=== PATIENT | male | born 1940 | race Caucasian/White ===

== ENCOUNTER → 2020-01-18 08:36 | Outpatient (BNVA) | payer MEDICARE, OTHER, SELFPAY | PROVIDERS: Family Provider Nurse Practitioner; PCP Nurse Practitioner; Visit Provider Internal Medicine Cardiovascular Disease | DX: E78.5 Hyperlipidemia, unspecified (principal) | CPT/HCPCS: 80061 ==

== ENCOUNTER → 2020-02-23 13:29 | Outpatient (BNVA) | payer MEDICARE, OTHER, SELFPAY | PROVIDERS: Family Provider Nurse Practitioner; PCP Nurse Practitioner; Visit Provider Nurse Practitioner | DX: M54.9 Dorsalgia, unspecified (principal) | CPT/HCPCS: 72100 ==

== ENCOUNTER → 2020-03-03 09:27 | Outpatient (BNVA) | payer MEDICARE, OTHER, SELFPAY | PROVIDERS: Family Provider Nurse Practitioner; PCP Nurse Practitioner; Referring Provider Nurse Practitioner; Visit Provider Anesthesiology Pain Medicine | DX: M47.816 Spondylosis without myelopathy or radiculopathy, lumbar region (principal); M48.061 Spinal stenosis, lumbar region without neurogenic claudication; M48.062 Spinal stenosis, lumbar region with neurogenic claudication; M54.16 Radiculopathy, lumbar region; M62.830 Muscle spasm of back | CPT/HCPCS: 99204 ==

== ENCOUNTER 2020-03-08 14:24 | Outpatient (CLI) | payer MEDICARE, OTHER, SELFPAY ==
--- NOTE | 2020-03-08 15:15 | CT_ITS ---
WS: [id number] CT LUMBAR SPINE, noncontrast. HISTORY: pain TECHNIQUE: Contiguous 2.5 mm axial imaging are performed. Sagittal and coronal reformats are submitte d and reviewed. All CT scans at [facility] use at least one of these dose optimization te chniques: automated exposure control; mA and/or kV adjustment per patient size (includes targeted exa ms where dose is matched to clinical indication); or iterative reconstruction. IV contrast: None DLP: 1785.56 mGycm COMPARISON: None available. Straightening of the normal lumbar lordosis. L4 retrolisthesis by 5.2 mm with severe disc space narro wing and desiccation at L4-5. No fractures. Large vertebral body osteophytes extend anterior. L1-2: Normal. L2-3: Mild annular disc bulging with slight effacement of the ventral thecal sac. No stenosis. L3-4: Mild annular disc bulging with a LEFT foraminal broad-based disc protrusion. There is an additi onal osteophyte in the LEFT foramen. There is very mild LEFT foraminal narrowing. L4-5: Diffuse osteophytic ridging and annular disc bulging. Central broad based disc protrusion conta cting the thecal sac and RIGHT L5 nerve root. Mild disc encroachment into the lateral recesses bilate rally. L5-S1: No stenosis or herniations. Moderate atherosclerosis aorta. Small amount of air in the LEFT SI joint. CT/CT lumbar spine wo con* [id number] IMPRESSION: 1. Advanced degenerative disc disease at L4-5 with 5.2 mm retrolisthesis of L4 . 2. Broad-based disc protrusion centrally at L4-5 with encroachment into the la teral recesses bilaterally and contact on the RIGHT L5 nerve root. 3. Mild LEFT foraminal narrowing at L3-4 with a broad-based LEFT foraminal dis c protrusion.
== END 2020-03-08 14:25 | disposition home or self-care (01) ==
LOC: RADWPI 14:28
PROVIDERS: Family Provider Nurse Practitioner; PCP Nurse Practitioner; Visit Provider Anesthesiology Pain Medicine
DX: M51.36 Other intervertebral disc degeneration, lumbar region (principal); M51.26 Other intervertebral disc displacement, lumbar region; M48.061 Spinal stenosis, lumbar region without neurogenic claudication
CPT/HCPCS: 72131

== ENCOUNTER → 2020-03-09 10:20 | Outpatient (BNVA) | payer MEDICARE, OTHER, SELFPAY | PROVIDERS: Family Provider Nurse Practitioner; PCP Nurse Practitioner; Visit Provider Anesthesiology Pain Medicine | DX: M48.062 Spinal stenosis, lumbar region with neurogenic claudication (principal); M47.816 Spondylosis without myelopathy or radiculopathy, lumbar region; M54.16 Radiculopathy, lumbar region; M48.061 Spinal stenosis, lumbar region without neurogenic claudication; M48.19 Ankylosing hyperostosis [Forestier], 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; M62.830 Muscle spasm of back | CPT/HCPCS: 99213; 99214; G0260; J1030; J2001; J3490 ==

== ENCOUNTER → 2020-03-30 12:41 | Outpatient (BNVA) | payer MEDICARE, OTHER, SELFPAY | PROVIDERS: Family Provider Nurse Practitioner; PCP Nurse Practitioner; Visit Provider Anesthesiology Pain Medicine | DX: M48.062 Spinal stenosis, lumbar region with neurogenic claudication (principal); M47.816 Spondylosis without myelopathy or radiculopathy, lumbar region; M54.16 Radiculopathy, lumbar region; M48.061 Spinal stenosis, lumbar region without neurogenic claudication; M48.19 Ankylosing hyperostosis [Forestier], 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; M53.3 Sacrococcygeal disorders, not elsewhere classified; M62.830 Muscle spasm of back | CPT/HCPCS: 99212; 99213 ==

== ENCOUNTER → 2020-05-05 11:44 | Outpatient (BNVA) | payer MEDICARE, OTHER, SELFPAY | PROVIDERS: Family Provider Nurse Practitioner; PCP Nurse Practitioner; Visit Provider Nurse Practitioner Family | DX: J02.9 Acute pharyngitis, unspecified (principal); B37.0 Candidal stomatitis | CPT/HCPCS: 87071; 87880 ==

== ENCOUNTER → 2020-06-08 08:26 | Outpatient (BNVA) | payer MEDICARE, OTHER, SELFPAY | PROVIDERS: Family Provider Nurse Practitioner; PCP Nurse Practitioner; Visit Provider Internal Medicine Cardiovascular Disease | DX: E78.2 Mixed hyperlipidemia (principal) | CPT/HCPCS: 80061; 80076 ==

== ENCOUNTER → 2020-07-20 09:18 | Outpatient (BNVA) | payer MEDICARE, OTHER, SELFPAY | PROVIDERS: Family Provider Nurse Practitioner; PCP Nurse Practitioner; Visit Provider Internal Medicine Cardiovascular Disease | DX: E78.2 Mixed hyperlipidemia (principal); I25.5 Ischemic cardiomyopathy; I34.0 Nonrheumatic mitral (valve) insufficiency; I50.22 Chronic systolic (congestive) heart failure; I25.10 Atherosclerotic heart disease of native coronary artery without angina pectoris; Z95.810 Presence of automatic (implantable) cardiac defibrillator; I11.0 Hypertensive heart disease with heart failure | CPT/HCPCS: 80061; 80076 ==

== ENCOUNTER → 2020-12-20 10:36 | Outpatient (BNVA) | payer MEDICARE, OTHER, SELFPAY | PROVIDERS: Family Provider Nurse Practitioner; PCP Nurse Practitioner; Visit Provider Nurse Practitioner | DX: M54.2 Cervicalgia (principal) | CPT/HCPCS: 72040 ==

== ENCOUNTER → 2021-01-03 09:38 | Outpatient (BNVA) | payer MEDICARE, OTHER, SELFPAY | PROVIDERS: Family Provider Nurse Practitioner; PCP Nurse Practitioner; Visit Provider Anesthesiology Pain Medicine | DX: M79.601 Pain in right arm (principal); M79.602 Pain in left arm; M54.12 Radiculopathy, cervical region; M50.90 Cervical disc disorder, unspecified, unspecified cervical region; M47.812 Spondylosis without myelopathy or radiculopathy, cervical region; M48.062 Spinal stenosis, lumbar region with neurogenic claudication; M47.816 Spondylosis without myelopathy or radiculopathy, lumbar region; M54.16 Radiculopathy, lumbar region; M48.061 Spinal stenosis, lumbar region without neurogenic claudication; M53.3 Sacrococcygeal disorders, not elsewhere classified; M48.19 Ankylosing hyperostosis [Forestier], 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; M62.830 Muscle spasm of back | CPT/HCPCS: 99214 ==

== ENCOUNTER → 2021-01-30 13:22 | Outpatient (BNVA) | payer MEDICARE, OTHER, SELFPAY | PROVIDERS: Family Provider Nurse Practitioner; PCP Nurse Practitioner; Visit Provider Anesthesiology Pain Medicine | DX: M54.16 Radiculopathy, lumbar region (principal); M48.062 Spinal stenosis, lumbar region with neurogenic claudication; M48.061 Spinal stenosis, lumbar region without neurogenic claudication; M47.816 Spondylosis without myelopathy or radiculopathy, lumbar region; M53.3 Sacrococcygeal disorders, not elsewhere classified; M62.830 Muscle spasm of back; M48.19 Ankylosing hyperostosis [Forestier], 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; M54.12 Radiculopathy, cervical region; M50.90 Cervical disc disorder, unspecified, unspecified cervical region; M47.812 Spondylosis without myelopathy or radiculopathy, cervical region | CPT/HCPCS: 99214 ==

== ENCOUNTER → 2021-02-02 12:27 | Outpatient (BNVA) | payer MEDICARE, OTHER, SELFPAY | PROVIDERS: Family Provider Nurse Practitioner; PCP Nurse Practitioner; Visit Provider Anesthesiology Pain Medicine | DX: M54.16 Radiculopathy, lumbar region (principal); M48.062 Spinal stenosis, lumbar region with neurogenic claudication | CPT/HCPCS: 64483; 64484; J1100; J3490 ==

== ENCOUNTER → 2021-02-16 08:37 | Outpatient (BNVA) | payer MEDICARE, OTHER, SELFPAY | PROVIDERS: Family Provider Nurse Practitioner; PCP Nurse Practitioner; Visit Provider Anesthesiology Pain Medicine | DX: G89.29 Other chronic pain (principal); M54.41 Lumbago with sciatica, right side; M48.062 Spinal stenosis, lumbar region with neurogenic claudication; M54.16 Radiculopathy, lumbar region; M47.816 Spondylosis without myelopathy or radiculopathy, lumbar region; M48.061 Spinal stenosis, lumbar region without neurogenic claudication; M54.12 Radiculopathy, cervical region; M47.812 Spondylosis without myelopathy or radiculopathy, cervical region; M50.90 Cervical disc disorder, unspecified, unspecified cervical region; M53.3 Sacrococcygeal disorders, not elsewhere classified; M62.830 Muscle spasm of back; M48.19 Ankylosing hyperostosis [Forestier], 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 | CPT/HCPCS: 99214 ==

== ENCOUNTER → 2021-02-19 13:23 | Outpatient (BNVA) | payer MEDICARE, OTHER, SELFPAY | PROVIDERS: Family Provider Nurse Practitioner; PCP Nurse Practitioner; Visit Provider Anesthesiology Pain Medicine | DX: M48.062 Spinal stenosis, lumbar region with neurogenic claudication (principal); M54.16 Radiculopathy, lumbar region | CPT/HCPCS: 62323; J1040; J3490 ==

== ENCOUNTER → 2021-03-05 08:56 | Outpatient (BNVA) | payer MEDICARE, OTHER, SELFPAY | PROVIDERS: Family Provider Nurse Practitioner; PCP Nurse Practitioner; Visit Provider Anesthesiology Pain Medicine | DX: M54.16 Radiculopathy, lumbar region (principal); M48.062 Spinal stenosis, lumbar region with neurogenic claudication; M47.816 Spondylosis without myelopathy or radiculopathy, lumbar region; M53.3 Sacrococcygeal disorders, not elsewhere classified; M48.061 Spinal stenosis, lumbar region without neurogenic claudication; M54.12 Radiculopathy, cervical region; M50.90 Cervical disc disorder, unspecified, unspecified cervical region; M47.812 Spondylosis without myelopathy or radiculopathy, cervical region; M48.19 Ankylosing hyperostosis [Forestier], 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; M62.830 Muscle spasm of back | CPT/HCPCS: 99213 ==

== ENCOUNTER → 2021-03-16 09:04 | Outpatient (BNVA) | payer MEDICARE, OTHER, SELFPAY | PROVIDERS: Family Provider Nurse Practitioner; PCP Nurse Practitioner; Visit Provider Nurse Practitioner | DX: Z12.5 Encounter for screening for malignant neoplasm of prostate (principal) | CPT/HCPCS: G0103 ==

== ENCOUNTER → 2021-05-04 10:18 | Outpatient (BNVA) | payer MEDICARE, OTHER, SELFPAY | PROVIDERS: Family Provider Nurse Practitioner; PCP Nurse Practitioner; Visit Provider Anesthesiology Pain Medicine | DX: M48.062 Spinal stenosis, lumbar region with neurogenic claudication (principal); M54.16 Radiculopathy, lumbar region; M47.816 Spondylosis without myelopathy or radiculopathy, lumbar region; M48.061 Spinal stenosis, lumbar region without neurogenic claudication; M48.19 Ankylosing hyperostosis [Forestier], 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; M54.12 Radiculopathy, cervical region; M50.90 Cervical disc disorder, unspecified, unspecified cervical region; M47.812 Spondylosis without myelopathy or radiculopathy, cervical region; M53.3 Sacrococcygeal disorders, not elsewhere classified; M62.830 Muscle spasm of back; M25.552 Pain in left hip | CPT/HCPCS: 99214 ==

== ENCOUNTER → 2021-05-10 12:57 | Outpatient (BNVA) | payer MEDICARE, OTHER, SELFPAY | PROVIDERS: Family Provider Nurse Practitioner; PCP Nurse Practitioner; Visit Provider Anesthesiology Pain Medicine | DX: M53.3 Sacrococcygeal disorders, not elsewhere classified (principal); M48.062 Spinal stenosis, lumbar region with neurogenic claudication | CPT/HCPCS: G0260; J1030; J3490 ==

== ENCOUNTER → 2021-06-04 09:40 | Outpatient (BNVA) | payer MEDICARE, OTHER, SELFPAY | PROVIDERS: Family Provider Nurse Practitioner; PCP Nurse Practitioner; Visit Provider Anesthesiology Pain Medicine | DX: M48.062 Spinal stenosis, lumbar region with neurogenic claudication (principal); M54.16 Radiculopathy, lumbar region; M47.816 Spondylosis without myelopathy or radiculopathy, lumbar region; M48.061 Spinal stenosis, lumbar region without neurogenic claudication; M54.12 Radiculopathy, cervical region; M50.90 Cervical disc disorder, unspecified, unspecified cervical region; M47.812 Spondylosis without myelopathy or radiculopathy, cervical region; M48.19 Ankylosing hyperostosis [Forestier], 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; M53.3 Sacrococcygeal disorders, not elsewhere classified; M62.830 Muscle spasm of back | CPT/HCPCS: 99213 ==

== ENCOUNTER → 2021-06-14 10:55 | Outpatient (BNVA) | payer MEDICARE, OTHER, SELFPAY | PROVIDERS: Family Provider Nurse Practitioner; PCP Nurse Practitioner; Visit Provider Anesthesiology Pain Medicine | DX: G89.29 Other chronic pain (principal); M53.3 Sacrococcygeal disorders, not elsewhere classified; M48.062 Spinal stenosis, lumbar region with neurogenic claudication; M54.16 Radiculopathy, lumbar region; M48.061 Spinal stenosis, lumbar region without neurogenic claudication; M47.816 Spondylosis without myelopathy or radiculopathy, lumbar region; M54.12 Radiculopathy, cervical region; M50.90 Cervical disc disorder, unspecified, unspecified cervical region; M47.812 Spondylosis without myelopathy or radiculopathy, cervical region; M48.19 Ankylosing hyperostosis [Forestier], 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; M62.830 Muscle spasm of back; I25.10 Atherosclerotic heart disease of native coronary artery without angina pectoris | CPT/HCPCS: 99214 ==

== ENCOUNTER → 2021-07-18 08:51 | Outpatient (BNVA) | payer MEDICARE, OTHER, SELFPAY | PROVIDERS: Family Provider Nurse Practitioner; PCP Nurse Practitioner; Visit Provider Internal Medicine Cardiovascular Disease | DX: I50.22 Chronic systolic (congestive) heart failure (principal); I50.33 Acute on chronic diastolic (congestive) heart failure; E78.5 Hyperlipidemia, unspecified; R06.02 Shortness of breath | CPT/HCPCS: 80048; 80061; 80162; 83880 ==

== ENCOUNTER → 2021-08-13 10:43 | Outpatient (BNVA) | payer MEDICARE, OTHER, SELFPAY | PROVIDERS: Family Provider Nurse Practitioner; PCP Nurse Practitioner; Visit Provider Nurse Practitioner Family | DX: I25.5 Ischemic cardiomyopathy (principal) | CPT/HCPCS: 80048 ==

== ENCOUNTER → 2021-09-14 10:25 | Outpatient (BNVA) | payer MEDICARE, OTHER, SELFPAY | PROVIDERS: Family Provider Nurse Practitioner; PCP Nurse Practitioner; Visit Provider Nurse Practitioner Family | DX: I25.5 Ischemic cardiomyopathy (principal); I50.22 Chronic systolic (congestive) heart failure | CPT/HCPCS: 80048 ==

== ENCOUNTER → 2021-10-03 10:08 | Outpatient (BNVA) | payer MEDICARE, OTHER, SELFPAY | PROVIDERS: Family Provider Nurse Practitioner; PCP Nurse Practitioner; Visit Provider Nurse Practitioner Family | DX: I50.22 Chronic systolic (congestive) heart failure (principal); I50.9 Heart failure, unspecified | CPT/HCPCS: 80048 ==

== ENCOUNTER → 2021-12-07 10:37 | Outpatient (BNVA) | payer MEDICARE, OTHER, SELFPAY | PROVIDERS: Family Provider Nurse Practitioner; PCP Nurse Practitioner; Visit Provider Internal Medicine Cardiovascular Disease | DX: I25.5 Ischemic cardiomyopathy (principal); Z95.810 Presence of automatic (implantable) cardiac defibrillator ==

== ENCOUNTER → 2021-12-11 09:39 | Outpatient (BNVA) | payer MEDICARE, OTHER, SELFPAY | PROVIDERS: Family Provider Nurse Practitioner; PCP Nurse Practitioner; Visit Provider Internal Medicine Cardiovascular Disease | DX: R06.02 Shortness of breath (principal); I25.119 Atherosclerotic heart disease of native coronary artery with unspecified angina pectoris; I50.33 Acute on chronic diastolic (congestive) heart failure | CPT/HCPCS: 80048; 84484; 85025; 85610; 86850; 86900; 99215 ==

== ENCOUNTER 2021-12-14 07:09 | Observation (INO) | payer MEDICARE, OTHER, SELFPAY ==
[2021-12-14] VITALS (18 sets, daily range): BP systolic 91–130; BP diastolic 50–87; PULSE 60–92; RESP 12–32; TEMP 36.2–36.7; O2SAT 94–99; BMI 25.8
--- NOTE | 2021-12-14 06:00 | XACV_ITS ---
Exam Room: [facility] Ht: 173 cm Wt: 77 kg BSA: 1.94 m2 Gender: Male : 1940 Any Known Allergies: No known allergies Exam Priority: Routine Procedure(s): Procedure Description: Diagnostic procedure Procedure Description: PCI procedure Procedure Description: Left Heart Catheterization Procedure Description: Drug Eluting Coronary Stent Procedure Description: PTCA Procedure Description: Coronary Angiography Jacky LIANG; Diagnostic Cath Status: Elective Diagnostic Findings * The left main is a medium caliber vessel with a minimal ostial narrowing. * The left anterior descending artery is a medium caliber vessel which appears to wrap around the LV apex. The mid to distal LAD was found to have a long stented segment. The first septal general counselor was found to have an ostial. * The circumflex artery is a medium caliber nondominant vessel with no significant stenotic lesions. * The right coronary artery is a medium to large caliber dominant vessel with around 30% tubular narrowing in the mid segment. No other significant obstructive lesions were noted. PCI Status: Elective PCI LVEF Assessed: No PCI Indication: NSTE - ACS Interventional Findings * The more distal LAD stent was 95% stenosed. A wire was placed and a 2.5 mm x 20 mm noncompliant balloon was used to dilate the lesion. Subsequently a 2.5 mm x 22 mm stent, drug-eluting, was placed. There was a good angiographic result. No complications. Decision for PCI with Surgical Consult: No PCI for Multi-vessel Disease: No Conclusions 1. This is a 81-year-old white male with history of coronary disease, status post PCI in 1998 with multiple stents, status post ICD in 2004, presented with complaints of chest pain and shortness of breath. The patient is known to have cardiomyopathy and had ICD implantation. In view of his high risk status, for further evaluation of his symptoms, a cardiac catheterization was recommended. Patient underwent left heart catheterization with left and right coronary angiogram today. The findings are as follows. 2. Minimal ostial narrowing in the left main. High-grade in-stent stenosis in the LAD. Mild disease in the other vessels. LVEDP of 22 mmHg. Based on the angiogram findings, it was thought to be appropriate to consider PCI of the LAD lesion. I reviewed and discussed the cardiac catheterization data with Dr. Flores. Dr. Flroes took over further management of this patient at this point. Further details of the intervention, please refer to the intervention report by Dr. Flores. Interventional RX Recommendation: PCI w/o planned CABG Diagnostic RX Recommendation: PCI w/o planned CABG LV EDP: 22 mmHg Left Ventriculography Findings: * The LV gram was not performed because of the concern about dye overload. The LVEDP was 22 mmHg. Pressures Phase:Rest AO : 93 / 19 ( 40 ) @ 8:42:00 AM LV : 91 / 13 / 22 @ 8:42:00 AM Clinical Evaluation EBL: 5mL-10mL Procedural Details Bev Escobar RN, UTILITIES MANAGER was relieved by Ama Taveras RN as monitoring person. Procedure Consent Obtained. Admit Source: Out Patient. Pre-Procedure Time Out. Identified patient by full name and date of as verbalized by the patient/guarantor. Does the consent match the physician's order: Yes. Accurate & Complete Informed Consent: Yes. Inpatient/Outpatient History & Physical on Chart: Yes. If H&P is completed, is and addenduem needed: No; If yes, is the addendum complete: No. Visualize and Verify Site with Patient/Guarantor: N/A. Relevant Radiology Images available: N/A. The risks, benefits, and alternatives of sedation and/or procedure were discussed by physician. The patient agrees to continue. Procedure started. Correct patient, site and procedure confirmed by cath team. PERRLA. Strong, equal hand certified orthoptist bilaterally. Lungs clear x 5 lobes. IV Site on Arrival: 20 gauge in the right anticubital. IV Fluids: 0.9% NaCl at KVO. 0 mL infused prior to chemical lab supervisor. Pre Procedural Pulses: bilateral dorsalis pedis was 3+. Pre Procedural Pulses: bilateral radial was 3+. Pre Procedural Pulses: bilateral posterior tibial was 3+. Oxygen started at 2liters/min via nasal canula. right radial was prepped with chloroprep then draped in the usual sterile fashion. right groin was prepped with chloroprep then draped in the usual sterile fashion. Physician notified. Baseline sample Acquired. HR: 60 BPM. [facility] Clinical Fraility Score: 3: Managing Well. Coal Chemist Indications: Worsening Angina. Chest Pain Symptom Assessment: Typical Angina Symptoms. Physician arrived. Physician scrubbed in. Immediate Pre-Procedure Time Out. Correct Patient: Yes; Correct Procedure: Yes; Correct Site: Yes; Correct Patient Position: Yes; Correct Supplies: Yes; Dried Flammable Prep: Yes; Blood Products Available: No;. Lidocaine 1% infiltrated to the right radial. Arterial access obtained. A 5 indonesian Otoniel catheter in over wire. Wire out. Multiple views taken of left coronary artery. Catheter redirected to the RCA. Catheter removed over the standard wire. A 5 indonesian JR4 catheter in over wire. Multiple views taken of right coronary artery. Catheter removed over the standard wire. A 5 indonesian Angled Pig catheter in over wire. EDP Sample taken: LV 91/13,22; HR: 59 BPM; SpO2: 97%. Dr. Flores called to chemical lab supervisor. Dr. Rico scrubbed out. Patient family updated. Dr. Flores scrubbed in to perform intervention. 6 indonesian XB 3 guide catheter was inserted over the wire. Standard wire removed. [place] guidewire was advanced through the guide catheter to lesion in the mid LAD. Guidewire advanced across lesion. Balloon inserted to lesion in the mid LAD. Inflation number: 1 The T RONNI EUPHORA RX [id number] BALLOON was reinflated across the Mid LAD, to 14 WARD for 0:45 seconds. Balloon out. Angiography performed. Inflation Number : 2 A JADE [place] LUDIVINA [id number] JEANNE -Lot Number# was prepped and advanced across the Mid LAD. The stent was deployed at 12 WARD for 0:21 seconds. Stent balloon out over wire. Results checked. Wire out. Guide catheter out. A TR Band was successful obtaining hemostatsis at the Right Radial artery insertion site. Post Procedure: Pulses reassessed and unchanged. PERRLA. Strong, equal hand certified orthoptist bilaterally. No VTE prophylaxis required. Complications: None. Post-op diagnosis: Obstructive CAD. PCI Indication:Worsening Angina. Estimated blood loss: 5mL-10mL. Responsiveness - Normal response to verbal stimuli; alert and oriented, PERRLA. Airway - Unaffected, no intervention required; spontaneous ventilation. Circulation: W/N/L, pulses unchanged. Nausea/Vomiting: No. Procedure completed. Total IV fluids: 430 mL. Medication's Wasted: Lidocaine 1% = 8 mL. Medication's Wasted: Nitro = 50 mg. Medication's Wasted: Heparin = 1000 units. Medication's Wasted: Other = fentanyl 100 mcg. Patient transferred by wheelchair to 1st floor. Access Site Site: Right Radial artery Sheath Size: 6 Fr Hemostasis Method: TR Band Hemostasis Success: Successful Procedure Medications Start: 7:06 AM Stop: 7:06 AM Medication: Fentanyl Amount: 50 mcg Route: I.V. Start: 7:09 AM Stop: 7:09 AM Medication: Versed Amount: 1 mg Route: I.V. Start: 7:18 AM Stop: 7:18 AM Medication: Fentanyl Amount: 50 mcg Route: I.V. Start: 7:19 AM Stop: 7:19 AM Medication: Versed Amount: 1 mg Route: I.V. Start: 7:22 AM Stop: 7:22 AM Medication: Verapamil Amount: 5 mg Route: I.A. Start: 7:22 AM Stop: 7:22 AM Medication: 0.9% Saline Amount: 250 ml Route: I.V. bolus Start: 7:24 AM Stop: 7:24 AM Medication: Heparin Amount: 5000 units Route: I.V. Start: 7:28 AM Stop: 7:28 AM Medication: Versed Amount: 1 mg Route: I.V. Start: 7:47 AM Stop: 7:47 AM Medication: Versed Amount: 1 mg Route: I.V. Start: 8:14 AM Stop: 8:14 AM Medication: Plavix Amount: 600 mg Route: P.O. I, the attending physician, have reviewed and verified all procedure medications. Yes, all medications given per verbal order History/Risk Factors Hypertension: Yes Dyslipidemia: Yes Peripheral Arterial Disease (PAD): No Myocardial Infarction (TN): Yes Obesity: No Renal Disease: No Prior Interventions PCI: Yes CABG: No Valve Surgery: No Date of PCI: 07/24/1999 Report Signatures Diagnostic Workflow Finalized by Dr Candie Rico MD [facility] on 12/14/2021 09:31 AM Interventional Workflow Finalized by Dr. Walt Flores MD on 12/14/2021 08:50 AM
[2021-12-14] MEDS: diphenhydrAMINE 50 mg Capsule PO (06:21)
--- NOTE | 2021-12-14 07:08 | W.PM.OPSUD ---
Surgery/Procedure H&P Update DATE OF PROCEDURE: December 14, 2021 DATE H&P PERFORMED: 12/11/21 H&P UPDATE INFORMATION: I have reviewed H&P completed within last 30 days, I have examined patient prior to procedure and No changes to prior documentation PREOP DIAGNOSIS: ASHD PRIMARY INDICATION FOR PROCEDURE: ashd/ cardiopmyopathy/SOB/Chest pain PLANNED PROCEDURE: Operation Date: 12/14/21 07:00 Proposed Procedures p Cardiac Catheterization(Left) - Candie Rico MD PATIENT REASSESSED PRIOR TO SEDATION, WITH NO CHANGE NOTED: Yes PHYSICAL EXAM: alert, oriented x 3, clear to auscultation bilaterally and regular rate & rhythm AIRWAY EVAL/ANESTHESIA PLAN: normal airway, see other exam findings, ASA II, Monitored Anesthesia, Local Anesthesia, Risks, benefits & alternatives of sedation and/or procedure discussed and Patient agrees to continue as planned
--- NOTE | 2021-12-14 10:39 | PC.CHAP ---
Pastoral Care Encounter/Spiritual Assessment Type of Contact [] Declined perianesthesia rn visit [] Patient/Family/Request visit [] Outpatient visit [] Follow-up visit [] Physician referral [] Code/Alert [x] Routine visit [] Staff referral [] Actively dying [] Patient sleeping [x] Family support [] [] Out of room [] Palliative care [] [] Receiving care in room [] Pre-surgical visit [] Trauma [] Long length of stay [] ICU visit [] Other: Relational/Emotional Strength [] Patient feels connected with others/family/visitors/staff [] Distress [] Loneliness/isolation [] Abandonment Spirituality of Patient [] Person of [place] [] Attends Episcopal of their [place] [] Believes in Prayer [] Reads Bible or Mandaeism materials [] There are Spiritual issues to be addressed Platform Attendant Interventions [x] Prayer [] Active listening [] Non-anxious presence [] Spiritual/emotional support [] Crisis/trauma care [] Spiritual counseling [] Bereavement support [] Provided bereavement packet [] Provided Bible/devotional materials [] Provided toy/stuffed animal, coloring book to patient or family member [] Provided Communion [] Anointing/[place] [] Salvation [x] Completed spiritual assessment [] Other: Impact on Illness or Injury [] Angry [] Fearful [] Anxious [] Often cries [] Exhaustion [] Unable to work [] Unable to attend mu-ism [] Unable to walk/stand [] Unable to read [] Unable to drive [] Unable to eat/drink [] Unable to sleep [] Unable to be with family [] Patient intubated [] Other: Summary prayed for healing and peace Time spent with patient
[2021-12-14] MEDS: digoxin 125 mcg Tablet PO (18:08)
--- NOTE | 2021-12-14 19:05 | PC.NURSE ---
Received report from SAHARA Gardner. Patient is s/p C with PCI via right wrist. Dressing in place to site remains c,d,i with no s/s of bleeding or hematoma formation observed. Patient up ambulating in the [place] frequently. Denies pain or needs. No distress observed. Instructed patient on site care and restrictions. Patient verbalized complete understanding. Will continue to monitor.
[2021-12-14] MEDS: carvedilol 3.125 mg Tablet PO (20:08)
[2021-12-15 00:33] VITALS: PULSE 73
[2021-12-15 03:40] VITALS: PULSE 66
[2021-12-15 04:02] VITALS: BP 99/48; PULSE 73; RESP 13; O2SAT 95
[2021-12-15 04:10] VITALS: PULSE 66
[2021-12-15 07:26] VITALS: BP 124/73; PULSE 73; RESP 18; TEMP 36.6; O2SAT 98
[2021-12-15] MEDS: aspirin 81 mg EC Tablet PO (08:42)
[2021-12-15] MEDS: magnesium oxide 400 mg tablet PO (08:42)
[2021-12-15] MEDS: clopidogrel 75 mg Tablet PO (08:42)
[2021-12-15] MEDS: loratadine 10 mg Tablet PO (08:42)
[2021-12-15] MEDS: carvedilol 3.125 mg Tablet PO (08:43)
--- NOTE | 2021-12-15 10:05 | P.PN_ITS ---
Subjective Subjective: This patient underwent cardiac catheterization yesterday, which revealed high-grade lesion in the left anterior descending artery. He underwent PCI of this lesion. Currently remaining stable with no new symptoms. Vital signs are stable. Medications: Medication Review Details: Current Medications Aspirin (Aspirin 81 Mg Ec Tablet) 81 mg PO DAILY [facility] Last Admin: 12/15/21 08:42 Dose: 81 mg Documented by: Carvedilol (Carvedilol 3.125 Mg Tablet) 3.125 mg PO BID@0900,2100 [facility] Last Admin: 12/15/21 08:43 Dose: 3.125 mg Documented by: Clopidogrel Bisulfate (Clopidogrel 75 Mg Tablet) 75 mg PO DAILY [facility] Last Admin: 12/15/21 08:42 Dose: 75 mg Documented by: Digoxin (Digoxin 125 Mcg Tablet) 125 mcg PO Q24H [facility] Last Admin: 12/14/21 18:08 Dose: 125 mcg Documented by: Fluticasone Propionate (Fluticasone Nasal [place] 16gm Btl) 2 spray INTRANASAL DAILY [facility] Last Admin: 12/15/21 08:43 Dose: Not Given Documented by: Loratadine (Loratadine 10 Mg Tablet) 10 mg PO DAILY [facility] Last Admin: 12/15/21 08:42 Dose: 10 mg Documented by: Magnesium Oxide (Magnesium Oxide 400 Mg Tablet) 400 mg PO DAILY [facility] Last Admin: 12/15/21 08:42 Dose: 400 mg Documented by: Nitroglycerin (Nitroglycerin 0.4 Mg Sublingual Tablet) 0.4 mg SUBLINGUAL Q5M PRN PRN Reason: chest pain Non-Formulary Medication (Ezetimibe-Simvastatin) 0 tab PO .COMPLEX [facility] Non-Formulary Medication (Sacubitril-Valsartan) 1 tab PO BID [facility] Last Admin: 12/15/21 08:43 Dose: Not Given Documented by: Triamcinolone Acetonide (Triamcinolone 0.1% Cream 15 Gm) 1 applic TOPICAL BID PRN PRN Reason: eczema Vitals/I&O/Wt Last Vital Signs Temp 97.8 F 12/15/21 07:26 Pulse 73 12/15/21 07:26 Resp 18 12/15/21 07:26 BP 124/73 12/15/21 07:26 Pulse Ox 98 12/15/21 07:26 12/14/21 12/15/21 12/15/21 22:59 06:59 14:59 Intake Total 360 / 600 Balance 360 / 600 Weight last 48 hrs Weight 170 lb Physical Exam Narrative: GENERAL: The patient is alert and oriented times three. Not in any acute distress. HEENT: No significant pallor, icterus or lymphadenopathy.Oral cavity: There are no mucous membrane lesions. NECK: Trachea appears to be central. No masses noted. No JVD or thyromegaly appreciated. RESPIRATORY: Chest is symmetrical. No intercostals muscle retraction or any accessory muscle activation. There is no chest wall tenderness. Breath sounds are heard bilaterally. No rales or rhonchi heard. No evidence of any consolidation. BREASTS: Deferred. HEART: The heart sounds are normal. No S3 or S4. No significant murmurs. No pericardial rub ABDOMEN: No vessel pulsations or distention. No tenderness. No organomegaly appreciated. Bowel sounds are normally heard. : Deferred. RECTAL: Deferred. LYMPHATIC: No lymphadenopathy noted in the neck. EXTREMITIES: No hematoma or bleeding of the right wrist. Good radial pulse. MUSCULOSKELETAL: No acute joint deformities or swelling SKIN: There are no significant rashes or ecchymosis NEUROPSYCHIATRIC: The patient is alert and oriented x3. Appears to be in a good mood. No tremors or rigidity noted. Data : 12/15/21 10:05 A&P Assessment and plan (1) Atherosclerotic heart disease [place] coronary artery w/angina pectoris: Status post cardiac catheterization, status post PCI of the LAD in-stent stenosis. Currently seems to be stable. We will continue on the current medication. Status: Acute (2) Implantable cardioverter-defibrillator (ICD) at end of battery life: Patient requires ICD revision. This will be scheduled for a later date. Status: Acute (3) Cardiomyopathy: Clinically seems to be compensated. We will continue on the current medications. Status: Acute Qualifiers: Cardiomyopathy type: ischemic Qualified Code(s): I25.5 - Ischemic cardiomyopathy (4) Mitral regurgitation: Continue on the current management. Status: Acute Qualifiers: Cardiac valve disease etiology: nonrheumatic Qualified Code(s): I34.0 - Nonrheumatic mitral (valve) insufficiency (5) CHF (congestive heart failure): As mentioned above. Status: Acute Qualifiers: Heart failure type: systolic Heart failure chronicity: chronic Qualified Code(s): I50.22 - Chronic systolic (congestive) heart failure (6) Hyperlipidemia: We will continue on the current statin/Zetia combination. Status: Acute Qualifiers: Hyperlipidemia type: mixed hyperlipidemia Qualified Code(s): E78.2 - Mixed hyperlipidemia Plan Since the patient remained stable, and will be discharged home today. [facility] 1 week . Patient will be seen by me as scheduled Will schedule for the ICD revision 2 weeks from now Patient is advised to continue the medications as mentioned above. The importance of compliance to diet, medications and exercise were discussed. In the event of the patient developing chest pain ,unusual palpitations or any new symptoms, is advised to contact me or come to the hospital. Attestations Medical Necessity Statement*: Discharge home today Coding Level of Care Code Acute Petrophysicist for Jersong Fwd History Detailed Exam Detailed Medical Decision Making Moderate Complexity Diagnoses Atherosclerotic heart disease [place] coronary artery w/angina pectoris I25.119 Implantable cardioverter-defibrillator (ICD) at end of battery life Z45.02 Cardiomyopathy I25.5 Cardiomyopathy type: ischemic Mitral regurgitation I34.0 Cardiac valve disease etiology: nonrheumatic CHF (congestive heart failure) I50.22 Heart failure type: systolic Heart failure chronicity: chronic Hyperlipidemia E78.2 Hyperlipidemia type: mixed hyperlipidemia
[2021-12-15 10:29] LABS: Blood Urea Nitrogen 17 mg/dL (8-23); Calcium 8.9 mg/dL (8.5-10.5); Carbon Dioxide 20 mmol/L (22-29); Chloride 105 mmol/L (98-107); Glucose 98 mg/dL (65-115); Osmolality Calculated 282 mOsm/kg (285-295); Sodium 135 mmol/L (136-145)
[2021-12-15 10:34] LABS: Anion Gap 14.4 (5-19); Potassium 4.4 mmol/L (3.5-5.1)
[2021-12-15 11:16] VITALS: BP 124/73; PULSE 73; RESP 18; TEMP 36.6; O2SAT 98
--- NOTE | 2021-12-15 11:16 | PC.NURSE ---
Discharge Note Patient discharged to home via ambulatory accompanied by spouse. Discharge instructions reviewed with patient and/or representative personal service. Mobile pharmacy medications and/or prescriptions provided. Belongings/home medications returned.
== END 2021-12-15 11:17 | disposition home or self-care (01) ==
LOC: CSU 07:12
PROVIDERS: Internal Medicine Cardiovascular Disease; Admitting Provider Internal Medicine Cardiovascular Disease; Family Provider Nurse Practitioner; PCP Nurse Practitioner; Visit Provider Internal Medicine Cardiovascular Disease
DX: I25.119 Atherosclerotic heart disease of native coronary artery with unspecified angina pectoris (principal); Z45.02 Encounter for adjustment and management of automatic implantable cardiac defibrillator; I34.0 Nonrheumatic mitral (valve) insufficiency; I50.22 Chronic systolic (congestive) heart failure; E78.2 Mixed hyperlipidemia; Z95.5 Presence of coronary angioplasty implant and graft; I11.0 Hypertensive heart disease with heart failure; I25.2 Old myocardial infarction
CPT/HCPCS: 36415; 80048; 93458; 96360; C1725; C1769; C1874; C1887; C1894; C9600; G0378; J1644; J2250; J3010; J3490; J7030; Q0163; Q9967

== ENCOUNTER → 2021-12-21 09:07 | Outpatient (BNVA) | payer MEDICARE, OTHER, SELFPAY | PROVIDERS: Family Provider Nurse Practitioner; PCP Nurse Practitioner; Visit Provider Nurse Practitioner Family | DX: Z09 Encounter for follow-up examination after completed treatment for conditions other than malignant neoplasm (principal); I25.119 Atherosclerotic heart disease of native coronary artery with unspecified angina pectoris; I50.33 Acute on chronic diastolic (congestive) heart failure; R07.9 Chest pain, unspecified; Z79.82 Long term (current) use of aspirin | CPT/HCPCS: 36415; 80048; 83880; 99213; 99214 ==

== ENCOUNTER 2021-12-28 07:22 | Outpatient (CLI) | payer MEDICARE, OTHER, SELFPAY ==
[2021-12-28] VITALS (18 sets, daily range): BP systolic 94–120; BP diastolic 61–86; PULSE 60–95; RESP 15–24; TEMP 36.3–36.5; O2SAT 93–98; BMI 25.0
--- NOTE | 2021-12-28 09:40 | W.PM.OPSUD ---
Surgery/Procedure H&P Update DATE OF PROCEDURE: December 28, 2021 DATE H&P PERFORMED: 12/11/21 H&P UPDATE INFORMATION: I have reviewed H&P completed within last 30 days, I have examined patient prior to procedure and No changes to prior documentation PREOP DIAGNOSIS: CRTD-ARIE PLANNED PROCEDURE: Operation Date: 12/28/21 08:30 Proposed Procedures p Pacemaker Generator Change(Left) - Candie Rico MD Revision of the SHIPPING AND RECEIVING SUPERVISOR-D PATIENT REASSESSED PRIOR TO SEDATION, WITH NO CHANGE NOTED: Yes PHYSICAL EXAM: alert, oriented x 3, clear to auscultation bilaterally and regular rate & rhythm AIRWAY EVAL/ANESTHESIA PLAN: normal airway, see other exam findings, ASA III, Monitored Anesthesia, Local Anesthesia, Risks, benefits & alternatives of sedation and/or procedure discussed and Patient agrees to continue as planned
--- NOTE | 2021-12-28 12:18 | PM.OP ---
Operative Report Date of procedure: December 28, 2021 Pre-op diagnosis: Preop Diagnosis CRTD-ARIE Brief History: This is a 81-year-old white male who is known to have coronary artery disease, ischemic cardiomyopathy and REMELT FURNACE EXPEDITER-D placement was found to have ARIE for the device. For further management of his condition, he required REMELT FURNACE EXPEDITER-D revision. Procedure: PROCEDURE: ICD REVISION PREOPERATIVE DIAGNOSIS: REMELT FURNACE EXPEDITER-D elective replacement indication. POSTOPERATIVE DIAGNOSIS: REMELT FURNACE EXPEDITER-D elective replacement indication. ESTIMATED BLOOD LOSS: Around 5 milliliters. COMPLICATIONS: None. BRIEF HISTORY: The patient is 81-year-old white male who had a REMELT FURNACE EXPEDITER-D implantation for bradycardia and ischemic cardiomyopathy. The patient was found to have elective replacement indication, during routine office followup evaluation. For further management of patient's condition and for the symptomatic bradycardia, the patient required an REMELT FURNACE EXPEDITER-D revision. Patient has a history of atherosclerotic heart disease, recent PCI, essential benign hypertension, dyslipidemia The procedure was explained to the patient and his in detail with the risks and benefits. The risks of bleeding, hematoma, vascular injury, infection and other concomitant complications were explained in detail, which the patient understood well and consented to proceed. PROCEDURES PERFORMED: 1. Explantation of the old REMELT FURNACE EXPEDITER-D device . 2. Implantation of the new REMELT FURNACE EXPEDITER-D device The patient brought to the Cardiac President And Chief Executive Officer. The left side of the neck and the subclavian area were cleaned and draped in a sterile fashion. 1% Xylocaine was used for local anesthetic agent. A 2 inch long incision was made just below the previous pacemaker scar. By sharp and blunt dissection, the ICD pocket was accessed. The old generator was delivered from the pocket. The generator was detached from the lead s. The new generator was attached to the lead. The REMELT FURNACE EXPEDITER-D pocket was copiously irrigated with vancomycin solution. Because of the continuous capillary oozing surgicel absorbable hemostat was used in the pocket( Lot# [id number], expiry date 04/07/2026) . Complete hemostasis was achieved. The lead was positioned behind the generator.. Sponge counts were confirmed. The REMELT FURNACE EXPEDITER-D pocket was closed in layers. Skin was approximated using 4-0 Vicryl. EXPLANTED DEVICE: REMELT FURNACE EXPEDITER-D device: Date of implant Brand:Viva. Model number:. Serial number: [id number]. IMPLANTED DEVICES: Ventricular Lead: Date of implantation: Model number: [id number] Serial number: [id number] Make: Medtronic. Atrial Lead Date of implantation Model number 5076 Serial number [id number] LV Lead Model number- [id number] Make-Medtronic Implanted Generator: Date of implantation 12/28/2021 Brand: [employer] Construction REMELT FURNACE EXPEDITER-D SureScan. Model number: [id number] Serial number: [id number] Stimulation Threshold: Through the Device--the ventricular sensing was not obtained because of the pacer dependency. Lead impedance was 699 and the pacing threshold was 0.75 volts at 0.4 milliseconds. The atrial sensing was 1.8 millivolts. The lead impedance was 437 ohms and the pacing threshold was 0.75 volts at 0.4 ms. The left ventricular lead sensing was not obtained. Impedance was 389 ohms. The pacing threshold was 1.0 V at 0.4 ms The pacemaker was set for DDDR mode with an upper rate of 130 and a lower rate of 60. The DFT testing was not done Ventricular tachycardia detection rate was set at 176 bpm The ventricular fibrillation detection rate was set at 207 bpm A pressure dressing was applied over the ICD site. The patient was transferred back to medical floor in stable condition.
[2021-12-28] MEDS: carvedilol 3.125 mg Tablet PO (17:41)
[2021-12-28] MEDS: sacubitril/valsartan 24-26 mg Tablet 4 EACH PO (17:45)
[2021-12-28] MEDS: digoxin 125 mcg Tablet PO (18:37)
[2021-12-28] MEDS: sodium chloride 0.9% 1,000 ML 75 ML IV (19:33)
[2021-12-29] MEDS: sodium chloride 0.9% 1,000 ML 75 ML IV (02:00)
[2021-12-29] MEDS: HYDROcodone-acetaminophen 5-325 mg Tablet 1 TAB PO (02:04)
[2021-12-29 02:05] VITALS: BP 110/73; PULSE 88; RESP 18; O2SAT 97
[2021-12-29 03:48] VITALS: PULSE 67
--- NOTE | 2021-12-29 06:00 | ECG_ITS ---
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 Measurements Intervals [place] Rate: 67 P: 48 NH: 148 QRS: 258 QRSD: 205 T: 92 QT: 480 QTc: 510 Interpretive Statements ELECTRONIC ATRIAL PACEMAKER ELECTRONIC VENTRICULAR PACEMAKER No previous ECG available for comparison Electronically Signed On 12-30-2021 19:35:54 CDT by Luke Garcias M.D. [id number]
[2021-12-29 08:00] VITALS: BP 106/57; PULSE 63; RESP 20
[2021-12-29] MEDS: magnesium oxide 400 mg tablet PO (09:30)
[2021-12-29] MEDS: sacubitril/valsartan 24-26 mg Tablet 4 EACH PO (09:30)
[2021-12-29] MEDS: carvedilol 3.125 mg Tablet PO (09:32)
[2021-12-29] MEDS: FUROsemide 20 mg Tablet PO (09:32)
[2021-12-29] MEDS: aspirin 81 mg EC Tablet PO (09:32)
[2021-12-29] MEDS: clopidogrel 75 mg Tablet PO (09:33)
--- NOTE | 2021-12-29 10:11 | PM.SDS ---
Short Stay Summary Providers Date of Admit/Discharge: 12/28/21 Attending Provider: Luke Garcias MD Primary Care Provider: DORIAN KateC Chief Complaint: [id number] HPI History of Present Illness Ruslan King is a 81 year old male with past medical history of coronary artery disease, ischemic cardiomyopathy who had PASTEURIZING SUPERVISOR-D in the past and device has ARIE now. Patient was brought to the hospital for generator change out Review of Systems General: Reports: 10 or more systems reviewed and unremarkable except in HPI and below Const: Denies: fever(s), chills, body aches or fatigue Eyes: Denies: change in vision, blurry vision, blind spots, floaters or seeing flashes ENMT: Denies: throat pain or odynophagia Card: Denies: chest pain, palpitations, irregular heart rhythm, edema, swelling of feet/ankles, lightheadedness, syncope, pre-syncope or dyspnea on exertion Resp: Denies: dyspnea, productive cough, non-productive cough or wheezing GI: Denies: abdominal pain, nausea, vomiting, heartburn, change in bowel habits, hematochezia or melena : Denies: difficulty urinating, dysuria or hematuria Musc: Denies: neck pain, back pain or joint pain Skin/Breast: Denies: rash or pruritus Neuro: Denies: headache(s), numbness in extremities, weakness in extremities or dizziness Psych: Denies: anxiety or depression Endo: Denies: polyuria, polydipsia or excessive sweating Kendell/Lymph: Reports: easy bruising and easy bleeding All/Imm: Denies: urticaria, throat swelling, tongue swelling, facial swelling, acute wheezing, itchy eyes, seasonal rhinorrhea or food intolerance Home Meds/Allergies Home Medications and Allergies Home Medications Medication Instructions Recorded Confirmed Type aspirin 81 mg tablet,delayed 81 mg PO DAILY 01/03/20 01/04/22 History release magnesium oxide 400 mg PO DAILY tab 08/15/20 01/04/22 History Allergies Allergy/AdvReac Type Severity Reaction Status Date / Time No Known Allergies Allergy Verified 01/04/22 07:45 Malignant hyperthermia Allergy Severe Malignant Uncoded 01/04/22 07:45 hyperthermia PFSH Acute PFSH: Medical History 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], 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 CAD (coronary artery disease) Cardiac resynchronization therapy defibrillator (PASTEURIZING SUPERVISOR-D) in place Cardiomyopathy CHF (congestive heart failure) History of [place] (myocardial infarction) 07/24/1999 in [place], [place] History of nonmelanoma skin cancer Hyperlipidemia Malignant hyperthermia susceptibility Mitral regurgitation Neuropathy Surgical History History of ankle surgery Left ankle ORIF 1994 Hx of bilateral cataract extraction ICD (implantable cardioverter-defibrillator) in place I had 3 different surgeries Family History Father , Stroke Stroke CAD (coronary artery disease) later in life Mother Stroke Son Anesthesia complication Family/Other Anesthesia complication Lung disease Suicide Sister Cancer Grandmother Lung disease Denies family history of Diabetes Clotting disorder Dementia Chronic kidney disease (CKD) Bleeding disorder Hypertension Social History Smoking and tobacco status: never smoked Second hand smoke exposure: No Smoking risk assessment/counseling performed?: No Alcohol intake: never Desire information about alcohol rehabilitation?: No Counseling given: No Desire information about substance/drug rehabilitation?: No Counseling given: No Adopted: No Caregiver/support person: No Lives independently: Yes Household members: spouse Housing: House Marital status: Number of children: 5 service: No Current occupational status: retired History of recent travel: No Current gender identity: Male Vitals/I&O/Wt Last Vital Signs Temp 97.7 F 12/28/21 19:30 Pulse 67 12/29/21 03:48 Resp 18 12/29/21 02:05 BP 110/73 12/29/21 02:05 Pulse Ox 97 12/29/21 02:05 12/28/21 12/29/21 12/29/21 22:59 06:59 14:59 Intake Total 540 / 540 543.75 / 1083.75 Balance 540 / 540 543.75 / 1083.75 Weight last 48 hrs Weight 165 lb Weight 165 lb Physical Exam Narrative: GENERAL: Patient is alert, awake and oriented x3. [] NECK: No jugular vein distension. [] HEENT: No cyanosis. No icterus. No pallor. [] HEART: Regular S1 and S2. No murmur, rub or gallop. [] LUNGS: Clear to auscultate bilaterally. [] ABDOMEN: Soft, nontender and nondistended. Positive bowel sounds. No guarding, rebound or tenderness. [] CENTRAL NERVOUS SYSTEM: Grossly nonfocal. [] EXTREMITIES: Lower extremities with 1+ edema bilaterally. Pulses palpable in the lower extremities, both dorsalis pedis and posterior tibial. [] Hospital Course Hospital Course Ruslan King is a 81 year old male with past medical history of coronary artery disease, ischemic cardiomyopathy who had PASTEURIZING SUPERVISOR-D in the past and device has ARIE now. Patient was brought to the hospital for generator change out. He underwent successful replacement of generator yesterday. PASTEURIZING SUPERVISOR-D site looks normal without any hematoma. Patient denies any complaints today. He was discharged home in a stable condition. SSS Data Data Completed and Pending: Completed Studies During Hospitalization Category Date Time Status RN IMMUNOLOGY request for service Routin e Exams 12/28/21 07:30 Completed Discharge Plan Discharge Patient Disposition: Home Prescriptions: New multivitamin Tablet 1 tab PO DAILY Qty: 7 0RF Continued aspirin 81 mg tablet,delayed release (DR/EC) 81 mg PO DAILY 0RF magnesium oxide 400 mg magnesium tablet 400 mg PO DAILY 0RF fluticasone propionate [Flonase Allergy Relief] 50 mcg/actuation spray,suspension 2 spray intranasal DAILY Qty: 16 0RF Rx Instructions: administer into each nostril loratadine [Claritin] 10 mg tablet 10 mg PO DAILY Qty: 30 2RF ezetimibe-simvastatin 10-20 mg tablet See Rx Instructions .ROUTE .COMPLEX Qty: 90 3RF Dose Instruction: TAKE 1 TABLET BY MOUTH DAILY Rx Instructions: TAKE 1 TABLET BY MOUTH DAILY digoxin 125 mcg (0.125 mg) tablet See Rx Instructions .ROUTE .COMPLEX Qty: 90 3RF Dose Instruction: TAKE 1 TABLET BY MOUTH DAILY Rx Instructions: TAKE 1 TABLET BY MOUTH DAILY triamcinolone acetonide 0.1 % cream 1 applic topical BID PRN (Reason: eczema) Qty: 80 1RF Rx Instructions: Apply BID to areas on arms/legs no more than 2 wks/mo nitroglycerin [Nitrostat] 0.4 mg tablet, sublingual 0.4 mg sublingual Q5M PRN (Reason: chest pain) Qty: 50 3RF clopidogrel 75 mg tablet 75 mg PO DAILY Qty: 100 5RF furosemide 20 mg tablet 20 mg PO DAILY Qty: 90 1RF No Action sacubitril-valsartan 97-103 mg tablet 1 tab PO BID Qty: 90 3RF carvedilol 3.125 mg tablet 3.125 mg PO BID Qty: 90 3RF Discharge Orders: Discharge Order (Routine); Ordered 12/29/21 Ordered By: Luke Garcias Referrals: Candie Rico MD [Physician] - 6 Weeks ([facility] will be calling to schedule a cardiology followup with Dr. Rioc to be seen in 6 weeks. If you don't hear from them by Friday, please give them a call. Thank you) Opal Messina FNP [Nurse Practitioner] - 1 week ([facility] will be calling to schedule a post procedure followup with DONNA Leigh to be seen in 1 week. If you don't hear from them by Friday, please give them a call. Thank you) Diet: Cardiac Activity: Increase activity as tolerated Patient Instructions: Cephalexin (By mouth) (Bio-Cef, Keflex), Multivitamins, Adult Formula (By mouth) (Daily Multiple Vitamins,..., Post Pacemaker - Jcaky Discharge Date/Time: 12/29/21 11:15 Attestations Medical Necessity Statement*: Care not expected to cross 2 midnights. Time Spent in Patient Care*: less than 30 min Quality Metrics Clinical Quality Measures: [ No reported AMI, CVA or VTE this stay] Coding Level of Care Code Acute Set Up Worker for Milvia Angela
[2021-12-29 10:40] VITALS: PULSE 67
--- NOTE | 2021-12-29 11:05 | PC.OT ---
Orders received to provide ROM teaching: arm dangle, wall walk & rotator cuff. Pt. readying for discharge (dressing self) when therapist entered. Handouts provided and ROM exercises demonstrated. Evaluation not completed secondary to pt. being discharged.
--- NOTE | 2021-12-29 11:46 | PC.NURSE ---
discharge instructions given and explained.pt verb understanding of instructions
== END 2021-12-29 11:15 | disposition home or self-care (01) ==
LOC: CCL 07:22 → CSU 12:27
PROVIDERS: Family Provider Nurse Practitioner; PCP Nurse Practitioner; Visit Provider Internal Medicine Cardiovascular Disease
DX: Z45.02 Encounter for adjustment and management of automatic implantable cardiac defibrillator (principal); Z79.82 Long term (current) use of aspirin; I25.10 Atherosclerotic heart disease of native coronary artery without angina pectoris; I50.9 Heart failure, unspecified; I25.2 Old myocardial infarction; E78.5 Hyperlipidemia, unspecified
CPT/HCPCS: 33233; 33241; 36415; 93005; 96360; 99152; 99153; C1769; C1882; J0690; J2250; J3010; J7030; J7050

== ENCOUNTER → 2022-01-04 08:52 | Outpatient (BNVA) | payer MEDICARE, OTHER, SELFPAY | PROVIDERS: Family Provider Nurse Practitioner; PCP Nurse Practitioner; Visit Provider Nurse Practitioner Family | DX: Z09 Encounter for follow-up examination after completed treatment for conditions other than malignant neoplasm (principal); Z95.810 Presence of automatic (implantable) cardiac defibrillator | CPT/HCPCS: 99213; 99214 ==

== ENCOUNTER → 2022-01-11 10:14 | Outpatient (BNVA) | payer MEDICARE, OTHER, SELFPAY | PROVIDERS: Family Provider Nurse Practitioner; PCP Nurse Practitioner; Visit Provider Internal Medicine Cardiovascular Disease | DX: Z95.810 Presence of automatic (implantable) cardiac defibrillator (principal) | CPT/HCPCS: 93284 ==

== ENCOUNTER → 2022-02-26 13:46 | Outpatient (BNVA) | payer MEDICARE, OTHER, SELFPAY | PROVIDERS: Family Provider Nurse Practitioner; PCP Nurse Practitioner; Visit Provider Nurse Practitioner Family | DX: Z12.5 Encounter for screening for malignant neoplasm of prostate (principal); I50.22 Chronic systolic (congestive) heart failure; I50.9 Heart failure, unspecified | CPT/HCPCS: 80053; G0103 ==

== ENCOUNTER → 2022-03-12 10:17 | Outpatient (BNVA) | payer MEDICARE, OTHER, SELFPAY | PROVIDERS: Family Provider Nurse Practitioner; PCP Nurse Practitioner; Visit Provider Internal Medicine Cardiovascular Disease | DX: Z95.810 Presence of automatic (implantable) cardiac defibrillator (principal); I25.119 Atherosclerotic heart disease of native coronary artery with unspecified angina pectoris; I34.0 Nonrheumatic mitral (valve) insufficiency; E78.2 Mixed hyperlipidemia | CPT/HCPCS: 36415; 80061; 99214 ==

== ENCOUNTER 2022-05-21 09:53 | Outpatient (CLI) | payer MEDICARE, OTHER, SELFPAY ==
--- NOTE | 2022-05-21 10:15 | USCV_ITS ---
Ruslan King Age: 81 Gender: M : 1940 Exam Date: 05/21/2022 10:21 Ordering Phys: Candie Rico MD ([email or web address]) Technologist: Anita Sosa Exam Location: [facility] [place] Indication: EVALUATE LV FUNCTION BP: 98 / 56 HR: 65 Rhythm: Sinus Technical Quality: Suboptimal MEASUREMENTS (Male / Female) Normal Values 2D ECHO LVOT Diameter 2.0 cm LV Ejection Fraction MOD 2C 23.4 % LV Ejection Fraction 2C AL 27.0 % LA Diameter 4.6 cm LA Width 4.3 cm LA Height 6.9 cm RA Width 4.2 cm RA Height 3.9 cm Aorta at Sinotubular Diameter 2.8 cm IVC Diameter 1.0 cm M-MODE MV E Point Septal Separation 2.8 cm DOPPLER AV Peak Velocity 110.0 cm/s LVOT Peak Velocity 78.0 cm/s AV Area Cont Eq vti 2.3 cm squared AV Area Cont Eq pk 2.3 cm squared MV Peak Velocity 115.0 cm/s MV Area PHT 4.4 cm squared Mitral E to A Ratio 1.6 MV E' Velocity 50.5 cm/s Mitral E to MV E' Ratio 18.7 Mitral E to LV E' Lateral Ratio 17.0 Mitral E to LV E' Septal Ratio 20.7 TR Peak Velocity 224.6 cm/s TR Peak Gradient 20.2 mmHg TR Mean Velocity 145.8 cm/s TR Mean Gradient 9.4 mmHg TR Velocity Time Integral 51.0 cm TV Peak E Velocity 65.0 cm/s Right Atrial Pressure 3.0 mmHg Pulmonary Artery Systolic Pressu 23.2 mmHg PV Peak Velocity 83.0 cm/s RV Acceleration Time 0.1 s RV Ejection Time 0.3 s RV AcT/ET 0.3 FINDINGS Left Ventricle Dilated left ventricle. Severely decreased left ventricular systolic function. Left ventricular ejection fraction is estimated at 25 %. Severe global left ventricular hypokinesis. Grade II diastolic dysfunction, moderately elevated filling pressures. Abnormal septal motion consistent with conduction abnormality. Right Ventricle Normal right ventricular size and systolic function. Right ventricular systolic pressure 30 mmHg. ICD wire visualized in the right ventricle. Right Atrium Normal right atrial size. Left Atrium Moderately increased left atrial size. Mitral Valve Structurally normal mitral valve. No mitral valve stenosis. Mild to moderate mitral valve regurgitation. Aortic Valve Aortic valve not well visualized. No aortic valve stenosis. No aortic valve regurgitation. Tricuspid Valve Structurally normal tricuspid valve. Mild tricuspid valve regurgitation. Pulmonic Valve Pulmonic valve not well visualized. No pulmonary valve stenosis. Trace pulmonary valve regurgitation. Pericardium No pericardial effusion. Aorta Normal size aortic root and proximal ascending aorta. IVC Normal IVC dimension with >50% respiratory change of the inferior vena cava. CONCLUSIONS 1. Dilated left ventricle. Severely decreased left ventricular systolic function. Left ventricular ejection fraction is estimated at 25%. Severe global left ventricular hypokinesis. Grade II diastolic dysfunction, moderately elevated filling pressures. Abnormal septal motion consistent with conduction abnormality. 2. Normal right ventricular size and systolic function. 3. Mild to moderate mitral valve regurgitation. 4. When compared to previous echocardiogram dated 02/07/2017, there may not have been any significant change. Angelina Pena MD (Electronically Signed) Final Date: 22 May 2022 13:11 S
== END 2022-05-21 09:54 | disposition home or self-care (01) ==
LOC: RAD 09:54
PROVIDERS: PCP Nurse Practitioner; Visit Provider Internal Medicine Cardiovascular Disease
DX: I25.5 Ischemic cardiomyopathy (principal); I50.22 Chronic systolic (congestive) heart failure; I34.0 Nonrheumatic mitral (valve) insufficiency
CPT/HCPCS: 93306

== ENCOUNTER → 2022-06-11 10:40 | Outpatient (BNVA) | payer MEDICARE, OTHER, SELFPAY | PROVIDERS: PCP Nurse Practitioner; Visit Provider Nurse Practitioner Family | DX: R53.83 Other fatigue (principal); R63.0 Anorexia; E78.2 Mixed hyperlipidemia; Z13.6 Encounter for screening for cardiovascular disorders; K59.00 Constipation, unspecified; M25.471 Effusion, right ankle | CPT/HCPCS: 73610; 80053; 80061; 84443; 85025 ==

== ENCOUNTER 2022-07-01 12:08 | Emergency (ER) | payer MEDICARE, OTHER, SELFPAY ==
[2022-07-01 12:23] VITALS: BMI 25.0
--- NOTE | 2022-07-01 12:42 | USCV_ITS ---
Ruslan King Age: 82 Gender: M : 1940 Exam Date: 07/01/2022 12:58 Ordering Phys: Aldo Hernandez DO Technologist: Exam Location: [facility] [place] Indication: Rt leg pain HISTORY: Lower extremity pain. PROCEDURES: Venous duplex imaging was performed in only the right lower extremity. The following venous structures were evaluated: common femoral vein, profunda vein, proximal portion of the greater saphenous vein, superficial femoral vein, and the popliteal vein. In addition, the posterior tibial and peroneal trunk were evaluated. FINDINGS: Normal 2-D Doppler and augmentation and compressibility throughout the lower extremity venous structures. Additional imaging through the proximal calf veins also reveals no thrombus. Limited evaluation of the greater saphenous vein is patent with no thrombus. CONCLUSIONS No DVT right lower extremity. Dr. Brooke Grant DO (Electronically Signed) Final Date: 01 July 2022 14:36 S
--- NOTE | 2022-07-01 12:44 | ED_ITS ---
HPI - Extremity Problem General: Chief complaint: Extremity Problem,Nontraumatic Stated complaint: [place] [facility] sent for possible blood clot Time Seen by Provider: 07/01/22 12:33 History of Present Illness: 82-year-old male sent in by his primary care office. Patient reports that 6 days ago he developed some anterior foot pain that moved up his anterior marquez. Couple days ago with the pain then moved to the medial ankle. Today the pain is up in the posterior calf. Patient went to his primary care office who sent him out to the ER because they were concerned about a blood clot. Patient has no swelling of the lower leg, no warmth, erythema or skin changes. Patient has no shortness of breath or other systemic complaints. 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 CAD (coronary artery disease) Cardiac resynchronization therapy defibrillator (TRANSITION PROGRAM MANAGER-D) in place Cardiomyopathy CHF (congestive heart failure) History of [place] (myocardial infarction) 07/24/1999 in [place], [place] History of nonmelanoma skin cancer Hyperlipidemia Malignant hyperthermia susceptibility Mitral regurgitation Neuropathy Surgical History History of ankle surgery Left ankle ORIF 1994 Hx of bilateral cataract extraction ICD (implantable cardioverter-defibrillator) in place I had 3 different surgeries Family History Father , Stroke Stroke CAD (coronary artery disease) later in life Mother Stroke Son Anesthesia complication Family/Other Anesthesia complication Lung disease Suicide Sister Cancer Grandmother Lung disease Denies family history of Diabetes Clotting disorder Dementia Chronic kidney disease (CKD) Bleeding disorder Hypertension Social History Smoking and tobacco status: never smoked Second hand smoke exposure: No Smoking risk assessment/counseling performed?: No Alcohol intake: never Desire information about alcohol rehabilitation?: No Counseling given: No Desire information about substance/drug rehabilitation?: No Counseling given: No Adopted: No Caregiver/support person: No Lives independently: Yes Household members: spouse Housing: House Marital status: Number of children: 5 service: No Current occupational status: retired History of recent travel: No Current gender identity: Male Physical Exam Const: COMMON NORMALS: no acute distress, average body habitus, patient oriented x3, no limitations and healthy appearing HENMT: COMMON NORMALS: normocephalic HEAD & SCALP: normal to inspection and normocephalic Eye: COMMON NORMALS: Equal, round and reactive pupils present and EOMs intact bilaterally PUPIL: Yes Equal, round and reactive pupils present Resp: COMMON NORMALS: normal respiratory effort, No retractions and No use of accessory muscles Cardio: COMMON NORMALS: regular rate, regular rhythm and Peripheral pulses 2+ throughout RATE: regular rate RHYTHM: regular rhythm PERIPHERAL PULSES: Peripheral pulses 2+ throughout Extremity: COMMON NORMALS: normal to inspection, full ROM, capillary refill normal, no clubbing, cyanosis or edema and no pedal edema Neuro: COMMON NORMALS: patient oriented x3, CN's II-XII intact bilaterally and moves all extremities Psych: COMMON NORMALS: mental status grossly normal, cooperative and normal affect Skin: COMMON NORMALS: no rashes or lesions noted, no wounds and turgor normal GENERAL SKIN EXAM: no rashes or lesions noted and turgor normal Course Vital Signs: Vital signs: Vital Signs Respiratory Rate 18 07/01/22 14:52 Blood Pressure 140/83 07/01/22 14:52 Pulse Oximetry 95 07/01/22 14:52 Oxygen Delivery Me thod 07/01/22 14:33 MDM - Extremity (Nontraumatic) Medical Decision Making Patient ultrasound shows no blood clots. Patient with nonspecific right lower leg pain. Recommended topical lidocaine and Voltaren cream and follow-up with his primary care provider. Patient stable and discharged home Imaging Data US: Radiologist's impression: No DVT Discharge Plan Discharge Patient Disposition: Home Clinical Impression: Pain in right lower leg Condition: Stable Prescriptions: No Action aspirin 81 mg tablet,delayed release (DR/EC) 81 mg PO DAILY magnesium oxide 400 mg magnesium tablet 400 mg PO DAILY clotrimazole-betamethasone 1-0.05 % cream 1 applic topical BID 14 Days Qty: 15 0RF triamcinolone acetonide 0.1 % cream 1 applic topical BID PRN (Reason: eczema) Qty: 80 1RF Rx Instructions: Apply BID to areas on arms/legs no more than 2 wks/mo nitroglycerin [Nitrostat] 0.4 mg tablet, sublingual 0.4 mg sublingual Q5M PRN (Reason: chest pain) Qty: 50 3RF clopidogrel 75 mg tablet 75 mg PO DAILY Qty: 100 5RF ezetimibe-simvastatin 10-20 mg tablet See Rx Instructions .ROUTE .COMPLEX Qty: 100 3RF Dose Instruction: TAKE 1 TABLET BY MOUTH DAILY Rx Instructions: TAKE 1 TABLET BY MOUTH DAILY carvedilol 3.125 mg tablet 3.125 mg PO BID digoxin 125 mcg (0.125 mg) tablet 125 mcg PO DAILY furosemide 20 mg tablet 20 mg PO DAILY PRN (Reason: Edema) Remeron 15 mg tablet 15 mg PO BEDTIME Entresto 97-103 mg tablet 1 tab PO BID multivitamin Tablet 1 tab PO DAILY Qty: 7 0RF Discharge Orders: Discharge ED (Routine); Ordered 07/01/22 Ordered By: Aldo Hernandez Referrals: Herrera Coronado, PARRISH [Primary Care Provider] - Discharge Diet: Advance as tolerated Discharge Activity: Increase activity as tolerated Patient Instructions: Opioid Safety, Pain Management Activity Restrictions/Additional Instructions: Follow-up with your primary care provider if pain is not improved over the next 3 to 4 days. Warm moist heat to the right lower leg for 20 minutes at a time 3-4 times daily for the next 2 to 3 days Voltaren/diclofenac cream use as directed on package as needed for pain 4% topical lidocaine with menthol use as directed on package as needed for pain Coding Level of Care Code ED Quill Picking Machine Operator for Milvia Fwd Exam Comprehensive
[2022-07-01 14:33] VITALS: RESP 18; O2SAT 95
[2022-07-01 14:52] VITALS: BP 140/83; RESP 18; O2SAT 95
== END 2022-07-01 14:53 | disposition home or self-care (01) ==
PROVIDERS: Emergency Provider Student in an Organized Health Care Education/Training Program; PCP Nurse Practitioner
DX: M79.604 Pain in right leg (principal); Z79.82 Long term (current) use of aspirin; Z79.02 Long term (current) use of antithrombotics/antiplatelets; I25.10 Atherosclerotic heart disease of native coronary artery without angina pectoris; I50.9 Heart failure, unspecified; I25.2 Old myocardial infarction; E78.5 Hyperlipidemia, unspecified
CPT/HCPCS: 93971; 99285

== ENCOUNTER → 2022-07-31 13:40 | Outpatient (BNVA) | payer MEDICARE, OTHER, SELFPAY | PROVIDERS: PCP Nurse Practitioner; Visit Provider Nurse Practitioner Family | DX: I25.5 Ischemic cardiomyopathy (principal); Z95.810 Presence of automatic (implantable) cardiac defibrillator; E78.5 Hyperlipidemia, unspecified | CPT/HCPCS: 36415; 80048; 83880; 99214 ==

== ENCOUNTER 2022-08-03 08:36 | Emergency (ER) | payer MEDICARE, OTHER, SELFPAY ==
[2022-08-03 08:44] VITALS: BP 124/83; PULSE 93; RESP 18; TEMP 36.5; O2SAT 95; BMI 24.3
--- NOTE | 2022-08-03 09:17 | W.ED.NAVMDI ---
HPI - Nausea/Vomiting/Diarrhea General: Chief complaint: Nausea/Vomiting/Diarrhea Stated complaint: diarrhea; weakness; no intake/rest Time Seen by Provider: 08/03/22 08:57 History of Present Illness: Patient is a 82-year-old male comes to the ED with diarrhea. He has been having episodes of diarrhea for the over a month and he has seen his PCP for this within the last month as well. He reports having approximately 5-6 episodes of diarrhea per day. Diarrhea usually occurs right after he has something to eat. Denies any blood in stool. Describes stool as watery, brown and sometimes a little yellow. Endorses having a decreased appetite for the past month as well. Denies any fever, chills, chest pain, abdominal pain, cramping pain, nausea or vomiting. He is able to keep p.o. food and fluids down. Endorses some fatigue. Associated nausea: No Associated symtoms: Reports fatigue; Denies change in vision, chest pain, dysuria, headache(s), nausea or palpitations Review of Systems Const: Reports: change in appetite (Decreased appetite) and fatigue; Denies: fever(s) or chills Eyes: Denies: change in vision or eye discomfort ENMT: Denies: throat pain, odynophagia, nasal discharge or nasal congestion Card: Denies: chest pain, palpitations, edema, swelling of feet/ankles, dyspnea on exertion or orthopnea Resp: Denies: dyspnea, productive cough or non-productive cough GI: Reports: diarrhea; Denies: abdominal pain, nausea, vomiting, constipation or hematochezia : Denies: flank pain, difficulty urinating, dysuria or hematuria Musc: Denies: neck pain, back pain or extremity swelling Skin/Breast: Denies: rash or new lesions Neuro: Denies: headache(s), numbness in extremities or weakness in extremities PFS ED PFSH: Medical History 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], 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 CAD (coronary artery disease) Cardiac resynchronization therapy defibrillator (TIMING MACHINE OPERATOR-D) in place Cardiomyopathy CHF (congestive heart failure) History of [place] (myocardial infarction) 07/24/1999 in [place], [place] History of nonmelanoma skin cancer Hyperlipidemia Malignant hyperthermia susceptibility Mitral regurgitation Neuropathy Surgical History (Reviewed 08/03/22 @ 09: by KELLY Rodgers) History of ankle surgery Left ankle ORIF 1994 Hx of bilateral cataract extraction ICD (implantable cardioverter-defibrillator) in place I had 3 different surgeries Family History (Reviewed 08/03/22 @ 09: by KELLY Rodgers) Father , Stroke Stroke CAD (coronary artery disease) later in life Mother Stroke Son Anesthesia complication Family/Other Anesthesia complication Lung disease Suicide Sister Cancer Grandmother Lung disease Denies family history of Diabetes Clotting disorder Dementia Chronic kidney disease (CKD) Bleeding disorder Hypertension Social History (Reviewed 08/03/22 @ 09: by KELLY Rodgers) Smoking and tobacco status: never smoked Second hand smoke exposure: No Smoking risk assessment/counseling performed?: No Alcohol intake: never Desire information about alcohol rehabilitation?: No Counseling given: No Desire information about substance/drug rehabilitation?: No Counseling given: No Adopted: No Caregiver/support person: No Lives independently: Yes Household members: spouse Housing: House Marital status: Number of children: 5 service: No Current occupational status: retired History of recent travel: No Current gender identity: Male Physical Exam Const: COMMON NORMALS: no acute distress, patient oriented x3 and alert GENERAL APPEARANCE: cooperative and comfortable HENMT: COMMON NORMALS: normocephalic HEAD & SCALP: normocephalic MOUTH: Normal oral and palatal mucosa present THROAT: posterior oropharynx normal and uvula midline Neck/C-Spine: COMMON NORMALS: supple GENERAL: Yes normal visual inspection Resp: COMMON NORMALS: normal respiratory effort, No retractions, No use of accessory muscles and clear to auscultation bilaterally AUSCULTATION: clear to auscultation bilaterally Cardio: COMMON NORMALS: regular rate, regular rhythm, S1 normal heart sound present, S2 normal heart sound present, No gallops present (Cardio), No clicks present (Cardio), No murmurs present (Cardio) and Peripheral pulses 2+ throughout RATE: regular rate RHYTHM: regular rhythm HEART SOUNDS: S1 normal heart sound present and S2 normal heart sound present PERIPHERAL PULSES: Peripheral pulses 2+ throughout GI: COMMON NORMALS: Normal to inspection, nondistended, normoactive bowel sounds present, Soft to palpation, non-tender and no masses PALPATION: Yes Soft to palpation : COMMON NORMALS: Yes no CVA tenderness BLADDER/KIDNEY EXAM: Yes no CVA tenderness Back/Pelvis: COMMON NORMALS: no CVA tenderness Extremity: COMMON NORMALS: normal to inspection Neuro: COMMON NORMALS: patient oriented x3 SENSORIUM/ORIENTATION: Yes alert GAIT: Yes Normal gait present Skin: GENERAL SKIN EXAM: dry skin Course Vital Signs: Vital signs: Vital Signs Temperature 97.7 F 08/03/22 08:44 Pulse Rate 68 08/03/22 11:55 Respiratory Rate 16 08/03/22 10:30 Blood Pressure 125/84 08/03/22 11:55 Pulse Oximetry 99 08/03/22 11:55 Oxygen Delivery Me thod 08/03/22 08:44 MDM - Nausea/Vomiting/Diarrhea Medical Decision Making Patient is a 82-year-old male comes to the ED with diarrhea. He has been having episodes of diarrhea for the over a month and he has seen his PCP for this within the last month as well. He reports having approximately 5-6 episodes of diarrhea per day. Diarrhea usually occurs right after he has something to eat. Denies any blood in stool. Denies fevers, nausea/vomiting or any abdominal pain or abdominal cramping. All patient's labs are unremarkable. Stools labs performed and it showed positive for lactoferrin but stool was negative for any enteric, parasite or any blood. Patient was stable for discharge home and diagnosed with diarrhea. He was told to follow-up with his PCP within the next week for reevaluation. Return to ED precautions given. Patient understood and agreed with plan. Lab Data I reviewed the patient's lab results. 08/03/22 09:19 08/03/22 09:19 Laboratory Results WBC 7.0 10^3/uL (4.0-10.0) 08/03/22 09:19 RBC 4.41 10^6/uL (4.1-5.3) 08/03/22 09:19 Hgb 14.2 g/dL (11.7-16.6) 08/03/22 09:19 Hct 42.7 % (42.0-52.0) 08/03/22 09:19 MCV 96.8 fl (80-94) H 08/03/22 09:19 MCH 32.2 pg (28.0-34.0) 08/03/22 09:19 MCHC 33.3 g/dL (30.0-36.0) 08/03/22 09:19 RDW 13.7 % (12.1-15.1) 08/03/22 09:19 Plt Count 133 10^3/cmm (130-400) 08/03/22 09:19 MPV 12.3 fL (7.4-10.4) H 08/03/22 09:19 Neut % (Auto) 82.9 % 08/03/22 09:19 Lymph % (Auto) 9.7 % 08/03/22 09:19 [place] % (Auto) 6.3 % 08/03/22 09:19 Eos % (Auto) 0.4 % 08/03/22 09:19 Baso % (Auto) 0.4 % 08/03/22 09:19 Neut # (Auto) 5.78 10^3/uL (1.8-7.7) 08/03/22 09:19 Lymph # (Auto) 0.7 10^3/uL (0.8-4.8) L 08/03/22 09:19 [place] # (Auto) 0.4 10^3/uL (0.2-0.9) 08/03/22 09:19 Eos # (Auto) 0.0 10^3/uL (0.0-0.8) 08/03/22 09:19 Baso # (Auto) 0.0 10^3/uL (0.0-0.1) 08/03/22 09:19 Nucleated RBC % (auto) 0 % 08/03/22 09:19 Nucleated RBCs # 0.0 /100WBC 08/03/22 09:19 Sodium 139 mmol/L (136-145) 08/03/22 09:19 Potassium 3.9 mmol/L (3.5-5.1) 08/03/22 09:19 Chloride 105 mmol/L (98-107) 08/03/22 09:19 Carbon Dioxide 23 mmol/L (22-29) 08/03/22 09:19 Anion Gap 14.9 (5-19) 08/03/22 09:19 BUN 12 mg/dL (8-23) 08/03/22 09:19 Creatinine 0.9 mg/dL (0.7-1.2) 08/03/22 09:19 GFR Calculation Not Reportable 08/03/22 09:19 Glucose 112 mg/dL (65-115) 08/03/22 09:19 Calculated Osmolality 289 mOsm/kg (285-295) 08/03/22 09:19 Calcium 8.8 mg/dL (8.5-10.5) 08/03/22 09:19 Total Bilirubin 1.3 mg/dL (0.15-1.2) H 08/03/22 09:19 AST 24 U/L (0-40) 08/03/22 09:19 ALT 23 U/L (0-41) 08/03/22 09:19 Alkaline Phosphatase 64 U/L (40-130) 08/03/22 09:19 Total Protein 6.0 g/dL (6.6-8.7) L 08/03/22 09:19 Albumin 4.0 g/dL (3.5-5.2) 08/03/22 09:19 Globulin 2.0 g/dL (1.3-4.6) 08/03/22 09:19 Digoxin 0.7 ng/mL (0.6-1.2) 08/03/22 09:19 Discharge Plan Discharge Patient Disposition: Home Clinical Impression: Diarrhea Condition: Stable Prescriptions: No Action aspirin 81 mg tablet,delayed release (DR/EC) 81 mg PO DAILY magnesium oxide 400 mg magnesium tablet 400 mg PO DAILY carvedilol 12.5 mg tablet 12.5 mg PO BID Qty: 180 3RF ramipril 5 mg capsule 5 mg PO DAILY Qty: 90 3RF ketoconazole 2 % cream 1 applic topical BID Qty: 60 2RF Rx Instructions: Apply twice daily to entire foot and between toes for 4 weeks then as needed for flares triamcinolone acetonide 0.1 % cream 1 applic topical BID PRN (Reason: eczema) Qty: 80 1RF Rx Instructions: Apply BID to areas on arms/legs no more than 2 wks/mo nitroglycerin [Nitrostat] 0.4 mg tablet, sublingual 0.4 mg sublingual Q5M PRN (Reason: chest pain) Qty: 50 3RF clopidogrel 75 mg tablet 75 mg PO DAILY Qty: 100 5RF ezetimibe-simvastatin 10-20 mg tablet See Rx Instructions .ROUTE .COMPLEX Qty: 100 3RF Dose Instruction: TAKE 1 TABLET BY MOUTH DAILY Rx Instructions: TAKE 1 TABLET BY MOUTH DAILY clotrimazole-betamethasone 1-0.05 % cream 1 applic topical BID 14 Days Qty: 15 2RF mirtazapine 15 mg tablet 15 mg PO DAILY Qty: 30 1RF digoxin 125 mcg (0.125 mg) tablet 125 mcg PO DAILY furosemide 20 mg tablet 20 mg PO DAILY PRN (Reason: Edema) multivitamin Tablet 1 tab PO DAILY Qty: 7 0RF Discharge Orders: Discharge ED (Routine); Ordered 08/03/22 Ordered By: Samuel Arthur Referrals: Herrera Coronado, PROMOTIONAL DEMONSTRATOR-C [Primary Care Provider] - Discharge Diet: Regular Discharge Activity: Increase activity as tolerated Patient Instructions: Diarrhea - Adult Activity Restrictions/Additional Instructions: Follow-up with medical provider as directed in the next 3 to 5 days for reevaluation. Stool sample labs are pending. Call [facility] later today or on Friday morning to find out lab results. You can also set up an appointment with your PCP in the next couple days and go over stool lab results at that time. Continue taking all home medications as prescribed. Return to the ER or your medical provider if condition worsens. Please read and understand discharge instructions. Thank you for choosing [facility] for your healthcare needs today. Please realize this is an emergency room and that we are providing you with a medical screening exam and this may not be complete and all inclusive of all the testing and or work up that you may need to determine your ailment or severity of your illness. It is very important that you follow up as instructed or that you return to the Emergency Department should you have concerns or if your condition changes or worsens in any way. Coding Level of Care Code ED Home Health Care Social Worker for Milvia Angela Exam Comprehensive
[2022-08-03 09:25] VITALS: BP 110/68; PULSE 61; RESP 16; O2SAT 98
[2022-08-03 09:30] VITALS: BP 121/66; PULSE 60; RESP 16; O2SAT 97
[2022-08-03 10:16] LABS: Basophils % 0.4 %; Eosinophils % 0.4 %; Hematocrit 42.7 % (42.0-52.0); Hemoglobin 14.2 g/dL (11.7-16.6); Lymphocytes # 0.7 10^3/uL (0.8-4.8); Lymphocytes % 9.7 %; Mean Corpuscular HGB Conc 33.3 g/dL (30.0-36.0); Mean Corpuscular Hemoglobin 32.2 pg (28.0-34.0); Mean Corpuscular Volume 96.8 fl (80-94); Mean Platelet Volume 12.3 fL (7.4-10.4); Monocytes # 0.4 10^3/uL (0.2-0.9); Monocytes % 6.3 %; Neutrophils # 5.78 10^3/uL (1.8-7.7); Neutrophils % 82.9 %; Nucleated Red Blood Cells % 0 %; Platelet Count 133 10^3/cmm (130-400); Red Blood Count 4.41 10^6/uL (4.1-5.3); Red Cell Distribution Width 13.7 % (12.1-15.1)
[2022-08-03 10:30] VITALS: BP 111/75; PULSE 62; RESP 16; O2SAT 99
[2022-08-03 10:40] LABS: Alanine Aminotransferase 23 U/L (0-41); Alkaline Phosphatase 64 U/L (40-130); Anion Gap 14.9 (5-19); Aspartate Amino Transferase 24 U/L (0-40); Blood Urea Nitrogen 12 mg/dL (8-23); Calcium 8.8 mg/dL (8.5-10.5); Carbon Dioxide 23 mmol/L (22-29); Chloride 105 mmol/L (98-107); Glucose 112 mg/dL (65-115); Osmolality Calculated 289 mOsm/kg (285-295); Potassium 3.9 mmol/L (3.5-5.1); Sodium 139 mmol/L (136-145); Total Bilirubin 1.3 mg/dL (0.15-1.2)
[2022-08-03 10:41] LABS: Digoxin 0.7 ng/mL (0.6-1.2)
[2022-08-03 11:55] VITALS: BP 125/84; PULSE 68; O2SAT 99
== END 2022-08-03 11:55 | disposition home or self-care (01) ==
PROVIDERS: Emergency Provider Physician Assistant; PCP Nurse Practitioner
DX: R19.7 Diarrhea, unspecified (principal)
CPT/HCPCS: 80053; 80162; 82274; 83630; 85025; 87506; 99283

== ENCOUNTER 2022-08-09 08:19 | Outpatient (CLI) | payer MEDICARE, OTHER, SELFPAY ==
--- NOTE | 2022-08-09 08:30 | US_ITS ---
WS: [id number] Complete ABDOMINAL ULTRASOUND HISTORY: R63.0 - Anorexia COMPARISON: None available. Liver: 13.6 cm in length. Liver is normal size and echogenicity with no mass or intrahepatic dilatati on. Portal Vein: Normal hepatopetal flow with monophasic waveform. Gallbladder: Moderately distended gallbladder. There is a small amount of sludge present. No stones o r shadowing. No pericholecystic fluid or gallbladder wall thickening. Gallbladder wall thickness: 0.3 cm. Pancreas: Poorly visualized pancreas. The head appears normal. The remaining pancreas is not visualiz ed. CBD: 0.6 cm. Right kidney: 9.2 cm x 4.5 cm x 4.4 cm. No mass, cortical thickening or hydronephrosis. Left kidney: 9.2 cm x 4.8 cm x 5.2 cm. No mass, cortical thickening or hydronephrosis. Spleen: Normal size and echogenicity. 9.2 cm in length. Abdominal aorta and IVC are within normal limits. No ascites. US/US abdomen complete* [id number] IMPRESSION: 1. Technically limited evaluation of the abdominal structures due to body habi tus. 2. Mildly hydropic gallbladder with sludge. No evidence for acute cholecystiti s. 3. No renal obstruction. 4. No ascites. 5. Poorly visualized pancreas.
== END 2022-08-09 08:20 | disposition home or self-care (01) ==
LOC: RAD 08:20
PROVIDERS: PCP Nurse Practitioner; Visit Provider Nurse Practitioner
DX: R63.0 Anorexia (principal)
CPT/HCPCS: 76700

== ENCOUNTER 2022-08-23 15:42 | Outpatient (CLI) | payer MEDICARE, OTHER, SELFPAY ==
[2022-08-23] MEDS: iohexol 350 mg/mL 500 mL Btl (per mL) IV (16:06)
[2022-08-23] MEDS: iohexol 350 mg/mL 500 mL Btl (per mL) PO (16:06)
--- NOTE | 2022-08-23 17:00 | CT_ITS ---
WS: [id number] CT ABDOMEN AND PELVIS WITH CONTRAST HISTORY: Loss of appetite, weight loss. TECHNIQUE: Imaging performed of the abdomen and pelvis with IV contrast. Single phase imaging of the abdomen. Coronal and sagittal reformats are submitted. All CT scans at [facility] use at [address] st one of these dose optimization techniques: automated exposure control; mA and/or kV adjustment per patient size (includes targeted exams where dose is matched to clinical indication); or iterative re construction. IV CONTRAST: Omnipaque 350; 95 mL IV. Oral contrast: Yes. DLP: 913.62 mGy.cm COMPARISON: No similar studies. Lower thorax: Lung bases are clear. Moderate cardiac enlargement. Pacer wire noted in the RIGHT heart . No hiatal hernia. Liver/biliary system: Normal size with no intrahepatic dilatation. Gallbladder: Imaging is limited by motion artifact. Gallbladder is normal size. No obvious pericholec ystic inflammation. Pancreas: Normal size pancreas and pancreatic duct. No adjacent inflammation. Spleen: Normal size spleen. No mass or infarct. Adrenal glands: Normal. Right kidney: Mild atrophy and motion artifact. No obstruction. Left kidney: Mild atrophy and motion artifact. No obstruction. Aorta: Moderate atherosclerotic plaque. Calcification at the origin of the SMA but no obstruction. Lymphadenopathy: None. Free fluid: None. GI tract: Nondistended stomach with oral contrast. No small bowel obstruction. The appendix is normal . Mild constipation. No obstructing process. No significant diverticular disease. Abdominal wall: Unremarkable abdominal wall. No hernia. Pelvis: Urinary bladder is moderately well distended. Marked enlargement and heterogeneity of the pro state gland. Prostate measures 5.2 x 4.8 x 5.5 cm. Probably causing a partial outlet obstruction. Uri nary bladder is overly distended. Inguinal canals are patent containing fat only. Bones: Moderate degenerative changes in the lumbar spine. CT/CT abdomen pelvis w con* [id number] IMPRESSION: 1. Quality is limited by breathing motion artifact. 2. Normal size gallbladder. No adjacent inflammatory changes. Otherwise limite d secondary to motion artifact. No bile duct dilatation. 3. Cardiomegaly. 4. No GI tract obstruction. 5. Marked prostate enlargement with heterogeneity. Urinary bladder is overly d istended. Suspect component of partial outlet obstruction secondary to prostate hypertrophy.
== END 2022-08-23 15:43 | disposition home or self-care (01) ==
PROVIDERS: PCP Nurse Practitioner; Visit Provider Nurse Practitioner Family
DX: K82.8 Other specified diseases of gallbladder (principal); R19.7 Diarrhea, unspecified
CPT/HCPCS: 74177; Q9967

== ENCOUNTER → 2022-09-04 13:11 | Outpatient (BNVA) | payer MEDICARE, OTHER, SELFPAY | PROVIDERS: PCP Nurse Practitioner; Visit Provider Surgery | DX: Z12.11 Encounter for screening for malignant neoplasm of colon (principal) | CPT/HCPCS: 99024; 99203 ==

== ENCOUNTER → 2022-09-16 13:29 | Outpatient (BNVA) | payer MEDICARE, OTHER, SELFPAY | PROVIDERS: PCP Nurse Practitioner; Visit Provider Internal Medicine Cardiovascular Disease | DX: I25.10 Atherosclerotic heart disease of native coronary artery without angina pectoris (principal); Z95.810 Presence of automatic (implantable) cardiac defibrillator; I50.22 Chronic systolic (congestive) heart failure; I25.5 Ischemic cardiomyopathy; I34.0 Nonrheumatic mitral (valve) insufficiency; E78.2 Mixed hyperlipidemia; I25.2 Old myocardial infarction | CPT/HCPCS: 99214 ==

== ENCOUNTER 2022-10-07 09:17 | Outpatient (CLI) | payer MEDICARE, OTHER, SELFPAY ==
--- NOTE | 2022-10-07 10:00 | NM_ITS ---
WS: [id number] NUCLEAR MEDICINE HIDA SCAN CLINICAL INFORMATION: K82.8 - Other specified diseases of gallbladder TECHNIQUE: Following intravenous administration of 8.4 mCi of technetium 99m mebrofenin, images of th e abdomen were obtained over the course of 60 minutes. Next, gallbladder ejection fraction was determ ined by obtaining preprandial and one-hour postprandial images of the gallbladder following oral silverio stion of Ensure. COMPARISON: Ultrasound 08/09/22 FINDINGS: Hepatomegaly. Normal hepatic uptake at 5 minutes. Normal hepatic excretion. Normal common bile duct a nd small bowel activity. Gallbladder is visualized by 15 minutes. No evidence of acute cholecystitis. Decreased Gallbladder ejection fraction 26% NM/NM hepatobiliary w phar* 10003 IMPRESSION: 1. Decreased gallbladder ejection fraction 26% compatible with gallbladder dys function. Findings suspicious for chronic cholecystitis.
== END 2022-10-07 09:18 | disposition home or self-care (01) ==
LOC: RAD 09:18
PROVIDERS: PCP Nurse Practitioner; Visit Provider Nurse Practitioner Family
DX: K82.8 Other specified diseases of gallbladder (principal); R19.7 Diarrhea, unspecified
CPT/HCPCS: 78227; A9537

== ENCOUNTER → 2022-10-22 10:50 | Outpatient (BNVA) | payer MEDICARE, OTHER, SELFPAY | PROVIDERS: PCP Nurse Practitioner; Visit Provider Surgery | DX: K82.8 Other specified diseases of gallbladder (principal) | CPT/HCPCS: 99213 ==

== ENCOUNTER → 2022-10-25 09:46 | Outpatient (BNVA) | payer MEDICARE, OTHER, SELFPAY | PROVIDERS: PCP Nurse Practitioner; Visit Provider Urology | DX: N40.1 Benign prostatic hyperplasia with lower urinary tract symptoms (principal); N13.8 Other obstructive and reflux uropathy | CPT/HCPCS: 51741; 51798; 81003; 99203 ==

== ENCOUNTER → 2022-11-05 08:46 | Outpatient (BNVA) | payer MEDICARE, OTHER, SELFPAY | PROVIDERS: PCP Nurse Practitioner Family; Visit Provider Internal Medicine Cardiovascular Disease | DX: Z45.02 Encounter for adjustment and management of automatic implantable cardiac defibrillator (principal) | CPT/HCPCS: 93296 ==

== ENCOUNTER → 2022-11-14 14:39 | Outpatient (BNVA) | payer MEDICARE, OTHER, SELFPAY | PROVIDERS: PCP Nurse Practitioner Family; Visit Provider Family Medicine | DX: J02.9 Acute pharyngitis, unspecified (principal) | CPT/HCPCS: 87071; 87880 ==

== ENCOUNTER 2022-11-18 05:41 | Day surgery (SDC) | payer MEDICARE, OTHER, SELFPAY ==
[2022-11-14 10:48] VITALS: BMI 23.6
--- NOTE | 2022-11-14 11:13 | ECG_ITS ---
[facility] Test Date: 2022-11-14 Pat Name: Ruslan King Department: Room: Gender: Male Handle Attacher: : 1940 Requested By: Melissa Spann Order Number: [id number] Rivera MD: Candie Rico M.D. Measurements Intervals [place] Rate: 66 P: 59 TX: 165 QRS: 263 QRSD: 209 T: 95 QT: 465 QTc: 487 Interpretive Statements 100% AV paced with rhythm ELECTRONIC ATRIAL PACEMAKER ELECTRONIC VENTRICULAR PACEMAKER ABNORMAL RHYTHM ECG Compared to ECG 12/29/2021 06:39:58 No significant changes Electronically Signed On 11-14-2022 23:52:42 [employer]ER[employer] by Candie Rico M.D. [id number]
[2022-11-14 11:21] LABS: Basophils % 0.2 %; Eosinophils # 0.1 10^3/uL (0.0-0.8); Eosinophils % 1.6 %; Hematocrit 40.4 % (42.0-52.0); Hemoglobin 13.1 g/dL (11.7-16.6); Lymphocytes # 0.7 10^3/uL (0.8-4.8); Lymphocytes % 15.7 %; Mean Corpuscular HGB Conc 32.4 g/dL (30.0-36.0); Mean Corpuscular Hemoglobin 32.9 pg (28.0-34.0); Mean Corpuscular Volume 101.5 fl (80-94); Mean Platelet Volume 11.7 fL (7.4-10.4); Monocytes # 0.4 10^3/uL (0.2-0.9); Monocytes % 9.2 %; Neutrophils # 3.16 10^3/uL (1.8-7.7); Neutrophils % 73.1 %; Nucleated Red Blood Cells % 0 %; Platelet Count 140 10^3/cmm (130-400); Red Blood Count 3.98 10^6/uL (4.1-5.3); White Blood Count 4.3 10^3/uL (4.0-10.0)
--- NOTE | 2022-11-14 11:34 | P.ANESASSM_ITS ---
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 1. This is a 81-year-old white male with history of coronary disease, status post PCI in 1998 with multiple stents, status post ICD in 2004, presented with complaints of chest pain and shortness of breath.? The patient is known to have cardiomyopathy and had ICD implantation.? In view of his high risk status, for further evaluation of his symptoms, a cardiac catheterization was recommended.? Patient underwent left heart catheterization with left and right coronary angiogram today.? The findings are as follows. ? 2. Minimal ostial narrowing in the left main.? High-grade in-stent stenosis in the LAD.? Mild disease in the other vessels.? LVEDP of 22 mmHg.? Based on the angiogram findings, it was thought to be appropriate to consider PCI of the LAD lesion.? I reviewed and discussed the cardiac catheterization data with Dr. Flores.? Dr. Flores took over further management of this patient at this point.? Further details of the intervention, please refer to the intervention report by Dr. Flores. Echo 2021 CONCLUSIONS ?1. Dilated left ventricle.? Severely decreased left ventricular ?systolic function. Left ventricular ejection fraction is ?estimated at 25%. Severe global left ventricular hypokinesis. ?Grade II diastolic dysfunction, moderately elevated filling ?pressures. Abnormal septal motion consistent with conduction ?abnormality. ?2. Normal right ventricular size and systolic function. ?3. Mild to moderate mitral valve regurgitation. ?4. When compared to previous echocardiogram dated 02/07/2017, ?there may not have been any significant change. GI gallbladder problems Anesthetic Plan ASA status: 4 Anesthesia: General Risk of > 500 ml blood loss (7ml/kg in children): No Medications/Allergies Home Medications Medication Instructions Recorded Confirmed Last Taken Type aspirin 81 mg tablet,delayed 81 mg PO DAILY 01/03/20 11/14/22 11/14/22 History release magnesium oxide 400 mg PO DAILY 08/15/20 11/14/22 11/14/22 History nitroglycerin 0.4 mg sublingual 0.4 mg sublingual Q5M PRN chest 12/11/21 11/14/22 12/28/21 05:30 Rx tablet (Nitrostat) pain #50 tabs clopidogrel 75 mg tablet 75 mg PO DAILY #100 tabs 12/17/21 11/14/22 11/14/22 Rx multivitamin 1 tab PO DAILY #7 tabs 12/29/21 11/14/22 11/14/22 Rx ezetimibe 10 mg-simvastatin 20 mg See Rx Instructions .Route 05/06/22 11/14/22 11/13/22 Rx tablet .COMPLEX #100 tabs digoxin 125 mcg (0.125 mg) tablet 125 mcg PO DAILY 07/01/22 11/14/22 11/13/22 History furosemide 20 mg tablet 20 mg PO DAILY PRN Edema 07/01/22 11/14/22 11/14/22 History clotrimazole-betamethasone 1 1 applic topical BID 2 weeks #15 07/08/22 11/14/22 11/12/22 Rx %-0.05 % topical cream grams ketoconazole 2 % topical cream 1 applic topical BID #60 grams 07/31/22 11/14/22 Unknown Rx carvedilol 3.125 mg tablet 3.125 mg PO BID #180 tabs 08/07/22 11/14/22 11/14/22 Rx sacubitril 97 mg-valsartan 103 mg 1 tab PO BID #180 tabs 08/07/22 11/14/22 11/14/22 Rx tablet (Entresto) triamcinolone acetonide 0.1 % 1 applic topical BID PRN eczema 08/07/22 11/14/22 11/13/22 Rx topical cream #80 grams tamsulosin 0.4 mg capsule 0.4 mg PO DAILY #90 caps 10/25/22 11/14/22 11/13/22 Rx mirtazapine 15 mg tablet 15 mg PO DAILY #30 tabs 10/29/22 11/14/22 11/13/22 Rx Allergies Allergy/AdvReac Type Severity Reaction Status Date / Time malignant hyperthermia Allergy Severe Unknown Uncoded 11/14/22 10:41 [facility] Anesthesia Medical History 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], 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 CAD (coronary artery disease) Cardiac resynchronization therapy defibrillator (AUGER OPERATOR-D) in place Cardiomyopathy CHF (congestive heart failure) History of [place] (myocardial infarction) 07/24/1999 in [place], [place] History of nonmelanoma skin cancer Hyperlipidemia Malignant hyperthermia susceptibility Mitral regurgitation Neuropathy Surgical History History of ankle surgery Left ankle ORIF 1994 Hx of bilateral cataract extraction ICD (implantable cardioverter-defibrillator) in place I had 3 different surgeries Family History Father , AT AGE 86 Stroke CAD (coronary artery disease) later in life Mother , AT AGE 90 Stroke Son Anesthesia complication Family/Other Anesthesia complication Lung disease Suicide Sister Cancer Grandmother Lung disease Denies family history of Diabetes Clotting disorder Dementia Chronic kidney disease (CKD) Bleeding disorder Hypertension Social History Smoking and tobacco status: former smoker Second hand smoke exposure: No Smoking risk assessment/counseling performed?: No Alcohol intake: current Alcohol intake frequency: 0-2 Drinks per Day Desire information about alcohol rehabilitation?: No Counseling given: No Desire information about substance/drug rehabilitation?: No Counseling given: No Adopted: No Caregiver/support person: No Lives independently: Yes Household members: spouse Housing: House Marital status: Number of children: 5 service: No Current occupational status: retired Current gender identity: Male Data Anesthesia 11/14/22 10:57 11/14/22 10:57 Short CBC 11/14/22 Range/Units 10:57 WBC 4.3 (4.0-10.0) 10^3/uL Hgb 13.1 (11.7-16.6) g/dL Hct 40.4 L (42.0-52.0) % MCV 101.5 H (80-94) fl Plt Count 140 (130-400) 10^3/cmm Neut % (Auto) 73.1 % Neut # (Auto) 3.16 (1.8-7.7) 10^3/uL Cardiac Studies: Echocardiogram 05/21/22
[2022-11-14 11:37] LABS: Alanine Aminotransferase 21 U/L (0-41); Albumin Level 4.1 g/dL (3.5-5.2); Alkaline Phosphatase 65 U/L (40-130); Anion Gap 12.2 (5-19); Aspartate Amino Transferase 26 U/L (0-40); Blood Urea Nitrogen 20 mg/dL (8-23); Calcium 8.9 mg/dL (8.5-10.5); Carbon Dioxide 29 mmol/L (22-29); Chloride 104 mmol/L (98-107); Creatinine Clr Calc Pharmacy 57.6357; Globulin 1.7 g/dL (1.3-4.6); Glucose 124 mg/dL (65-115); Osmolality Calculated 296 mOsm/kg (285-295); Potassium 4.2 mmol/L (3.5-5.1); Sodium 141 mmol/L (136-145); Total Bilirubin 0.7 mg/dL (0.15-1.2); Total Protein 5.8 g/dL (6.6-8.7)
[2022-11-18] VITALS (8 sets, daily range): BP systolic 89–119; BP diastolic 55–77; PULSE 65–91; RESP 16–22; TEMP 36.1–36.5; O2SAT 94–100
--- NOTE | 2022-11-18 06:50 | W.PM.OPSUD ---
Surgery/Procedure H&P Update DATE OF PROCEDURE: November 18, 2022 DATE H&P PERFORMED: 10/22/22 H&P UPDATE INFORMATION: I have reviewed H&P completed within last 30 days, I have examined patient prior to procedure and No changes to prior documentation PREOP DIAGNOSIS: Biliary dyskinesia PLANNED PROCEDURE: Operation Date: 11/18/22 07:00 Proposed Procedures p lap francis 09989,K82.9hx of T(Not Applicable) - Cash Curry DO
[2022-11-18] MEDS: sodium chloride 0.9% 1,000 ML 30 ML IV (07:08)
[2022-11-18] MEDS: ceFAZolin 2,000 MG in sodium chloride 0.9% (plus) 50 ML 100 MG IV (07:12)
[2022-11-18] MEDS: lidocaine-epi 2% 20 mL INJ INJECTION (07:33)
--- NOTE | 2022-11-18 07:39 | P.ANESUD_ITS ---
Pre-Anesthetic Update Pre-Anesthetic Assessment: Date of Surgery/Procedure: 11/18/22 Preop Rosie gnosis: Biliary dyskinesia Proposed Procedure: Operation Date: 11/18/22 07:00 Proposed Procedures p lap francis 53899,K82.9hx of MHT(Not Applicable) - Cash Curry, DO Any changes to Pre-Anesthetic Assessment?: No Last Intake: Intake Last Liquid Date 11/17/22 Last Liquid Time 21:00 Last Solid Date 11/17/22 Last Solid Time 20:00 Vitals: Temperature 97.7 F 11/18/22 06:05 Temperature Source Temporal Artery S can 11/18/22 06:05 Pulse Rate 91 11/18/22 06:05 Respiratory Rate 18 11/18/22 06:05 Blood Pressure 119/77 11/18/22 06:05 Blood Pressure Snow n 91 11/18/22 06:05 Pulse Oximetry 99 11/18/22 06:05 Oxygen Delivery Me thod 11/18/22 06:18 Exam: Pre-Anes Outpt Exam: alert, oriented x 3, clear to auscultation bilaterally and regular rate & rhythm Other Pertinent Information: Other Pertinent Information: precautions taken. Cardiac Studies: Echocardiogram 05/21/22
--- NOTE | 2022-11-18 07:54 | P.OP_ITS ---
Operative Report Date of procedure: November 18, 2022 Pre-op diagnosis: Preop Diagnosis Biliary dyskinesia Post-op diagnosis: same Procedure done: Laparoscopic cholecystectomy Implants: None Specimens removed/disposition: Gallbladder Surgeon: Dr. Cash Curry DO Anesthesia: General Estimated blood loss (mL): 5 Complications: None apparent Findings: Appeared to be early scarring of the liver. Brief History: This is a very pleasant 82-year-old gentleman who was diagnosed with biliary dyskinesia. Laparoscopic cholecystectomy is indicated. The risk and benefits were explained and documented. Procedure: Patient was wheeled into the operative room and placed on the OR table in a supine position. Abdomen was inspected prepped and draped in usual sterile fashion. Time-out was performed and all present were in agreement. A 15 blade scalp was used to make a stab incision in the left upper quadrant and intra- abdominal insufflation was achieved using a Veress needle. After localizing the tissue incisions were made and a 5 millimeter trocar was placed into the umbilicus as well as 2 in the right upper quadrant. A 12 millimeter trocar was placed in the epigastrium. There appeared to be some early scarring of the liver. Liver biopsy was not performed as the patient did not stop his Plavix. Gallbladder was grasped and elevated. The triangle of Calot was carefully dissected using blunt dissection and electrocautery until the triangle of Calot clearly identified. The cystic duct was clipped proximally and double clipped distally. The duct was then ligated proximally. The cystic artery was doubly clipped and ligated. The gallbladder was then removed from the liver bed using electrocautery. The gallbladder was removed from the abdomen using an Endo- Catch bag through the epigastric incision. The liver bed was inspected and no bleeding was seen. The abdomen was irrigated and suctioned. All ports removed. Skin was washed and dried. Incisions were closed with 3-0 and 4-O Vicryl in a subcuticular interrupted fashion. Skin glue was applied. Patient tolerated the procedure well.
--- NOTE | 2022-11-18 16:58 | ANE.PACU2 ---
Inpatient post-anesthesia follow up: Airway intact: Yes Vital signs: Temperature 97.1 F Pulse Rate 70 Respiratory Rate 17 Blood Pressure 107/62 Pulse Oximetry 96 Oxygen Delivery Me thod Room Air Oxygen Flow Rate 6 Fraction of Inspir ed Oxygen Hydration adequate: Yes Nausea and vomiting: No Pain level: 2 Mental status: Baseline
== END 2022-11-18 09:25 | disposition home or self-care (01) ==
PROVIDERS: Anesthesiology; PCP Nurse Practitioner Family; Visit Provider Surgery
PROC: 0FT44ZZ Resection of Gallbladder, Percutaneous Endoscopic Approach (ICD-10-PCS; CPT 47562; principal; 2022-11-18 07:00)
DX: K81.1 Chronic cholecystitis (principal); I11.0 Hypertensive heart disease with heart failure; E78.5 Hyperlipidemia, unspecified; I25.10 Atherosclerotic heart disease of native coronary artery without angina pectoris; I25.2 Old myocardial infarction; Z79.82 Long term (current) use of aspirin; Z87.891 Personal history of nicotine dependence; Z95.0 Presence of cardiac pacemaker
CPT/HCPCS: 47562; 80053; 85025; 88304; 93005; J0131; J0690; J1100; J2370; J2405; J2704; J3010; J3490; J7030

== ENCOUNTER → 2022-12-03 11:18 | Outpatient (BNVA) | payer MEDICARE, OTHER, SELFPAY | PROVIDERS: PCP Nurse Practitioner Family; Visit Provider Surgery | DX: Z48.89 Encounter for other specified surgical aftercare (principal); Z90.49 Acquired absence of other specified parts of digestive tract | CPT/HCPCS: 99024 ==

== ENCOUNTER → 2022-12-10 09:22 | Outpatient (BNVA) | payer MEDICARE, OTHER, SELFPAY | PROVIDERS: PCP Nurse Practitioner Family; Visit Provider Nurse Practitioner Family | DX: M67.432 Ganglion, left wrist (principal); M19.032 Primary osteoarthritis, left wrist | CPT/HCPCS: 73110; 99214 ==

== ENCOUNTER → 2022-12-11 15:19 | Outpatient (BNVA) | payer MEDICARE, OTHER, SELFPAY | PROVIDERS: PCP Nurse Practitioner Family; Visit Provider Nurse Practitioner Family | DX: E83.119 Hemochromatosis, unspecified (principal); I50.22 Chronic systolic (congestive) heart failure | CPT/HCPCS: 82728; 83550 ==

== ENCOUNTER 2022-12-20 05:43 | Day surgery (SDC) | payer MEDICARE, OTHER, SELFPAY ==
[2022-12-19 09:33] VITALS: BMI 24.0
--- NOTE | 2022-12-19 14:27 | ANES.PREANE2 ---
Pre-Anesthetic Assessment Height/Weight: Height 1.73 m Weight 71.668 kg Preop Diagnosis: Biliary dyskinesia Operation Date: 12/20/22 07:00 Proposed Procedures p LEFT WRIST GANGLION CYST REMOVAL 80172,M67.432(Left) - Marie Monk MD Familial anesthetic complications: MH (tested with Bx) Was Beta Kari taken within 24 hours: Yes Was Clonidine taken within 24 hours: N/A Social Alcohol and Tobacco Exam alert, oriented x 3, clear to auscultation bilaterally and regular rate & rhythm Airway Submandibular: within normal limits Cervical ROM: within normal limits Mallampati: Class I Dentition: full CV/HEM Coronary Artery Disease, Congestive Heart Failure (EF 25%), Hypertension and Myocardial Infarction AICD [facility] [place] Lower Back Pain and Osteoarthritis/DJD Anesthetic Plan ASA status: 3 Anesthesia: MAC Medications/Allergies Home Medications Medication Instructions Recorded Confirmed Last Taken Type aspirin 81 mg tablet,delayed 81 mg PO DAILY 01/03/20 12/19/22 12/15/22 History release magnesium oxide 400 mg PO DAILY 08/15/20 12/19/22 12/19/22 History nitroglycerin 0.4 mg sublingual 0.4 mg sublingual Q5M PRN chest 12/11/21 12/19/22 12/28/21 05:30 Rx tablet (Nitrostat) pain #50 tabs clopidogrel 75 mg tablet 75 mg PO DAILY #100 tabs 12/17/21 12/19/22 12/15/22 Rx multivitamin 1 tab PO DAILY #7 tabs 12/29/21 12/19/22 12/19/22 Rx digoxin 125 mcg (0.125 mg) tablet 125 mcg PO BEDTIME 07/01/22 12/19/22 12/19/22 History furosemide 20 mg tablet 20 mg PO DAILY PRN Edema 07/01/22 12/19/22 12/19/22 History carvedilol 3.125 mg tablet 3.125 mg PO BID #180 tabs 08/07/22 12/19/22 12/19/22 Rx sacubitril 97 mg-valsartan 103 mg 1 tab PO BID #180 tabs 08/07/22 12/19/22 12/19/22 Rx tablet (Entresto) triamcinolone acetonide 0.1 % 1 applic topical BID PRN eczema 08/07/22 12/19/22 11/13/22 Rx topical cream #80 grams tamsulosin 0.4 mg capsule 0.4 mg PO DAILY #90 caps 10/25/22 12/19/22 12/19/22 Rx mirtazapine 15 mg tablet 15 mg PO DAILY #30 tabs 10/29/22 12/19/22 12/19/22 Rx clotrimazole-betamethasone 1 1 applic topical BID PRN Outbreak 12/19/22 12/19/22 Unknown History %-0.05 % topical cream ezetimibe 10 mg-simvastatin 20 mg 1 tab PO DAILY 12/19/22 12/19/22 12/19/22 History tablet ketoconazole 2 % topical cream 1 applic topical BID PRN Outbreak 12/19/22 12/19/22 Unknown History Allergies Allergy/AdvReac Type Severity Reaction Status Date / Time malignant hyperthermia Allergy Severe Unknown Uncoded 12/11/22 15:00 [facility] Anesthesia Medical History 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], 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 CAD (coronary artery disease) Cardiac resynchronization therapy 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 Cardiomyopathy CHF (congestive heart failure) History of [place] (myocardial infarction) 07/24/1999 in [place], [place] History of nonmelanoma skin cancer Hyperlipidemia Malignant hyperthermia susceptibility Mitral regurgitation Neuropathy Surgical History History of ankle surgery Left ankle ORIF 1994 History of laparoscopic cholecystectomy Hx of bilateral cataract extraction ICD (implantable cardioverter-defibrillator) in place I had 3 different surgeries Family History Father , AT AGE 86 Stroke CAD (coronary artery disease) later in life Mother , AT AGE 90 Stroke Son Anesthesia complication Family/Other Anesthesia complication Lung disease Suicide Sister Cancer Grandmother Lung disease Denies family history of Diabetes Clotting disorder Dementia Chronic kidney disease (CKD) Bleeding disorder Hypertension Social History Smoking and tobacco status: former smoker Second hand smoke exposure: No Smoking risk assessment/counseling performed?: No Alcohol intake: current Alcohol intake frequency: 0-2 Drinks per Day Desire information about alcohol rehabilitation?: No Counseling given: No Desire information about substance/drug rehabilitation?: No Counseling given: No Adopted: No Caregiver/support person: No Lives independently: Yes Household members: spouse Housing: House Marital status: Number of children: 5 service: No Current occupational status: retired Current gender identity: Male Data Anesthesia Cardiac Studies: Echocardiogram 05/21/22
[2022-12-20 05:56] VITALS: BP 98/66; PULSE 72; RESP 18; TEMP 36.8; O2SAT 96
[2022-12-20] MEDS: CELEcoxib 200 mg Capsule 400 MG PO (06:14)
[2022-12-20] MEDS: acetaminophen 1,000 MG/100 ML PIGGYBACK 400 MG IV (06:14)
[2022-12-20] MEDS: sodium chloride 0.9% 1,000 ML 30 ML IV (06:15)
--- NOTE | 2022-12-20 07:11 | PM.ACPR ---
Procedure/Consent Time out: Time Out Performed: Yes Consent: Consent for Procedure: Consent obtained from patient and Agrees to proceed with procedure Procedure Narrative: In the preoperative holding area, the patient's surgical removal of left dorsal wrist ganglion was canceled. The patient stated he preferred to have an aspiration. Therefore aspiration was performed under sterile conditions after Betadine prep. A 5 cc syringe with 18-gauge needle was inserted into the dorsum of the wrist in the area of the ganglion cyst. A small amount of bloody aspirate was obtained. This was followed by a Band-Aid and the patient will be discharged to home. Acute Procedures Epistaxis Control: Time out performed: Yes Joint Aspiration/Injection: Joint Asp./Inject. 1: Time out performed: Yes Side of body: left Joint aspirated: wrist/hand (Dorsum) Ultrasound guidance: No Skin prep: Povidone-Iodine1% Needle size used: 20G Fluid obtained: bloody Patient tolerated procedure: well and no complications Complications: none
--- NOTE | 2022-12-20 07:16 | P.MISC_ITS ---
Miscellaneous Note Purpose of Documentation: Cancellation of surgery Note: Patient was seen in the preoperative holding area, and further discussion was undertaken regarding the surgical risks and benefits. The patient's ganglion has decreased in size since he was seen by the nurse practitioner in the office. The patient also notes that he has had minimal to no pain from the ganglion since it was squeezed hard by Dr. Curry at the time of his gallbladder s urgery. After discussion, I offered the patient aspiration rather than surgical excision. The ganglion is quite small today and only minimally palpable. He and his agreed to the aspiration in the preoperative holding area. Further discussion of the patient's risks and complications with family history of malignant hyperthermia and the patient's cardiac issues was undertaken as well. Therefore, in the preoperative holding area, outpatient procedure of ganglion cyst aspiration was accomplished without entry into the operating room.
--- NOTE | 2022-12-20 07:32 | PC.NURSE ---
DR Monk came to bedside and determined that it was more appropriate to do a bedside aspiration of the cyst and postpone surgery at this time. Time out performed, cyst aspirated, bandaid placed. PT left ambulatory to his private vehicle.
== END 2022-12-20 07:20 | disposition home or self-care (01) ==
PROVIDERS: PCP Nurse Practitioner Family; Visit Provider Specialist
DX: M67.432 Ganglion, left wrist (principal); I25.10 Atherosclerotic heart disease of native coronary artery without angina pectoris; I11.0 Hypertensive heart disease with heart failure; I50.9 Heart failure, unspecified; Z95.810 Presence of automatic (implantable) cardiac defibrillator; M19.90 Unspecified osteoarthritis, unspecified site; Z79.82 Long term (current) use of aspirin; Z79.02 Long term (current) use of antithrombotics/antiplatelets; E78.5 Hyperlipidemia, unspecified; I34.0 Nonrheumatic mitral (valve) insufficiency; G62.9 Polyneuropathy, unspecified; Z87.891 Personal history of nicotine dependence
CPT/HCPCS: 20612; J0131; J7030

== ENCOUNTER 2022-12-27 08:47 | Oncology outpatient (recurring) (ONCR) | payer MEDICARE, OTHER, SELFPAY ==
[2022-12-27 10:15] VITALS: BP 86/50; BP 91/53; PULSE 62; PULSE 64; O2SAT 97
[2022-12-27 10:26] VITALS: BP 68/41
[2022-12-27 10:31] VITALS: BP 83/47; PULSE 66; O2SAT 99
[2022-12-27 10:32] LABS: Basophils % 0.8 %; Eosinophils # 0.1 10^3/uL (0.0-0.8); Eosinophils % 1.7 %; Hematocrit 41.4 % (42.0-52.0); Hemoglobin 13.6 g/dL (11.7-16.6); Lymphocytes # 0.8 10^3/uL (0.8-4.8); Lymphocytes % 16.9 %; Mean Corpuscular HGB Conc 32.9 g/dL (30.0-36.0); Mean Corpuscular Hemoglobin 33.2 pg (28.0-34.0); Mean Platelet Volume 11.8 fL (7.4-10.4); Monocytes # 0.3 10^3/uL (0.2-0.9); Monocytes % 6.9 %; Neutrophils # 3.52 10^3/uL (1.8-7.7); Neutrophils % 73.5 %; Nucleated Red Blood Cells % 0 %; Platelet Count 145 10^3/cmm (130-400); White Blood Count 4.8 10^3/uL (4.0-10.0)
[2022-12-27] MEDS: sodium chloride 0.9% 250 ML IV (10:32)
[2022-12-27 10:36] VITALS: BP 91/52
[2022-12-27 10:37] VITALS: BP 93/57
[2022-12-27 10:50] LABS: Alanine Aminotransferase 22 U/L (0-41); Albumin Level 4.1 g/dL (3.5-5.2); Alkaline Phosphatase 60 U/L (40-130); Anion Gap 13.5 (5-19); Aspartate Amino Transferase 25 U/L (0-40); Blood Urea Nitrogen 20 mg/dL (8-23); Calcium 8.5 mg/dL (8.5-10.5); Carbon Dioxide 28 mmol/L (22-29); Chloride 105 mmol/L (98-107); Ferritin 484 ng/mL (30-400); Globulin 1.8 g/dL (1.3-4.6); Glucose 109 mg/dL (65-115); Iron 121 ug/dL (59-158); Osmolality Calculated 297 mOsm/kg (285-295); Percent Saturation 49.1 % (20-50); Potassium 4.5 mmol/L (3.5-5.1); Sodium 142 mmol/L (136-145); Total Bilirubin 0.8 mg/dL (0.15-1.2); Total Iron Binding Capacity 246 mcg/dl; Total Protein 5.9 g/dL (6.6-8.7); Unsaturated Iron Binding 125 ug/dL (112-347)
[2022-12-27 11:38] LABS: Hepatitis A Antibody IgM Non-Reactive (Nonreactive); Hepatitis B Core AB, Total Non-Reactive (Nonreactive); Hepatitis B Surface AB 23.1 (11.5-1000); Hepatitis B Surface Antigen Non-Reactive (Nonreactive); Hepatitis C Virus Antibody Non-Reactive (Nonreactive)
== END 2023-01-05 23:59 | disposition home or self-care (01) ==
PROVIDERS: PCP Nurse Practitioner Family; Visit Provider Internal Medicine Medical Oncology
DX: E83.110 Hereditary hemochromatosis (principal); Z79.899 Other long term (current) drug therapy
CPT/HCPCS: 36415; 80053; 81256; 82728; 83540; 83550; 85025; 86705; 86706; 86709; 86803; 87340; 99195; 99205; J7050

== ENCOUNTER → 2023-01-22 13:34 | Outpatient (BNVA) | payer MEDICARE, OTHER, SELFPAY | PROVIDERS: PCP Nurse Practitioner Family; Visit Provider Urology | DX: N40.1 Benign prostatic hyperplasia with lower urinary tract symptoms (principal); R33.9 Retention of urine, unspecified | CPT/HCPCS: 51741; 51798; 81003; 99213 ==

== ENCOUNTER 2023-01-23 09:11 | Oncology outpatient (recurring) (ONCR) | payer MEDICARE, OTHER, SELFPAY ==
[2023-01-23 09:32] VITALS: BP 106/67; PULSE 82; RESP 18; TEMP 36.6; O2SAT 99
[2023-01-23 09:54] LABS: Basophils % 0.3 %; Eosinophils # 0.1 10^3/uL (0.0-0.8); Hematocrit 40.8 % (42.0-52.0); Hemoglobin 13.3 g/dL (11.7-16.6); Lymphocytes # 0.5 10^3/uL (0.8-4.8); Lymphocytes % 8.9 %; Mean Corpuscular HGB Conc 32.6 g/dL (30.0-36.0); Mean Corpuscular Hemoglobin 32.8 pg (28.0-34.0); Mean Corpuscular Volume 100.7 fl (80-94); Mean Platelet Volume 11.3 fL (7.4-10.4); Monocytes # 0.4 10^3/uL (0.2-0.9); Monocytes % 7.2 %; Neutrophils # 4.95 10^3/uL (1.8-7.7); Neutrophils % 81.4 %; Nucleated Red Blood Cells % 0 %; Platelet Count 146 10^3/cmm (130-400); Red Blood Count 4.05 10^6/uL (4.1-5.3); Red Cell Distribution Width 13.5 % (12.1-15.1); White Blood Count 6.1 10^3/uL (4.0-10.0)
[2023-01-23 10:24] LABS: Alanine Aminotransferase 18 U/L (0-41); Albumin Level 4.2 g/dL (3.5-5.2); Alkaline Phosphatase 61 U/L (40-130); Anion Gap 13.5 (5-19); Aspartate Amino Transferase 24 U/L (0-40); Blood Urea Nitrogen 17 mg/dL (8-23); Calcium 8.8 mg/dL (8.5-10.5); Carbon Dioxide 28 mmol/L (22-29); Chloride 103 mmol/L (98-107); Ferritin 416 ng/mL (30-400); Globulin 1.9 g/dL (1.3-4.6); Glucose 122 mg/dL (65-115); Iron 61 ug/dL (59-158); Osmolality Calculated 293 mOsm/kg (285-295); Percent Saturation 24.6 % (20-50); Potassium 4.5 mmol/L (3.5-5.1); Sodium 140 mmol/L (136-145); Total Bilirubin 1.1 mg/dL (0.15-1.2); Total Iron Binding Capacity 247 mcg/dl; Total Protein 6.1 g/dL (6.6-8.7); Unsaturated Iron Binding 186 ug/dL (112-347)
[2023-01-23 11:30] VITALS: BP 93/48; PULSE 64; RESP 18; TEMP 36.6; O2SAT 98
--- NOTE | 2023-01-23 16:21 | PC.NURSE ---
Patient did have phlebotomy with 325 ml removed of blood from the right ac space but was clotting off and no flow but patient refused to have any other IV started and was okay to return in one month.tony
== END 2023-02-05 23:59 | disposition home or self-care (01) ==
PROVIDERS: PCP Nurse Practitioner Family; Visit Provider Internal Medicine Medical Oncology
DX: E83.110 Hereditary hemochromatosis (principal)
CPT/HCPCS: 80053; 82728; 83540; 83550; 85025

== ENCOUNTER 2023-02-20 11:51 | Oncology outpatient (recurring) (ONCR) | payer MEDICARE, OTHER, SELFPAY ==
[2023-02-20 12:47] VITALS: BP 105/66; PULSE 77; RESP 18; TEMP 36.9; O2SAT 96
[2023-02-20 13:04] LABS: Basophils % 0.3 %; Eosinophils # 0.1 10^3/uL (0.0-0.8); Eosinophils % 0.6 %; Hematocrit 37.1 % (42.0-52.0); Hemoglobin 11.9 g/dL (11.7-16.6); Lymphocytes % 9.7 %; Mean Corpuscular HGB Conc 32.1 g/dL (30.0-36.0); Mean Corpuscular Hemoglobin 31.2 pg (28.0-34.0); Mean Corpuscular Volume 97.1 fl (80-94); Mean Platelet Volume 10.6 fL (7.4-10.4); Monocytes # 1.1 10^3/uL (0.2-0.9); Neutrophils # 8.39 10^3/uL (1.8-7.7); Neutrophils % 78.7 %; Nucleated Red Blood Cells % 0 %; Platelet Count 282 10^3/cmm (130-400); Red Blood Count 3.82 10^6/uL (4.1-5.3); Red Cell Distribution Width 13.2 % (12.1-15.1); White Blood Count 10.7 10^3/uL (4.0-10.0)
[2023-02-20 14:55] VITALS: BP 89/52; PULSE 63; RESP 18; TEMP 36.3; O2SAT 99
== END 2023-03-07 23:59 | disposition home or self-care (01) ==
LOC: ONCMED 11:52
PROVIDERS: PCP Nurse Practitioner Family; Visit Provider Internal Medicine Medical Oncology
DX: E83.110 Hereditary hemochromatosis (principal)
CPT/HCPCS: 36415; 85025; 99195

== ENCOUNTER 2023-03-20 11:48 | Oncology outpatient (recurring) (ONCR) | payer MEDICARE, OTHER, SELFPAY ==
[2023-03-20 12:16] VITALS: BP 84/54; PULSE 71; RESP 18; TEMP 36.4; O2SAT 98
[2023-03-20 12:31] LABS: Basophils % 0.8 %; Eosinophils # 0.2 10^3/uL (0.0-0.8); Eosinophils % 3.4 %; Hemoglobin 13.6 g/dL (11.7-16.6); Lymphocytes # 0.8 10^3/uL (0.8-4.8); Lymphocytes % 15.9 %; Mean Corpuscular HGB Conc 32.4 g/dL (30.0-36.0); Mean Corpuscular Hemoglobin 32.4 pg (28.0-34.0); Mean Platelet Volume 11.1 fL (7.4-10.4); Monocytes # 0.3 10^3/uL (0.2-0.9); Monocytes % 5.8 %; Neutrophils # 3.66 10^3/uL (1.8-7.7); Neutrophils % 73.9 %; Nucleated Red Blood Cells % 0 %; Platelet Count 178 10^3/cmm (130-400)
[2023-03-20 13:33] LABS: Alanine Aminotransferase 18 U/L (0-41); Albumin Level 3.6 g/dL (3.5-5.2); Alkaline Phosphatase 62 U/L (40-130); Blood Urea Nitrogen 17 mg/dL (8-23); Calcium 8.2 mg/dL (8.5-10.5); Carbon Dioxide 25 mmol/L (22-29); Chloride 105 mmol/L (98-107); Creatinine Clr Calc Pharmacy 64.3756; Glucose 133 mg/dL (65-115); Iron 69 ug/dL (59-158); Osmolality Calculated 293 mOsm/kg (285-295); Sodium 140 mmol/L (136-145); Total Bilirubin 0.5 mg/dL (0.15-1.2); Total Protein 5.6 g/dL (6.6-8.7)
[2023-03-20 13:39] LABS: Anion Gap 14.3 (5-19); Aspartate Amino Transferase 27 U/L (0-40); Potassium 4.3 mmol/L (3.5-5.1)
[2023-03-20 13:40] LABS: Percent Saturation 27.3 % (20-50); Total Iron Binding Capacity 252 mcg/dl; Unsaturated Iron Binding 183 ug/dL (112-347)
[2023-03-20 15:06] LABS: Ferritin 298 ng/mL (30-400)
== END 2023-04-07 23:59 | disposition home or self-care (01) ==
PROVIDERS: PCP Nurse Practitioner Family; Visit Provider Internal Medicine Medical Oncology
DX: E83.110 Hereditary hemochromatosis (principal); Z79.899 Other long term (current) drug therapy; Z87.891 Personal history of nicotine dependence
CPT/HCPCS: 36415; 80053; 82728; 83540; 83550; 85025; 99214

== ENCOUNTER → 2023-03-25 13:46 | Outpatient (BNVA) | payer MEDICARE, OTHER, SELFPAY | PROVIDERS: PCP Nurse Practitioner Family; Visit Provider Internal Medicine Cardiovascular Disease | DX: I25.10 Atherosclerotic heart disease of native coronary artery without angina pectoris (principal); Z95.810 Presence of automatic (implantable) cardiac defibrillator; E78.2 Mixed hyperlipidemia; I50.22 Chronic systolic (congestive) heart failure; I34.0 Nonrheumatic mitral (valve) insufficiency; I25.5 Ischemic cardiomyopathy; I95.2 Hypotension due to drugs | CPT/HCPCS: 99214 ==

== ENCOUNTER → 2023-04-22 09:22 | Outpatient (BNVA) | payer MEDICARE, OTHER, SELFPAY | PROVIDERS: PCP Nurse Practitioner Family; Visit Provider Internal Medicine Medical Oncology | DX: E83.110 Hereditary hemochromatosis (principal) | CPT/HCPCS: 80053; 82728; 85025 ==

== ENCOUNTER 2023-04-23 12:32 | Oncology outpatient (recurring) (ONCR) | payer MEDICARE, OTHER, SELFPAY ==
[2023-04-23 12:30] VITALS: BP 107/56; PULSE 91; RESP 18; TEMP 36.6; O2SAT 98
[2023-04-23 12:45] VITALS: BP 108/66; PULSE 91; RESP 18; TEMP 36.7; O2SAT 100
== END 2023-05-08 23:59 | disposition home or self-care (01) ==
PROVIDERS: PCP Nurse Practitioner Family; Visit Provider Internal Medicine Medical Oncology
DX: E83.110 Hereditary hemochromatosis (principal); Z79.899 Other long term (current) drug therapy
CPT/HCPCS: 99195; 99214

== ENCOUNTER → 2023-04-30 09:51 | Outpatient (BNVA) | payer MEDICARE, OTHER, SELFPAY | PROVIDERS: PCP Nurse Practitioner Family; Visit Provider Anesthesiology Pain Medicine | DX: M48.061 Spinal stenosis, lumbar region without neurogenic claudication (principal); M54.16 Radiculopathy, lumbar region; M48.062 Spinal stenosis, lumbar region with neurogenic claudication; M53.3 Sacrococcygeal disorders, not elsewhere classified; M54.12 Radiculopathy, cervical region; M47.816 Spondylosis without myelopathy or radiculopathy, lumbar region; M62.830 Muscle spasm of back; M48.19 Ankylosing hyperostosis [Forestier], 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; M50.90 Cervical disc disorder, unspecified, unspecified cervical region; M47.812 Spondylosis without myelopathy or radiculopathy, cervical region | CPT/HCPCS: 99214 ==

== ENCOUNTER → 2023-05-07 13:45 | Outpatient (BNVA) | payer MEDICARE, OTHER, SELFPAY | PROVIDERS: PCP Nurse Practitioner Family; Visit Provider Nurse Practitioner Family | DX: D22.5 Melanocytic nevi of trunk (principal); L81.4 Other melanin hyperpigmentation; L57.8 Other skin changes due to chronic exposure to nonionizing radiation; L57.0 Actinic keratosis; D48.5 Neoplasm of uncertain behavior of skin; Z85.828 Personal history of other malignant neoplasm of skin | CPT/HCPCS: 17004; 69100; 99213 ==

== ENCOUNTER 2023-05-19 12:13 | Outpatient (CLI) | payer MEDICARE, OTHER, SELFPAY ==
--- NOTE | 2023-05-19 12:30 | CT_ITS ---
WS: [id number] CT LUMBAR SPINE, noncontrast. HISTORY: M48.061 - Spinal stenosis, lumbar region without neurogenic radiculopathy. TECHNIQUE: Contiguous 2.0 mm axial imaging are performed. Sagittal and coronal reformats are submitte d and reviewed. All CT scans at [facility] use at least one of these dose optimization techni ques: automated exposure control; mA and/or kV adjustment per patient size (includes targeted exams w here dose is matched to clinical indication); or iterative reconstruction. IV contrast: None DLP: 317.47 mGy.cm COMPARISON: 03/08/2020 Mild straightening of the normal lumbar lordosis. L4 retrolisthesis by 4 mm is stable. Disc spaces ar e mildly narrowed and desiccated. The most significant narrowing is moderate at L4-5. Partially calci fied disc at L4-5. Bones are osteopenic. No fracture. Large clot-like bridging osteophytes along the LEFT lateral lumbar spine at L3-4 and L4-5. L1-2: Normal. L2-3: Very mild annular disc bulging encroaching upon the ventral thecal sac. Very slight contact and encroachment upon the subarticular recesses. No high-grade stenosis. L3-4: Mild annular disc bulging with a shallow LEFT foraminal disc protrusion. LEFT vertebral body os teophytes also contacting the exiting LEFT L3 nerve root. There is mild encroachment centrally upon t he subarticular recesses. Slightly greater contact on the traversing LEFT L4 nerve root. L4-5: Mild annular disc bulging with osteophytic ridging. Encroachment upon the subarticular recesses , LEFT greater than RIGHT. Mild LEFT foraminal and subarticular recess encroachment. L5-S1: Normal. No disc protrusions or stenosis. Mild degenerative air in the SI joints. Moderate atherosclerosis aorta with no aneurysm. IMPRESSION: 1. No high-grade central or foraminal stenosis. 2. Large bridging osteophytes on the LEFT at L3-4 and L4-5. 3. Shallow LEFT foraminal disc protrusion at L3-4 and the bridging osteophyte causing mild contact on the exiting LEFT L3 nerve root. Mild LEFT foraminal stenosis. There is additional mild disc contact on the traversing LEFT L4 nerve root. No high-grade stenosis. 4. Mild annular disc bulging and osteophytosis at L4-5. Mild encroachment upon the LEFT subarticular recess and LEFT foraminal encroachment. 5. L4 retrolisthesis by 4 mm.
== END 2023-05-19 12:14 | disposition home or self-care (01) ==
PROVIDERS: PCP Nurse Practitioner Family; Visit Provider Anesthesiology Pain Medicine
DX: M48.061 Spinal stenosis, lumbar region without neurogenic claudication (principal); M54.16 Radiculopathy, lumbar region; M25.78 Osteophyte, vertebrae; M51.26 Other intervertebral disc displacement, lumbar region
CPT/HCPCS: 72131

== ENCOUNTER → 2023-05-20 10:16 | Outpatient (BNVA) | payer MEDICARE, OTHER, SELFPAY | PROVIDERS: PCP Nurse Practitioner Family; Visit Provider Internal Medicine Medical Oncology | DX: E83.110 Hereditary hemochromatosis (principal); Z95.810 Presence of automatic (implantable) cardiac defibrillator | CPT/HCPCS: 82728; 83550; 85025; 93296 ==

== ENCOUNTER 2023-05-21 09:40 | Oncology outpatient (recurring) (ONCR) | payer MEDICARE, OTHER, SELFPAY ==
[2023-05-21 10:07] VITALS: BP 93/66; PULSE 59; RESP 16; TEMP 36.6; O2SAT 99
[2023-05-21] MEDS: sodium chloride 0.9% 250 ML IV (10:56)
[2023-05-21 11:45] VITALS: BP 90/58
== END 2023-06-07 23:59 | disposition home or self-care (01) ==
LOC: ONCMED 09:41
PROVIDERS: PCP Nurse Practitioner Family; Visit Provider Internal Medicine Medical Oncology
DX: E83.110 Hereditary hemochromatosis (principal)
CPT/HCPCS: 99195; J7050

== ENCOUNTER → 2023-06-02 09:06 | Outpatient (BNVA) | payer MEDICARE, OTHER, SELFPAY | PROVIDERS: PCP Nurse Practitioner Family; Visit Provider Anesthesiology Pain Medicine | DX: M48.062 Spinal stenosis, lumbar region with neurogenic claudication (principal); M43.16 Spondylolisthesis, lumbar region | CPT/HCPCS: 99214 ==

== ENCOUNTER → 2023-06-17 08:58 | Outpatient (BNVA) | payer MEDICARE, OTHER, SELFPAY | PROVIDERS: PCP Nurse Practitioner Family; Visit Provider Internal Medicine Medical Oncology | DX: E83.110 Hereditary hemochromatosis (principal) | CPT/HCPCS: 82728; 83550; 85025 ==

== ENCOUNTER → 2023-06-19 11:06 | Outpatient (BNVA) | payer MEDICARE, OTHER, SELFPAY | PROVIDERS: PCP Nurse Practitioner Family; Visit Provider Anesthesiology Pain Medicine | DX: M48.062 Spinal stenosis, lumbar region with neurogenic claudication (principal) | CPT/HCPCS: 99214 ==

== ENCOUNTER 2023-06-25 10:04 | Outpatient (CLI) | payer MEDICARE, OTHER, SELFPAY ==
--- NOTE | 2023-06-25 10:00 | USCV_ITS ---
Ruslan King Age: 83 Gender: M : 1940 Exam Date: 06/25/2023 10:15 Ordering Phys: Candie Rico MD ([email or web address]) Technologist: JADON [place]am [place] [facility] [place] Indication: CARDIOMYOPATHY, MR BP: 92 / 50 HR: 75 Rhythm: Sinus Technical Quality: Adequate MEASUREMENTS (Male / Female) Normal Values 2D ECHO LVOT Diameter 2.0 cm LV Ejection Fraction MOD 2C 31.3 % LV Ejection Fraction 2C AL 31.3 % LA Diameter 3.1 cm LA Width 3.0 cm LA Height 4.5 cm RA Width 3.9 cm RA Height 2.9 cm Aorta at Sinotubular Diameter 2.9 cm IVC Diameter 1.1 cm M-MODE Aortic Annulus Diameter 3.3 cm LA Ao Ratio MM 1.0 MV E Point Septal Separation 2.1 cm DOPPLER AV Peak Velocity 99.0 cm/s LVOT Peak Velocity 88.0 cm/s AV Area Cont Eq vti 2.7 cm squared AV Area Cont Eq pk 2.8 cm squared MV Peak Velocity 78.0 cm/s MV Area PHT 5.0 cm squared Mitral E to A Ratio 0.3 MV E' Velocity 17.5 cm/s Mitral E to MV E' Ratio 3.6 Mitral E to LV E' Lateral Ratio 2.8 Mitral E to LV E' Septal Ratio 5.1 TR Peak Velocity 207.2 cm/s TR Peak Gradient 17.2 mmHg TR Mean Velocity 162.6 cm/s TR Mean Gradient 11.4 mmHg TR Velocity Time Integral 68.4 cm TV Peak E Velocity 50.0 cm/s Right Atrial Pressure 3.0 mmHg Pulmonary Artery Systolic Pressu 20.2 mmHg PV Peak Velocity 94.0 cm/s RV Acceleration Time 0.1 s RV Ejection Time 0.3 s RV AcT/ET 0.4 FINDINGS Left Ventricle Moderately dilated left ventricle with thinned out myocardium. Severe diffuse hypokinesia. LV ejection fraction 25% Right Ventricle The right ventricle is normal in size and function. Right Atrium The right atrium is normal in size. Catheter/pacemaker wire in the right atrial cavity. Left Atrium Mildly increased left atrial size. Mitral Valve Mild mitral valve regurgitation. Aortic Valve No gross abnormalities noted Tricuspid Valve No gross abnormalities noted.trace tricuspid valve regurgitation. Pulmonic Valve No gross abnormalities noted.trace pulmonary valve regurgitation. Pericardium Normal pericardium without effusion. Aorta Normal aortic annulus size. IVC Normal inferior vena cava. CONCLUSIONS Moderately dilated left ventricle with thinned out myocardium. Severe diffuse hypokinesia. LV ejection fraction 25%. Mildly increased left atrial size. Mild mitral valve regurgitation. Trace tricuspid valve regurgitation. There is no pericardial effusion. There are no intracardiac masses. Catheter/pacemaker wire in the right atrial cavity. Compared to the previous study from 06/07/2022, there may not be a significant change Dr Candie Rico MD [facility] (Electronically Signed) Final Date: 27 June 2023 11:37 S
== END 2023-06-25 10:05 | disposition home or self-care (01) ==
LOC: RAD 10:05
PROVIDERS: PCP Nurse Practitioner Family; Visit Provider Internal Medicine Cardiovascular Disease
DX: I42.9 Cardiomyopathy, unspecified (principal); R06.09 Other forms of dyspnea; I34.0 Nonrheumatic mitral (valve) insufficiency; I51.7 Cardiomegaly
CPT/HCPCS: 93306; 99214

== ENCOUNTER → 2023-07-01 09:05 | Outpatient (BNVA) | payer MEDICARE, OTHER, SELFPAY | PROVIDERS: PCP Nurse Practitioner Family; Visit Provider Internal Medicine Medical Oncology | DX: E83.110 Hereditary hemochromatosis (principal) | CPT/HCPCS: 85025 ==

== ENCOUNTER 2023-07-02 14:30 | Oncology outpatient (recurring) (ONCR) | payer MEDICARE, OTHER, SELFPAY ==
[2023-06-18 09:49] VITALS: BP 92/58; PULSE 65; TEMP 36.6; O2SAT 98
[2023-06-18 10:00] VITALS: BP 115/69; PULSE 70; RESP 16; TEMP 36.6
[2023-06-18 10:24] VITALS: BP 90/55; PULSE 65; RESP 16; TEMP 36.1; O2SAT 98
[2023-07-02 14:30] VITALS: BP 90/51; PULSE 77; RESP 16; TEMP 36.1; O2SAT 98
[2023-07-02 14:31] VITALS: BP 88/49; PULSE 76; RESP 16; TEMP 36.3
[2023-07-02 15:41] VITALS: BP 90/51; PULSE 77; RESP 18; TEMP 36.1; O2SAT 99
--- NOTE | 2023-07-02 15:48 | PC.NURSE ---
Patient arrived with low BP and stated he has had low BP and has cut his BID BP med in half. Instructed to call primary MD to review blood pressure meds for the future. No adverse effects of phlebotomy. Patient states understanding.
== END 2023-07-08 23:59 | disposition home or self-care (01) ==
PROVIDERS: PCP Nurse Practitioner Family; Visit Provider Internal Medicine Medical Oncology
DX: E83.110 Hereditary hemochromatosis (principal)
CPT/HCPCS: 99195

== ENCOUNTER → 2023-07-07 14:02 | Outpatient (BNVA) | payer MEDICARE, OTHER, SELFPAY | PROVIDERS: PCP Nurse Practitioner Family; Visit Provider Nurse Practitioner Family | DX: I50.22 Chronic systolic (congestive) heart failure (principal); Z87.891 Personal history of nicotine dependence; Z95.810 Presence of automatic (implantable) cardiac defibrillator | CPT/HCPCS: 99213 ==

== ENCOUNTER → 2023-07-08 13:50 | Outpatient (BNVA) | payer MEDICARE, OTHER, SELFPAY | PROVIDERS: PCP Nurse Practitioner Family; Visit Provider Anesthesiology Pain Medicine | DX: M47.816 Spondylosis without myelopathy or radiculopathy, lumbar region (principal); M48.062 Spinal stenosis, lumbar region with neurogenic claudication | CPT/HCPCS: 64493; 64494; 64495; J3490 ==

== ENCOUNTER → 2023-07-15 09:00 | Outpatient (BNVA) | payer MEDICARE, OTHER, SELFPAY | PROVIDERS: PCP Nurse Practitioner Family; Visit Provider Internal Medicine Medical Oncology | DX: E83.110 Hereditary hemochromatosis (principal) | CPT/HCPCS: 85025 ==

== ENCOUNTER → 2023-07-17 12:39 | Outpatient (BNVA) | payer MEDICARE, OTHER, SELFPAY | PROVIDERS: PCP Nurse Practitioner Family; Visit Provider Nurse Practitioner Family | DX: I95.2 Hypotension due to drugs (principal) | CPT/HCPCS: 99213 ==

== ENCOUNTER → 2023-07-22 09:15 | Outpatient (BNVA) | payer MEDICARE, OTHER, SELFPAY | PROVIDERS: PCP Nurse Practitioner Family; Visit Provider Anesthesiology Pain Medicine | DX: M47.816 Spondylosis without myelopathy or radiculopathy, lumbar region (principal); M48.061 Spinal stenosis, lumbar region without neurogenic claudication; M43.16 Spondylolisthesis, lumbar region | CPT/HCPCS: 99214 ==

== ENCOUNTER → 2023-07-28 09:02 | Outpatient (BNVA) | payer MEDICARE, OTHER, SELFPAY | PROVIDERS: PCP Nurse Practitioner Family; Visit Provider Nurse Practitioner Family | DX: E83.110 Hereditary hemochromatosis (principal) | CPT/HCPCS: 80053; 82728; 83550; 85025 ==

== ENCOUNTER 2023-07-29 13:00 | Oncology outpatient (recurring) (ONCR) | payer MEDICARE, OTHER, SELFPAY ==
[2023-07-16 14:20] VITALS: BP 104/60; PULSE 75; RESP 16; TEMP 36.8; O2SAT 97
[2023-07-16 15:06] LABS: Ferritin 168 ng/mL (30-400)
[2023-07-16 15:25] VITALS: BP 84/44
[2023-07-16 15:31] VITALS: BP 88/50
[2023-07-16 15:34] VITALS: BP 90/49
[2023-07-16 15:39] VITALS: BP 86/53
[2023-07-16 15:42] VITALS: BP 98/58; PULSE 60; TEMP 36.1; O2SAT 97
[2023-07-29 13:04] VITALS: BP 89/57; PULSE 87; RESP 17; TEMP 36.8; O2SAT 97
== END 2023-08-07 23:59 | disposition home or self-care (01) ==
PROVIDERS: Nurse Practitioner Family; PCP Nurse Practitioner Family; Visit Provider Internal Medicine Medical Oncology
DX: E83.110 Hereditary hemochromatosis (principal); Z79.899 Other long term (current) drug therapy; I50.22 Chronic systolic (congestive) heart failure
CPT/HCPCS: 36415; 82728; 99195; 99214

== ENCOUNTER → 2023-08-25 10:26 | Outpatient (BNVA) | payer MEDICARE, OTHER, SELFPAY | PROVIDERS: PCP Nurse Practitioner Family; Visit Provider Internal Medicine Cardiovascular Disease | DX: Z45.02 Encounter for adjustment and management of automatic implantable cardiac defibrillator (principal) | CPT/HCPCS: 93296 ==

== ENCOUNTER 2023-09-03 12:53 | Oncology outpatient (recurring) (ONCR) | payer MEDICARE, OTHER, SELFPAY ==
[2023-09-03 13:28] LABS: Basophils % 0.3 %; Eosinophils % 0.4 %; Hematocrit 39.7 % (37-53); Lymphocytes # 0.7 10^3/uL (0.8-4.8); Lymphocytes % 9.7 %; Mean Corpuscular HGB Conc 32.7 g/dL (30-55); Mean Corpuscular Hemoglobin 32.2 pg (27-33); Mean Corpuscular Volume 98.3 fl (82-101); Mean Platelet Volume 12.1 fL (7.4-10.4); Monocytes # 0.3 10^3/uL (0.2-0.9); Monocytes % 4.6 %; Neutrophils # 5.67 10^3/uL (1.8-7.7); Neutrophils % 84.7 %; Nucleated Red Blood Cells % 0 %; Platelet Count 144 10^3/cmm (157-399); Red Blood Count 4.04 10^6/uL (3.85-5.65); Red Cell Distribution Width 13.2 % (12.1-15.1)
[2023-09-03 13:30] VITALS: BP 99/50; PULSE 64; RESP 16; TEMP 36.8; O2SAT 98
[2023-09-03 14:20] VITALS: BP 96/53; PULSE 62; RESP 16; TEMP 36.7; O2SAT 97
== END 2023-09-07 23:59 | disposition home or self-care (01) ==
LOC: ONCMED 12:54
PROVIDERS: PCP Nurse Practitioner Family; Visit Provider Internal Medicine Medical Oncology
DX: E83.110 Hereditary hemochromatosis (principal)
CPT/HCPCS: 36415; 85025; 99195

== ENCOUNTER → 2023-09-24 12:57 | Outpatient (BNVA) | payer MEDICARE, OTHER, SELFPAY | PROVIDERS: PCP Nurse Practitioner Family; Visit Provider Nurse Practitioner Family | DX: H61.031 Chondritis of right external ear (principal); L57.0 Actinic keratosis; L57.8 Other skin changes due to chronic exposure to nonionizing radiation; D22.62 Melanocytic nevi of left upper limb, including shoulder; L81.4 Other melanin hyperpigmentation | CPT/HCPCS: 17000; 99213 ==

== ENCOUNTER → 2023-10-01 08:55 | Outpatient (BNVA) | payer MEDICARE, OTHER, SELFPAY | PROVIDERS: PCP Nurse Practitioner Family; Visit Provider Internal Medicine Medical Oncology | DX: E83.110 Hereditary hemochromatosis (principal) | CPT/HCPCS: 85025 ==

== ENCOUNTER 2023-10-02 13:01 | Oncology outpatient (recurring) (ONCR) | payer MEDICARE, OTHER, SELFPAY ==
[2023-10-02 14:02] VITALS: BP 87/54; PULSE 63; RESP 16; TEMP 36.6; O2SAT 99
[2023-10-02 14:14] VITALS: BP 86/49; PULSE 59; RESP 18; O2SAT 100
[2023-10-02 14:22] VITALS: BP 93/52; PULSE 57; RESP 16; O2SAT 98
[2023-10-02 14:30] VITALS: BP 83/50; PULSE 61; RESP 16; O2SAT 99
[2023-10-02 14:50] VITALS: BP 96/52
== END 2023-10-08 23:59 | disposition home or self-care (01) ==
LOC: ONCMED 13:02
PROVIDERS: PCP Nurse Practitioner Family; Visit Provider Internal Medicine Medical Oncology
DX: E83.110 Hereditary hemochromatosis (principal)
CPT/HCPCS: 99195

== ENCOUNTER → 2023-10-08 10:00 | Outpatient (BNVA) | payer MEDICARE, OTHER, SELFPAY | PROVIDERS: PCP Nurse Practitioner Family; Visit Provider Nurse Practitioner Family | DX: Z95.810 Presence of automatic (implantable) cardiac defibrillator (principal); I25.10 Atherosclerotic heart disease of native coronary artery without angina pectoris; I50.22 Chronic systolic (congestive) heart failure; Z87.891 Personal history of nicotine dependence | CPT/HCPCS: 99214 ==

== ENCOUNTER → 2023-11-03 09:05 | Outpatient (BNVA) | payer MEDICARE, OTHER, SELFPAY | PROVIDERS: PCP Nurse Practitioner Family; Visit Provider Internal Medicine Medical Oncology | DX: I50.22 Chronic systolic (congestive) heart failure (principal); E83.110 Hereditary hemochromatosis | CPT/HCPCS: 80053; 82728; 83550; 85025 ==

== ENCOUNTER 2023-11-04 14:48 | Oncology outpatient (recurring) (ONCR) | payer MEDICARE, OTHER, SELFPAY | END 2023-11-06 23:59 | disposition home or self-care (01) | PROVIDERS: PCP Nurse Practitioner Family; Visit Provider Internal Medicine Medical Oncology | DX: E83.110 Hereditary hemochromatosis (principal); Z79.899 Other long term (current) drug therapy; Z87.891 Personal history of nicotine dependence; Z53.9 Procedure and treatment not carried out, unspecified reason | CPT/HCPCS: 99214 ==

== ENCOUNTER → 2023-11-12 10:42 | Outpatient (BNVA) | payer MEDICARE, OTHER, SELFPAY | PROVIDERS: PCP Nurse Practitioner Family; Visit Provider Internal Medicine Cardiovascular Disease | DX: Z45.02 Encounter for adjustment and management of automatic implantable cardiac defibrillator (principal) | CPT/HCPCS: 93296 ==

== ENCOUNTER → 2024-02-03 09:39 | Outpatient (BNVA) | payer MEDICARE, OTHER, SELFPAY | PROVIDERS: PCP Nurse Practitioner Family; Visit Provider Internal Medicine Medical Oncology | DX: E83.110 Hereditary hemochromatosis (principal) | CPT/HCPCS: 80053; 82728; 83550; 85025 ==

== ENCOUNTER 2024-02-04 14:44 | Oncology outpatient (recurring) (ONCR) | payer MEDICARE, OTHER, SELFPAY ==
[2024-02-04 15:33] VITALS: BP 93/55; PULSE 58; RESP 16; TEMP 36.4; O2SAT 99
== END 2024-02-06 23:59 | disposition home or self-care (01) ==
PROVIDERS: PCP Nurse Practitioner Family; Visit Provider Internal Medicine Medical Oncology
DX: E83.110 Hereditary hemochromatosis (principal)
CPT/HCPCS: 99195

== ENCOUNTER → 2024-03-02 10:52 | Outpatient (BNVA) | payer MEDICARE, OTHER, SELFPAY | PROVIDERS: PCP Nurse Practitioner Family; Visit Provider Internal Medicine Cardiovascular Disease | DX: Z51.81 Encounter for therapeutic drug level monitoring (principal); R06.02 Shortness of breath; Z79.899 Other long term (current) drug therapy; I50.9 Heart failure, unspecified | CPT/HCPCS: 36415; 80048; 80162; 83880; 99214 ==

== ENCOUNTER → 2024-03-16 09:30 | Outpatient (BNVA) | payer MEDICARE, OTHER, SELFPAY | PROVIDERS: PCP Nurse Practitioner Family; Visit Provider Internal Medicine Medical Oncology | DX: E83.110 Hereditary hemochromatosis (principal) | CPT/HCPCS: 80053; 82728; 83550; 85025 ==

== ENCOUNTER 2024-03-17 14:42 | Oncology outpatient (recurring) (ONCR) | payer MEDICARE, OTHER, SELFPAY ==
[2024-03-17 15:07] VITALS: BP 90/53; PULSE 63; RESP 16; O2SAT 98
[2024-03-17 15:38] VITALS: BP 93/55; PULSE 61; RESP 16; TEMP 16.1; O2SAT 98
== END 2024-04-07 23:59 | disposition home or self-care (01) ==
LOC: ONCMED 14:42
PROVIDERS: PCP Nurse Practitioner Family; Visit Provider Internal Medicine Medical Oncology
DX: E83.110 Hereditary hemochromatosis (principal)
CPT/HCPCS: 99195

== ENCOUNTER → 2024-05-04 08:47 | Outpatient (BNVA) | payer MEDICARE, OTHER, SELFPAY | PROVIDERS: PCP Nurse Practitioner Family; Visit Provider Nurse Practitioner Family | DX: E83.110 Hereditary hemochromatosis (principal) | CPT/HCPCS: 80053; 85025 ==

== ENCOUNTER 2024-05-05 12:21 | Oncology outpatient (recurring) (ONCR) | payer MEDICARE, OTHER, SELFPAY ==
[2024-05-05 13:16] LABS: Ferritin 47 ng/mL (30-400); Iron 112 ug/dL (59-158); Percent Saturation 38.8 % (20-50); Total Iron Binding Capacity 288 mcg/dl; Unsaturated Iron Binding 176 ug/dL (112-347)
== END 2024-05-08 23:59 | disposition home or self-care (01) ==
PROVIDERS: Nurse Practitioner Family; PCP Nurse Practitioner Family; Visit Provider Internal Medicine Medical Oncology
DX: E83.110 Hereditary hemochromatosis (principal)
CPT/HCPCS: 82728; 83540; 83550; 99214

== ENCOUNTER → 2024-05-07 09:49 | Outpatient (BNVA) | payer MEDICARE, OTHER, SELFPAY | PROVIDERS: PCP Nurse Practitioner Family; Visit Provider Nurse Practitioner Family | DX: L57.0 Actinic keratosis (principal); L81.4 Other melanin hyperpigmentation; L57.8 Other skin changes due to chronic exposure to nonionizing radiation; Z85.828 Personal history of other malignant neoplasm of skin | CPT/HCPCS: 17000; 99213 ==

== ENCOUNTER → 2024-06-22 09:04 | Outpatient (BNVA) | payer MEDICARE, OTHER, SELFPAY | PROVIDERS: PCP Nurse Practitioner Family; Visit Provider Internal Medicine Medical Oncology | DX: E83.110 Hereditary hemochromatosis (principal) | CPT/HCPCS: 80053; 82728; 83550; 85025 ==

== ENCOUNTER 2024-06-24 10:18 | Oncology outpatient (recurring) (ONCR) | payer MEDICARE, OTHER, SELFPAY ==
[2024-06-24 10:51] VITALS: BP 101/65; PULSE 75; RESP 16; TEMP 36.3; O2SAT 99
[2024-06-24 11:09] VITALS: BP 92/54; PULSE 61; RESP 16; O2SAT 97
== END 2024-07-08 23:59 | disposition home or self-care (01) ==
LOC: ONCMED 10:19
PROVIDERS: PCP Nurse Practitioner Family; Visit Provider Internal Medicine Medical Oncology
DX: E83.110 Hereditary hemochromatosis (principal)
CPT/HCPCS: 99195

== ENCOUNTER → 2024-07-22 11:08 | Outpatient (BNVA) | payer MEDICARE, OTHER, SELFPAY | PROVIDERS: PCP Nurse Practitioner Family; Visit Provider Internal Medicine Cardiovascular Disease | DX: Z45.02 Encounter for adjustment and management of automatic implantable cardiac defibrillator (principal) | CPT/HCPCS: 93296 ==

== ENCOUNTER → 2024-08-03 08:58 | Outpatient (BNVA) | payer MEDICARE, OTHER, SELFPAY | PROVIDERS: PCP Nurse Practitioner Family; Visit Provider Internal Medicine Medical Oncology | DX: E83.110 Hereditary hemochromatosis (principal) | CPT/HCPCS: 80053; 82728; 83550; 85025 ==

== ENCOUNTER → 2024-09-20 09:45 | Outpatient (BNVA) | payer MEDICARE, OTHER, SELFPAY | PROVIDERS: PCP Nurse Practitioner Family; Visit Provider Nurse Practitioner Family | DX: E83.110 Hereditary hemochromatosis (principal) | CPT/HCPCS: 80053; 82728; 83550; 85025 ==

== ENCOUNTER → 2024-10-07 10:13 | Outpatient (BNVA) | payer MEDICARE, OTHER, SELFPAY | PROVIDERS: PCP Nurse Practitioner Family; Visit Provider Nurse Practitioner Family | DX: I25.10 Atherosclerotic heart disease of native coronary artery without angina pectoris (principal); I50.22 Chronic systolic (congestive) heart failure; I34.0 Nonrheumatic mitral (valve) insufficiency; Z95.810 Presence of automatic (implantable) cardiac defibrillator | CPT/HCPCS: 36415; 80048; 99214 ==

== ENCOUNTER → 2024-10-29 09:11 | Outpatient (BNVA) | payer MEDICARE, OTHER, SELFPAY | PROVIDERS: PCP Nurse Practitioner Family; Visit Provider Clinical Nurse Specialist Adult Health | DX: E83.110 Hereditary hemochromatosis (principal) | CPT/HCPCS: 80053; 82728; 83550; 85025 ==

== ENCOUNTER 2024-11-03 09:44 | Oncology outpatient (recurring) (ONCR) | payer MEDICARE, OTHER, SELFPAY ==
--- NOTE | 2024-11-03 10:00 | USCV_ITS ---
Ruslan King Age: 84 Gender: M : 1940 Exam Date: 11/03/2024 10:29 Ordering Phys: Hannah Ponce NP Technologist: FLORIAN Exam Location: [facility] [place] Indication: chf mr BP: 103 / 65 HR: 60 Rhythm: Sinus Technical Quality: Adequate MEASUREMENTS (Male / Female) Normal Values 2D ECHO LV Diastolic Diameter PLAX 5.9 cm 4.2 - 5.9 / 3.9 - 5.3 cm IVS Diastolic Thickness 0.8 cm 0.6 - 1.0 / 0.6 - 0.9 cm IVS Systolic Thickness 1.3 cm LVPW Diastolic Thickness 1.4 cm 0.6 - 1.0 / 0.6 - 0.9 cm LVPW Systolic Thickness 2.4 cm LVOT Diameter 2.0 cm LV Ejection Fraction 2D Teich 32.6 % LV Ejection Fraction MOD 4C 36.5 % LV Ejection Fraction MOD 2C 44.9 % LV Ejection Fraction 2C AL 42.7 % LA Diameter 4.9 cm RA Systolic Volume 4C AL 45.7 ml RA Systolic Volume 4C MOD 41.9 ml LA Sys Volume AL 97.6 cm cubed LA Sys Volume Index AL 53.0 cm cubed/m squared Aorta at Sinotubular Diameter 3.1 cm IVC Diameter 3.1 cm M-MODE LA Ao Ratio MM 1.5 AV Cusp Separation MM 1.8 cm DOPPLER AV Peak Velocity 142.0 cm/s LVOT Peak Velocity 81.0 cm/s AV Area Cont Eq vti 1.4 cm squared AV Area Cont Eq pk 1.8 cm squared MV Peak Velocity 110.0 cm/s MV Area PHT 5.0 cm squared Mitral E to A Ratio 2.9 TV Peak Velocity 281.5 cm/s TR Peak Velocity 295.0 cm/s TR Peak Gradient 34.8 mmHg TV Peak E Velocity 74.0 cm/s PV Peak Velocity 95.0 cm/s FINDINGS Left Ventricle Severely increased left ventricular cavity size. Severely decreased left ventricular systolic function. Left ventricular ejection fraction is estimated at 25 %. There appeared to be mid to distal anterior, septal and apical akinesis suggestive of ischemic heart disease. There is grade 3 diastolic dysfunction Right Ventricle The right ventricle is normal in size and function. Right Atrium There is moderate right atrial enlargement Left Atrium There is moderate left atrial enlargement Mitral Valve There appeared to be thickened mitral valve with moderate to severe regurgitation Aortic Valve Aortic valve is moderately thickened, there is no stenosis and trivial regurgitation Tricuspid Valve There is moderate tricuspid valve regurgitation Pulmonic Valve Mild to moderate pulmonary regurgitation Pericardium Normal pericardium without effusion. Aorta Normal ascending aorta dimension. IVC There is IVC dilatation, right atrial pressure at least 20 mmHg CONCLUSIONS Severely increased left ventricular cavity size. Severely decreased left ventricular systolic function. Left ventricular ejection fraction is estimated at 25 %. There appeared to be mid to distal anterior, septal and apical akinesis suggestive of ischemic heart disease. There is grade 3 diastolic dysfunction. There is moderate left atrial enlargement There appeared to be thickened mitral valve with moderate to severe regurgitation There is moderate tricuspid valve regurgitation Mild to moderate pulmonary regurgitation There is no pericardial effusion There is IVC dilatation, right atrial pressure at least 20 mmHg Michel Wong MD (Electronically Signed) Final Date: 23 November 2024 09:27 S
== END 2024-11-05 23:59 | disposition home or self-care (01) ==
LOC: RAD 09:45 → ONCMED 13:42
PROVIDERS: PCP Nurse Practitioner Family; Visit Provider Internal Medicine
DX: E83.110 Hereditary hemochromatosis (principal); I50.22 Chronic systolic (congestive) heart failure; I25.9 Chronic ischemic heart disease, unspecified; I34.0 Nonrheumatic mitral (valve) insufficiency; I07.1 Rheumatic tricuspid insufficiency
CPT/HCPCS: 93306; 99214

== ENCOUNTER → 2024-11-22 11:18 | Outpatient (BNVA) | payer MEDICARE, OTHER, SELFPAY | PROVIDERS: PCP Clinical Nurse Specialist Adult Health; Visit Provider Clinical Nurse Specialist Adult Health | DX: N40.1 Benign prostatic hyperplasia with lower urinary tract symptoms (principal); I25.5 Ischemic cardiomyopathy; I25.10 Atherosclerotic heart disease of native coronary artery without angina pectoris; I50.22 Chronic systolic (congestive) heart failure | CPT/HCPCS: 83880; 84153; 84550 ==

== ENCOUNTER → 2024-11-24 12:05 | Outpatient (BNVA) | payer MEDICARE, OTHER, SELFPAY | PROVIDERS: PCP Clinical Nurse Specialist Adult Health; Visit Provider Internal Medicine Cardiovascular Disease | DX: R06.02 Shortness of breath (principal); T46.0X5A Adverse effect of cardiac-stimulant glycosides and drugs of similar action, initial encounter; I50.9 Heart failure, unspecified | CPT/HCPCS: 36415; 80048; 80162; 83880; 99214 ==

== ENCOUNTER → 2024-12-06 10:02 | Outpatient (BNVA) | payer MEDICARE, OTHER, SELFPAY | PROVIDERS: PCP Clinical Nurse Specialist Adult Health; Visit Provider Nurse Practitioner Family | DX: I50.22 Chronic systolic (congestive) heart failure (principal); R79.89 Other specified abnormal findings of blood chemistry; I25.119 Atherosclerotic heart disease of native coronary artery with unspecified angina pectoris; I25.10 Atherosclerotic heart disease of native coronary artery without angina pectoris; Z95.810 Presence of automatic (implantable) cardiac defibrillator | CPT/HCPCS: 36415; 80048; 80162; 83880; 99214 ==

== ENCOUNTER → 2024-12-13 14:51 | Outpatient (BNVA) | payer MEDICARE, OTHER, SELFPAY | PROVIDERS: PCP Clinical Nurse Specialist Adult Health; Visit Provider Anesthesiology Pain Medicine | DX: R10.2 Pelvic and perineal pain (principal); M79.18 Myalgia, other site; M54.50 Low back pain, unspecified; M54.9 Dorsalgia, unspecified; M47.816 Spondylosis without myelopathy or radiculopathy, lumbar region | CPT/HCPCS: 20553; 72110; 72190; 99214; J1010; J3490 ==

== ENCOUNTER → 2024-12-15 10:13 | Outpatient (BNVA) | payer MEDICARE, OTHER, SELFPAY | PROVIDERS: PCP Clinical Nurse Specialist Adult Health; Visit Provider Internal Medicine Cardiovascular Disease | DX: Z45.02 Encounter for adjustment and management of automatic implantable cardiac defibrillator (principal) | CPT/HCPCS: 93296 ==

== ENCOUNTER 2024-12-22 10:06 | Oncology outpatient (recurring) (ONCR) | payer MEDICARE, OTHER, SELFPAY ==
--- NOTE | 2024-12-22 10:30 | CTR_ITS ---
PROCEDURE INFORMATION: Exam: CT Lumbar Spine Without Contrast Exam date and time: 12/22/2024 11:07 AM Age: 84 years old Clinical indication: Prior surgery; Surgery date: 6+ months; Surgery type: Gb; Low back pain, tailbone pain x several weeks; Additional info: M79.18 - myalgia, other site TECHNIQUE: Imaging protocol: Computed tomography of the lumbar spine without contrast. Radiation optimization: All CT scans at this facility use at least one of these dose optimization techniques: automated exposure control; mA and/or kV adjustment per patient size (includes targeted exams where dose is matched to clinical indication); or iterative reconstruction. COMPARISON: CT lumbar spine wo con* [id number] 05/19/2023 12:28 PM RADIATION DOSE METRICS: Total DLP (mGy-cm): 366.72 FINDINGS: Bones/joints: The bony structures demonstrate diffuse osteopenia. Vertebral body spurring can be seen at multiple levels. No fracture noted. Soft tissues: Unremarkable. CT/CT lumbar spine wo con* [id number] IMPRESSION: 1. No acute findings 2. Multilevel arthritic changes are noted with osteoporosis.
== END 2025-01-05 23:59 | disposition home or self-care (01) ==
LOC: ONCMED 10:07 → RAD 10:07 → ONCMED 10:09
PROVIDERS: PCP Clinical Nurse Specialist Adult Health; Visit Provider Anesthesiology Pain Medicine
DX: E83.110 Hereditary hemochromatosis (principal); I50.22 Chronic systolic (congestive) heart failure; M79.18 Myalgia, other site
CPT/HCPCS: 72131

== ENCOUNTER → 2024-12-23 10:20 | Outpatient (BNVA) | payer MEDICARE, OTHER, SELFPAY | PROVIDERS: PCP Nurse Practitioner Family; Visit Provider Nurse Practitioner Family | DX: N40.1 Benign prostatic hyperplasia with lower urinary tract symptoms (principal) | CPT/HCPCS: 80053; 84153 ==

== ENCOUNTER → 2024-12-27 09:15 | Outpatient (BNVA) | payer MEDICARE, OTHER, SELFPAY | PROVIDERS: PCP Nurse Practitioner Family; Visit Provider Internal Medicine Medical Oncology | DX: E83.110 Hereditary hemochromatosis (principal); I50.22 Chronic systolic (congestive) heart failure | CPT/HCPCS: 80053; 82728; 83550; 85025 ==

== ENCOUNTER → 2024-12-28 09:38 | Outpatient (BNVA) | payer MEDICARE, OTHER, SELFPAY | PROVIDERS: PCP Nurse Practitioner Family; Visit Provider Anesthesiology Pain Medicine | DX: M54.9 Dorsalgia, unspecified (principal); M47.816 Spondylosis without myelopathy or radiculopathy, lumbar region | CPT/HCPCS: 99214 ==

== ENCOUNTER → 2025-01-24 13:22 | Outpatient (BNVA) | payer MEDICARE, OTHER, SELFPAY | PROVIDERS: PCP Nurse Practitioner Family; Visit Provider Anesthesiology Pain Medicine | DX: M54.9 Dorsalgia, unspecified (principal); M47.816 Spondylosis without myelopathy or radiculopathy, lumbar region | CPT/HCPCS: 99214 ==

== ENCOUNTER → 2025-01-26 11:19 | Outpatient (BNVA) | payer MEDICARE, OTHER, SELFPAY | PROVIDERS: PCP Nurse Practitioner Family; Visit Provider Nurse Practitioner Family | DX: I50.22 Chronic systolic (congestive) heart failure (principal); I25.10 Atherosclerotic heart disease of native coronary artery without angina pectoris; Z79.01 Long term (current) use of anticoagulants; Z95.810 Presence of automatic (implantable) cardiac defibrillator; Z87.891 Personal history of nicotine dependence; I25.2 Old myocardial infarction; E78.2 Mixed hyperlipidemia; M79.89 Other specified soft tissue disorders | CPT/HCPCS: 36415; 71046; 80048; 83880; 85025; 99214 ==

== ENCOUNTER 2025-02-07 11:02 | Day surgery (SDC) | payer MEDICARE, OTHER, SELFPAY ==
--- NOTE | 2025-02-07 11:58 | US_ITS ---
WS: [id number] ULTRASOUND-GUIDED THORACENTESIS HISTORY: pleural fluid Procedure, risks, and complications were explained to the patient. With the patient in an upright position, the skin over the RIGHT posterior thorax was cleansed with ChloraPrep and anesthetized with 1% buffered lidocaine. A 5 Welsh Yueh needle is inserted into the pleural fluid without complication. Approximately 1000 cc of clear pleural fluid is removed without difficulty. / thoracentesis [id number] IMPRESSION: 1. RIGHT thoracentesis yielding 1000 cc of fluid. 2. Chest radiograph to follow to evaluate for pneumothorax.
[2025-02-07 12:00] VITALS: BP 86/58; PULSE 64; RESP 18; TEMP 36.6; O2SAT 95; BMI 23.6
--- NOTE | 2025-02-07 13:00 | XR_ITS ---
WS: [id number] PORTABLE CHEST HISTORY: POST THORACENTESIS, RIGHT COMPARISON: 02/01/2025 Small residual RIGHT pleural effusion and RIGHT basilar atelectasis. No pneumothorax. Otherwise lungs are clear. Cardiac size: Mildly enlarged cardiac silhouette. Mediastinum/Aorta: No mediastinal widening. LEFT subclavian pacer/defibrillator. AC joint arthritis. XR/XR chest 1V portable [id number] IMPRESSION: 1. No pneumothorax status post RIGHT thoracentesis. 2. Small residual RIGHT pleural effusion.
[2025-02-07 13:04] VITALS: BP 88/59; PULSE 66; RESP 18; O2SAT 99
== END 2025-02-07 13:17 | disposition home or self-care (01) ==
LOC: GILAB 11:04
PROVIDERS: Radiology Diagnostic Radiology; PCP Clinical Nurse Specialist Adult Health; Visit Provider Nurse Practitioner Family
PROC: (CPT 32554; principal; 2025-02-07 12:30)
DX: J90 Pleural effusion, not elsewhere classified (principal)
CPT/HCPCS: 32555; 71045

== ENCOUNTER 2025-02-10 09:08 | Outpatient (CLI) | payer MEDICARE, OTHER, SELFPAY ==
--- NOTE | 2025-02-10 10:07 | NMCV_ITS ---
NM odalis perf SPECT r/s* [id number] Ruslan King Age: 84 Gender: M : 1940 Exam Date: 02/10/2025 10:34 Ordering Phys: Hannah Ponce NP Technologist: GEORGETTE Delvalle Exam Location: [facility] Indications: cp STRESS TEST Please [facility] IMAGE PROTOCOL Rest/Stress 1 Lexiscan Day Radiopharmaceutical Dose (mCi) Administration Site Administered by Rest: Tc-99m 10.6 IV Marti Patel, LEGAL WRITING PROFESSOR Sestamibi Stress:Tc-99m 32.8 IV Marti Sparksgle, LEGAL WRITING PROFESSOR Sestamibi Rest: 10-Feb-2025 60 Discovery 630 Stress: 10-Feb-2025 30 Discovery 630 0.4mg Lexiscan. Images obtained in supine and prone position. SPECT RESULTS Technical Quality: Good Raw Data Analysis: Normal Image Corrections: No attenuation or motion correction applied Summed Stress Score: 26 Summed Rest Score: 38 Summed Difference Score: 0 PERFUSION FINDINGS Large area of mostly fixed perfusion defect seen in apical, inferior, anterior and inferolateral holly. This is consistent with large areas of prior infarct with minimal mary-infarct ischemia in distribution of all 3 coronary arteries. FUNCTIONAL RESULTS (calculated via Gated SPECT) Stress Image LV EF (%): 16 Stress EDV (mL):460 TID: 1.86 Stress ESV (mL):385 FUNCTIONAL FINDINGS: LV systolic function is severely reduced with EF of 16%. Severe global hypokinesis. IMPRESSIONS 1. Abnormal myocardial perfusion imaging with large areas of prior infarct with minimal mary-infarct ischemia in the distribution of all 3 coronary arteries. 2. LV systolic function is severely reduced. 3. TID ratio is elevated. 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
--- NOTE | 2025-02-10 10:07 | ECG_ITS ---
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 Interpretive Statements LEXISCAN SESTAMIBI STRESS TEST Procedure: At the baseline, the blood pressure was 125/75 mmHg with a heart rate of 68 bpm. The electrocardiogram showed normal paced rhythm. The Lexiscan was infused over a period of 20 seconds. A total of 0.4 mg of Lexiscan was infused. The stress phase was continued for a total of 5 minutes. Heart rate was at the end of stress phase was 66 bpm and a blood pressure of 102/69 mmHg. The EKG at the peak infusion revealed no significant ST-T wave changes. Sestamibi was injected 20 seconds after the Lexiscan infusion. Blood pressure at the end of recovery phase was 95/54 mmHg with a heart rate of 65 bpm. Conclusion: 1. Normal EKG response to Lexiscan infusion 2. No Lexiscan induced chest pain or cardiac arrhythmia. 3. Normal blood pressure and heart rate response. 4. Sestamibi/sestamibi perfusion scan pending; see separate report. Electronically Signed On 02-18-2025 15:43:05 CDT by Luke Garcias M.D. [email or web address]
[2025-02-10 10:08] VITALS: BMI 21.5
[2025-02-10] MEDS: regadenoson 0.4 Mg/5 ml Syringe IVP (11:11)
[2025-02-10 11:21] VITALS: BP 95/54; PULSE 65
== END 2025-02-10 09:09 | disposition home or self-care (01) ==
LOC: CDL 09:14
PROVIDERS: PCP Clinical Nurse Specialist Adult Health; Visit Provider Nurse Practitioner Family
DX: I50.22 Chronic systolic (congestive) heart failure (principal); R93.1 Abnormal findings on diagnostic imaging of heart and coronary circulation
CPT/HCPCS: 36415; 78452; 93017; 96374; A9500; J2785

== ENCOUNTER → 2025-02-14 16:34 | Outpatient (BNVA) | payer MEDICARE, OTHER, SELFPAY | PROVIDERS: PCP Clinical Nurse Specialist Adult Health; Visit Provider Nurse Practitioner Family | DX: I51.7 Cardiomegaly (principal); J98.11 Atelectasis; J90 Pleural effusion, not elsewhere classified; I50.22 Chronic systolic (congestive) heart failure | CPT/HCPCS: 36415; 71046; 80048; 83880; 85025; 99214 ==

== ENCOUNTER 2025-02-15 13:49 | Inpatient (IN) | payer MEDICARE, OTHER, SELFPAY ==
[2025-02-15 14:00] VITALS: BP 99/63; PULSE 92; RESP 19; TEMP 36.3; O2SAT 95; BMI 22.8
--- NOTE | 2025-02-15 14:39 | XRR_ITS ---
PROCEDURE INFORMATION: Exam: XR Chest Exam date and time: 02/15/2025 2:45 PM Age: 84 years old Clinical indication: Shortness of breath; Prior surgery; Surgery date: 6+ months; Surgery type: Pacer TECHNIQUE: Imaging protocol: Radiologic exam of the chest. Views: 1 view. COMPARISON: CR XR chest 2V* [id number] 02/14/2025 4:38 PM FINDINGS: Tubes, catheters and devices: Multilead pacemaker/defibrillator. Lungs: Consolidation or infiltrate in the right lower lobe with a small associated effusion. Pleural spaces: Unremarkable. No pleural effusion. No pneumothorax. Heart/Mediastinum: See Vasculature finding. Vasculature: Cardiomegaly and uncoiling of the thoracic aorta. Bones/joints: Unremarkable. Other findings: Small left effusion possible. XR/XR chest 1V portable [id number] IMPRESSION: Slightly increasing opacity in the right lower lobe. A combination of infiltrate plus effusion.
[2025-02-15 14:55] LABS: Basophils % 0.6 %; Eosinophils # 0.1 10^3/uL (0.0-0.8); Eosinophils % 0.7 %; Hematocrit 40.1 % (37-53); Lymphocytes # 0.9 10^3/uL (0.8-4.8); Lymphocytes % 12.6 %; Mean Corpuscular HGB Conc 32.9 g/dL (30-55); Mean Corpuscular Hemoglobin 31.2 pg (27-33); Mean Corpuscular Volume 94.8 fl (82-101); Mean Platelet Volume 11.5 fL (7.4-10.4); Monocytes # 0.4 10^3/uL (0.2-0.9); Neutrophils # 5.42 10^3/uL (1.8-7.7); Neutrophils % 79.8 %; Nucleated Red Blood Cells % 0 %; Platelet Count 162 10^3/cmm (157-399); Red Blood Count 4.23 10^6/uL (3.85-5.65); Red Cell Distribution Width 15.7 % (12.1-15.1)
[2025-02-15 14:59] LABS: INR 1.03 (0.8-1.2)
[2025-02-15 15:00] LABS: Partial Thromboplastin Time 38.2 SECONDS (23.9-36.7)
--- NOTE | 2025-02-15 15:02 | ECG_ITS ---
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 Measurements Intervals [place] Rate: 64 P: 20 GA: 162 QRS: 262 QRSD: 210 T: 126 QT: 461 QTc: 477 Interpretive Statements ELECTRONIC ATRIAL PACEMAKER ELECTRONIC VENTRICULAR PACEMAKER ABNORMAL RHYTHM ECG Compared to ECG 02/01/2025 13:15:42 No significant changes Electronically Signed On 02-16-2025 21:51:03 CDT by Candie Rico M.D. [id number]
[2025-02-15 15:08] LABS: Troponin(5th) Baseline 64 ng/L (0-15)
[2025-02-15 15:14] LABS: Alanine Aminotransferase 18 U/L (0-41); Albumin Level 4.1 g/dL (3.5-5.2); Alkaline Phosphatase 82 U/L (40-130); Anion Gap 18.3 (5-19); Aspartate Amino Transferase 30 U/L (0-40); Blood Urea Nitrogen 25 mg/dL (8-23); Calcium 8.7 mg/dL (8.5-10.5); Carbon Dioxide 21 mmol/L (22-29); Chloride 103 mmol/L (98-107); Creatinine Clr Calc Pharmacy 36.6558; Globulin 1.7 g/dL (1.3-4.6); Glucose 130 mg/dL (65-115); NT Pro B Type Natriuretic Pept 5988 pg/mL (0-450); Osmolality Calculated 292 mOsm/kg (285-295); Potassium 4.3 mmol/L (3.5-5.1); Sodium 138 mmol/L (136-145); Total Protein 5.8 g/dL (6.6-8.7)
--- NOTE | 2025-02-15 15:28 | W.ED.SOB ---
HPI - SOB/Dyspnea General: Chief Complaint: Shortness of Breath/Dyspnea Stated Complaint: SOB (sent by Jacky) Time Seen by Provider: 02/15/25 14:08 History of Present Illness: HPI Narrative: Chief complaint is shortness of breath with exertion. Patient states that for about 2 months he has had dyspnea with exertion. At rest he is asymptomatic. No chest pain or chest discomfort. 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 Related Data Home Medications ?Medication ?Instructions ?Recorded ?Confirmed magnesium oxide 400 mg PO DAILY 08/15/20 02/14/25 ketoconazole 2 % topical cream 1 applic topical BID PRN Outbreak 12/19/22 02/14/25 clopidogrel 75 mg tablet 75 mg PO DAILY 12/06/24 02/14/25 digoxin 125 mcg (0.125 mg) tablet 0.125 mg PO DAILY 12/06/24 02/14/25 ezetimibe 10 mg-simvastatin 20 mg 1 tab PO DAILY 12/06/24 02/14/25 tablet (Vytorin) sacubitril 24 mg-valsartan 26 mg 1 tab PO BID 02/04/25 02/14/25 tablet (Entresto) Previous Rx's ?Medication ?Instructions ?Recorded nitroglycerin 0.4 mg sublingual 0.4 mg sublingual Q5M PRN chest 12/11/21 tablet (Nitrostat) pain #50 tabs multivitamin 1 tab PO DAILY #7 tabs 12/29/21 triamcinolone acetonide 0.1 % 1 applic topical BID PRN eczema 08/07/22 topical cream #80 grams metoprolol succinate 25 mg 25 mg PO DAILY #90 tabs 05/21/24 tablet,extended release 24 hr mirtazapine 15 mg tablet 15 mg PO DAILY #90 tabs 09/20/24 Nebulizer machine and supplies #1 ea 10/29/24 tamsulosin 0.4 mg capsule 0.4 mg PO BID #180 caps 12/23/24 furosemide 40 mg tablet 40 mg PO BID #60 tabs 02/15/25 potassium chloride 10 mEq 10 meq PO BID #60 caps 02/15/25 capsule,extended release Allergies Allergy/AdvReac Type Severity Reaction Status Date / Time malignant hyperthermia Allergy Severe Unknown Uncoded 02/04/25 10:26 PFSH ED PFS: Medical History Biliary dyskinesia Degenerative arthritis of wrist Liver cirrhosis Facet arthritis of cervical region Cervical radiculopathy Cervical disc disease Sacroiliac dysfunction Lumbar stenosis with neurogenic claudication Facet arthropathy, lumbar Lumbar radiculopathy Lumbar stenosis Spondylosis of lumbar spine Degenerative disc disease, lumbar Benign prostatic hyperplasia 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 follows with hematology. Cardiac resynchronization therapy defibrillator ([employer]-D) in place History of nonmelanoma skin cancer Malignant hyperthermia susceptibility 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], 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 History of SD (myocardial infarction) 07/24/1999 in [place], [place] CAD (coronary artery disease) Cardiomyopathy Mitral regurgitation CHF (congestive heart failure) Hyperlipidemia Neuropathy Surgical History H/O radiofrequency ablation (RFA) of nerve of lumbar spine History of laparoscopic cholecystectomy Hx of bilateral cataract extraction History of ankle surgery Left ankle ORIF 1994 ICD (implantable cardioverter-defibrillator) in place I had 3 different surgeries Family History Father , AT AGE 86 Stroke CAD (coronary artery disease) later in life Mother , AT AGE 90 Stroke Son Anesthesia complication Family/Other Anesthesia complication Lung disease Suicide Sister Cancer Grandmother Lung disease Denies family history of Diabetes Clotting disorder Dementia Chronic kidney disease (CKD) Bleeding disorder Hypertension Social History Smoking and tobacco/nicotine status: never used tobacco/nicotine Quit status (tobacco/nicotine): has quit using Former quit date comment: Smoked a pipe for 6 months 1960 Second hand smoke exposure: No Alcohol intake: former Former alcohol use details: scant history of use Substance/Drug Use: never Adopted: No Caregiver/support person: No Lives independently: Yes Household members: spouse Housing: House Marital status: Number of children: 5 service: No Current occupational status: retired Do you think of yourself as: Straight/Heterosexual Current gender identity: Male Physical Exam Narrative: EXAM NARRATIVE: Patient is alert oriented no acute distress. Breathing comfortably. He has diminished breath sounds on the right base. No expiratory wheezing. Neck is supple. Heart regular rhythm with systolic murmur. Abdomen soft nontender. No guarding or rebound. He has edema in his legs worse on the right which patient states is baseline for him over the last 2 months. Intact speech and grossly intact cerebellar function. No rash in exposed areas. His skin is warm and dry. Course Vital Signs: Vital signs: Vital Signs Temperature 97.2 F L 02/15/25 17:02 Pulse Rate 100 02/15/25 20:14 Respiratory Rate 22 H 02/15/25 20:14 Blood Pressure 100/67 02/15/25 20:14 Pulse Oximetry 96 02/15/25 20:14 Oxygen Delivery Me thod Room Air 02/15/25 20:14 MDM - SOB/Dyspnea Medical Decision Making Patient with a history of a cardiomyopathy and cardiac stents who presents the emergency department because he has had dyspnea on exertion for the last 2 months. He has had recent thoracentesis by his description and the fluid is building back up again. He does not breathe well laying down. He states the swelling in his legs is stable over the last month or 2 and he states he is already had a scan of his right leg to make sure there is no blood clot. He denies hemoptysis. No cough or fever. No chest pain or chest discomfort. His dyspnea on exertion may be anginal equivalent or related to his cardiomyopathy. I spoke to Dr. Rico and he states the patient's ejection fraction is in the 20s. He would like the patient admitted for further IV diuresis and plan on heart cath. Patient chest x-ray here showed right lower lobe infiltrate and effusion. Patient denies fever or cough and has no elevated white count to suggest pneumonia. His BNP is increased and to the 5000's. His troponin is 64. Patient EKG to my interpretation shows a paced rhythm. Patient creatinine is at his recent baseline. I have paged hospitalist to request consideration for admission. I ordered 40 mg of Lasix IV and plan to admit. Lab Data 02/15/25 14:24 02/15/25 14:24 Labs/Radiology: Radiology Impressions Chest X-Ray 02/15/25 14:39 IMPRESSION: Slightly increasing opacity in the right lower lobe. A combination of infiltrate plus effusion. Chest CT 02/15/25 15:48 IMPRESSION: Moderate right lower lobe pleural effusion with right lower lobe ground-glass/consolidative opacity which may represent associated compressive atelectasis versus pneumonia. Renal Ultrasound 02/15/25 15:48 IMPRESSION: 1. No acute findings. No hydronephrosis bilaterally. 2. Prostatomegaly. 3. Postvoid volume not obtained. Urinary bladder within normal limits. Laboratory Results WBC 6.80 10^3/uL (3.29-11.43) 02/15/25 14:24 RBC 4.23 10^6/uL (3.85-5.65) 02/15/25 14:24 Hgb 13.20 g/dL (11.27-16.99) 02/15/25 14:24 Hct 40.1 % (37-53) 02/15/25 14:24 MCV 94.8 fl (82-101) 02/15/25 14:24 MCH 31.2 pg (27-33) 02/15/25 14:24 MCHC 32.9 g/dL (30-55) 02/15/25 14:24 RDW 15.7 % (12.1-15.1) H 02/15/25 14:24 Plt Count 162 10^3/cmm (157-399) 02/15/25 14:24 MPV 11.5 fL (7.4-10.4) H 02/15/25 14:24 Neut % (Auto) 79.8 % 02/15/25 14:24 Lymph % (Auto) 12.6 % 02/15/25 14:24 [place] % (Auto) 6.0 % 02/15/25 14:24 Eos % (Auto) 0.7 % 02/15/25 14:24 Baso % (Auto) 0.6 % 02/15/25 14:24 Neut # (Auto) 5.42 10^3/uL (1.8-7.7) 02/15/25 14:24 Lymph # (Auto) 0.9 10^3/uL (0.8-4.8) 02/15/25 14:24 [place] # (Auto) 0.4 10^3/uL (0.2-0.9) 02/15/25 14:24 Eos # (Auto) 0.1 10^3/uL (0.0-0.8) 02/15/25 14:24 Baso # (Auto) 0.0 10^3/uL (0.0-0.1) 02/15/25 14:24 Nucleated RBC % (auto) 0 % 02/15/25 14:24 Nucleated RBCs # 0.0 /100WBC 02/15/25 14:24 PT 14.20 SECONDS (12.1-14.9) 02/15/25 14:24 INR 1.03 (0.8-1.2) 02/15/25 14:24 APTT 38.2 SECONDS (23.9-36.7) H 02/15/25 14:24 Sodium 138 mmol/L (136-145) 02/15/25 14:24 Potassium 4.3 mmol/L (3.5-5.1) 02/15/25 14:24 Chloride 103 mmol/L (98-107) 02/15/25 14:24 Carbon Dioxide 21 mmol/L (22-29) L 02/15/25 14:24 Anion Gap 18.3 (5-19) 02/15/25 14:24 BUN 25 mg/dL (8-23) H 02/15/25 14:24 Creatinine 1.5 mg/dL (0.7-1.2) H 02/15/25 14:24 GFR Calculation Not Reportable 02/15/25 14:24 Glucose 130 mg/dL (65-115) H 02/15/25 14:24 Estimat Average Glucose 123 02/15/25 14:24 Hemoglobin A1c 5.9 % (4.0-6.0) 02/15/25 14:24 Calculated Osmolality 292 mOsm/kg (285-295) 02/15/25 14:24 Lactic Acid 1.9 mmol/L (0.5-2.2) 02/15/25 14:24 Calcium 8.7 mg/dL (8.5-10.5) 02/15/25 14:24 Total Bilirubin 1.0 mg/dL (0.15-1.2) 02/15/25 14:24 AST 30 U/L (0-40) 02/15/25 14:24 ALT 18 U/L (0-41) 02/15/25 14:24 Alkaline Phosphatase 82 U/L (40-130) 02/15/25 14:24 Troponin T Baseline 64 ng/L (0-15) H 02/15/25 14:24 Troponin T 120 Minute 58.30 ng/L (0-15) H 02/15/25 16:18 Delta Troponin T -5.70 ABS# (0-10) L 02/15/25 16:18 NT-Pro-B Natriuret Pep 5988 pg/mL (0-450) H 02/15/25 14:24 Total Protein 5.8 g/dL (6.6-8.7) L 02/15/25 14:24 Albumin 4.1 g/dL (3.5-5.2) 02/15/25 14:24 Globulin 1.7 g/dL (1.3-4.6) 02/15/25 14:24 Vitamin B12 1180 pg/mL (232-1245) 02/15/25 14:24 Procalcitonin 0.05 ng/mL (0-0.5) 02/15/25 14:24 TSH 2.49 uIU/mL (0.27-4.20) 02/15/25 16:18 Digoxin 0.9 ng/mL (0.6-1.2) 02/15/25 14:24 All radiology interpretation(s) finalized by discharge Discharge Plan Discharge Patient Disposition: Placed in Observation Admit Provider: Terrence Vega Clinical Impression: Acute exacerbation of CHF (congestive heart failure) Coding Level of Care Code ED Tactical Deception Plans Officer for Milvia Angela
--- NOTE | 2025-02-15 15:48 | CTR_ITS ---
PROCEDURE INFORMATION: Exam: CT Chest Without Contrast; Diagnostic Exam date and time: 02/15/2025 3:59 PM Age: 84 years old Clinical indication: Shortness of breath; Prior surgery; Surgery date: 6+ months; Surgery type: Pacemaker; Additional info: Copd/pna TECHNIQUE: Imaging protocol: Diagnostic computed tomography of the chest without contrast. Radiation optimization: All CT scans at this facility use at least one of these dose optimization techniques: automated exposure control; mA and/or kV adjustment per patient size (includes targeted exams where dose is matched to clinical indication); or iterative reconstruction. COMPARISON: CR (CHEST, ) 02/15/2025 2:45 PM RADIATION DOSE METRICS: Total DLP (mGy-cm): 365.36 FINDINGS: Tubes, catheters and devices: Multi lead pacemaker/defibrillator is present. Lungs: Ground-glass opacity within right lower lobe. Pleural spaces: Moderate right lower lobe pleural effusion. No pleural effusion on the left. Heart: Cardiomegaly. Lymph nodes: Unremarkable. No enlarged lymph nodes. Vasculature: Unremarkable. No aortic aneurysm. Bones/joints: Multilevel degenerative changes within visualized spine. Soft tissues: Unremarkable. Other findings: No acute abnormality within partially included abdomen. CT/CT chest con [id number] IMPRESSION: Moderate right lower lobe pleural effusion with right lower lobe ground-glass/consolidative opacity which may represent associated compressive atelectasis versus pneumonia.
--- NOTE | 2025-02-15 15:48 | USR_ITS ---
PROCEDURE INFORMATION: Exam: US Retroperitoneal, Complete, Kidneys and Bladder Exam date and time: 02/15/2025 5:29 PM Age: 84 years old Clinical indication: Condition or disease; Kidney or ureter condition; Acute renal insufficiency; Additional info: Matthew TECHNIQUE: Imaging protocol: Real-time ultrasound of the retroperitoneum with image documentation. Complete exam focused on the bilateral kidneys and urinary bladder. COMPARISON: US abdomen complete* [id number] 08/09/2022 8:32 AM FINDINGS: Right kidney: Normal. No stones. No hydronephrosis. Left kidney: Normal. No stones. No hydronephrosis. Urinary bladder: Bladder volume measures 255.7 mL. Per technologist patient unable to void for postvoid measurements. Prostate: Prominent prostate measures approximately 3.5 x 3.7 x 4.5 cm with possible calcifications. US/US renal BI with PV bladder IMPRESSION: 1. No acute findings. No hydronephrosis bilaterally. 2. Prostatomegaly. 3. Postvoid volume not obtained. Urinary bladder within normal limits.
--- NOTE | 2025-02-15 15:48 | USCV_ITS ---
Ruslan King Age: 84 Gender: M : 1940 Exam Date: 02/15/2025 19:26 Ordering Phys: Terrence Vega MD Technologist: NGUYỄN [place] [facility] [place]ication: chf, CAD, hx ischemic CM, III diast dysfx, pacer / defibrillator since 1999 BP: 99 / 69 HR: 61 Rhythm: Paced rhythm with Atrial fibrillation Technical Quality: Adequate MEASUREMENTS (Male / Female) Normal Values 2D ECHO LV Diastolic Diameter PLAX 6.3 cm 4.2 - 5.9 / 3.9 - 5.3 cm IVS Diastolic Thickness 1.0 cm 0.6 - 1.0 / 0.6 - 0.9 cm IVS Systolic Thickness 1.4 cm LVPW Diastolic Thickness 1.5 cm 0.6 - 1.0 / 0.6 - 0.9 cm LVPW Systolic Thickness 1.6 cm LVOT Diameter 2.1 cm LV Ejection Fraction 2D Teich 15.3 % LV Ejection Fraction MOD 4C 17.3 % LV Ejection Fraction MOD 2C 11.9 % LV Ejection Fraction 2C AL 12.2 % LA Diameter 5.4 cm Aorta at Sinotubular Diameter 3.2 cm IVC Diameter 2.7 cm M-MODE LA Ao Ratio MM 1.3 AV Cusp Separation MM 1.8 cm DOPPLER AV Peak Velocity 82.0 cm/s LVOT Peak Velocity 62.0 cm/s AV Area Cont Eq vti 2.3 cm squared AV Area Cont Eq pk 2.7 cm squared MV Peak Velocity 105.0 cm/s MV Area PHT 4.0 cm squared Mitral E to A Ratio 0.0 TV Peak Velocity 270.7 cm/s TR Peak Velocity 277.0 cm/s TR Peak Gradient 30.7 mmHg TV Peak E Velocity 84.0 cm/s PV Peak Velocity 68.0 cm/s FINDINGS Left Ventricle Severe diffuse hypokinesis of the left ventricle with an ejection fraction of 16%. Thinned out LV wall. Right Ventricle Possibly of normal size and ejection fraction Right Atrium Normal chamber size.catheter/pacemaker wire in the right atrial appendage. Left Atrium Moderately increased left atrial size. Mitral Valve Moderately severe mitral regurgitation Aortic Valve Thickened aortic valve. Trace to mild aortic valve regurgitation. Tricuspid Valve Mild tricuspid valve regurgitation. Estimated pulmonary artery peak systolic pressure 41 mmHg Pulmonic Valve Mild pulmonary valve regurgitation. Pericardium Normal pericardium without effusion. Aorta Normal ascending aorta dimension. IVC . Dilated IVC with decreased respiratory variation. CONCLUSIONS Severe diffuse hypokinesis of the left ventricle with an ejection fraction of 16%. Moderately severe mitral regurgitation Thickened aortic valve. Trace to mild aortic valve regurgitation. Thinned out LV wall. Mild tricuspid valve regurgitation. Estimated pulmonary artery peak systolic pressure 41 mmHg Mild pulmonary valve regurgitation. There is no pericardial effusion. There are no intracardiac masses. Compared to the study from 11/03/2024, there is slight worsening of the LV systolic function. Dr Candie Rico MD FACC (Electronically Signed) Final Date: 16 February 2025 16:39 S
[2025-02-15] MEDS: pantoprazole 40 mg SDV IVP (16:14)
[2025-02-15] MEDS: FUROsemide 10 mg/mL SDV 4mL 40 MG IVP (16:19)
[2025-02-15] MEDS: heparin 5,000 unit/mL INJ 1 mL 5000 UNIT SUBCUT (16:19)
[2025-02-15 16:22] LABS: Lactic Sepsis W/Reflex 1.9 mmol/L (0.5-2.2)
[2025-02-15 16:30] VITALS: BP 90/58; PULSE 63; O2SAT 98
[2025-02-15 16:37] LABS: Procalcitonin 0.05 ng/mL (0-0.5); Vitamin B12 1180 pg/mL (232-1245)
[2025-02-15 16:58] LABS: Digoxin 0.9 ng/mL (0.6-1.2)
[2025-02-15 17:02] VITALS: BP 99/69; PULSE 77; RESP 24; TEMP 36.2; O2SAT 98; BMI 22.6
--- NOTE | 2025-02-15 17:11 | PM.HP ---
Providers/Chief Complaint Admitting Physician: Terrence Vega MD Primary Care Provider: Chip Jaquez Chief Complaint: SOB (sent by Jacky) History of Present Illness Ruslan King is a 84 year old male with past medical history of CAD, ischemic cardiomyopathy with known EF of 25% with grade 3 diastolic dysfunction, last Lexiscan in 02/10/2025 which was positive, recent thoracentesis within last 1 week for difficulty in breathing. Patient states he has been having exertional shortness of breath which has been getting worse for last 3 to 4 months currently he is not able to walk more than 30 feet without having difficulty in breathing because of which he needs to rest. He denies any chest pain, nausea, vomiting with the symptoms. His Lasix has been increased gradually by outpatient cardiology team and currently he is taking 40 mg twice daily for last 1 week. Patient states even after thoracentesis his symptoms did not alleviate so he was requested to come to the ER for further evaluation and management. In the ER he was found to systolic blood pressure of 99, heart of 77 saturating 96% on room air Review of Systems General: Reports: 10 or more systems reviewed and unremarkable except in HPI and below Const: Denies: fever(s), chills, body aches, change in appetite, change in weight, malaise, night sweats, diaphoresis, change in sleep pattern, daytime sleepiness or snoring Eyes: Denies: change in vision, blurry vision, photophobia, eye discomfort or eye discharge ENMT: Denies: throat pain, enlarged tonsils, hoarseness, mouth pain, oral sores, dry mouth, tinnitus, nasal congestion or post nasal drip Card: Denies: chest pain, palpitations, irregular heart rhythm, edema, swelling of feet/ankles, lightheadedness, syncope, pre-syncope, dyspnea on exertion, orthopnea, leg pain with exertion or acrocyanosis Resp: Denies: dyspnea, productive cough, non-productive cough, wheezing, stridor, pain on inspiration, change in phlegm color, hemoptysis or chest congestion GI: Denies: abdominal pain, nausea, vomiting, hematemesis, coffee ground emesis, dysphagia, heartburn, diarrhea, constipation, bloating, GI cramping, change in bowel habits, pain on defecation, hematochezia or melena : Denies: flank pain, difficulty urinating, dysuria, urinary frequency, urinary urgency, urinary hesitancy, urinary dribbling, difficulty starting urination, change in urine stream, nocturia or hematuria Musc: Denies: neck pain, back pain, extremity pain, joint pain, joint swelling, joint redness, joint stiffness or limited range of motion Neuro: Denies: headache(s), numbness in extremities, weakness in extremities, sensory changes, lack of coordination, difficulty walking, frequent falls, dizziness, vertigo, confusion, Slurred speech present, difficulty communicating thoughts or seizure-like activity Psych: Denies: anxiety, depression, mood swings, panic attacks, hopelessness or irritability Endo: Denies: polyuria, polydipsia, tired all the time, cold intolerance, excessive sweating, flushing or heat intolerance [place]/Lymph: Denies: easy bruising or easy bleeding All/Imm: Denies: tongue swelling, facial swelling or acute wheezing Medications/Allergies Home Medications ?Medication ?Instructions ?Recorded ?Confirmed ?Last Taken ?Type magnesium oxide 400 mg PO DAILY 08/15/20 02/14/25 02/07/25 History nitroglycerin 0.4 mg sublingual 0.4 mg sublingual Q5M PRN chest 12/11/21 02/14/25 12/28/21 05:30 Rx tablet (Nitrostat) pain #50 tabs multivitamin 1 tab PO DAILY #7 tabs 12/29/21 02/14/25 02/07/25 Rx triamcinolone acetonide 0.1 % 1 applic topical BID PRN eczema 08/07/22 02/14/25 11/13/22 Rx topical cream #80 grams ketoconazole 2 % topical cream 1 applic topical BID PRN Outbreak 12/19/22 02/14/25 Unknown History metoprolol succinate 25 mg 25 mg PO DAILY #90 tabs 05/21/24 02/14/25 02/07/25 Rx tablet,extended release 24 hr mirtazapine 15 mg tablet 15 mg PO DAILY #90 tabs 09/20/24 02/14/25 02/04/25 Rx Nebulizer machine and supplies #1 ea 10/29/24 02/14/25 Unknown Rx clopidogrel 75 mg tablet 75 mg PO DAILY 12/06/24 02/14/25 02/02/25 History digoxin 125 mcg (0.125 mg) tablet 0.125 mg PO DAILY 12/06/24 02/14/25 02/07/25 History ezetimibe 10 mg-simvastatin 20 mg 1 tab PO DAILY 12/06/24 02/14/25 02/04/25 History tablet (Vytorin) tamsulosin 0.4 mg capsule 0.4 mg PO BID #180 caps 12/23/24 02/14/25 02/07/25 Rx sacubitril 24 mg-valsartan 26 mg 1 tab PO BID 02/04/25 02/14/25 02/07/25 History tablet (Entresto) furosemide 40 mg tablet 40 mg PO BID #60 tabs 02/15/25 Unknown Rx potassium chloride 10 mEq 10 meq PO BID #60 caps 02/15/25 Unknown Rx capsule,extended release Allergies Allergy/AdvReac Type Severity Reaction Status Date / Time malignant hyperthermia Allergy Severe Unknown Uncoded 02/04/25 10:26 PFSH Acute PFSH: Medical History Biliary dyskinesia Degenerative arthritis of wrist Liver cirrhosis Facet arthritis of cervical region Cervical radiculopathy Cervical disc disease Sacroiliac dysfunction Lumbar stenosis with neurogenic claudication Facet arthropathy, lumbar Lumbar radiculopathy Lumbar stenosis Spondylosis of lumbar spine Degenerative disc disease, lumbar Benign prostatic hyperplasia 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 follows with hematology. Cardiac resynchronization therapy defibrillator ([employer]-D) in place History of nonmelanoma skin cancer Malignant hyperthermia susceptibility 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], 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 History of SC (myocardial infarction) 07/24/1999 in [place], [place] CAD (coronary artery disease) Cardiomyopathy Mitral regurgitation CHF (congestive heart failure) Hyperlipidemia Neuropathy Surgical History H/O radiofrequency ablation (RFA) of nerve of lumbar spine History of laparoscopic cholecystectomy Hx of bilateral cataract extraction History of ankle surgery Left ankle ORIF 1994 ICD (implantable cardioverter-defibrillator) in place I had 3 different surgeries Family History Father , AT AGE 86 Stroke CAD (coronary artery disease) later in life Mother , AT AGE 90 Stroke Son Anesthesia complication Family/Other Anesthesia complication Lung disease Suicide Sister Cancer Grandmother Lung disease Denies family history of Diabetes Clotting disorder Dementia Chronic kidney disease (CKD) Bleeding disorder Hypertension Social History Smoking and tobacco/nicotine status: never used tobacco/nicotine Quit status (tobacco/nicotine): has quit using Former quit date comment: Smoked a pipe for 6 months 1960 Second hand smoke exposure: No Alcohol intake: former Former alcohol use details: scant history of use Substance/Drug Use: never Adopted: No Caregiver/support person: No Lives independently: Yes Household members: spouse Housing: House Marital status: Number of children: 5 service: No Current occupational status: retired Do you think of yourself as: Straight/Heterosexual Current gender identity: Male Vitals/I&O/Wt Last Vital Signs Temp 97.2 F L 02/15/25 17:02 Pulse 77 02/15/25 17:02 Resp 24 H 02/15/25 17:02 BP 99/69 02/15/25 17:02 Pulse Ox 98 02/15/25 17:02 O2 Del Method Room Air 02/15/25 17:02 Weight last 48 hrs Weight 68.039 kg Physical Exam Narrative: General: No acute distress, AO x3 HEENT: PERRLA, pupils bilaterally equal and reactive Chest: Normal vesicular breath sounds, no added sounds, equal good air entry bilaterally CVS: S1-S2 regular, no murmurs, no tachycardia, no gallops, no rubs Abdomen: Soft, nontender, no organomegaly, bowel sounds present Neuro: No focal deficits, no facial deformity, AO x3, power 5/5 in all limbs Data 02/15/25 14:24 02/15/25 14:24 A&P Assessment and plan (1) Acute combined systolic and diastolic congestive heart failure, NYHA class 3: Last known EF of 25% grade 3 diastolic dysfunction with regional wall motion abnormality back in October 2024 with moderate to severe MR. Currently acute decompensated combined heart failure. Diuresis complicated with soft blood pressures. Hold off on antihypertensive. IV Lasix 40 mg one-time given in the ER. Strict input output charting, daily weights. Hughes catheterization. Fluid restriction less than 1500 cc. Monitor renal functions. Repeat echocardiogram (2) Positive cardiac stress test: History of CAD. Last cardiac angiogram back in 2021 in which patient was found to have minimal ostial narrowing of left main, high-grade in-stent stenosis of LAD, mild disease in other vessels with LVEDP of 22. Currently positive stress test on 02/10. Will consult cardiology for possible cardiac angiogram as cannot rule out symptoms secondary to angina. Continue with Plavix, statin, metoprolol 25 mg twice daily. Check A1c, lipid panel. Cycle troponin Repeat echocardiogram as above. (3) CAD (coronary artery disease): (4) Acute exacerbation of CHF (congestive heart failure): Holding off on home guideline directed medical therapy of heart failure including Entresto for now. Continue with beta-mary ellen. (5) Cardiomyopathy: (6) Cardiac resynchronization therapy defibrillator ([employer]-D) in place: Will request [employer]D check to rule out arrhythmias. Plan Shortness of breath: Most likely in setting of heart failure. Will check CT chest for further evaluation. Patient did have thoracentesis done on 02/10. No fluid studies sent at that time. No concern for infection for now. Hold off on IV antibiotics. Check digoxin level. Continue home dose of digoxin, mirtazapine, Flomax for now. Full code Cardiac diet. Fluid restriction to 1500 cc. Heparin 5000 every 12 hourly for DVT prophylaxis Protonix for PUD prophylaxis PDMP PDMP Reviewed: Not Reviewed Attestations Medical Necessity Statement*: Admission for more than 2 midnights for management of acute decompensated systolic and diastolic congestive heart failure, positive stress test in a patient with history of CAD and ischemic cardiomyopathy Coding Level of Care Code Acute Code for [facility] Fwd Diagnoses Acute combined systolic and diastolic congestive heart failure, NYHA class 3 I50.41 Positive cardiac stress test R94.39 Coronary artery disease involving [place] coronary artery of [place] heart without angina pectoris I25.10 Associated angina: without angina Coronary Disease-Associated Artery/Lesion type: [place] artery [place] vs. transplanted heart: [place] heart Acute exacerbation of CHF (congestive heart failure) I50.9 Ischemic cardiomyopathy I25.5 Cardiomyopathy type: ischemic Cardiac resynchronization therapy defibrillator ([employer]-D) in place Z95.810
[2025-02-15 17:55] LABS: Bilirubin Urine Negative (Negative); Blood Urine Negative (Negative); Glucose Urine UA Negative (Normal); Ketones Urine Negative (Negative); Leukocyte Esterase Urine Negative (Negative); Nitrate Urine Negative (Negative); Protein Urine Negative (Negative); Urine Appearance Clear (CLEAR); Urine Color Yellow (Yellow); Urobilinogen Urine 0.2 mg/dL (Negative); pH Urine 6.5 (5-7)
[2025-02-15 17:55] LABS: Estmated Average Glucose 123; Hemoglobin A1C 5.9 % (4.0-6.0)
[2025-02-15 18:00] LABS: Bacteria Urine None Seen /hpf; Hyaline Casts Urine 1.21 /lpf; RBC Urine 0-2 /hpf (0-2); Squamous Epithelial Cell Urine 0-5 /hpf (0-5); WBC Urine 0-5 /hpf (0-5)
[2025-02-15 18:00] LABS: Thyroid Stimulating Hormone 2.49 uIU/mL (0.27-4.20)
[2025-02-15 18:26] LABS: MRSA PCR OZH (swab) NOT DETECTED (Negative)
[2025-02-15 18:26] LABS: Add Urine Culture? No
[2025-02-15] MEDS: docusate sodium 100 mg Capsule PO (18:33)
[2025-02-15] MEDS: tamsulosin 0.4 mg Capsule PO (18:33)
--- NOTE | 2025-02-15 18:36 | PM.CONSULT ---
Providers/Reason For Consult Consulting Physician/Specialty*: MAYLIN Rico MD/cardiology Reason for Consult*: Patient with progressive shortness of breath, cardiomyopathy, mitral regurgitation Requesting Physician: Dr. Ortiz Attending Physician: Terrence Vega MD Primary Care Provider: Chip Jaquez History of Present Illness History of Present Illness Ruslan King is a 84 year old male with a history of ischemic cardiomyopathy, congestive heart failure, severe LV systolic dysfunction, moderately severe mitral regurgitation and chronic renal insufficiency, is admitted to hospital with progressive shortness of breath. Cardiology consult is requested for further cardiac evaluation recommendations. This patient is known to have severe LV systolic dysfunction with ejection fraction around 25% by recent echocardiogram. He also was found to have moderately severe mitral regurgitation. He was recently seen in the emergency room for progressive shortness of breath. He was found to have a large right-sided pleural effusion. He underwent thoracentesis. 1000 cc of clear fluid was drained at that time. A repeat chest x-ray today revealed moderate pleural effusion on the right side. The CT of the chest revealed moderate effusion with features of possible collapse consolidation/pneumonia in the right lower lobe. According the patient and his family, he gets extremely short of breath with minimal activities. The shortness of breath at rest got somewhat improved with the thoracentesis. He continues to have bilateral lower extremity edema. In view of the ongoing class III-IV heart failure symptoms, he got admitted to the hospital for further evaluation management. This patient denies any chest pain. No fever or chills. He may have a dry cough. No palpitations, dizziness or syncopal episodes. He has been compliant with medications. No abdominal pain or dysuria. He has been noticing significant fluctuations in his urine output. Some days he may make a lot of urine after taking the diuretics. Some other days, his urine output is very low. He was told to have BPH. He has an appointment to see the urologist in [place]. Denies any other specific complaints at this point. He had a recent Myocardial perfusion imaging which revealed a large areas fixed defects with a small areas of reversible defects. He is scheduled for an outpatient cardiac catheterization on Friday Review of Systems Narrative: CONSTITUTIONAL: No fever or chills. EYES: No blurring of vision or other visual disturbances lately. ENT: No hoarseness of voice, auditory disturbances or sore throat. CARDIOVASCULAR: As mentioned above. RESPIRATORY: Shortness of breath as mentioned above GASTROINTESTINAL: No hematemesis or melena. GENITOURINARY: Urinary complaints as mentioned above INTEGUMENTARY: No skin rashes or history of skin cancer. NEURO: No transient ischemic attacks or amaurosis. PSYCHIATRIC: No history of psychosis or major depression. HEMATOLOGIC: No bleeding disorders or significant anemia. ENDOCRINE: No history of polyuria or polydipsia. MUSCULOSKELETAL: Bilateral lower extremity edema as mentioned above ALLERGY/IMMUNOLOGY: As mentioned above. Medications/Allergies Home Medications ?Medication ?Instructions ?Recorded ?Confirmed ?Last Taken ?Type magnesium oxide 400 mg PO DAILY 08/15/20 02/14/25 02/07/25 History nitroglycerin 0.4 mg sublingual 0.4 mg sublingual Q5M PRN chest 12/11/21 02/14/25 12/28/21 05:30 Rx tablet (Nitrostat) pain #50 tabs multivitamin 1 tab PO DAILY #7 tabs 12/29/21 02/14/25 02/07/25 Rx triamcinolone acetonide 0.1 % 1 applic topical BID PRN eczema 08/07/22 02/14/25 11/13/22 Rx topical cream #80 grams ketoconazole 2 % topical cream 1 applic topical BID PRN Outbreak 12/19/22 02/14/25 Unknown History metoprolol succinate 25 mg 25 mg PO DAILY #90 tabs 05/21/24 02/14/25 02/07/25 Rx tablet,extended release 24 hr mirtazapine 15 mg tablet 15 mg PO DAILY #90 tabs 09/20/24 02/14/25 02/04/25 Rx Nebulizer machine and supplies #1 ea 10/29/24 02/14/25 Unknown Rx clopidogrel 75 mg tablet 75 mg PO DAILY 12/06/24 02/14/25 02/02/25 History digoxin 125 mcg (0.125 mg) tablet 0.125 mg PO DAILY 12/06/24 02/14/25 02/07/25 History ezetimibe 10 mg-simvastatin 20 mg 1 tab PO DAILY 12/06/24 02/14/25 02/04/25 History tablet (Vytorin) tamsulosin 0.4 mg capsule 0.4 mg PO BID #180 caps 12/23/24 02/14/25 02/07/25 Rx sacubitril 24 mg-valsartan 26 mg 1 tab PO BID 02/04/25 02/14/25 02/07/25 History tablet (Entresto) furosemide 40 mg tablet 40 mg PO BID #60 tabs 02/15/25 Unknown Rx potassium chloride 10 mEq 10 meq PO BID #60 caps 02/15/25 Unknown Rx capsule,extended release Allergies Allergy/AdvReac Type Severity Reaction Status Date / Time malignant hyperthermia Allergy Severe Unknown Uncoded 02/04/25 10:26 Current Medications Generic Name Dose Route Start Last Admin Trade Name Shimonq PRN Reason Stop Dose Admin Docusate Sodium 100 mg 02/15/25 18:00 02/15/25 18:33 Docusate Sodium 100 Mg Capsule PO 100 mg BID KALIN Administration Heparin Sodium (Porcine) 5,000 unit 02/15/25 15:48 02/15/25 16:19 Heparin 5,000 Unit/Ml Inj 1 Ml SUBCUT 5,000 unit Q12H KALIN Administration Pantoprazole Sodium 40 mg 02/15/25 15:48 02/15/25 16:14 Pantoprazole 40 Mg Sdv IVP 40 mg Q24H KALIN Administration Tamsulosin HCl 0.4 mg 02/15/25 18:00 02/15/25 18:33 Tamsulosin 0.4 Mg Capsule PO 0.4 mg BID KALIN Administration PFSH Acute PFSH: Medical History Biliary dyskinesia Degenerative arthritis of wrist Liver cirrhosis Facet arthritis of cervical region Cervical radiculopathy Cervical disc disease Sacroiliac dysfunction Lumbar stenosis with neurogenic claudication Facet arthropathy, lumbar Lumbar radiculopathy Lumbar stenosis Spondylosis of lumbar spine Degenerative disc disease, lumbar Benign prostatic hyperplasia 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 follows with hematology. 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 History of ID (myocardial infarction) 07/24/1999 in [place], [place] CAD (coronary artery disease) Cardiomyopathy Mitral regurgitation CHF (congestive heart failure) Hyperlipidemia Neuropathy Surgical History H/O radiofrequency ablation (RFA) of nerve of lumbar spine History of laparoscopic cholecystectomy Hx of bilateral cataract extraction History of ankle surgery Left ankle ORIF 1994 ICD (implantable cardioverter-defibrillator) in place I had 3 different surgeries Family History Father , AT AGE 86 Stroke CAD (coronary artery disease) later in life Mother , AT AGE 90 Stroke Son Anesthesia complication Family/Other Anesthesia complication Lung disease Suicide Sister Cancer Grandmother Lung disease Denies family history of Diabetes Clotting disorder Dementia Chronic kidney disease (CKD) Bleeding disorder Hypertension Social History Smoking and tobacco/nicotine status: never used tobacco/nicotine Quit status (tobacco/nicotine): has quit using Former quit date comment: Smoked a pipe for 6 months 1960 Second hand smoke exposure: No Alcohol intake: former Former alcohol use details: scant history of use Substance/Drug Use: never Adopted: No Caregiver/support person: No Lives independently: Yes Household members: spouse Housing: House Marital status: Number of children: 5 service: No Current occupational status: retired Do you think of yourself as: Straight/Heterosexual Current gender identity: Male Vitals/I&O/Wt Last Vital Signs Temp 97.2 F L 02/15/25 17:02 Pulse 77 02/15/25 17:02 Resp 24 H 02/15/25 17:02 BP 99/69 02/15/25 17:02 Pulse Ox 98 02/15/25 17:02 O2 Del Method Room Air 02/15/25 17:02 02/15/25 02/15/25 02/15/25 06:59 14:59 22:59 Output Total 300 / 300 Balance -300 / -300 Weight last 48 hrs Weight 150 lb Physical Exam Narrative: GENERAL: The patient is alert and oriented times three. Not in any acute distress. HEENT: No significant pallor, icterus or lymphadenopathy.Oral cavity: There are no mucous membrane lesions. NECK: Trachea appears to be central. No masses noted. No JVD or thyromegaly appreciated. RESPIRATORY: Chest is symmetrical. No intercostals muscle retraction or any accessory muscle activation. There is no chest wall tenderness. Breath sounds are heard bilaterally. No rales or rhonchi heard. No evidence of any consolidation. BREASTS: Deferred. HEART: The heart sounds are normal. No S3 or S4. Systolic murmur of grade 4/6 in the left sternal border. No diastolic murmurs. No pericardial rub ABDOMEN: No vessel pulsations or distention. No tenderness. No organomegaly appreciated. Bowel sounds are normally heard. : Deferred. RECTAL: Deferred. LYMPHATIC: No lymphadenopathy noted in the neck. EXTREMITIES: 2-3+ edema bilaterally MUSCULOSKELETAL: No acute joint deformities or swelling SKIN: There are no significant rashes or ecchymosis NEUROPSYCHIATRIC: The patient is alert and oriented x3. Appears to be in a good mood. No tremors or rigidity noted. Urinary Catheter Management: Hughes: Cath Placed During This Visit: yes Urinary Catheter Date of Insertion: 02/15/25 Urinary Catheter Time of Insertion: 18:36 Data 02/15/25 14:24 02/15/25 14:24 Other Labs: Laboratory Last Values WBC 6.80 10^3/uL (3.29-11.43) 02/15/25 14:24 RBC 4.23 10^6/uL (3.85-5.65) 02/15/25 14:24 Hgb 13.20 g/dL (11.27-16.99) 02/15/25 14:24 Hct 40.1 % (37-53) 02/15/25 14:24 MCV 94.8 fl (82-101) 02/15/25 14:24 MCH 31.2 pg (27-33) 02/15/25 14:24 MCHC 32.9 g/dL (30-55) 02/15/25 14:24 RDW 15.7 % (12.1-15.1) H 02/15/25 14:24 Plt Count 162 10^3/cmm (157-399) 02/15/25 14:24 MPV 11.5 fL (7.4-10.4) H 02/15/25 14:24 Neut % (Auto) 79.8 % 02/15/25 14:24 Lymph % (Auto) 12.6 % 02/15/25 14:24 Morgan % (Auto) 6.0 % 02/15/25 14:24 Eos % (Auto) 0.7 % 02/15/25 14:24 Baso % (Auto) 0.6 % 02/15/25 14:24 Neut # (Auto) 5.42 10^3/uL (1.8-7.7) 02/15/25 14:24 Lymph # (Auto) 0.9 10^3/uL (0.8-4.8) 02/15/25 14:24 Morgan # (Auto) 0.4 10^3/uL (0.2-0.9) 02/15/25 14:24 Eos # (Auto) 0.1 10^3/uL (0.0-0.8) 02/15/25 14:24 Baso # (Auto) 0.0 10^3/uL (0.0-0.1) 02/15/25 14:24 Nucleated RBC % (auto) 0 % 02/15/25 14:24 Nucleated RBCs # 0.0 /100WBC 02/15/25 14:24 PT 14.20 SECONDS (12.1-14.9) 02/15/25 14:24 INR 1.03 (0.8-1.2) 02/15/25 14:24 APTT 38.2 SECONDS (23.9-36.7) H 02/15/25 14:24 Sodium 138 mmol/L (136-145) 02/15/25 14:24 Potassium 4.3 mmol/L (3.5-5.1) 02/15/25 14:24 Chloride 103 mmol/L (98-107) 02/15/25 14:24 Carbon Dioxide 21 mmol/L (22-29) L 02/15/25 14:24 Anion Gap 18.3 (5-19) 02/15/25 14:24 BUN 25 mg/dL (8-23) H 02/15/25 14:24 Creatinine 1.5 mg/dL (0.7-1.2) H 02/15/25 14:24 GFR Calculation Not Reportable 02/15/25 14:24 Glucose 130 mg/dL (65-115) H 02/15/25 14:24 Estimat Average Glucose 123 02/15/25 14:24 Hemoglobin A1c 5.9 % (4.0-6.0) 02/15/25 14:24 Calculated Osmolality 292 mOsm/kg (285-295) 02/15/25 14:24 Lactic Acid 1.9 mmol/L (0.5-2.2) 02/15/25 14:24 Calcium 8.7 mg/dL (8.5-10.5) 02/15/25 14:24 Total Bilirubin 1.0 mg/dL (0.15-1.2) 02/15/25 14:24 AST 30 U/L (0-40) 02/15/25 14:24 ALT 18 U/L (0-41) 02/15/25 14:24 Alkaline Phosphatase 82 U/L (40-130) 02/15/25 14:24 Troponin T Baseline 64 ng/L (0-15) H 02/15/25 14:24 Troponin T 120 Minute 58.30 ng/L (0-15) H 02/15/25 16:18 Delta Troponin T -5.70 ABS# (0-10) L 02/15/25 16:18 NT-Pro-B Natriuret Pep 5988 pg/mL (0-450) H 02/15/25 14:24 Total Protein 5.8 g/dL (6.6-8.7) L 02/15/25 14:24 Albumin 4.1 g/dL (3.5-5.2) 02/15/25 14:24 Globulin 1.7 g/dL (1.3-4.6) 02/15/25 14:24 Vitamin B12 1180 pg/mL (232-1245) 02/15/25 14:24 Procalcitonin 0.05 ng/mL (0-0.5) 02/15/25 14:24 TSH 2.49 uIU/mL (0.27-4.20) 02/15/25 16:18 Urine Color Yellow (Yellow) 02/15/25 17:23 Urine Appearance Clear (CLEAR) 02/15/25 17:23 Urine pH 6.5 (5-7) 02/15/25 17:23 Ur Specific [place] 1.010 (1.005-1.030) 02/15/25 17:23 Urine Protein Negative (Negative) 02/15/25 17:23 Urine Glucose (UA) Negative (Normal) 02/15/25 17: Urine Ketones Negative (Negative) 02/15/25 17:23 Urine Blood Negative (Negative) 02/15/25 17:23 Urine Nitrate Negative (Negative) 02/15/25 17:23 Urine Bilirubin Negative (Negative) 02/15/25 17:23 Urine Urobilinogen 0.2 mg/dL (Negative) 02/15/25 17:23 Ur Leukocyte Esterase Negative (Negative) 02/15/25 17:23 Urine RBC 0-2 /hpf (0-2) 02/15/25 17:23 Urine WBC 0-5 /hpf (0-5) 02/15/25 17:23 Ur Squamous Epith Cells 0-5 /hpf (0-5) 02/15/25 17:23 Amorphous Sediment Not Reportable 02/15/25 17:23 Urine Bacteria None seen /hpf (NONE) 02/15/25 17:23 Hyaline Casts 1.21 /lpf 02/15/25 17:23 Nasal MRSA (PCR) Not detected (Negative) 02/15/25 16:35 Digoxin 0.9 ng/mL (0.6-1.2) 02/15/25 14:24 Other data: The EKG from today revealed 100% AV paced rhythm. CT of the chest today Moderate right lower lobe pleural effusion with right lower lobe ground-glass/consolidative opacity which may represent associated compressive atelectasis versus pneumonia. MPI on 02/10/2025 1. Abnormal myocardial perfusion imaging with large areas of prior infarct with minimal mary-infarct ischemia in the distribution of all 3 coronary arteries. 2. LV systolic function is severely reduced. 3. TID ratio is elevated. Likely represents multivessel disease Echocardiogram on 11/03/2024 Severely increased left ventricular cavity size. Severely decreased left ventricular systolic function. Left ventricular ejection fraction is estimated at 25 %. There appeared to be mid to distal anterior, septal and apical akinesis suggestive of ischemic heart disease. There is grade 3 diastolic dysfunction. There is moderate left atrial enlargement There appeared to be thickened mitral valve with moderate to severe regurgitation There is moderate tricuspid valve regurgitation Mild to moderate pulmonary regurgitation There is no pericardial effusion There is IVC dilatation, right atrial pressure at least 20 mmHg Cardiac catheterization on 12/14/2021 * The left main is a medium caliber vessel with a minimal ostial narrowing. * The left anterior descending artery is a medium caliber vessel which appears to wrap around the LV apex. The mid to distal LAD was found to have a long stented segment. The first septal medical interpreter was found to have an ostial. * The circumflex artery is a medium caliber nondominant vessel with no significant stenotic lesions. * The right coronary artery is a medium to large caliber dominant vessel with around 30% tubular narrowing in the mid segment. No other significant obstructive lesions were noted. A&P Assessment and plan (1) Acute on chronic systolic heart failure: Patient will be treated with IV Lasix. The Entresto may be continued at this time. The kidney function need to be closely monitored. (2) Atherosclerosis of coronary artery of [place] heart without angina pectoris: In view of the recent drop in the LV systolic function and the recurrent CHF, for further evaluation of the coronary status, patient may benefit from a cardiac catheterization. However we may wait till the heart failure is appropriately treated. (3) Moderate to severe mitral regurgitation: This need to be further evaluated. After the coronary angiogram, if there is no significant obstructive coronary lesions, we may consider a transesophageal echocardiogram to further evaluate the mitral valve and the mitral regurgitation. (4) Ischemic cardiomyopathy with implantable cardioverter-defibrillator (ICD): May continue on the Entresto at this point. Patient apparently had some intolerance to spironolactone. We also may add Farxiga to the current regimen (5) Positive cardiac stress test: Cardiac catheterization as mentioned above. (6) Hyperlipidemia: Continue on the current medications. (7) Abnormal CT of the chest: It is not clear at this point whether this patient has underlying pneumonia or not. Management as per the primary (8) Pleural effusion: This could be related to the heart failure. If there is no significant improvement after treating the heart failure, may require further workup. Plan Chronic kidney disease Possible BPH Will be monitoring the intake output closely. Based on the patient's clinical progress, further recommendations will be made. Will consider the cardiac catheterization, once the heart failure is appropriately treated. Continue on the other current measures Thank you for the opportunity to evaluate this patient and make these recommendations PDMP PDMP Reviewed: Not Reviewed Consult Attestations Medical Necessity Statement: Patient requires continued hospital stay for close monitoring and further management Coding Level of Care Code 45591 Diagnoses Acute on chronic systolic heart failure I50.23 Atherosclerosis of [place] coronary artery of [place] heart without angina pectoris I25.10 Coronary Disease-Associated Artery/Lesion type: [place] artery Moderate to severe mitral regurgitation I34.0 Ischemic cardiomyopathy with implantable cardioverter-defibrillator (ICD) I25.5; Z95.810 Positive cardiac stress test R94.39 Mixed hyperlipidemia E78.2 Hyperlipidemia type: mixed hyperlipidemia Abnormal CT of the chest R93.89 Pleural effusion J90
[2025-02-15 20:14] VITALS: BP 100/67; PULSE 100; RESP 22; O2SAT 96
[2025-02-15 22:00] VITALS: PULSE 76
[2025-02-16] VITALS (9 sets, daily range): BP systolic 85–105; BP diastolic 49–68; PULSE 68–80; RESP 16–25; TEMP 36.2–36.8; O2SAT 93–98
[2025-02-16 03:38] LABS: Basophils % 0.2 %; Eosinophils # 0.1 10^3/uL (0.0-0.8); Eosinophils % 0.9 %; Hematocrit 37.6 % (37-53); Lymphocytes # 0.9 10^3/uL (0.8-4.8); Lymphocytes % 11.1 %; Mean Corpuscular Hemoglobin 31.1 pg (27-33); Mean Corpuscular Volume 94.2 fl (82-101); Mean Platelet Volume 11.8 fL (7.4-10.4); Monocytes # 0.5 10^3/uL (0.2-0.9); Monocytes % 6.2 %; Neutrophils # 6.59 10^3/uL (1.8-7.7); Neutrophils % 81.4 %; Nucleated Red Blood Cells % 0 %; Platelet Count 147 10^3/cmm (157-399); Red Blood Count 3.99 10^6/uL (3.85-5.65); Red Cell Distribution Width 15.5 % (12.1-15.1)
[2025-02-16] MEDS: heparin 5,000 unit/mL INJ 1 mL 5000 UNIT SUBCUT ×2 (03:48→15:11)
[2025-02-16 04:04] LABS: Alanine Aminotransferase 15 U/L (0-41); Albumin Level 3.7 g/dL (3.5-5.2); Alkaline Phosphatase 70 U/L (40-130); Anion Gap 15.7 (5-19); Aspartate Amino Transferase 24 U/L (0-40); Blood Urea Nitrogen 27 mg/dL (8-23); Calcium 8.7 mg/dL (8.5-10.5); Carbon Dioxide 24 mmol/L (22-29); Chloride 103 mmol/L (98-107); Creatinine Clr Calc Pharmacy 36.5095; Glucose 99 mg/dL (65-115); Magnesium 2.3 mg/dL (1.7-2.3); Osmolality Calculated 293 mOsm/kg (285-295); Phosphorus 3.2 mg/dL (2.5-4.5); Potassium 3.7 mmol/L (3.5-5.1); Sodium 139 mmol/L (136-145); Total Bilirubin 1.2 mg/dL (0.15-1.2); Total Protein 5.7 g/dL (6.6-8.7)
[2025-02-16 04:06] LABS: Chol HDL Ratio 1.98 mg/dL (1.0-5.00); Cholesterol 85 mg/dL (0-200); HDL Cholesterol 43 mg/dL (60-100); LDL Cholesterol Calculated 31 mg/dL (50-129); LDL HDL Ratio 0.72 RATIO (0.00-3.22); Procalcitonin 0.05 ng/mL (0-0.5); Triglycerides 53 mg/dL (0-150)
[2025-02-16 04:15] LABS: Folate Level 17.3 ng/mL (4.5-32.2)
--- NOTE | 2025-02-16 08:04 | P.PN_ITS ---
Subjective 2 Subjective: The patient is feeling better. Blood pressure has been soft. Entresto is on hold. Denies any chest pain or palpitations. Still has significant shortness of breath with activities. The LV ejection fraction is around 16%. Medications: Medication Review Details: Current Medications Acetaminophen (Acetaminophen 325 Mg Tablet) 650 mg PO Q6H PRN PRN Reason: Mild/Mod Pain Or Temp >/= 101 Clopidogrel Bisulfate (Clopidogrel 75 Mg Tablet) 75 mg PO DAILY COUNTS INCLUDE 234 BEDS AT THE [facility] Digoxin (Digoxin 125 Mcg Tablet) 125 mcg PO DAILY COUNTS INCLUDE 234 BEDS AT THE [facility] Docusate Sodium (Docusate Sodium 100 Mg Capsule) 100 mg PO BID COUNTS INCLUDE 234 BEDS AT THE [facility] Last Admin: 02/15/25 18:33 Dose: 100 mg Furosemide (Furosemide 10 Mg/Ml Sdv 4ml) 40 mg IVP Q8H COUNTS INCLUDE 234 BEDS AT THE [facility] Heparin Sodium (Porcine) (Heparin 5,000 Unit/Ml Inj 1 Ml) 5,000 unit SUBCUT Q12H COUNTS INCLUDE 234 BEDS AT THE [facility] Last Admin: 02/16/25 03:48 Dose: 5,000 unit Lactulose (Lactulose Oral Liq 20 Gm/30 Ml Udc) 10 gm PO DAILY PRN; Protocol PRN Reason: Constipation (see protocol) Magnesium Hydroxide (Magnesium Hydroxide 30 Ml Udc) 30 ml PO DAILY PRN; Protocol PRN Reason: Constipation (see protocol) Metoprolol Tartrate (Metoprolol Tartrate 25 Mg Tablet) 25 mg PO BID@0900,2100 COUNTS INCLUDE 234 BEDS AT THE [facility] Mirtazapine (Mirtazapine 15 Mg Tablet) 15 mg PO DAILY COUNTS INCLUDE 234 BEDS AT THE [facility] Morphine Sulfate (Morphine 4 Mg/Ml Sdv 1 Ml) 2 mg IVP Q4H PRN PRN Reason: SEVERE PAIN Non-Formulary Medication (Ezetimibe-Simvastatin [Vytorin 10-20]) 1 tab PO DAILY COUNTS INCLUDE 234 BEDS AT THE [facility] Ondansetron HCl (Ondansetron 2 Mg/Ml Sdv 2 Ml) 4 mg IVP Q6H PRN PRN Reason: vomiting, or N/V if npo Pantoprazole Sodium (Pantoprazole 40 Mg Sdv) 40 mg IVP Q24H COUNTS INCLUDE 234 BEDS AT THE [facility] Last Admin: 02/15/25 16:14 Dose: 40 mg Potassium Chloride (Potassium Chloride Er 20 Meq Tablet) 20 meq PO Q8H COUNTS INCLUDE 234 BEDS AT THE [facility] Sacubitril/Valsartan (Sacubitril/Valsartan 24-26 Mg Tablet) 1 each PO BID COUNTS INCLUDE 234 BEDS AT THE [facility] Tamsulosin HCl (Tamsulosin 0.4 Mg Capsule) 0.4 mg PO BID COUNTS INCLUDE 234 BEDS AT THE [facility] Last Admin: 02/15/25 18:33 Dose: 0.4 mg Vitals/I&O/Wt Last Vital Signs Temp 98.1 F 02/16/25 04:00 Pulse 79 02/16/25 05:47 Resp 16 02/16/25 04:00 BP 99/66 02/16/25 04:00 Pulse Ox 93 02/16/25 04:00 O2 Del Method Room Air 02/16/25 04:00 02/15/25 02/16/25 02/16/25 22:59 06:59 14:59 Intake Total 120 / 120 Output Total 1200 / 1200 250 / 1450 Balance -1080 / -1080 -250 / -1330 Weight last 48 hrs Weight 148 lb 6 oz Weight 148 lb 8 oz Weight 150 lb Physical Exam 2 Narrative: GENERAL: The patient is alert and oriented times three. Not in any acute distress. HEENT: No significant pallor, icterus or lymphadenopathy.Oral cavity: There are no mucous membrane lesions. NECK: Trachea appears to be central. No masses noted. No JVD or thyromegaly appreciated. RESPIRATORY: Chest is symmetrical. No intercostals muscle retraction or any accessory muscle activation. There is no chest wall tenderness. Breath sounds are heard bilaterally. No rales or rhonchi heard. No evidence of any consolidation. BREASTS: Deferred. HEART: The heart sounds are normal. No S3 or S4. Systolic murmur of grade 4/6 in the left sternal border. No diastolic murmurs. No pericardial rub ABDOMEN: No vessel pulsations or distention. No tenderness. No organomegaly appreciated. Bowel sounds are normally heard. : Deferred. RECTAL: Deferred. LYMPHATIC: No lymphadenopathy noted in the neck. EXTREMITIES: 2-3+ edema bilaterally MUSCULOSKELETAL: No acute joint deformities or swelling SKIN: There are no significant rashes or ecchymosis NEUROPSYCHIATRIC: The patient is alert and oriented x3. Appears to be in a good mood. No tremors or rigidity noted. Urinary Catheter Management: Hughes: Cath Placed During This Visit: yes Reason for Continuing Indwelling Catheter: Accurate Measurement of Urinary Output in Critically Ill Patients Urinary Catheter Date of Insertion: 02/15/25 Urinary Catheter Time of Insertion: 18:36 Data 02/16/25 03:02 02/16/25 14:52 Other Labs: Laboratory Last Values WBC 8.10 10^3/uL (3.29-11.43) 02/16/25 03:02 RBC 3.99 10^6/uL (3.85-5.65) 02/16/25 03:02 Hgb 12.40 g/dL (11.27-16.99) 02/16/25 03:02 Hct 37.6 % (37-53) 02/16/25 03:02 MCV 94.2 fl (82-101) 02/16/25 03:02 MCH 31.1 pg (27-33) 02/16/25 03:02 MCHC 33.0 g/dL (30-55) 02/16/25 03:02 RDW 15.5 % (12.1-15.1) H 02/16/25 03:02 Plt Count 147 10^3/cmm (157-399) L 02/16/25 03:02 MPV 11.8 fL (7.4-10.4) H 02/16/25 03:02 Neut % (Auto) 81.4 % 02/16/25 03:02 Lymph % (Auto) 11.1 % 02/16/25 03:02 [place] % (Auto) 6.2 % 02/16/25 03:02 Eos % (Auto) 0.9 % 02/16/25 03:02 Baso % (Auto) 0.2 % 02/16/25 03:02 Neut # (Auto) 6.59 10^3/uL (1.8-7.7) 02/16/25 03:02 Lymph # (Auto) 0.9 10^3/uL (0.8-4.8) 02/16/25 03:02 [place] # (Auto) 0.5 10^3/uL (0.2-0.9) 02/16/25 03:02 Eos # (Auto) 0.1 10^3/uL (0.0-0.8) 02/16/25 03:02 Baso # (Auto) 0.0 10^3/uL (0.0-0.1) 02/16/25 03:02 Nucleated RBC % (auto) 0 % 02/16/25 03:02 Nucleated RBCs # 0.0 /100WBC 02/16/25 03:02 PT 14.20 SECONDS (12.1-14.9) 02/15/25 14:24 INR 1.03 (0.8-1.2) 02/15/25 14:24 APTT 38.2 SECONDS (23.9-36.7) H 02/15/25 14:24 Sodium 139 mmol/L (136-145) 02/16/25 03:02 Potassium 3.7 mmol/L (3.5-5.1) 02/16/25 03:02 Chloride 103 mmol/L (98-107) 02/16/25 03:02 Carbon Dioxide 24 mmol/L (22-29) 02/16/25 03:02 Anion Gap 15.7 (5-19) 02/16/25 03:02 BUN 27 mg/dL (8-23) H 02/16/25 03:02 Creatinine 1.5 mg/dL (0.7-1.2) H 02/16/25 03:02 GFR Calculation Not Reportable 02/16/25 03:02 Glucose 99 mg/dL (65-115) 02/16/25 03:02 Estimat Average Glucose 123 02/15/25 14:24 Hemoglobin A1c 5.9 % (4.0-6.0) 02/15/25 14:24 Calculated Osmolality 293 mOsm/kg (285-295) 02/16/25 03:02 Lactic Acid 1.9 mmol/L (0.5-2.2) 02/15/25 14:24 Calcium 8.7 mg/dL (8.5-10.5) 02/16/25 03:02 Phosphorus 3.2 mg/dL (2.5-4.5) 02/16/25 03:02 Magnesium 2.3 mg/dL (1.7-2.3) 02/16/25 03:02 Total Bilirubin 1.2 mg/dL (0.15-1.2) 02/16/25 03:02 AST 24 U/L (0-40) 02/16/25 03:02 ALT 15 U/L (0-41) 02/16/25 03:02 Alkaline Phosphatase 70 U/L (40-130) 02/16/25 03:02 Troponin T Baseline 64 ng/L (0-15) H 02/15/25 14:24 Troponin T 120 Minute 58.30 ng/L (0-15) H 02/15/25 16:18 Delta Troponin T -5.70 ABS# (0-10) L 02/15/25 16:18 Troponin T Hi Sens 6Hr 62.10 ng/L (0-15) H 02/15/25 20:22 Troponin T Hi Sens 6Hr Delta -1.90 ng/L (0-12) L 02/15/25 20:22 NT-Pro-B Natriuret Pep 5988 pg/mL (0-450) H 02/15/25 14:24 Total Protein 5.7 g/dL (6.6-8.7) L 02/16/25 03:02 Albumin 3.7 g/dL (3.5-5.2) 02/16/25 03:02 Globulin 2.0 g/dL (1.3-4.6) 02/16/25 03:02 Triglycerides 53 mg/dL (0-150) 02/16/25 03:02 Cholesterol 85 mg/dL (0-200) 02/16/25 03:02 LDL Cholesterol, Calc 31 mg/dL (50-129) L 02/16/25 03:02 HDL Cholesterol 43 mg/dL (60-100) L 02/16/25 03:02 LDL/HDL Ratio 0.72 RATIO (0.00-3.22) 02/16/25 03:02 Cholesterol/HDL Ratio 1.98 mg/dL (1.0-5.00) 02/16/25 03:02 Vitamin B12 1180 pg/mL (232-1245) 02/15/25 14:24 Folate 17.3 ng/mL (4.5-32.2) 02/16/25 03:02 Procalcitonin 0.05 ng/mL (0-0.5) 02/16/25 03:02 TSH 2.49 uIU/mL (0.27-4.20) 02/15/25 16:18 Urine Color Yellow (Yellow) 02/15/25 17:23 Urine Appearance Clear (CLEAR) 02/15/25 17:23 Urine pH 6.5 (5-7) 02/15/25 17:23 Ur Specific [place] 1.010 (1.005-1.030) 02/15/25 17:23 Urine Protein Negative (Negative) 02/15/25 17:23 Urine Glucose (UA) Negative (Normal) 02/15/25 17:23 Urine Ketones Negative (Negative) 02/15/25 17:23 Urine Blood Negative (Negative) 02/15/25 17: Urine Nitrate Negative (Negative) 02/15/25 17:23 Urine Bilirubin Negative (Negative) 02/15/25 17:23 Urine Urobilinogen 0.2 mg/dL (Negative) 02/15/25 17:23 Ur Leukocyte Esterase Negative (Negative) 02/15/25 17:23 Urine RBC 0-2 /hpf (0-2) 02/15/25 17:23 Urine WBC 0-5 /hpf (0-5) 02/15/25 17:23 Ur Squamous Epith Cells 0-5 /hpf (0-5) 02/15/25 17: Amorphous Sediment Not Reportable 02/15/25 17:23 Urine Bacteria None seen /hpf (NONE) 02/15/25 17: Hyaline Casts 1.21 /lpf 02/15/25 17:23 Nasal MRSA (PCR) Not detected (Negative) 02/15/25 16:35 Digoxin 0.9 ng/mL (0.6-1.2) 02/15/25 14:24 A&P Assessment and plan (1) Acute on chronic systolic heart failure: Myocardial with IV Lasix today. Repeat BMP in the morning. (2) Atherosclerosis of coronary artery of [place] heart without angina pectoris: If the patient continues to do okay, we may consider doing the cardiac catheterization tomorrow. (3) Moderate to severe mitral regurgitation: This need to be further evaluated. After the coronary angiogram, if there is no significant obstructive coronary lesions, we may consider a transesophageal echocardiogram to further evaluate the mitral valve and the mitral regurgitation. (4) Ischemic cardiomyopathy with implantable cardioverter-defibrillator (ICD): The patient seems to have worsening of the LV systolic function. Continue on the current medication for the time being. (5) Positive cardiac stress test: Possible cardiac catheterization in the morning, if the BMP is acceptable. (6) Hyperlipidemia: Continue on the current medications. (7) Abnormal CT of the chest: Patient has no clinical evidence of any infection. Management as per the primary (8) Pleural effusion: This could be related to the heart failure. Chest x-ray tonight to evaluate the pleural effusion and the right lower lobe Plan Chronic kidney disease Possible BPH Based on the clinical progress, further recommendations will be made. There was a chest x-ray tonight. BMP in the morning Possible cardiac cath in the morning PDMP PDMP Reviewed: Not Reviewed Attestations 2 Medical Necessity Statement*: Patient requires continued hospital stay for close monitoring and further management Coding Level of Care Code Acute Code for Chg Fwd Diagnoses Acute on chronic systolic heart failure I50.23 Atherosclerosis of [place] coronary artery of [place] heart without angina pectoris I25.10 Coronary Disease-Associated Artery/Lesion type: [place] artery Moderate to severe mitral regurgitation I34.0 Ischemic cardiomyopathy with implantable cardioverter-defibrillator (ICD) I25.5; Z95.810 Positive cardiac stress test R94.39 Mixed hyperlipidemia E78.2 Hyperlipidemia type: mixed hyperlipidemia Abnormal CT of the chest R93.89 Pleural effusion J90
[2025-02-16] MEDS: FUROsemide 10 mg/mL SDV 4mL 40 MG IVP ×2 (09:08→15:12)
[2025-02-16] MEDS: clopidogrel 75 mg Tablet PO (09:08)
[2025-02-16] MEDS: tamsulosin 0.4 mg Capsule PO ×2 (09:08→17:33)
[2025-02-16] MEDS: mirtazapine 15 mg Tablet PO (09:09)
[2025-02-16] MEDS: metoprolol tartrate 25 mg Tablet PO (09:09)
[2025-02-16] MEDS: docusate sodium 100 mg Capsule PO (09:09)
[2025-02-16] MEDS: digoxin 125 mcg Tablet PO (09:09)
[2025-02-16] MEDS: potassium chloride ER 20 mEq Tablet PO ×2 (09:09→17:33)
--- NOTE | 2025-02-16 09:19 | PC.CHAP ---
Pastoral Care Encounter/Spiritual Assessment Type of Contact [] Declined r d intern visit [] Patient/Family/Request visit [] Outpatient visit [] Follow-up visit [] Physician referral [] Code/Alert [x] Routine visit [] Staff referral [] Actively dying [] Patient sleeping [] Family support [] [] Out of room [] Palliative care [] [] Receiving care in room [] Pre-surgical visit [] Trauma [] Long length of stay [] ICU visit [] Other: Relational/Emotional Strength [x] Patient feels connected with others/family/visitors/staff [] Distress [] Loneliness/isolation [] Abandonment Spirituality of Patient [x] Person of [place] [] Attends Adventism of their [place] [x] Believes in Prayer [] Reads Bible or Anglican materials [] There are Spiritual issues to be addressed Smoke Jumper Supervisor Interventions [x] Prayer [x] Active listening [] Non-anxious presence [x] Spiritual/emotional support [] Crisis/trauma care [] Spiritual counseling [] Bereavement support [] Provided bereavement packet [] Provided Bible/devotional materials [] Provided toy/stuffed animal, coloring book to patient or family member [] Provided Communion [] Anointing/[place] [] Salvation [x] Completed spiritual assessment [] Other: Impact on Illness or Injury [] Angry [] Fearful [] Anxious [] Often cries [] Exhaustion [] Unable to work [] Unable to attend latter day [] Unable to walk/stand [] Unable to read [] Unable to drive [] Unable to eat/drink [] Unable to sleep [] Unable to be with family [] Patient intubated [] Other: Summary Time spent with patient 5 min
--- NOTE | 2025-02-16 10:54 | P.PN_ITS ---
Subjective 2 Subjective: No acute events overnight. Patient seen sitting up in chair. States he did not have a restful night as he was not able to sleep better new place. Denies any nausea, vomiting, headache. States breathing is still the same. Remains on room air. Blood pressures around 99 systolic. Overnight has dropped down to 88 systolics as well. Vitals/I&O/Wt Last Vital Signs Temp 97.7 F 02/16/25 08:00 Pulse 77 02/16/25 09:09 Resp 20 H 02/16/25 08:00 BP 105/68 02/16/25 08:00 Pulse Ox 96 02/16/25 08:00 O2 Del Method Room Air 02/16/25 08:00 02/15/25 02/16/25 02/16/25 22:59 06:59 14:59 Intake Total 120 / 120 120 / 120 Output Total 1200 / 1200 250 / 1450 Balance -1080 / -1080 -250 / -1330 120 / 120 Weight last 48 hrs Weight 67.302 kg Weight 67.358 kg Weight 68.039 kg Physical Exam 2 Narrative: General: No acute distress, AO x3 HEENT: PERRLA, pupils bilaterally equal and reactive Chest: Normal vesicular breath sounds, no added sounds, equal good air entry bilaterally CVS: S1-S2 regular, no murmurs, no tachycardia, no gallops, no rubs Abdomen: Soft, nontender, no organomegaly, bowel sounds present Neuro: No focal deficits, no facial deformity, AO x3, power 5/5 in all limbs Urinary Catheter Management: Hughes: Cath Placed During This Visit: yes Reason for Continuing Indwelling Catheter: Accurate Measurement of Urinary Output in Critically Ill Patients Urinary Catheter Date of Insertion: 02/15/25 Urinary Catheter Time of Insertion: 18:36 Data 02/16/25 03:02 02/16/25 03:02 A&P Assessment and plan (1) Acute combined systolic and diastolic congestive heart failure, NYHA class 3: Last known EF of 25% grade 3 diastolic dysfunction with regional wall motion abnormality back in October 2024 with moderate to severe MR. Currently acute decompensated combined heart failure. Diuresis complicated with soft blood pressures. Hold off on antihypertensive. Appreciate cardiology recommendations. Continue with IV Lasix as per cardiology recommendations at 40 mg every 8 hours repeat BMP in afternoon to monitor for potassium levels and contraction alkalosis. Strict input output charting, daily weights. Hughes catheterization. Fluid restriction less than 1500 cc. Repeat echocardiogram pending (2) Positive cardiac stress test: History of CAD. Last cardiac angiogram back in 2021 in which patient was found to have minimal ostial narrowing of left main, high-grade in-stent stenosis of LAD, mild disease in other vessels with LVEDP of 22. Currently positive stress test on 02/10. Plan for cardiac angiogram within next 24 to 48 hours. Will tentatively keep patient n.p.o. overnight for a possible angiogram in AM. Continue with Plavix, statin, metoprolol 25 mg twice daily. Appreciate A1c, lipid panel. Cycle troponin Repeat echocardiogram as above. (3) CAD (coronary artery disease): (4) Acute exacerbation of CHF (congestive heart failure): Holding off on home guideline directed medical therapy of heart failure including Entresto for now. Continue with beta-mary ellen. (5) Cardiomyopathy: (6) Cardiac resynchronization therapy defibrillator (ENERGY ENGINEER-D) in place: Appreciate ENERGY ENGINEER-D check with only 1 episode of nonsustained V. tach in last 1 year. No other arrhythmias. (7) Acute kidney injury: Plan Shortness of breath: Most likely in setting of heart failure. Appreciate CT chest. No concerns for pneumonia. Does have pleural effusion though was tapped with the last 1 week. For now we will hold off on thoracentesis. Patient not requiring supplemental oxygen and is able to lie down flat. Patient did have thoracentesis done on 02/10. No fluid studies sent at that time. No concern for infection for now. Hold off on IV antibiotics. Appreciate normal digoxin level. Continue home dose of digoxin, mirtazapine, Flomax for now. Full code Cardiac diet. Fluid restriction to 1500 cc. Heparin 5000 every 12 hourly for DVT prophylaxis Protonix for PUD prophylaxis PDMP PDMP Reviewed: Not Reviewed Attestations 2 Medical Necessity Statement*: Requires further hospitalization for acute decompensated systolic and diastolic heart failure with concerns for angina, ITZEL Diagnoses Acute combined systolic and diastolic congestive heart failure, NYHA class 3 I50.41 Positive cardiac stress test R94.39 Coronary artery disease involving [place] coronary artery of [place] heart without angina pectoris I25.10 Coronary Disease-Associated Artery/Lesion type: [place] artery [place] vs. transplanted heart: [place] heart Associated angina: without angina Acute exacerbation of CHF (congestive heart failure) I50.9 Ischemic cardiomyopathy I25.5 Cardiomyopathy type: ischemic Cardiac resynchronization therapy defibrillator (ENERGY ENGINEER-D) in place Z95.810 Acute kidney injury N17.9
[2025-02-16] MEDS: pantoprazole 40 mg SDV IVP (15:11)
[2025-02-16 15:30] LABS: Anion Gap 16.4 (5-19); Blood Urea Nitrogen 28 mg/dL (8-23); Calcium 8.9 mg/dL (8.5-10.5); Carbon Dioxide 26 mmol/L (22-29); Chloride 99 mmol/L (98-107); Creatinine Clr Calc Pharmacy 36.4975; Glucose 152 mg/dL (65-115); Osmolality Calculated 292 mOsm/kg (285-295); Potassium 4.4 mmol/L (3.5-5.1); Sodium 137 mmol/L (136-145)
[2025-02-16] MEDS: trazodone 50 mg Tablet PO (20:42)
--- NOTE | 2025-02-16 21:56 | XRR_ITS ---
PROCEDURE INFORMATION: Exam: XR Chest Exam date and time: 02/16/2025 11:01 PM Age: 84 years old Clinical indication: Pre-operative exam; Respiratory screening exam; Additional info: Pleural effusion, today/ pre op TECHNIQUE: Imaging protocol: Radiologic exam of the chest. Views: 2 views. COMPARISON: CT chest con [id number] 02/15/2025 3:59 PM FINDINGS: Tubes, catheters and devices: Left-sided pacemaker. Lungs: Small to moderate right pleural effusion with right lower lobe pneumonia. Pleural spaces: See Lungs finding. Heart/Mediastinum: Cardiomegaly. Bones/joints: Unremarkable. XR/XR chest 2V insp/exp [id number] IMPRESSION: 1. Small to moderate right pleural effusion with right lower lobe pneumonia. 2. Cardiomegaly. 3. Left-sided pacemaker.
--- NOTE | 2025-02-16 23:55 | PC.NURSE ---
Contacted the doctor about 2100 metoprolol due to a blood pressure of 90s over 50s, medication was not given. Contacted The doctor at 2350 about 40mg ivp lasix with a blood pressure of 98/68. Doctor ordered to give. Care ongoing
[2025-02-17] VITALS (8 sets, daily range): BP systolic 94–105; BP diastolic 60–69; PULSE 64–83; RESP 16–28; TEMP 36.1–37; O2SAT 93–98
[2025-02-17] MEDS: FUROsemide 10 mg/mL SDV 4mL 40 MG IVP (00:03)
[2025-02-17] MEDS: heparin 5,000 unit/mL INJ 1 mL 5000 UNIT SUBCUT ×2 (03:07→17:40)
[2025-02-17 03:46] LABS: Basophils % 0.3 %; Eosinophils % 0.5 %; Hematocrit 35.9 % (37-53); Lymphocytes % 12.7 %; Mean Corpuscular HGB Conc 33.4 g/dL (30-55); Mean Corpuscular Hemoglobin 31.1 pg (27-33); Mean Platelet Volume 11.8 fL (7.4-10.4); Monocytes # 0.5 10^3/uL (0.2-0.9); Monocytes % 6.7 %; Neutrophils % 79.5 %; Nucleated Red Blood Cells % 0 %; Platelet Count 152 10^3/cmm (157-399); Red Blood Count 3.86 10^6/uL (3.85-5.65); Red Cell Distribution Width 15.7 % (12.1-15.1); White Blood Count 7.79 10^3/uL (3.29-11.43)
[2025-02-17 04:04] LABS: Alanine Aminotransferase 15 U/L (0-41); Albumin Level 3.6 g/dL (3.5-5.2); Alkaline Phosphatase 66 U/L (40-130); Aspartate Amino Transferase 20 U/L (0-40); Blood Urea Nitrogen 29 mg/dL (8-23); Calcium 8.6 mg/dL (8.5-10.5); Carbon Dioxide 24 mmol/L (22-29); Chloride 103 mmol/L (98-107); Creatinine Clr Calc Pharmacy 36.4975; Glucose 102 mg/dL (65-115); Magnesium 2.1 mg/dL (1.7-2.3); Osmolality Calculated 298 mOsm/kg (285-295); Phosphorus 3.2 mg/dL (2.5-4.5); Sodium 141 mmol/L (136-145); Total Bilirubin 1.3 mg/dL (0.15-1.2); Total Protein 5.6 g/dL (6.6-8.7)
[2025-02-17 04:08] LABS: NT Pro B Type Natriuretic Pept 10218 pg/mL (0-450)
[2025-02-17] MEDS: aspirin 325 mg Tablet PO (06:03)
[2025-02-17] MEDS: diphenhydrAMINE 50 mg Capsule PO (06:03)
[2025-02-17] MEDS: sodium chloride 0.9% 1,000 ML 50 ML IV (06:04)
--- NOTE | 2025-02-17 07:02 | W.PM.OPSUD ---
Surgery/Procedure H&P Update DATE OF PROCEDURE: February 17, 2025 DATE H&P PERFORMED: 02/15/25 H&P UPDATE INFORMATION: I have reviewed H&P completed within last 30 days, I have examined patient prior to procedure and No changes to prior documentation CHANGES TO PREVIOUS DOCUMENTATION: The lungs are clear PREOP DIAGNOSIS: ASHD PRIMARY INDICATION FOR PROCEDURE: CHF/cardiomyopathy/MR/abnormal stress test PLANNED PROCEDURE: Operation Date: 02/17/25 07:00 Proposed Procedures p Cardiac Catheterization(Left) - Candie Rico MD PATIENT REASSESSED PRIOR TO SEDATION, WITH NO CHANGE NOTED: Yes PHYSICAL EXAM: alert, oriented x 3, clear to auscultation bilaterally and regular rate & rhythm AIRWAY EVAL/ANESTHESIA PLAN: normal airway, see other exam findings, ASA III, Monitored Anesthesia, Local Anesthesia, Risks, benefits & alternatives of sedation and/or procedure discussed and Patient agrees to continue as planned
--- NOTE | 2025-02-17 07:07 | P.PN_ITS ---
Subjective 2 Subjective: Patient is feeling better. BUN/creatinine are fairly stable. The chest x-ray shows minimal to moderate pleural effusion on the right side with a possible collapse consolidation of the right lower lobe Medications: Medication Review Details: Current Medications Acetaminophen (Acetaminophen 325 Mg Tablet) 650 mg PO Q6H PRN PRN Reason: Mild/Mod Pain Or Temp >/= 101 Clopidogrel Bisulfate (Clopidogrel 75 Mg Tablet) 75 mg PO DAILY [facility] Last Admin: 02/16/25 09:08 Dose: 75 mg Digoxin (Digoxin 125 Mcg Tablet) 125 mcg PO DAILY [facility] Last Admin: 02/16/25 09:09 Dose: 125 mcg Docusate Sodium (Docusate Sodium 100 Mg Capsule) 100 mg PO BID [facility] Last Admin: 02/16/25 17:34 Dose: Not Given Furosemide (Furosemide 10 Mg/Ml Sdv 4ml) 40 mg IVP Q8H [facility] Last Admin: 02/17/25 00:03 Dose: 40 mg Heparin Sodium (Porcine) (Heparin 5,000 Unit/Ml Inj 1 Ml) 5,000 unit SUBCUT Q12H [facility] Last Admin: 02/17/25 03:07 Dose: 5,000 unit Sodium Chloride (Sodium Chloride 0.9%) 1,000 mls @ 50 mls/hr IV .Q20H ONE Stop: 02/18/25 01:59 Last Admin: 02/17/25 06:04 Dose: 50 mls/hr Lactulose (Lactulose Oral Liq 20 Gm/30 Ml Udc) 10 gm PO DAILY PRN; Protocol PRN Reason: Constipation (see protocol) Magnesium Hydroxide (Magnesium Hydroxide 30 Ml Udc) 30 ml PO DAILY PRN; Protocol PRN Reason: Constipation (see protocol) Metoprolol Tartrate (Metoprolol Tartrate 25 Mg Tablet) 25 mg PO BID@0900,2100 [facility] Last Admin: 02/16/25 20:28 Dose: Not Given Mirtazapine (Mirtazapine 15 Mg Tablet) 15 mg PO DAILY [facility] Last Admin: 02/16/25 09:09 Dose: 15 mg Morphine Sulfate (Morphine 4 Mg/Ml Sdv 1 Ml) 2 mg IVP Q4H PRN PRN Reason: SEVERE PAIN Non-Formulary Medication (Ezetimibe-Simvastatin [Vytorin 10-20]) 1 tab PO DAILY [facility] Last Admin: 02/16/25 09:51 Dose: Not Given Ondansetron HCl (Ondansetron 2 Mg/Ml Sdv 2 Ml) 4 mg IVP Q6H PRN PRN Reason: vomiting, or N/V if npo Pantoprazole Sodium (Pantoprazole 40 Mg Sdv) 40 mg IVP Q24H [facility] Last Admin: 02/16/25 15:11 Dose: 40 mg Potassium Chloride (Potassium Chloride Er 20 Meq Tablet) 20 meq PO BID [facility] Last Admin: 02/16/25 17:33 Dose: 20 meq Tamsulosin HCl (Tamsulosin 0.4 Mg Capsule) 0.4 mg PO BID [facility] Last Admin: 02/16/25 17:33 Dose: 0.4 mg Trazodone HCl (Trazodone 50 Mg Tablet) 50 mg PO BEDTIME PRN PRN Reason: INSOMNIA Last Admin: 02/16/25 20:42 Dose: 50 mg Vitals/I&O/Wt Last Vital Signs Temp 97.8 F 02/17/25 04:00 Pulse 64 02/17/25 06:00 Resp 16 02/17/25 04:00 BP 100/69 02/17/25 04:00 Pulse Ox 93 02/17/25 04:00 O2 Del Method Room Air 02/17/25 04:00 02/16/25 02/17/25 02/17/25 22:59 06:59 14:59 Intake Total 240 / 600 Output Total 700 / 1650 600 / 2250 Balance -460 / -1050 -600 / -1650 Weight last 48 hrs Weight 148 lb Weight 148 lb 6 oz Weight 148 lb 8 oz Weight 150 lb Physical Exam 2 Narrative: GENERAL: The patient is alert and oriented times three. Not in any acute distress. HEENT: No significant pallor, icterus or lymphadenopathy.Oral cavity: There are no mucous membrane lesions. NECK: Trachea appears to be central. No masses noted. No JVD or thyromegaly appreciated. RESPIRATORY: Chest is symmetrical. No intercostals muscle retraction or any accessory muscle activation. There is no chest wall tenderness. Breath sounds are heard bilaterally with diminished breath sounds in the right base. No rales or rhonchi heard. No evidence of any consolidation. BREASTS: Deferred. HEART: The heart sounds are normal. No S3 or S4. Systolic murmur of grade 4/6 in the left sternal border. No diastolic murmurs. No pericardial rub ABDOMEN: No vessel pulsations or distention. No tenderness. No organomegaly appreciated. Bowel sounds are normally heard. : Deferred. RECTAL: Deferred. LYMPHATIC: No lymphadenopathy noted in the neck. EXTREMITIES: 2-3+ edema bilaterally MUSCULOSKELETAL: No acute joint deformities or swelling SKIN: There are no significant rashes or ecchymosis NEUROPSYCHIATRIC: The patient is alert and oriented x3. Appears to be in a good mood. No tremors or rigidity noted. Urinary Catheter Management: Hughes: Cath Placed During This Visit: yes Reason for Continuing Indwelling Catheter: Accurate Measurement of Urinary Output in Critically Ill Patients Urinary Catheter Date of Insertion: 02/15/25 Urinary Catheter Time of Insertion: 18:36 Data 02/17/25 02:49 02/17/25 02:49 Other Labs: Laboratory Last Values WBC 7.79 10^3/uL (3.29-11.43) 02/17/25 02:49 RBC 3.86 10^6/uL (3.85-5.65) 02/17/25 02:49 Hgb 12.00 g/dL (11.27-16.99) 02/17/25 02:49 Hct 35.9 % (37-53) L 02/17/25 02:49 MCV 93.0 fl (82-101) 02/17/25 02:49 MCH 31.1 pg (27-33) 02/17/25 02:49 MCHC 33.4 g/dL (30-55) 02/17/25 02:49 RDW 15.7 % (12.1-15.1) H 02/17/25 02:49 Plt Count 152 10^3/cmm (157-399) L 02/17/25 02:49 MPV 11.8 fL (7.4-10.4) H 02/17/25 02:49 Neut % (Auto) 79.5 % 02/17/25 02:49 Lymph % (Auto) 12.7 % 02/17/25 02:49 Ward % (Auto) 6.7 % 02/17/25 02:49 Eos % (Auto) 0.5 % 02/17/25 02:49 Baso % (Auto) 0.3 % 02/17/25 02:49 Neut # (Auto) 6.20 10^3/uL (1.8-7.7) 02/17/25 02:49 Lymph # (Auto) 1.0 10^3/uL (0.8-4.8) 02/17/25 02:49 Ward # (Auto) 0.5 10^3/uL (0.2-0.9) 02/17/25 02:49 Eos # (Auto) 0.0 10^3/uL (0.0-0.8) 02/17/25 02:49 Baso # (Auto) 0.0 10^3/uL (0.0-0.1) 02/17/25 02:49 Nucleated RBC % (auto) 0 % 02/17/25 02:49 Nucleated RBCs # 0.0 /100WBC 02/17/25 02:49 PT 14.20 SECONDS (12.1-14.9) 02/15/25 14:24 INR 1.03 (0.8-1.2) 02/15/25 14:24 APTT 38.2 SECONDS (23.9-36.7) H 02/15/25 14:24 Sodium 141 mmol/L (136-145) 02/17/25 02:49 Potassium 4.0 mmol/L (3.5-5.1) 02/17/25 02:49 Chloride 103 mmol/L (98-107) 02/17/25 02:49 Carbon Dioxide 24 mmol/L (22-29) 02/17/25 02:49 Anion Gap 18.0 (5-19) 02/17/25 02:49 BUN 29 mg/dL (8-23) H 02/17/25 02:49 Creatinine 1.5 mg/dL (0.7-1.2) H 02/17/25 02:49 GFR Calculation Not Reportable 02/17/25 02:49 Glucose 102 mg/dL (65-115) 02/17/25 02:49 Estimat Average Glucose 123 02/15/25 14:24 Hemoglobin A1c 5.9 % (4.0-6.0) 02/15/25 14:24 Calculated Osmolality 298 mOsm/kg (285-295) H 02/17/25 02:49 Lactic Acid 1.9 mmol/L (0.5-2.2) 02/15/25 14:24 Calcium 8.6 mg/dL (8.5-10.5) 02/17/25 02:49 Phosphorus 3.2 mg/dL (2.5-4.5) 02/17/25 02:49 Magnesium 2.1 mg/dL (1.7-2.3) 02/17/25 02:49 Total Bilirubin 1.3 mg/dL (0.15-1.2) H 02/17/25 02:49 AST 20 U/L (0-40) 02/17/25 02:49 ALT 15 U/L (0-41) 02/17/25 02:49 Alkaline Phosphatase 66 U/L (40-130) 02/17/25 02:49 Troponin T Baseline 64 ng/L (0-15) H 02/15/25 14:24 Troponin T 120 Minute 58.30 ng/L (0-15) H 02/15/25 16:18 Delta Troponin T -5.70 ABS# (0-10) L 02/15/25 16:18 Troponin T Hi Sens 6Hr 62.10 ng/L (0-15) H 02/15/25 20:22 Troponin T Hi Sens 6Hr Delta -1.90 ng/L (0-12) L 02/15/25 20:22 NT-Pro-B Natriuret Pep 49853 pg/mL (0-450) H 02/17/25 02:49 Total Protein 5.6 g/dL (6.6-8.7) L 02/17/25 02:49 Albumin 3.6 g/dL (3.5-5.2) 02/17/25 02:49 Globulin 2.0 g/dL (1.3-4.6) 02/17/25 02:49 Triglycerides 53 mg/dL (0-150) 02/16/25 03:02 Cholesterol 85 mg/dL (0-200) 02/16/25 03:02 LDL Cholesterol, Calc 31 mg/dL (50-129) L 02/16/25 03:02 HDL Cholesterol 43 mg/dL (60-100) L 02/16/25 03:02 LDL/HDL Ratio 0.72 RATIO (0.00-3.22) 02/16/25 03:02 Cholesterol/HDL Ratio 1.98 mg/dL (1.0-5.00) 02/16/25 03:02 Vitamin B12 1180 pg/mL (232-1245) 02/15/25 14:24 Folate 17.3 ng/mL (4.5-32.2) 02/16/25 03:02 Procalcitonin 0.05 ng/mL (0-0.5) 02/16/25 03:02 TSH 2.49 uIU/mL (0.27-4.20) 02/15/25 16:18 Urine Color Yellow (Yellow) 02/15/25 17:23 Urine Appearance Clear (CLEAR) 02/15/25 17:23 Urine pH 6.5 (5-7) 02/15/25 17:23 Ur Specific [place] 1.010 (1.005-1.030) 02/15/25 17:23 Urine Protein Negative (Negative) 02/15/25 17: Urine Glucose (UA) Negative (Normal) 02/15/25 17:23 Urine Ketones Negative (Negative) 02/15/25 17:23 Urine Blood Negative (Negative) 02/15/25 17:23 Urine Nitrate Negative (Negative) 02/15/25 17:23 Urine Bilirubin Negative (Negative) 02/15/25 17:23 Urine Urobilinogen 0.2 mg/dL (Negative) 02/15/25 17:23 Ur Leukocyte Esterase Negative (Negative) 02/15/25 17:23 Urine RBC 0-2 /hpf (0-2) 02/15/25 17:23 Urine WBC 0-5 /hpf (0-5) 02/15/25 17:23 Ur Squamous Epith Cells 0-5 /hpf (0-5) 02/15/25 17:23 Amorphous Sediment Not Reportable 02/15/25 17:23 Urine Bacteria None seen /hpf (NONE) 02/15/25 17:23 Hyaline Casts 1.21 /lpf 02/15/25 17:23 Nasal MRSA (PCR) Not detected (Negative) 02/15/25 16:35 Digoxin 0.9 ng/mL (0.6-1.2) 02/15/25 14:24 A&P Assessment and plan (1) Acute on chronic systolic heart failure: Will hold off on the Lasix today. Continue on the current measures. 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 The need for the study, possible risks and benefits were discussed in detail. The risk of bleeding, hematoma, vascular injury, myocardial infarction, myocardial perforation, malignant cardiac arrhythmias ,CVA, renal failure and other concomitant complications were explained in detail. Patient understood this well and consented to proceed (3) Moderate to severe mitral regurgitation: This need to be further evaluated. After the coronary angiogram, if there is no significant obstructive coronary lesions, we may consider a transesophageal echocardiogram to further evaluate the mitral valve and the mitral regurgitation. (4) Ischemic cardiomyopathy with implantable cardioverter-defibrillator (ICD): The patient seems to have worsening of the LV systolic function. Continue on the current medication for the time being. (5) Positive cardiac stress test: Based on the angiogram findings, further management decisions will be made. (6) Hyperlipidemia: Patient is known to have dyslipidemia. Advised to continue on the current medications. Will have the follow-up evaluation as scheduled. Patient understands the importance of dietary compliance (7) Abnormal CT of the chest: Patient has no clinical evidence of any infection. Management as per the primary (8) Pleural effusion: This could be related to the heart failure. Consider thoracentesis, if the pleural effusion gets any worse. Plan Chronic kidney disease Possible BPH Cardiac catheterization today. Based on the angiogram findings, further management decisions will be made. PDMP PDMP Reviewed: Not Reviewed Attestations 2 Medical Necessity Statement*: Patient requires continued hospital stay for close monitoring and further management Coding Level of Care Code 32694 Diagnoses Acute on chronic systolic heart failure I50.23 Atherosclerosis of ambler coronary artery of ambler heart without angina pectoris I25.10 Coronary Disease-Associated Artery/Lesion type: [place]bler artery Moderate to severe mitral regurgitation I34.0 Ischemic cardiomyopathy with implantable cardioverter-defibrillator (ICD) I25.5; Z95.810 Positive cardiac stress test R94.39 Mixed hyperlipidemia E78.2 Hyperlipidemia type: mixed hyperlipidemia Abnormal CT of the chest R93.89 Pleural effusion J90
[2025-02-17 07:40] LABS: Blood Gas Operator Identificat AMH; Blood Gas Sample Site AO; Blood Gas Sample Type Arterial
[2025-02-17 07:44] LABS: Arterial Blood Gas Hematocrit 23.4 % (42-52); Blood Gas Operator Identificat AMH; Blood Gas Sample Site RA; Blood Gas Sample Type Not specified; Carboxyhemoglobin 1.6 %THgb (0.4-20.1); HGB O2 Sat 61.1 % (95-100); Methemoglobin 0.6 % (0.4-1.5); Total Hemoglobin 7.6 g/dL (14-18)
[2025-02-17 07:46] LABS: Arterial Blood Gas Hematocrit 24.7 % (42-52); Blood Gas Operator Identificat AMH; Blood Gas Sample Site PA; Blood Gas Sample Type Not specified; Carboxyhemoglobin 1.6 %THgb (0.4-20.1); HGB O2 Sat 58.7 % (95-100); Methemoglobin 0.5 % (0.4-1.5); Total Hemoglobin 8.1 g/dL (14-18)
[2025-02-17 07:48] LABS: Arterial Blood Gas Hematocrit 17.1 % (42-52); Blood Gas Operator Identificat AMH; Blood Gas Sample Site RV; Blood Gas Sample Type Not specified; Carboxyhemoglobin 1.7 %THgb (0.4-20.1); Methemoglobin 0.1 % (0.4-1.5); Total Hemoglobin 5.6 g/dL (14-18)
--- NOTE | 2025-02-17 08:03 | P.OP_ITS ---
Operative Report Date of procedure: February 17, 2025 Surgeon: Candie Rico MD Procedure: This patient underwent right and left heart catheterization with coronary angiogram. He was found to have mild pulmonary hypertension. The long stented segment of the proximal to mid LAD was found to have moderate diffuse narrowing. There was a questionable high-grade lesion in the distal part of the second segment area. But it was not very clear. To better evaluate the functional significance, it was thought to be appropriate to do an IFR. Dr. Garcias concurred with this plan. Dr. Garcias took over further management of this p atient at this time. Please see the report of Dr. Garcias for details
--- NOTE | 2025-02-17 08:35 | PM.PROC ---
Procedure Note: Date of procedure: 02/17/25 Pre-procedure diagnosis: LV dysfunction/ abnormal stress test Procedure: Moderate to severe ISR of mid LAD stent. Moderate to severe stenosis at distal edge of stent. S/p PCI with 1 stent and balloon angioplasty Aspirin and plavix Performing Provider: Luke Garcias Estimated blood loss (mL): 10 Complications: None Condition: stable Disposition: floor Coding Level of Care Code Acute Code for [facility]
--- NOTE | 2025-02-17 09:05 | PC.NURSE ---
patient arrived back from lab tech at 0841 with right femoral venous sheath in place. Vitals are stable and patient resting comfortably in bed. Report taken from SAHARA Guerrero.
--- NOTE | 2025-02-17 09:09 | PC.NURSE ---
per Dr Vega hold lasix for the 8am dose and the next dose, then given the midnight dose on Friday. He also ordered to stop the bag of fluids after the current bag was finished.
[2025-02-17] MEDS: docusate sodium 100 mg Capsule PO (09:12)
[2025-02-17] MEDS: digoxin 125 mcg Tablet PO (09:12)
[2025-02-17] MEDS: tamsulosin 0.4 mg Capsule PO ×2 (09:12→17:41)
[2025-02-17] MEDS: clopidogrel 75 mg Tablet PO (09:13)
[2025-02-17] MEDS: mirtazapine 15 mg Tablet PO (09:13)
[2025-02-17] MEDS: potassium chloride ER 20 mEq Tablet PO ×2 (09:13→17:41)
--- NOTE | 2025-02-17 10:06 | P.PN_ITS ---
Subjective 2 Subjective: No acute events overnight. Patient has remained hemodynamically stable and afebrile. Blood pressure stable mostly running in high 90s systolics. Underwent cardiac angiogram and balloon angioplasty for in-stent restenosis today. Vitals/I&O/Wt Last Vital Signs Temp 96.9 F L 02/17/25 08:42 Pulse 74 02/17/25 09:12 Resp 20 H 02/17/25 08:42 BP 97/61 02/17/25 08:42 Pulse Ox 95 02/17/25 08:42 O2 Del Method Room Air 02/17/25 08:42 02/16/25 02/17/25 02/17/25 22:59 06:59 14:59 Intake Total 240 / 600 480 / 480 Output Total 700 / 1650 600 / 2250 Balance -460 / -1050 -600 / -1650 480 / 480 Weight last 48 hrs Weight 67.132 kg Weight 67.302 kg Weight 67.358 kg Weight 68.039 kg Physical Exam 2 Narrative: General: No acute distress, AO x3 HEENT: PERRLA, pupils bilaterally equal and reactive Chest: Normal vesicular breath sounds, no added sounds, equal good air entry bilaterally CVS: S1-S2 regular, no murmurs, no tachycardia, no gallops, no rubs Abdomen: Soft, nontender, no organomegaly, bowel sounds present Neuro: No focal deficits, no facial deformity, AO x3, power 5/5 in all limbs Urinary Catheter Management: Hughes: Cath Placed During This Visit: yes Reason for Continuing Indwelling Catheter: Accurate Measurement of Urinary Output in Critically Ill Patients Urinary Catheter Date of Insertion: 02/15/25 Urinary Catheter Time of Insertion: 18:36 Data 02/17/25 02:49 02/17/25 02:49 A&P Assessment and plan (1) Acute combined systolic and diastolic congestive heart failure, NYHA class 3: D. Cardiogram shows EF of 16% with global LV hypokinesia, moderate to severe MR, PASP of 41 mmHg with mild TR. Euvolemic today. Diuresis complicated with soft blood pressures. Hold off on antihypertensive. RA pressure soft to normal on angiogram. Hold off on further IV diuresis for now. Strict input output charting, daily weights. Hughes catheterization. Fluid restriction less than 1500 cc. Repeat echocardiogram pending (2) Positive cardiac stress test: History of CAD. Last cardiac angiogram back in 2021 in which patient was found to have minimal ostial narrowing of left main, high-grade in-stent stenosis of LAD, mild disease in other vessels with LVEDP of 22. Currently positive stress test on 02/10. Post Cardiac angiogram and balloon angioplasty for ISR of mid LAD Continue with Plavix, statin, metoprolol 25 mg twice daily. Appreciate A1c, lipid panel. Repeat echocardiogram as above. (3) CAD (coronary artery disease): (4) Acute exacerbation of CHF (congestive heart failure): Continue with home dose of beta-mary ellen. Blood pressures have been running mostly in mid 90s systolics. Discussed in detail with cardiology. Will start on half a dose of Entresto twice daily for now and see how he tolerates with his blood pressures. 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 tach in last 1 year. No other arrhythmias. (7) Acute kidney injury: Plan Shortness of breath: Most likely in setting of heart failure along with concerns for unstable angina. Appreciate CT chest. No concerns for pneumonia. Does have pleural effusion though was tapped with the last 1 week. For now we will hold off on thoracentesis. Patient not requiring supplemental oxygen and is able to lie down flat. Patient did have thoracentesis done on 02/10. No fluid studies sent at that time. No concern for infection for now. Hold off on IV antibiotics. Appreciate normal digoxin level. Continue home dose of digoxin, mirtazapine, Flomax for now. Full code Cardiac diet. Fluid restriction to 1500 cc. Heparin 5000 every 12 hourly for DVT prophylaxis Protonix for PUD prophylaxis PDMP PDMP Reviewed: Not Reviewed Attestations 2 Medical Necessity Statement*: Requires further hospitalization for management of acute on chronic decompensated systolic and diastolic heart failure, unstable angina in setting of ischemic cardiomyopathy post PCI while guideline directed medical therapy is uptitrated Diagnoses Acute combined systolic and diastolic congestive heart failure, NYHA class 3 I50.41 Positive cardiac stress test R94.39 Coronary artery disease involving [place] coronary artery of [place] heart without angina pectoris I25.10 Coronary Disease-Associated Artery/Lesion type: [place] artery [place] vs. 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
[2025-02-17 10:19] LABS: Arterial Blood Gas Hematocrit 34.2 % (42-52); Carboxyhemoglobin 1.6 %THgb (0.4-20.1); HGB O2 Sat 93.2 % (95-100); Methemoglobin 0.2 % (0.4-1.5); Total Hemoglobin 11.1 g/dL (14-18)
[2025-02-17 11:25] LABS: Partial Thromboplastin Time > 250.0 SECONDS (23.9-36.7)
[2025-02-17] MEDS: sacubitril/valsartan 24-26 mg Tablet 0.5 EACH PO (17:40)
[2025-02-17] MEDS: pantoprazole 40 mg SDV IVP (17:41)
[2025-02-17] MEDS: trazodone 50 mg Tablet PO (20:36)
[2025-02-18] VITALS: BP 96/59; PULSE 74; RESP 21; TEMP 36.6; O2SAT 96
[2025-02-18] MEDS: heparin 5,000 unit/mL INJ 1 mL 5000 UNIT SUBCUT (03:41)
[2025-02-18 04:00] VITALS: BP 112/74; PULSE 64; RESP 23; TEMP 36.6; O2SAT 96
[2025-02-18 05:24] LABS: Basophils % 0.4 %; Eosinophils % 0.3 %; Hematocrit 37.8 % (37-53); Lymphocytes # 0.7 10^3/uL (0.8-4.8); Lymphocytes % 8.8 %; Mean Corpuscular HGB Conc 33.1 g/dL (30-55); Mean Corpuscular Hemoglobin 31.2 pg (27-33); Mean Corpuscular Volume 94.3 fl (82-101); Mean Platelet Volume 12.2 fL (7.4-10.4); Monocytes # 0.6 10^3/uL (0.2-0.9); Neutrophils # 6.34 10^3/uL (1.8-7.7); Neutrophils % 82.2 %; Nucleated Red Blood Cells % 0 %; Platelet Count 148 10^3/cmm (157-399); Red Blood Count 4.01 10^6/uL (3.85-5.65); Red Cell Distribution Width 15.7 % (12.1-15.1); White Blood Count 7.71 10^3/uL (3.29-11.43)
[2025-02-18 05:37] LABS: Alanine Aminotransferase 19 U/L (0-41); Albumin Level 3.6 g/dL (3.5-5.2); Alkaline Phosphatase 68 U/L (40-130); Anion Gap 17.5 (5-19); Aspartate Amino Transferase 26 U/L (0-40); Blood Urea Nitrogen 33 mg/dL (8-23); Carbon Dioxide 22 mmol/L (22-29); Chloride 103 mmol/L (98-107); Creatinine Clr Calc Pharmacy 36.4219; Glucose 111 mg/dL (65-115); Magnesium 2.2 mg/dL (1.7-2.3); Osmolality Calculated 294 mOsm/kg (285-295); Potassium 4.5 mmol/L (3.5-5.1); Sodium 138 mmol/L (136-145); Total Bilirubin 1.1 mg/dL (0.15-1.2); Total Protein 5.6 g/dL (6.6-8.7)
[2025-02-18 05:54] VITALS: PULSE 64
[2025-02-18 08:00] VITALS: BP 101/87; PULSE 68; RESP 19; TEMP 36.7; O2SAT 95
--- NOTE | 2025-02-18 08:03 | PM.DCS ---
Discharge Providers Date of Admission: 02/15/25 17:36 Date of Discharge: February 18, 2025 Attending Provider at Admission: Terrence Vega MD Attending Provider at Discharge: Terrence Vega MD Consults: Cardiology: Dr. Rico Primary Care Provider: Chip Jaquez Diagnoses at Discharge Discharge Diagnosis (1) Acute on chronic systolic heart failure: Status: Acute (2) Atherosclerosis of coronary artery of [place] heart without angina pectoris: Status: Acute Qualifiers: Coronary Disease-Associated Artery/Lesion type: [place] artery Qualified Code(s): I25.10 - Atherosclerotic heart disease of [place] coronary artery without angina pectoris (3) Moderate to severe mitral regurgitation: Status: Acute (4) Ischemic cardiomyopathy with implantable cardioverter-defibrillator (ICD): Status: Acute (5) Positive cardiac stress test: Status: Acute (6) Hyperlipidemia: Status: Acute Qualifiers: Hyperlipidemia type: mixed hyperlipidemia Qualified Code(s): E78.2 - Mixed hyperlipidemia (7) Abnormal CT of the chest: Status: Acute (8) Pleural effusion: Status: Acute Reason for Visit Reason for Visit: SOB (sent by Jacky) Hospital Course Hospital Course Ruslan King is a 84 year old male with past medical history of CAD, ischemic cardiomyopathy with known EF of 25% with grade 3 diastolic dysfunction, last Lexiscan in 02/10/2025 which was positive, recent thoracentesis within last 1 week for difficulty in breathing. Patient states he has been having exertional shortness of breath which has been getting worse for last 3 to 4 months currently he is not able to walk more than 30 feet without having difficulty in breathing because of which he needs to rest. He denies any chest pain, nausea, vomiting with the symptoms. His Lasix has been increased gradually by outpatient cardiology team and currently he is taking 40 mg twice daily for last 1 week. Patient states even after thoracentesis his symptoms did not alleviate so he was requested to come to the ER for further evaluation and management. In the ER he was found to systolic blood pressure of 99, heart of 77 saturating 96% on room air Given concerns for unstable angina in setting of congestive heart failure and recent positive stress test cardiology was consulted. Repeat echocardiogram done showed EF of 16% with moderate severe MR, diffuse hypokinesia, mild TR with PASP of 41 mmHg. He was started on aggressive IV diuresis. His renal function has remained stable. Patient's symptoms did not improve even after diuresis. He underwent cardiac angiogram on 02/17 where he was found to have moderate to severe ISR to mid LAD on IFR. He was also found to have moderate to severe stenosis at the distal edge of the stent which was treated with PCI with 1 stent and balloon angioplasty. He tolerated the procedure well. Renal function remained stable. Has been discharged in likely stable condition on oral Lasix 40 mg daily, Entresto 0.5 tablet twice daily. Lifestyle modification with heart failure were discussed in detail with the patient. He is to check his blood pressure daily at home with a goal blood pressure less than 140/90 millimeters Hg. Physical Exam Narrative: General: No acute distress, AO x3 HEENT: PERRLA, pupils bilaterally equal and reactive Chest: Normal vesicular breath sounds, no added sounds, equal good air entry bilaterally CVS: S1-S2 regular, no murmurs, no tachycardia, no gallops, no rubs Abdomen: Soft, nontender, no organomegaly, bowel sounds present Neuro: No focal deficits, no facial deformity, AO x3, power 5/5 in all limbs Urinary Catheter Management: Hughes: Cath Placed During This Visit: yes Reason for Continuing Indwelling Catheter: Accurate Measurement of Urinary Output in Critically Ill Patients Urinary Catheter Date of Insertion: 02/15/25 Urinary Catheter Time of Insertion: 18:36 Discharge Data Studies Completed and Pending Completed Studies During Hospitalization Category Date Time Status CT chest wo con [id number] Urgent Cat Scan 02/15/25 15:48 Completed CXRIE [XR chest 2V insp/exp [id number]] Routine Exams 02/16/25 21:56 Completed XR chest 1V portable [id number] Stat Exams 02/15/25 14:39 Completed CV. echo complete* [id number] Routine Ultrasound 02/15/25 15:48 Completed US renal BI with PV bladder Stat Ultrasound 02/15/25 15:48 Completed Pending at discharge Category Date Time Status AGRICULTURAL ECONOMIST request for service Routine Exams 02/17/25 06:15 Taken Radiology Impressions Chest CT 02/15/25 15:48 IMPRESSION: Moderate right lower lobe pleural effusion with right lower lobe ground-glass/consolidative opacity which may represent associated compressive atelectasis versus pneumonia. Renal Ultrasound 02/15/25 15:48 IMPRESSION: 1. No acute findings. No hydronephrosis bilaterally. 2. Prostatomegaly. 3. Postvoid volume not obtained. Urinary bladder within normal limits. Chest X-Ray 02/16/25 21:56 IMPRESSION: 1. Small to moderate right pleural effusion with right lower lobe pneumonia. 2. Cardiomegaly. 3. Left-sided pacemaker. Echocardiogram: CONCLUSIONS Severe diffuse hypokinesis of the left ventricle with an ejection fraction of 16%. Moderately severe mitral regurgitation Thickened aortic valve. Trace to mild aortic valve regurgitation. Thinned out LV wall. Mild tricuspid valve regurgitation. Estimated pulmonary artery peak systolic pressure 41 mmHg Mild pulmonary valve regurgitation. There is no pericardial effusion. There are no intracardiac masses. Compared to the study from 11/03/2024, there is slight worsening of the LV systolic function. Dr Candie Rico MD [facility] (Electronically Signed) Final Date: 16 February 2025 Laboratory Results WBC 7.71 10^3/uL (3.29-11.43) 02/18/25 04:24 RBC 4.01 10^6/uL (3.85-5.65) 02/18/25 04:24 Hgb 12.50 g/dL (11.27-16.99) 02/18/25 04:24 Hct 37.8 % (37-53) 02/18/25 04:24 MCV 94.3 fl (82-101) 02/18/25 04:24 MCH 31.2 pg (27-33) 02/18/25 04:24 MCHC 33.1 g/dL (30-55) 02/18/25 04:24 RDW 15.7 % (12.1-15.1) H 02/18/25 04:24 Plt Count 148 10^3/cmm (157-399) L 02/18/25 04:24 MPV 12.2 fL (7.4-10.4) H 02/18/25 04:24 Neut % (Auto) 82.2 % 02/18/25 04:24 Lymph % (Auto) 8.8 % 02/18/25 04:24 [place] % (Auto) 8.0 % 02/18/25 04:24 Eos % (Auto) 0.3 % 02/18/25 04:24 Baso % (Auto) 0.4 % 02/18/25 04:24 Neut # (Auto) 6.34 10^3/uL (1.8-7.7) 02/18/25 04:24 Lymph # (Auto) 0.7 10^3/uL (0.8-4.8) L 02/18/25 04:24 [place] # (Auto) 0.6 10^3/uL (0.2-0.9) 02/18/25 04:24 Eos # (Auto) 0.0 10^3/uL (0.0-0.8) 02/18/25 04:24 Baso # (Auto) 0.0 10^3/uL (0.0-0.1) 02/18/25 04:24 Nucleated RBC % (auto) 0 % 02/18/25 04:24 Nucleated RBCs # 0.0 /100WBC 02/18/25 04:24 PT 14.20 SECONDS (12.1-14.9) 02/15/25 14:24 INR 1.03 (0.8-1.2) 02/15/25 14:24 APTT > 250.0 SECONDS (23.9-36.7) H* 02/17/25 10:17 Specimen Type Arterial 02/17/25 07:26 Specimen Type Not specified 02/17/25 07:26 Specimen Type Not specified 02/17/25 07:26 Specimen Type Not specified 02/17/25 07:26 Sample Site Ao 02/17/25 07:26 Sample Site Pa 02/17/25 07:26 Sample Site Ra 02/17/25 07:26 Sample Site Rv 02/17/25 07:26 Bernardo Test N/a 02/17/25 07:26 Bernardo Test N/a 02/17/25 07:26 Bernardo Test N/a 02/17/25 07:26 Bernardo Test N/a 02/17/25 07:26 A-a O2 Gradient mmHg (5-10) 02/17/25 07:26 A-a O2 Gradient Not Reportable 02/17/25 07:26 A-a O2 Gradient Not Reportable 02/17/25 07:26 A-a O2 Gradient Not Reportable 02/17/25 07:26 Hematocrit 17.1 % (42-52) L 02/17/25 07:26 Hematocrit 23.4 % (42-52) L 02/17/25 07:26 Hematocrit 24.7 % (42-52) L 02/17/25 07: Hematocrit 34.2 % (42-52) L 02/17/25 07:26 Hgb O2 Saturation 58.7 % (95-100) L 02/17/25 07: Hgb O2 Saturation 59.0 % (95-100) L 02/17/25 07: Hgb O2 Saturation 61.1 % (95-100) L 02/17/25 07: Hgb O2 Saturation 93.2 % (95-100) L 02/17/25 07:26 Carboxyhemoglobin 1.6 %THgb (0.4-20.1) 02/17/25 07:26 Carboxyhemoglobin 1.6 %THgb (0.4-20.1) 02/17/25 07: Carboxyhemoglobin 1.6 %THgb (0.4-20.1) 02/17/25 07: Carboxyhemoglobin 1.7 %THgb (0.4-20.1) 02/17/25 07:26 Methemoglobin 0.1 % (0.4-1.5) L 02/17/25 07: Methemoglobin 0.2 % (0.4-1.5) L 02/17/25 07: Methemoglobin 0.5 % (0.4-1.5) 02/17/25 07: Methemoglobin 0.6 % (0.4-1.5) 02/17/25 07:26 Total Hemoglobin 5.6 g/dL (14-18) L 02/17/25 07:26 Total Hemoglobin 7.6 g/dL (14-18) L 02/17/25 07:26 Total Hemoglobin 8.1 g/dL (14-18) L 02/17/25 07:26 Total Hemoglobin 11.1 g/dL (14-18) L 02/17/25 07:26 O2 Delivery Device None 02/17/25 07:26 O2 Delivery Device None 02/17/25 07:26 O2 Delivery Device None 02/17/25 07:26 O2 Delivery Device None 02/17/25 07:26 FiO2 21.0 % 02/17/25 07:26 FiO2 21.0 % 02/17/25 07:26 FiO2 21.0 % 02/17/25 07: FiO2 21.0 % 02/17/25 07:26 Wad Compressor Operator Adjuster ID [facility], 1928–1983 02/17/25 07:26 Wad Compressor Operator Adjuster ID [facility]ly [facility], 1928–1983 02/17/25 07:26 Wad Compressor Operator Adjuster ID [facility]ly [facility], 1928–1983 02/17/25 07:26 Wad Compressor Operator Adjuster ID [facility], 1928–1983 02/17/25 07:26 Sodium 138 mmol/L (136-145) 02/18/25 04:24 Potassium 4.5 mmol/L (3.5-5.1) 02/18/25 04:24 Chloride 103 mmol/L (98-107) 02/18/25 04:24 Carbon Dioxide 22 mmol/L (22-29) 02/18/25 04:24 Anion Gap 17.5 (5-19) 02/18/25 04:24 BUN 33 mg/dL (8-23) H 02/18/25 04:24 Creatinine 1.5 mg/dL (0.7-1.2) H 02/18/25 04:24 GFR Calculation Not Reportable 02/18/25 04:24 Glucose 111 mg/dL (65-115) 02/18/25 04:24 Estimat Average Glucose 123 02/15/25 14:24 Hemoglobin A1c 5.9 % (4.0-6.0) 02/15/25 14:24 Calculated Osmolality 294 mOsm/kg (285-295) 02/18/25 04:24 Lactic Acid 1.9 mmol/L (0.5-2.2) 02/15/25 14:24 Calcium 8.0 mg/dL (8.5-10.5) L 02/18/25 04:24 Phosphorus 3.0 mg/dL (2.5-4.5) 02/18/25 04:24 Magnesium 2.2 mg/dL (1.7-2.3) 02/18/25 04:24 Total Bilirubin 1.1 mg/dL (0.15-1.2) 02/18/25 04:24 AST 26 U/L (0-40) 02/18/25 04:24 ALT 19 U/L (0-41) 02/18/25 04:24 Alkaline Phosphatase 68 U/L (40-130) 02/18/25 04:24 Troponin T Baseline 64 ng/L (0-15) H 02/15/25 14:24 Troponin T 120 Minute 58.30 ng/L (0-15) H 02/15/25 16:18 Delta Troponin T -5.70 ABS# (0-10) L 02/15/25 16:18 Troponin T Hi Sens 6Hr 62.10 ng/L (0-15) H 02/15/25 20:22 Troponin T Hi Sens 6Hr Delta -1.90 ng/L (0-12) L 02/15/25 20:22 NT-Pro-B Natriuret Pep 40055 pg/mL (0-450) H 02/17/25 02:49 Total Protein 5.6 g/dL (6.6-8.7) L 02/18/25 04:24 Albumin 3.6 g/dL (3.5-5.2) 02/18/25 04:24 Globulin 2.0 g/dL (1.3-4.6) 02/18/25 04:24 Triglycerides 53 mg/dL (0-150) 02/16/25 03:02 Cholesterol 85 mg/dL (0-200) 02/16/25 03:02 LDL Cholesterol, Calc 31 mg/dL (50-129) L 02/16/25 03:02 HDL Cholesterol 43 mg/dL (60-100) L 02/16/25 03:02 LDL/HDL Ratio 0.72 RATIO (0.00-3.22) 02/16/25 03:02 Cholesterol/HDL Ratio 1.98 mg/dL (1.0-5.00) 02/16/25 03:02 Vitamin B12 1180 pg/mL (232-1245) 02/15/25 14:24 Folate 17.3 ng/mL (4.5-32.2) 02/16/25 03:02 Procalcitonin 0.05 ng/mL (0-0.5) 02/16/25 03:02 TSH 2.49 uIU/mL (0.27-4.20) 02/15/25 16:18 Urine Color Yellow (Yellow) 02/15/25 17:23 Urine Appearance Clear (CLEAR) 02/15/25 17:23 Urine pH 6.5 (5-7) 02/15/25 17:23 Ur Specific [place] 1.010 (1.005-1.030) 02/15/25 17:23 Urine Protein Negative (Negative) 02/15/25 17: Urine Glucose (UA) Negative (Normal) 02/15/25 17:23 Urine Ketones Negative (Negative) 02/15/25 17:23 Urine Blood Negative (Negative) 02/15/25 17:23 Urine Nitrate Negative (Negative) 02/15/25 17:23 Urine Bilirubin Negative (Negative) 02/15/25 17:23 Urine Urobilinogen 0.2 mg/dL (Negative) 02/15/25 17:23 Ur Leukocyte Esterase Negative (Negative) 02/15/25 17:23 Urine RBC 0-2 /hpf (0-2) 02/15/25 17:23 Urine WBC 0-5 /hpf (0-5) 02/15/25 17:23 Ur Squamous Epith Cells 0-5 /hpf (0-5) 02/15/25 17:23 Amorphous Sediment Not Reportable 02/15/25 17:23 Urine Bacteria None seen /hpf (NONE) 02/15/25 17:23 Hyaline Casts 1.21 /lpf 02/15/25 17:23 Nasal MRSA (PCR) Not detected (Negative) 02/15/25 16:35 Digoxin 0.9 ng/mL (0.6-1.2) 02/15/25 14:24 Vitals Last Vital Signs Temp 98.0 F 02/18/25 08:00 Pulse 68 02/18/25 08:00 Resp 19 H 02/18/25 08:00 BP 101/87 02/18/25 08:00 Pulse Ox 95 02/18/25 08:00 O2 Del Method Room Air 02/18/25 08:00 Discharge Plan Discharge Patient Disposition: Home Condition: Stable Prescriptions: New aspirin 81 mg Tablet,Delayed Release (Dr/Ec) 81 mg PO DAILY Qty: 30 0RF Continued magnesium oxide 400 mg magnesium tablet 400 mg PO DAILY mirtazapine 15 mg tablet 15 mg PO DAILY Qty: 90 1RF (DME) Nebulizer machine and supplies See Rx Instructions .ROUTE .MEDSUPPLY Qty: 1 11RF Rx Instructions: As directed clopidogrel 75 mg tablet 75 mg PO DAILY digoxin 125 mcg (0.125 mg) tablet 0.125 mg PO DAILY ezetimibe-simvastatin [Vytorin 10-20] 10-20 mg tablet 1 tab PO DAILY tamsulosin 0.4 mg capsule 0.4 mg PO BID Qty: 180 0RF nitroglycerin [Nitrostat] 0.4 mg tablet, sublingual 0.4 mg sublingual Q5M PRN (Reason: chest pain) Qty: 50 3RF triamcinolone acetonide 0.1 % cream 1 applic topical BID PRN (Reason: eczema) Qty: 80 1RF Rx Instructions: Apply BID to areas on arms/legs no more than 2 wks/mo metoprolol succinate 25 mg tablet extended release 24 hr 25 mg PO DAILY Qty: 90 3RF potassium chloride 10 mEq capsule, extended release 10 meq PO BID Qty: 60 0RF multivitamin Tablet 1 tab PO DAILY Qty: 7 0RF Changed furosemide 40 mg tablet 40 mg PO DAILY Qty: 60 0RF Entresto 24-26 mg tablet 0.5 tab PO BID Qty: 30 0RF Discharge Orders: Discharge Order (Routine); Ordered 02/18/25 Ordered By: Terrence Vega Referrals: Opal Messina FNP [Nurse Practitioner, Cardiology] - 02/28/25 8:30 am Chip Jaquez NP [Primary Care Provider, Family Practice] - 02/21/25 8:40 am Discharge Diet: Cardiac Discharge Activity: Resume usual activity and Increase activity as tolerated Patient Instructions: Congestive Heart Failure, Coronary Angioplasty (DC), Hyperlipidemia (DC), Opioid Safety Activity Restrictions/Additional Instructions: Restrict fluid intake to less than 1500 cc, salt intake to less than 2 g daily. Advised to check his weight daily at home. Is advised that weight today would be the dry weight and if body weight increases by around 5 pounds, patient is to take an extra dose of Lasix daily till body weight comes down to weight today. If not able to come down to dry body weight in 1 week, then is to call cardiology office for further recommendations. Patient was counseled in detail to take medications regularly as prescribed. Please check your blood pressure daily at home maintain a blood pressure diary. Goal blood pressure of less than 140/90 mmHg. Discharge Attestations Time Spent in Discharge Care*: greater than 30 min Specific Discharge Activities: educating patient, educating and/or supporting family/caregiver, discussing with pcp/other providers, discussing with manager of case management/social workers/dc planners, documenting/other paperwork and evaluating patient/reviewing data Status at Discharge: Cognitive status at discharge: cognitively intact, Behavioral status at discharge: cooperative, Functional status at discharge: independent ambulation, Overall status at discharge: patient is back to baseline Quality Metrics Clinical Quality Measures [ No reported AMI, CVA or VTE this stay] Coding Level of Care Code 91072 Total time (in minutes) for Discharge: 65 Diagnoses Acute on chronic systolic heart failure I50.23 Atherosclerosis of [place] coronary artery of [place] heart without angina pectoris I25.10 Coronary Disease-Associated Artery/Lesion type: [place] artery Moderate to severe mitral regurgitation I34.0 Ischemic cardiomyopathy with implantable cardioverter-defibrillator (ICD) I25.5; Z95.810 Positive cardiac stress test R94.39 Mixed hyperlipidemia E78.2 Hyperlipidemia type: mixed hyperlipidemia Abnormal CT of the chest R93.89 Pleural effusion J90
[2025-02-18] MEDS: mirtazapine 15 mg Tablet PO (08:43)
[2025-02-18] MEDS: metoprolol tartrate 25 mg Tablet PO (08:43)
[2025-02-18] MEDS: tamsulosin 0.4 mg Capsule PO (08:43)
[2025-02-18 08:44] VITALS: PULSE 76
[2025-02-18] MEDS: digoxin 125 mcg Tablet PO (08:44)
[2025-02-18] MEDS: aspirin 81 mg EC Tablet PO (08:44)
[2025-02-18] MEDS: clopidogrel 75 mg Tablet PO (08:44)
[2025-02-18] MEDS: sacubitril/valsartan 24-26 mg Tablet 0.5 EACH PO (08:45)
[2025-02-18] MEDS: potassium chloride ER 20 mEq Tablet PO (08:47)
--- NOTE | 2025-02-18 09:30 | PC.SOCIAL ---
IMM Update pg 2 of IMM Updated and reviewed w/ patient. Copy provided and copy dated, initialed and placed in chart.
--- NOTE | 2025-02-18 09:36 | PM.PN ---
Subjective Subjective: Patient is feeling okay. Had the categorization yesterday followed by PCI of the in-stent stenosis in the LAD. Patient shortness of breath has significant improvement. No fever or chills. No cough. No hematoma bleeding from the groin. He was found to have mild pulmonary hypertension by right heart catheterization Medications: Medication Review Details: Current Medications Acetaminophen (Acetaminophen 325 Mg Tablet) 650 mg PO Q6H PRN PRN Reason: Mild/Mod Pain Or Temp >/= 101 Aspirin (Aspirin 81 Mg Ec Tablet) 81 mg PO DAILY [facility] Last Admin: 02/18/25 08:44 Dose: 81 mg Clopidogrel Bisulfate (Clopidogrel 75 Mg Tablet) 75 mg PO DAILY [facility] Last Admin: 02/18/25 08:44 Dose: 75 mg Digoxin (Digoxin 125 Mcg Tablet) 125 mcg PO DAILY [facility] Last Admin: 02/18/25 08:44 Dose: 125 mcg Docusate Sodium (Docusate Sodium 100 Mg Capsule) 100 mg PO BID [facility] Last Admin: 02/18/25 08:45 Dose: Not Given Heparin Sodium (Porcine) (Heparin 5,000 Unit/Ml Inj 1 Ml) 5,000 unit SUBCUT Q12H [facility] Last Admin: 02/18/25 03:41 Dose: 5,000 unit Lactulose (Lactulose Oral Liq 20 Gm/30 Ml Udc) 10 gm PO DAILY PRN; Protocol PRN Reason: Constipation (see protocol) Magnesium Hydroxide (Magnesium Hydroxide 30 Ml Udc) 30 ml PO DAILY PRN; Protocol PRN Reason: Constipation (see protocol) Metoprolol Tartrate (Metoprolol Tartrate 25 Mg Tablet) 25 mg PO BID@0900,2100 [facility] Last Admin: 02/18/25 08:43 Dose: 25 mg Mirtazapine (Mirtazapine 15 Mg Tablet) 15 mg PO DAILY [facility] Last Admin: 02/18/25 08:43 Dose: 15 mg Morphine Sulfate (Morphine 4 Mg/Ml Sdv 1 Ml) 2 mg IVP Q4H PRN PRN Reason: SEVERE PAIN Non-Formulary Medication (Ezetimibe-Simvastatin [Vytorin 10-20]) 1 tab PO DAILY [facility] Last Admin: 02/18/25 08:46 Dose: Not Given Ondansetron HCl (Ondansetron 2 Mg/Ml Sdv 2 Ml) 4 mg IVP Q6H PRN PRN Reason: vomiting, or N/V if npo Pantoprazole Sodium (Pantoprazole 40 Mg Sdv) 40 mg IVP Q24H [facility] Last Admin: 02/17/25 17:41 Dose: 40 mg Potassium Chloride (Potassium Chloride Er 20 Meq Tablet) 20 meq PO BID [facility] Last Admin: 02/18/25 08:47 Dose: 20 meq Sacubitril/Valsartan (Sacubitril/Valsartan 24-26 Mg Tablet) 0.5 each PO BID [facility] Last Admin: 02/18/25 08:45 Dose: 0.5 each Tamsulosin HCl (Tamsulosin 0.4 Mg Capsule) 0.4 mg PO BID [facility] Last Admin: 02/18/25 08:43 Dose: 0.4 mg Trazodone HCl (Trazodone 50 Mg Tablet) 50 mg PO BEDTIME PRN PRN Reason: INSOMNIA Last Admin: 02/17/25 20:36 Dose: 50 mg Vitals/I&O/Wt Last Vital Signs Temp 98.0 F 02/18/25 08:00 Pulse 76 02/18/25 08:44 Resp 19 H 02/18/25 08:00 BP 101/87 02/18/25 08:00 Pulse Ox 95 02/18/25 08:00 O2 Del Method Room Air 02/18/25 08:00 02/17/25 02/18/25 02/18/25 22:59 06:59 14:59 Intake Total 240 / 720 1000 / 1720 480 / 480 Output Total 600 / 600 200 / 800 Balance -360 / 120 800 / 920 480 / 480 Weight last 48 hrs Weight 147 lb 12.8 oz Weight 147 lb 9.6 oz Weight 148 lb Physical Exam Narrative: GENERAL: The patient is alert and oriented times three. Not in any acute distress. HEENT: No significant pallor, icterus or lymphadenopathy.Oral cavity: There are no mucous membrane lesions. NECK: Trachea appears to be central. No masses noted. No JVD or thyromegaly appreciated. RESPIRATORY: Chest is symmetrical. No intercostals muscle retraction or any accessory muscle activation. There is no chest wall tenderness. Breath sounds are heard bilaterally with diminished breath sounds in the right base. No rales or rhonchi heard. No evidence of any consolidation. BREASTS: Deferred. HEART: The heart sounds are normal. No S3 or S4. Systolic murmur of grade 4/6 in the left sternal border. No diastolic murmurs. No pericardial rub ABDOMEN: No vessel pulsations or distention. No tenderness. No organomegaly appreciated. Bowel sounds are normally heard. : Deferred. RECTAL: Deferred. LYMPHATIC: No lymphadenopathy noted in the neck. EXTREMITIES: 1-2+ edema bilaterally. Right groin has no hematoma or bleeding. MUSCULOSKELETAL: No acute joint deformities or swelling SKIN: There are no significant rashes or ecchymosis NEUROPSYCHIATRIC: The patient is alert and oriented x3. Appears to be in a good mood. No tremors or rigidity noted. Urinary Catheter Management: Hughes: Cath Placed During This Visit: yes Reason for Continuing Indwelling Catheter: Accurate Measurement of Urinary Output in Critically Ill Patients Urinary Catheter Date of Insertion: 02/15/25 Urinary Catheter Time of Insertion: 18:36 Data 02/18/25 04:24 02/18/25 04:24 Other Labs: Laboratory Last Values WBC 7.71 10^3/uL (3.29-11.43) 02/18/25 04:24 RBC 4.01 10^6/uL (3.85-5.65) 02/18/25 04:24 Hgb 12.50 g/dL (11.27-16.99) 02/18/25 04:24 Hct 37.8 % (37-53) 02/18/25 04:24 MCV 94.3 fl (82-101) 02/18/25 04:24 MCH 31.2 pg (27-33) 02/18/25 04:24 MCHC 33.1 g/dL (30-55) 02/18/25 04:24 RDW 15.7 % (12.1-15.1) H 02/18/25 04:24 Plt Count 148 10^3/cmm (157-399) L 02/18/25 04:24 MPV 12.2 fL (7.4-10.4) H 02/18/25 04:24 Neut % (Auto) 82.2 % 02/18/25 04:24 Lymph % (Auto) 8.8 % 02/18/25 04:24 Keith % (Auto) 8.0 % 02/18/25 04:24 Eos % (Auto) 0.3 % 02/18/25 04:24 Baso % (Auto) 0.4 % 02/18/25 04:24 Neut # (Auto) 6.34 10^3/uL (1.8-7.7) 02/18/25 04:24 Lymph # (Auto) 0.7 10^3/uL (0.8-4.8) L 02/18/25 04:24 Keith # (Auto) 0.6 10^3/uL (0.2-0.9) 02/18/25 04:24 Eos # (Auto) 0.0 10^3/uL (0.0-0.8) 02/18/25 04:24 Baso # (Auto) 0.0 10^3/uL (0.0-0.1) 02/18/25 04:24 Nucleated RBC % (auto) 0 % 02/18/25 04:24 Nucleated RBCs # 0.0 /100WBC 02/18/25 04:24 PT 14.20 SECONDS (12.1-14.9) 02/15/25 14:24 INR 1.03 (0.8-1.2) 02/15/25 14:24 APTT > 250.0 SECONDS (23.9-36.7) H* 02/17/25 10:17 Specimen Type Arterial 02/17/25 07:26 Specimen Type Not specified 02/17/25 07:26 Specimen Type Not specified 02/17/25 07:26 Specimen Type Not specified 02/17/25 07:26 Sample Site Ao 02/17/25 07:26 Sample Site Pa 02/17/25 07:26 Sample Site Ra 02/17/25 07:26 Sample Site Rv 02/17/25 07:26 Bernardo Test N/a 02/17/25 07:26 Bernardo Test N/a 02/17/25 07:26 Bernardo Test N/a 02/17/25 07:26 Bernardo Test N/a 02/17/25 07:26 A-a O2 Gradient mmHg (5-10) 02/17/25 07:26 A-a O2 Gradient Not Reportable 02/17/25 07:26 A-a O2 Gradient Not Reportable 02/17/25 07:26 A-a O2 Gradient Not Reportable 02/17/25 07:26 Hematocrit 17.1 % (42-52) L 02/17/25 07:26 Hematocrit 23.4 % (42-52) L 02/17/25 07: Hematocrit 24.7 % (42-52) L 02/17/25 07: Hematocrit 34.2 % (42-52) L 02/17/25 07:26 Hgb O2 Saturation 58.7 % (95-100) L 02/17/25 07: Hgb O2 Saturation 59.0 % (95-100) L 02/17/25 07: Hgb O2 Saturation 61.1 % (95-100) L 02/17/25 07: Hgb O2 Saturation 93.2 % (95-100) L 02/17/25 07:26 Carboxyhemoglobin 1.6 %THgb (0.4-20.1) 02/17/25 07: Carboxyhemoglobin 1.6 %THgb (0.4-20.1) 02/17/25 07: Carboxyhemoglobin 1.6 %THgb (0.4-20.1) 02/17/25 07: Carboxyhemoglobin 1.7 %THgb (0.4-20.1) 02/17/25 07: Methemoglobin 0.1 % (0.4-1.5) L 02/17/25 07: Methemoglobin 0.2 % (0.4-1.5) L 02/17/25 07: Methemoglobin 0.5 % (0.4-1.5) 02/17/25 07: Methemoglobin 0.6 % (0.4-1.5) 02/17/25 07:26 Total Hemoglobin 5.6 g/dL (14-18) L 02/17/25 07: Total Hemoglobin 7.6 g/dL (14-18) L 02/17/25 07: Total Hemoglobin 8.1 g/dL (14-18) L 02/17/25 07: Total Hemoglobin 11.1 g/dL (14-18) L 02/17/25 07:26 O2 Delivery Device None 02/17/25 07:26 O2 Delivery Device None 02/17/25 07: O2 Delivery Device None 02/17/25 07:26 O2 Delivery Device None 02/17/25 07:26 FiO2 21.0 % 02/17/25 07: FiO2 21.0 % 02/17/25 07:26 FiO2 21.0 % 02/17/25 07:26 FiO2 21.0 % 02/17/25 07:26 Addressograph Operator ID [facility] 02/17/25 07:26 Addressograph Operator ID [facility] 02/17/25 07:26 Addressograph Operator ID [facility] 02/17/25 07:26 Addressograph Operator ID [facility] 02/17/25 07:26 Sodium 138 mmol/L (136-145) 02/18/25 04:24 Potassium 4.5 mmol/L (3.5-5.1) 02/18/25 04:24 Chloride 103 mmol/L (98-107) 02/18/25 04:24 Carbon Dioxide 22 mmol/L (22-29) 02/18/25 04:24 Anion Gap 17.5 (5-19) 02/18/25 04:24 BUN 33 mg/dL (8-23) H 02/18/25 04:24 Creatinine 1.5 mg/dL (0.7-1.2) H 02/18/25 04:24 GFR Calculation Not Reportable 02/18/25 04:24 Glucose 111 mg/dL (65-115) 02/18/25 04:24 Estimat Average Glucose 123 02/15/25 14:24 Hemoglobin A1c 5.9 % (4.0-6.0) 02/15/25 14:24 Calculated Osmolality 294 mOsm/kg (285-295) 02/18/25 04:24 Lactic Acid 1.9 mmol/L (0.5-2.2) 02/15/25 14:24 Calcium 8.0 mg/dL (8.5-10.5) L 02/18/25 04:24 Phosphorus 3.0 mg/dL (2.5-4.5) 02/18/25 04:24 Magnesium 2.2 mg/dL (1.7-2.3) 02/18/25 04:24 Total Bilirubin 1.1 mg/dL (0.15-1.2) 02/18/25 04:24 AST 26 U/L (0-40) 02/18/25 04:24 ALT 19 U/L (0-41) 02/18/25 04:24 Alkaline Phosphatase 68 U/L (40-130) 02/18/25 04:24 Troponin T Baseline 64 ng/L (0-15) H 02/15/25 14:24 Troponin T 120 Minute 58.30 ng/L (0-15) H 02/15/25 16:18 Delta Troponin T -5.70 ABS# (0-10) L 02/15/25 16:18 Troponin T Hi Sens 6Hr 62.10 ng/L (0-15) H 02/15/25 20:22 Troponin T Hi Sens 6Hr Delta -1.90 ng/L (0-12) L 02/15/25 20:22 NT-Pro-B Natriuret Pep 04667 pg/mL (0-450) H 02/17/25 02:49 Total Protein 5.6 g/dL (6.6-8.7) L 02/18/25 04:24 Albumin 3.6 g/dL (3.5-5.2) 02/18/25 04:24 Globulin 2.0 g/dL (1.3-4.6) 02/18/25 04:24 Triglycerides 53 mg/dL (0-150) 02/16/25 03:02 Cholesterol 85 mg/dL (0-200) 02/16/25 03:02 LDL Cholesterol, Calc 31 mg/dL (50-129) L 02/16/25 03:02 HDL Cholesterol 43 mg/dL (60-100) L 02/16/25 03:02 LDL/HDL Ratio 0.72 RATIO (0.00-3.22) 02/16/25 03:02 Cholesterol/HDL Ratio 1.98 mg/dL (1.0-5.00) 02/16/25 03:02 Vitamin B12 1180 pg/mL (232-1245) 02/15/25 14:24 Folate 17.3 ng/mL (4.5-32.2) 02/16/25 03:02 Procalcitonin 0.05 ng/mL (0-0.5) 02/16/25 03:02 TSH 2.49 uIU/mL (0.27-4.20) 02/15/25 16:18 Urine Color Yellow (Yellow) 02/15/25 17:23 Urine Appearance Clear (CLEAR) 02/15/25 17:23 Urine pH 6.5 (5-7) 02/15/25 17:23 Ur Specific [place] 1.010 (1.005-1.030) 02/15/25 17:23 Urine Protein Negative (Negative) 02/15/25 17:23 Urine Glucose (UA) Negative (Normal) 02/15/25 17:23 Urine Ketones Negative (Negative) 02/15/25 17:23 Urine Blood Negative (Negative) 02/15/25 17:23 Urine Nitrate Negative (Negative) 02/15/25 17:23 Urine Bilirubin Negative (Negative) 02/15/25 17:23 Urine Urobilinogen 0.2 mg/dL (Negative) 02/15/25 17:23 Ur Leukocyte Esterase Negative (Negative) 02/15/25 17:23 Urine RBC 0-2 /hpf (0-2) 02/15/25 17:23 Urine WBC 0-5 /hpf (0-5) 02/15/25 17:23 Ur Squamous Epith Cells 0-5 /hpf (0-5) 02/15/25 17:23 Amorphous Sediment Not Reportable 02/15/25 17:23 Urine Bacteria None seen /hpf (NONE) 02/15/25 17:23 Hyaline Casts 1.21 /lpf 02/15/25 17:23 Nasal MRSA (PCR) Not detected (Negative) 02/15/25 16:35 Digoxin 0.9 ng/mL (0.6-1.2) 02/15/25 14:24 A&P Assessment and plan (1) Acute on chronic systolic heart failure: Will hold off on the Lasix today. Continue on the current measures. 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 Currently seems to be stable (3) Moderate to severe mitral regurgitation: We may wait for 2 to 3 weeks before proceeding with the EDSON. (4) Ischemic cardiomyopathy with implantable cardioverter-defibrillator (ICD): The patient seems to have worsening of the LV systolic function. Continue on the current medication for the time being. Continue on the Entresto tablet p.o. twice daily. Because of the hypotension, we may hold off on any dose changes at this time. (5) Positive cardiac stress test: The coronary angiogram, yesterday revealed high-grade in-stent stenosis in the left anterior descending artery. Patient underwent balloon angioplasty of this lesion. (6) Hyperlipidemia: Patient is known to have dyslipidemia. Advised to continue on the current medications. Will have the follow-up evaluation as scheduled. Patient understands the importance of dietary compliance (7) Abnormal CT of the chest: Most likely related to collapse consolidation. (8) Pleural effusion: We may do a repeat chest x-ray during his next office visit. Plan Chronic kidney disease, stable. The creatinine today was 1.5. Possible BPH If the patient continues remain stable, may be discharged home today. [facility]ointment the [facility] in 1 week to be seen by nurse practitioner. Will do a repeat BMP and BNP at that time. Also may do a chest x-ray to reevaluate the pleural effusion Patient is going to progress, further management decisions will be made PDMP PDMP Reviewed: Not Reviewed Attestations Medical Necessity Statement*: Possible discharge home today Coding Level of Care Code 65103 Diagnoses Acute on chronic systolic heart failure I50.23 Atherosclerosis of kake coronary artery of kake heart without angina pectoris I25.10 Coronary Disease-Associated Artery/Lesion type: kake artery Moderate to severe mitral regurgitation I34.0 Ischemic cardiomyopathy with implantable cardioverter-defibrillator (ICD) I25.5; Z95.810 Positive cardiac stress test R94.39 Mixed hyperlipidemia E78.2 Hyperlipidemia type: mixed hyperlipidemia Abnormal CT of the chest R93.89 Pleural effusion J90
[2025-02-18 11:07] VITALS: BP 110/64; PULSE 76; RESP 20; O2SAT 96
--- NOTE | 2025-02-18 11:35 | PC.NURSE ---
pt voided into toilet.post-void residual per bladder scanner=< 30cc.
--- NOTE | 2025-02-18 11:37 | PC.NURSE ---
discharge instructions given and explained.pt and spouse verb understanding of instructions.discharged via w/c to exit at thsi time.spouse to drive pt home
== END 2025-02-18 11:30 | disposition home or self-care (01) | DRG 321 ==
LOC: ER 15:41 → CSU 16:26
PROVIDERS: Internal Medicine; Internal Medicine Cardiovascular Disease; Admitting Provider Student in an Organized Health Care Education/Training Program; Emergency Provider Emergency Medicine; PCP Clinical Nurse Specialist Adult Health; Visit Provider Student in an Organized Health Care Education/Training Program
PROC: 027034Z Dilation of Coronary Artery, One Artery with Drug-eluting Intraluminal Device, Percutaneous Approach (ICD-10-PCS; principal; 2025-02-17 07:00)
DX: T82.855A Stenosis of coronary artery stent, initial encounter (principal); I50.23 Acute on chronic systolic (congestive) heart failure; N17.9 Acute kidney failure, unspecified; Y71.8 Miscellaneous cardiovascular devices associated with adverse incidents, not elsewhere classified; I25.10 Atherosclerotic heart disease of native coronary artery without angina pectoris; I27.20 Pulmonary hypertension, unspecified; I34.0 Nonrheumatic mitral (valve) insufficiency; I25.5 Ischemic cardiomyopathy; E78.2 Mixed hyperlipidemia; N40.0 Benign prostatic hyperplasia without lower urinary tract symptoms; M48.062 Spinal stenosis, lumbar region with neurogenic claudication; M54.12 Radiculopathy, cervical region; K74.60 Unspecified cirrhosis of liver; Z79.82 Long term (current) use of aspirin; Z79.02 Long term (current) use of antithrombotics/antiplatelets; Z79.891 Long term (current) use of opiate analgesic; Z95.5 Presence of coronary angioplasty implant and graft; Z95.810 Presence of automatic (implantable) cardiac defibrillator; Z87.891 Personal history of nicotine dependence
CPT/HCPCS: 36415; 71045; 71046; 71250; 76770; 76857; 80048; 80053; 80061; 80162; 81001; 82607; 82746; 82810; 83036; 83605; 83735; 83880; 84100; 84145; 84443; 84484; 85025; 85347; 85610; 85730; 93005; 93306; 93460; 93571; 94664; 96372; 96374; 96376; 99152; 99153; 99214; 99285; A9270; C1725; C1751; C1760; C1769; C1874; C1887; C1894; C9600; G0269; G0378; J1644; J1938; J2250; J2470; J3010; J3490; J7030; J9999; Q0163; Q9967

== ENCOUNTER 2025-02-28 09:45 | Oncology outpatient (recurring) (ONCR) | payer MEDICARE, OTHER, SELFPAY ==
--- NOTE | 2025-02-08 13:45 | USCV_ITS ---
Ruslan King Age: 84 Gender: M : 1940 Exam Date: 02/08/2025 13:46 Ordering Phys: Hannah Ponce NP Technologist: PAUL [place] [facility] [place]ication: swelling HISTORY: Lower extremity swelling. PROCEDURES: Venous duplex imaging was performed in bilateral lower extremities. The following venous structures were evaluated: common femoral vein, profunda vein, proximal portion of the greater saphenous vein, superficial femoral vein, and the popliteal vein. In addition, the posterior tibial and peroneal trunk were evaluated. FINDINGS: No evidence of DVT seen in any vessel visualized at this time. CONCLUSIONS No evidence of right lower extremity DVT. No evidence of left lower extremity DVT. Tavo Caballero MD (Electronically Signed) Final Date: 08 February 2025 15:06 S
[2025-02-28 09:47] LABS: Basophils % 0.4 %; Eosinophils # 0.1 10^3/uL (0.0-0.8); Eosinophils % 0.7 %; Hematocrit 39.7 % (37-53); Lymphocytes # 0.7 10^3/uL (0.8-4.8); Lymphocytes % 8.7 %; Mean Corpuscular HGB Conc 32.7 g/dL (30-55); Mean Corpuscular Hemoglobin 31.6 pg (27-33); Mean Corpuscular Volume 96.4 fl (82-101); Mean Platelet Volume 11.2 fL (7.4-10.4); Monocytes # 0.5 10^3/uL (0.2-0.9); Monocytes % 6.2 %; Neutrophils # 6.37 10^3/uL (1.8-7.7); Neutrophils % 83.7 %; Nucleated Red Blood Cells % 0 %; Platelet Count 175 10^3/cmm (157-399); Red Blood Count 4.12 10^6/uL (3.85-5.65)
[2025-02-28 10:09] LABS: Alanine Aminotransferase 19 U/L (0-41); Alkaline Phosphatase 77 U/L (40-130); Aspartate Amino Transferase 23 U/L (0-40); Blood Urea Nitrogen 23 mg/dL (8-23); Calcium 8.7 mg/dL (8.5-10.5); Carbon Dioxide 25 mmol/L (22-29); Chloride 102 mmol/L (98-107); Ferritin 82 ng/mL (30-400); Glucose 117 mg/dL (65-115); Iron 66 ug/dL (59-158); Osmolality Calculated 297 mOsm/kg (285-295); Sodium 141 mmol/L (136-145); Total Bilirubin 1.2 mg/dL (0.15-1.2); Total Iron Binding Capacity 299 mcg/dl; Unsaturated Iron Binding 233 ug/dL (112-347)
== END 2025-03-07 23:59 | disposition home or self-care (01) ==
PROVIDERS: PCP Clinical Nurse Specialist Adult Health; Visit Provider Internal Medicine
DX: E83.110 Hereditary hemochromatosis (principal); I50.22 Chronic systolic (congestive) heart failure; M79.18 Myalgia, other site; M79.89 Other specified soft tissue disorders
CPT/HCPCS: 36415; 80053; 82728; 83540; 83550; 85025; 93970; 99214

== ENCOUNTER → 2025-03-04 09:51 | Outpatient (BNVA) | payer MEDICARE, OTHER, SELFPAY | PROVIDERS: PCP Clinical Nurse Specialist Adult Health; Visit Provider Clinical Nurse Specialist Adult Health | DX: N39.0 Urinary tract infection, site not specified (principal); R30.0 Dysuria | CPT/HCPCS: 81003; 87077; 87086; 87184 ==

== ENCOUNTER 2025-03-17 07:13 | Day surgery (SDC) | payer MEDICARE, OTHER, SELFPAY ==
--- NOTE | 2025-03-17 07:16 | USCV_ITS ---
Ruslan King Age: 84 Gender: M : 1940 Exam Date: 03/17/2025 07:51 Ordering Phys: Candie Rico MD ([email or web address]) Technologist: [place]am [place] [facility] [place]: mr BP: / HR: 58 Rhythm: Sinus Technical Quality: MEASUREMENTS (Male / Female) Normal Values DOPPLER LVOT Peak Velocity 39.0 cm/s MV Peak Velocity 77.0 cm/s TR Peak Velocity 245.0 cm/s TR Peak Gradient 24.0 mmHg Medications IV propofol administered with anesthesia service. Please refer to anesthesia report for detail Complications Patient tolerated procedure well. Proc. Components The patient was brought to the EDSON examination room in a fasting state after obtaining an informed consent. The EDSON probe was passed into the posterior pharynx , mid-esophagus, distal esophagus, and gastric fundus. EDSON was performed at multiple levels. The patient tolerated the procedure well and there were no complications. FINDINGS Left Ventricle Appears to be dilated. Severe diffuse hypokinesia of the left ventricle with an ejection fraction of around 15 to 20% Right Ventricle Pacemaker wire in the right ventricle. Normal size and ejection fraction. Pacemaker wire is noted Right Atrium Pacemaker wire in the right atrium. Mildly dilated Left Atrium Moderately dilated LA Appendage Normal size and contractility IA Septum The interatrial septum appears to be intact. Saline contrast injection revealed no evidence of any [id number] shunt. Mitral Valve Moderate mitral regurgitation. The ERO was 0.48 cm squared. Minimally thickened mitral leaflet with the mild prolapse of the A2 and moderate prolapse of the P2 scallop. Aortic Valve Minimally thickened aortic valve. Structurally normal trileaflet aortic valve. Tricuspid Valve Moderately severe tricuspid regurgitation. Thickened tricuspid leaflets. Pulmonic Valve Structurally normal pulmonic valve. Pericardium No pericardial effusion. Aorta Mild diffuse plaque in the aorta CONCLUSIONS Dilated left 2 degree with a severe diffuse hypokinesia. LV ejection fraction around the 15 to 20% Moderately dilated left atrium Mildly dilated right atrium Moderate mitral regurgitation with mild to moderate prolapse of the A2/P2 scallops. The ERO was 0.48 cm squared Moderately severe tricuspid regurgitation. Thickened tricuspid leaflets. Interactive interatrial septum No [id number] shunt based on the saline contrast injection No intracardiac masses No similar previous studies are available for comparison Dr Candie Rico MD FACC (Electronically Signed) Final Date: 18 March 2025 17:46 S
[2025-03-17 07:30] VITALS: BP 102/64; PULSE 71; RESP 18; TEMP 36.1; O2SAT 96; BMI 22.8
--- NOTE | 2025-03-17 07:43 | ANES.PREANE2 ---
Pre-Anesthetic Assessment Height/Weight: Height 1.73 m Weight 68.039 kg Temp Pulse Resp BP Pulse Ox O2 Del Method 97.0 F L 71 18 102/64 96 Room Air 03/17/25 07:30 03/17/25 07:30 03/17/25 07:30 03/17/25 07:30 03/17/25 07:30 03/17/25 07:30 Operation Date: 03/17/25 08:00 Proposed Procedures p EDSON(Not Applicable) - Candie Rico MD Familial anesthetic complications: MH Was Beta Kari taken within 24 hours: Yes Was Clonidine taken within 24 hours: N/A Last intake: Intake Last Liquid Date 03/16/25 Last Liquid Time 21:00 Last Solid Date 03/16/25 Last Solid Time 19:00 Social No alcohol and No tobacco Exam alert, oriented x 3, clear to auscultation bilaterally (Diminished) and regular rate & rhythm Airway Submandibular: within normal limits Cervical ROM: within normal limits Mallampati: Class II Dentition: full History/ROS No significant history except as noted and No significant complaints Pulmonary Exertional Dyspnea CV/HEM Coronary Artery Disease, Congestive Heart Failure, Myocardial Infarction (Stent x3 1998, Stent x1 2019, Balloon and stent x1 3 weeks ago) and Murmur CONCLUSIONS Severe diffuse hypokinesis of the left ventricle with an ejection fraction of 16%. Moderately severe mitral regurgitation Thickened aortic valve. Trace to mild aortic valve regurgitation. Thinned out LV wall. Mild tricuspid valve regurgitation. Estimated pulmonary artery peak systolic pressure 41 mmHg Mild pulmonary valve regurgitation. There is no pericardial effusion. There are no intracardiac masses. Compared to the study from 11/03/2024, there is slight worsening of the LV systolic function. Conclusion: 1. Normal EKG response to Lexiscan infusion 2. No Lexiscan induced chest pain or cardiac arrhythmia. 3. Normal blood pressure and heart rate response. 4. Sestamibi/sestamibi perfusion scan pending; see separate report. Electronically Signed On 02-18-2025 15:43:05 CDT by Luke Garcias M.D. [email or web address] Pacemaker and ICD in place, 100% paced per patient Urinary Tract Infection Hepatic None reported GI None reported Metabolic None reported [facility] [place] Lower Back Pain and Osteoarthritis/DJD Neuropsych None reported Anesthetic Plan ASA status: 4 Anesthesia: Anesthesia Evaluation, General and MAC Risk of > 500 ml blood loss (7ml/kg in children): No Medications/Allergies Home Medications ?Medication ?Instructions ?Recorded ?Confirmed ?Last Taken ?Type magnesium oxide 400 mg PO DAILY 08/15/20 03/17/25 03/16/25 History nitroglycerin 0.4 mg sublingual 0.4 mg sublingual Q5M PRN chest 12/11/21 03/17/25 12/28/21 05:30 Rx tablet (Nitrostat) pain #50 tabs multivitamin 1 tab PO DAILY #7 tabs 12/29/21 03/17/25 03/16/25 Rx triamcinolone acetonide 0.1 % 1 applic topical BID PRN eczema 08/07/22 03/17/25 11/13/22 Rx topical cream #80 grams Nebulizer machine and supplies #1 ea 10/29/24 02/28/25 Unknown Rx clopidogrel 75 mg tablet 75 mg PO DAILY 12/06/24 03/17/25 03/17/25 History digoxin 125 mcg (0.125 mg) tablet 0.125 mg PO DAILY 12/06/24 03/17/25 03/16/25 History ezetimibe 10 mg-simvastatin 20 mg 1 tab PO DAILY 12/06/24 03/17/25 03/16/25 History tablet (Vytorin) aspirin 81 mg tablet,delayed 81 mg PO DAILY #30 tabs 02/18/25 03/17/25 03/17/25 Rx release sacubitril 24 mg-valsartan 26 mg 0.5 tab PO BID #30 tabs 02/18/25 03/17/25 03/16/25 Rx tablet (Entresto) tamsulosin 0.4 mg capsule 0.8 mg PO QDAY 02/21/25 03/17/25 03/16/25 History metoprolol succinate 25 mg 12.5 mg (1/2 x 25 mg) PO DAILY #90 02/28/25 03/17/25 03/17/25 Rx tablet,extended release 24 hr tabs furosemide 40 mg tablet 40 mg PO DAILY #60 tabs 03/02/25 03/17/2525 Rx doxycycline hyclate 100 mg tablet 100 mg PO BID #14 tabs 03/07/25 03/17/25 03/16/25 Rx mirtazapine 15 mg tablet (Remeron) 15 mg PO DAILY 03/16/25 03/17/25 03/16/25 History potassium chloride 10 mEq 10 meq PO BID 03/16/25 03/17/25 03/16/25 History capsule,extended release Allergies Allergy/AdvReac Type Severity Reaction Status Date / Time malignant hyperthermia Allergy Severe Unknown Uncoded 03/17/25 07:27 Current Medications Generic Name Dose Route Start Last Admin Trade Name Freq PRN Reason Stop Dose Admin Sodium Chloride 1,000 mls @ 15 mls/hr 03/17/25 07:16 03/17/25 07:40 Sodium Chloride 0.9% IV 03/18/25 07:15 15 mls/hr .Q24H PRN Administration COLONOSCOPY FLUIDS PFSH Anesthesia Medical History Biliary dyskinesia Degenerative arthritis of wrist Liver cirrhosis Facet arthritis of cervical region Cervical radiculopathy Cervical disc disease Sacroiliac dysfunction Lumbar stenosis with neurogenic claudication Facet arthropathy, lumbar Lumbar radiculopathy Lumbar stenosis Spondylosis of lumbar spine Degenerative disc disease, lumbar Benign prostatic hyperplasia 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 follows with hematology. Cardiac resynchronization therapy defibrillator (CT MRI TECHNOLOGIST-D) in place History of nonmelanoma skin cancer Malignant hyperthermia susceptibility 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], 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 History of DC (myocardial infarction) 07/24/1999 in [place], [place] CAD (coronary artery disease) Cardiomyopathy Mitral regurgitation CHF (congestive heart failure) Hyperlipidemia Neuropathy Surgical History H/O radiofrequency ablation (RFA) of nerve of lumbar spine History of laparoscopic cholecystectomy Hx of bilateral cataract extraction History of ankle surgery Left ankle ORIF 1994 ICD (implantable cardioverter-defibrillator) in place I had 3 different surgeries Family History Father , AT AGE 86 Stroke CAD (coronary artery disease) later in life Mother , AT AGE 90 Stroke Son Anesthesia complication Family/Other Anesthesia complication Lung disease Suicide Sister Cancer Grandmother Lung disease Denies family history of Diabetes Clotting disorder Dementia Chronic kidney disease (CKD) Bleeding disorder Hypertension Social History Smoking and tobacco/nicotine status: never used tobacco/nicotine Quit status (tobacco/nicotine): has quit using Former quit date comment: Smoked a pipe for 6 months 1960 Second hand smoke exposure: No Alcohol intake: former Former alcohol use details: scant history of use Substance/Drug Use: never Adopted: No Caregiver/support person: No Lives independently: Yes Household members: spouse Housing: House Marital status: Number of children: 5 service: No Current occupational status: retired Do you think of yourself as: Straight/Heterosexual Current gender identity: Male Data Anesthesia Cardiac Studies: Echocardiogram 02/15/25 Sestamibi Stress Test (Cardiology) 02/10/25
--- NOTE | 2025-03-17 07:54 | W.PM.OPSUD ---
Surgery/Procedure H&P Update DATE OF PROCEDURE: March 17, 2025 DATE H&P PERFORMED: 02/28/25 H&P UPDATE INFORMATION: I have reviewed H&P completed within last 30 days, I have examined patient prior to procedure and No changes to prior documentation PREOP DIAGNOSIS: Mitral regurgitation PRIMARY INDICATION FOR PROCEDURE: Moderately severe mitral regurgitation PLANNED PROCEDURE: Operation Date: 03/17/25 08:00 Proposed Procedures p EDSON(Not Applicable) - Candie Rico MD
[2025-03-17 08:36] VITALS: BP 95/68; PULSE 73; RESP 18; TEMP 36.1; O2SAT 95
[2025-03-17 08:57] VITALS: BP 95/69; PULSE 60; RESP 18; O2SAT 93
--- NOTE | 2025-03-17 09:08 | PM.OP ---
Operative Report Date of procedure: March 17, 2025 Surgeon: Candie Rico MD Procedure: Patient underwent a EDSON, under IV sedation, administered by the anesthesia service. He was found to have moderate mitral with the moderately severe tricuspid regurgitation. He tolerated the procedure very well. No complications
== END 2025-03-17 09:06 | disposition home or self-care (01) ==
PROVIDERS: PCP Clinical Nurse Specialist Adult Health; Visit Provider Internal Medicine Cardiovascular Disease
PROC: (CPT 93312; principal; 2025-03-17 08:00)
DX: I08.1 Rheumatic disorders of both mitral and tricuspid valves (principal); I25.10 Atherosclerotic heart disease of native coronary artery without angina pectoris; I50.9 Heart failure, unspecified; I25.2 Old myocardial infarction; E78.5 Hyperlipidemia, unspecified; Z95.5 Presence of coronary angioplasty implant and graft; G62.9 Polyneuropathy, unspecified; Z79.899 Other long term (current) drug therapy; Z79.02 Long term (current) use of antithrombotics/antiplatelets; Z79.82 Long term (current) use of aspirin; Z87.891 Personal history of nicotine dependence
CPT/HCPCS: 93312; 93320; 93325; J2250; J2704; J3490; J7030; J9999

== ENCOUNTER → 2025-03-28 09:19 | Outpatient (BNVA) | payer MEDICARE, OTHER, SELFPAY | PROVIDERS: PCP Clinical Nurse Specialist Adult Health; Visit Provider Nurse Practitioner Family | DX: H61.031 Chondritis of right external ear (principal); L81.4 Other melanin hyperpigmentation; L57.8 Other skin changes due to chronic exposure to nonionizing radiation; Z08 Encounter for follow-up examination after completed treatment for malignant neoplasm; Z85.828 Personal history of other malignant neoplasm of skin; L57.0 Actinic keratosis | CPT/HCPCS: 17000; 99214 ==

== ENCOUNTER → 2025-03-31 10:11 | Outpatient (BNVA) | payer MEDICARE, OTHER, SELFPAY | PROVIDERS: Absent Provider Nurse Practitioner Family; PCP Clinical Nurse Specialist Adult Health; Visit Provider Nurse Practitioner Family | DX: I50.22 Chronic systolic (congestive) heart failure (principal); J90 Pleural effusion, not elsewhere classified; Z98.890 Other specified postprocedural states; I51.7 Cardiomegaly; Z95.0 Presence of cardiac pacemaker | CPT/HCPCS: 71046 ==

== ENCOUNTER 2025-04-01 14:39 | Emergency (ER) | payer MEDICARE, OTHER, SELFPAY ==
--- OUTSIDE RECORDS SUMMARY | 2025-04-01 14:43 | XMS_ITS | Clinical Summary ---
Author Organization [facility] Address [address] [place] [address] Phone Care Team Providers Care Electrician Deck Name Role Phone Estela Wilkerson NP Primary Care Provider [phone] Allergies No known active allergies Medications ramipril (ALTACE) 5 mg capsule Take 5 mg by mouth daily. Active aspirin (FAITH CHEWABLE) 81 mg Tablet, Chewable Take 81 mg by mouth daily. Active carvedilol (COREG) 12.5 mg tablet Take 12.5 mg by mouth daily. Active digoxin (LANOXIN) 125 mcg tablet Take 125 mcg by mouth daily. Active magnesium oxide (MAG-OX) 400 mg tablet Take 400 mg by mouth daily. Active ezetimibe-simva statin (VYTORIN) 10-20 mg tablet Take 1 Tab by mouth daily at bedtime. Active HYDROcodone-tisha taminophen (NORCO) 5-325 mg tablet Take 1 Tab by mouth every 4 hours as needed for Pain, Moderate (For Pain Scale 4-6). 12 Tab 0 02/18/2014 Active cephALEXin (KEFLEX) 500 mg capsule Take 1 Cap by mouth every 6 hours. 12 Cap 0 02/19/2014 Active Active Problems Problem Noted Date Diagnosed Date Ischemic dilated cardiomyopathy 02/18/2014 CHF NYHA class II 02/18/2014 Atrioventricular block, complete 02/18/2014 Pacemaker lead fracture 02/17/2014 ICD (implantable cardioverte r-defibrillator), biventricular, in situ 02/17/2014 CAD (coronary artery disease) 02/17/2014 Social History Tobacco Use Types Packs/Day Years Used Date Smoking Tobacco: Former Cigarettes Q uit: 06/24/1960 Smokeless Tobacco: Former Alcohol Use Standard Drinks/Week Comments Not Asked 0 (1 standard drink = 0.6 oz pur e alcohol) Sex and Gender Information Value Date Recorded Sex Assigned at Not on file Legal Sex Male 1:05 PM CDT Gender Identity Not on file Sexual Orientation Not on file Occupation Industry Job Start Date Job End Date Not on file Not on file Not on file Not on file Last Filed Vital Signs Vital Sign Reading Time Taken Comments Blood Pressure 124/80 06/24/2014 10:56 AM CDT Pulse 70 06/24/2014 10:56 AM CDT Temperature 36.1 C (97 F) 02/19/2014 11:00 AM CDT Respiratory Rate 20 02/19/2014 11:00 AM CDT Oxygen Saturation 100% 02/19/2014 11:00 AM CDT Inhaled Oxygen Concentration - - Weight 71.4 kg (157 lb 6.4 oz) 06/24/2014 10:56 AM CDT Height 172.7 cm (5' 8 ) 06/24/2014 10:56 AM CDT Body Mass Index 23.93 06/24/2014 10:56 AM CDT Plan of Treatment Health Maintenance Due Date Last Done Comments DTAP/TDAP/TD VACCINES (1 - Tdap) 1961 PNEUMOCOCCAL VACCINE 50+ YEARS (1 of 1 - PCV) 06/03/19 92 ZOSTER VACCINE (1 of 2) 1992 RSV VACCINE (60+ or ) (1 - 1-dose 75+ series) 2017 INFLUENZA VACCINE (#1) 2025 Medical Devices Implanted Type Area Nuclear Reactor Operator Device Identifier Shelf Expiration Date Model / Serial / Lot Pacemaker Implanted:(Quant ity not on file) Explanted:(Quant ity not on file) Pacemaker Description:Implanted in [facility]. Medtronic Tripolar, Screw-In Lead Implanted:Qty: 1 on 02/18/2014 by Dereck Durham MD at [facility] 11/05/2015 [id number] / [id number] / [id number] Description:heart Medtronic Viva Xt Market Research Interviewer-D [id number] Implanted:Qty: 1 on 02/18/2014 by Dereck Durham MD at [facility] 04/21/2015 [id number] / [id number] / Description:Medtronic limplanted left chest Explanted Type Area Nuclear Reactor Operator Device Identifier Shelf Expiration Date Model / Serial / Lot Epicardial Lead Explanted:Qty: 1 on 02/18/2014 by Dereck Durham MD at [facility] Description:#'s not known Insurance [address] [place] [address] MEDICARE PART A AND B AETNA Advance Directives For more information, please contact: [phone] * Full Code (Latest Code Status on File) Date Activated Date Inactivated Comments 02/18/2014 2:39 PM 02/19/2014 2:20 PM * Full Code Date Activated Date Inactivated Comments 02/17/2014 3:40 PM 02/18/2014 2:39 PM Care Teams Electrician Deck Relationship Specialty Start Date End Date Estela Wilkerson NP [address] [place] [id number] PCP - General NURSE PRACTITIONER 02/17/14
--- OUTSIDE RECORDS SUMMARY | 2025-04-01 14:43 | XMS_ITS | Patient Health Record ---
Author Organization [facility] Address [address] [place], [place] [address] Care Team Providers Care Watermaster Name Role Phone King ARTEMIO, Jen Primary Care Provider Farzaneh Hyman MD, Landon Santillan [phone] Allergies Allergen (clinical drug ingredient) Drug/Non Drug Allergy documented on EMR Reaction Allergy Type Onset Date Status malignant hypertherm ia (uncoded) Unknown Allergy Active Reason For Referral No Information Medications Medication SIG (Take, Route, Frequency, Duration) Notes Start Date End Date Status clopidogrel 75 mg 1 tab(s) orally once a day for 30 day(s) Active Centrum Silver Ultra Men's Therapeutic Multiple Vitamins with Minerals 1 tab(s) orally once a day for 30 day(s) Active ezetimibe-simvastatin 10 mg-20 mg 1 tab(s) orally once a day for 30 day(s) Active Entresto 24 mg-26 mg 1 tab(s) orally 2 t imes a day Active furosemide 20 mg 1 tab(s) orally once a day for 30 day(s) Active magnesium oxide 400 mg 1 cap(s) orally o nce a day Active Lanoxin 125 mcg (0.125 mg) 1 tab(s) oral ly once a day for 30 day(s) Active mirtazapine 15 mg 1 tab(s) orally once a day (at bedtime) for 30 day(s) Active Metoprolol Succinate ER 25 mg 1 tab(s) orally once a day for 30 day(s) Active tamsulosin 0.4 mg 1 cap(s) orally once a day for 30 day(s) Active Social History Tobacco Use: Social History Observation Description Date Details (start date - stop date) Never Smoker NA - NA alcohol Question Answer Notes Did you have a drink contain ing alcohol in the past year? Yes How often did you have a dri nk containing alcohol in the past year? Four or more times a week (4 points) How many drinks did you have on a typical day when you were drinking in the past year? 1 or 2 (0 points) How often did you have six o r more drinks on one occasion in the past year? Never (0 points) Points 4 Interpretation Positive Tobacco use: Question Answer Notes : nonsmoker Problems Problem Type SNOMED Code ICD Code Onset Dates Problem Status W/U Status Risk Notes Problem Solitary sacroiliitis (511075816) Sacroiliitis, not elsewhere classified (M46.1) Active confirmed Problem Lumbosacral spondylosis without myelopathy (93880671) Spondylosis without myelopathy or radiculopathy, lumbar region (M47.816) Active confirmed Problem Anxiety disorder (972675608) Other specified anxiety disorders (F41.8) Active confirmed Problem Cervical spondylosis without myelopathy (317454526) Spondylosis without myelopathy or radiculopathy, cervical region (M47.812) Active confirmed Problem Disseminated idiopathic skeletal hyperostosis (29445438) Ankylosing hyperostosis [[place]], 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 (M48.19) Active confirmed Problem Cervical disc disorder (137709584) Cervical disc disorder, unspecified, unspecified cervical region (M50.90) Active confirmed Problem Degeneration of lumbar intervertebral disc (65008266) Other intervertebral disc degeneration, lumbar region (M51.36) Active confirmed Problem Long-term current use of drug therapy (460071120) Other penitentiary (current) drug therapy (Z79.899) Active confirmed Problem Low back pain (finding) (825624476) Vertebrogenic low back pain (M54.51) Active confirmed Vital Signs Temperature 94.2 degrees Fahrenheit 05/20/2024 Oximetry 97 % 05/20/2024 Blood pressure diastolic 62 mm Hg 05/20/2024 Height 68 in 05/20/2024 Blood pressure systolic 98 mm Hg 05/20/2024 Weight 152 lbs 05/20/2024 BMI 23.11 kg/m2 05/20/2024 Encounters Encounter Location Date Provider Diagnosis [facility] [address] [place] [address] 04/12/2024 Landon Irizarrypatrick Sacroiliitis, not elsewhere classified M46.1 and Other specified anxiety disorders F41.8 [facility] [address] [place] [id number] 04/26/2024 Landon Irizarrypatrick Sacroiliitis, not elsewhere classified M46.1 and Other specified anxiety disorders F41.8 [facility] [address] [place], [place] [id number] 05/20/2024 Landon Irizarrypatrick Spondylosis without myelopathy or radiculopathy, lumbar region M47.816 ; Sacroiliitis, not elsewhere classified M46.1 ; Vertebrogenic low back pain M54.51 and Other penitentiary (current) drug therapy Z79.899 [facility] [address] [place], [place] [id number] 04/13/2024 Landon Hyman Other specified anxiety disorders F41.8 and Sacroiliitis, not elsewhere classified M46.1 Assessments Encounter Date Diagnosis (ICD Code) Assessment Notes Treatment Notes Treatment Clinical Notes Section Notes 04/12/2024 Sacroiliitis, not elsewhere classified (ICD-10 - M46.1) Plan bilateral SI local anesthetic injections (NO STEROID) 04/12/2024 Other specified anxiety disorders (ICD-10 - F41.8) Patient requests no IV sedation. 04/26/2024 Sacroiliitis, not elsewhere classified (ICD-10 - M46.1) Plan bilateral SI joint local anesthetic / steroid injection. 04/26/2024 Other specified anxiety disorders (ICD-10 - F41.8) Patient requests no IV sedation. 05/20/2024 Spondylosis without myelopathy or radiculopathy, lumbar region (ICD-10 - M47.816) Bilateral L3 medial branch, bilateral L4 medial branch, bilateral L5 dorsal ramus RFA procedure with significant maintained efficacy appreciated by patient as of 05/20/24. 04/13/2024 Other specified anxiety disorders (ICD-10 - F41.8) Patient requests no IV / no IV sedation for procedure. Patient reported that he does not need sedation. Patient has expressed concern regarding malignant hyperthermia in the past. 05/20/2024 Vertebrogenic low back pain (ICD-10 - M54.51) Chronic axial lumbosacral spne pain with no current radiculopathy symptoms. The lower lumbar region remains significantly improved post lower lumbar RFA procedure. The sacral area is improved post SI joint injection therapy. 04/13/2024 Sacroiliitis, not elsewhere classified (ICD-10 - M46.1) Bilateral SI joint local anesthetic injections with diagnostic efficacy appreciated. Plan bilateral SI joint steroid injections. Risks, benefits, and alternatives reviewed with patient at prior office visit. Questions answered to the patient's reported satisfaction. Preparation for procedure reviewed with patient by phone. 05/20/2024 Sacroiliitis, not elsewhere classified (ICD-10 - M46.1) SI joint steroid injections with maintained fair benefit thus far. Sacral ablation therapy again discussed with patient (requires out of pocket payment - Medicare LCDs excluded sacral RFA in November of 2023). 05/20/2024 Other intermediate manager (current) drug therapy (ICD-10 - Z79.899) Patient was given a copy of the Treatment Agreement, signed by patient on 09/15/23. 2022 opioid (OUD) risk tool score = 1. This places the patient in the low risk category. 05/20/2024 Other Recommended patient return to clinic when addtional treatment is desired. 04/13/2024 Other Plan Of Treatment No Information Insurance Providers Payer Name Payer Address Payer Phone Subscriber Number Group Number Insured Name Patient Relationship to Insured Coverage Start Date Coverage End Date WPS Medicare Part B Claims Department [address] [address] [place] [address] [id number] Ruslan King Self - patient is the insured A[employer] [address] [address] [place] [address] [id number] Ruslan King Self - patient is the insured Medical (General) History Medical History History ICD Code Chronic pain Spondylosis of lumbar spine Degenerative disc disease, lumbar Ankylosing hyperostosis Spasm of back muscles Lumbar stenosis Lumbar radiculopathy Facet arthropathy, lumbar Lumbar stenosis with neuorge robin claudication (no claudication symptoms as of 09/15/23 visit) Sacroiliac dysfunction / sacroiliitis Cervical disc disease Cervical radiculopathy Facet arthritis of cervical region Malignant hyperthermia Hemochromatosis Plavix medication use Surgical History Surgery Date(Month/Year) ORIF, left ankle, performed in [place], [place] , 1996 Placement of pacemaker with defibrillator, performed in [place], [place] by Dr. Guillaume, 03/06/05 Replacement of pacemaker wit h defibrillator, performed in [place], [place] by Dr. Guillaume, 2009 Replacement of pacemaker wit h defibrillator, performed in [place] by Dr. Moore, 02/18/14 Replacement of pacemaker wit h defibrillator, performed at [facility] by Dr. Rico, 12/28/21 Cholecystectomy, performed at [facility] by Dr. Curry, 11/2022
[2025-04-01 14:51] VITALS: BP 88/58; PULSE 76; RESP 16; TEMP 36.3; O2SAT 97
--- NOTE | 2025-04-01 14:51 | ECG_ITS ---
[facility] Test Date: 2025-04-01 Pat Name: Ruslan King Department: Room: Gender: Male [place] Block Setter: : 1940 Requested By: Ghazal Sanches Order Number: [id number] Rivera MD: Jordan Cisneros M.D. Measurements Intervals [place] Rate: 82 P: -27 [place]: 161 QRS: 264 QRSD: 202 T: 94 QT: 437 QTc: 511 Interpretive Statements ELECTRONIC ATRIAL PACEMAKER ELECTRONIC VENTRICULAR PACEMAKER ATRIAL-VENTRICULAR DUAL-PACED RHYTHM Compared to ECG 02/15/2025 15:02:46 No significant changes Electronically Signed On 04-01-2025 17:36:44 CDT by Blayne [id number]
[2025-04-01 14:53] VITALS: BP 90/61; PULSE 74; RESP 16; TEMP 36.6; O2SAT 97
[2025-04-01 15:47] LABS: Hematocrit 37.9 % (37-53); Hemoglobin 12.30 g/dL (11.27-16.99); Mean Corpuscular HGB Conc 32.5 g/dL (30-55); Mean Corpuscular Hemoglobin 32.3 pg (27-33); Mean Corpuscular Volume 99.5 fl (82-101); Nucleated Red Blood Cells % 0 %; Platelet Count 151 10^3/cmm (157-399); Red Blood Count 3.81 10^6/uL (3.85-5.65); White Blood Count 5.97 10^3/uL (3.29-11.43)
[2025-04-01 16:01] LABS: Troponin(5th) Baseline 82 ng/L (0-15)
[2025-04-01 16:05] LABS: Alanine Aminotransferase 19 U/L (0-41); Albumin Level 3.6 g/dL (3.5-5.2); Alkaline Phosphatase 84 U/L (40-130); Anion Gap 17.4 (5-19); Aspartate Amino Transferase 23 U/L (0-40); Blood Urea Nitrogen 31 mg/dL (8-23); Calcium 8.4 mg/dL (8.5-10.5); Carbon Dioxide 25 mmol/L (22-29); Chloride 101 mmol/L (98-107); Creatinine Clr Calc Pharmacy 37.1430; Globulin 1.8 g/dL (1.3-4.6); Glucose 127 mg/dL (65-115); NT Pro B Type Natriuretic Pept 7305 pg/mL (0-450); Osmolality Calculated 296 mOsm/kg (285-295); Potassium 4.4 mmol/L (3.5-5.1); Sodium 139 mmol/L (136-145); Total Protein 5.4 g/dL (6.6-8.7)
== END 2025-04-01 17:15 | disposition left against medical advice (07) ==
PROVIDERS: Nurse Practitioner; Emergency Provider Family Medicine; PCP Clinical Nurse Specialist Adult Health
DX: Z01.89 Encounter for other specified special examinations (principal); Z53.21 Procedure and treatment not carried out due to patient leaving prior to being seen by health care provider; Z95.0 Presence of cardiac pacemaker
CPT/HCPCS: 36415; 80053; 83880; 84484; 85025; 93005; 99285

== ENCOUNTER → 2025-04-13 09:40 | Outpatient (BNVA) | payer MEDICARE, OTHER, SELFPAY | PROVIDERS: PCP Clinical Nurse Specialist Adult Health; Visit Provider Clinical Nurse Specialist Adult Health | DX: E78.2 Mixed hyperlipidemia (principal); I25.5 Ischemic cardiomyopathy; Z95.810 Presence of automatic (implantable) cardiac defibrillator | CPT/HCPCS: 80048; 83880 ==

== ENCOUNTER → 2025-04-20 12:47 | Outpatient (BNVA) | payer MEDICARE, OTHER, SELFPAY | PROVIDERS: PCP Clinical Nurse Specialist Adult Health; Visit Provider Internal Medicine | DX: Z45.02 Encounter for adjustment and management of automatic implantable cardiac defibrillator (principal) | CPT/HCPCS: 93296 ==

== ENCOUNTER → 2025-04-21 12:02 | Outpatient (BNVA) | payer MEDICARE, OTHER, SELFPAY | PROVIDERS: PCP Clinical Nurse Specialist Adult Health; Visit Provider Nurse Practitioner Family | DX: I50.22 Chronic systolic (congestive) heart failure (principal); I25.10 Atherosclerotic heart disease of native coronary artery without angina pectoris; I34.0 Nonrheumatic mitral (valve) insufficiency; R03.1 Nonspecific low blood-pressure reading; Z79.02 Long term (current) use of antithrombotics/antiplatelets; Z79.82 Long term (current) use of aspirin; Z87.891 Personal history of nicotine dependence; I25.2 Old myocardial infarction; Z95.5 Presence of coronary angioplasty implant and graft; Z95.0 Presence of cardiac pacemaker; J90 Pleural effusion, not elsewhere classified; I51.7 Cardiomegaly | CPT/HCPCS: 71046; 99213 ==

== ENCOUNTER → 2025-05-11 10:23 | Outpatient (BNVA) | payer MEDICARE, OTHER, SELFPAY | PROVIDERS: PCP Clinical Nurse Specialist Adult Health; Visit Provider Clinical Nurse Specialist Adult Health | DX: N40.1 Benign prostatic hyperplasia with lower urinary tract symptoms (principal) | CPT/HCPCS: 81000; 87086 ==

== ENCOUNTER → 2025-05-25 10:35 | Outpatient (BNVA) | payer MEDICARE, OTHER, SELFPAY | PROVIDERS: PCP Clinical Nurse Specialist Adult Health; Visit Provider Clinical Nurse Specialist Adult Health | DX: I50.20 Unspecified systolic (congestive) heart failure (principal); E78.2 Mixed hyperlipidemia | CPT/HCPCS: 80048; 83880; 85025 ==

== ENCOUNTER → 2025-06-24 13:53 | Outpatient (BNVA) | payer MEDICARE, OTHER, SELFPAY | PROVIDERS: PCP Clinical Nurse Specialist Adult Health; Visit Provider Nurse Practitioner Family | DX: H61.031 Chondritis of right external ear (principal); L57.8 Other skin changes due to chronic exposure to nonionizing radiation; Z08 Encounter for follow-up examination after completed treatment for malignant neoplasm; Z85.828 Personal history of other malignant neoplasm of skin; D48.5 Neoplasm of uncertain behavior of skin; L57.0 Actinic keratosis | CPT/HCPCS: 17000; 17260; 99213 ==

== ENCOUNTER → 2025-07-06 11:35 | Outpatient (BNVA) | payer MEDICARE, OTHER, SELFPAY | PROVIDERS: PCP Clinical Nurse Specialist Adult Health; Visit Provider Clinical Nurse Specialist Adult Health | DX: N18.2 Chronic kidney disease, stage 2 (mild) (principal); I34.0 Nonrheumatic mitral (valve) insufficiency; I50.33 Acute on chronic diastolic (congestive) heart failure; E78.2 Mixed hyperlipidemia; R17 Unspecified jaundice; E83.110 Hereditary hemochromatosis; R13.10 Dysphagia, unspecified; H69.91 Unspecified Eustachian tube disorder, right ear | CPT/HCPCS: 80053; 82728; 83540; 85025 ==

== ENCOUNTER 2025-07-08 23:06 | Inpatient (IN) | payer MEDICARE, OTHER, SELFPAY ==
[2025-07-08 23:14] VITALS: BP 99/72; PULSE 76; RESP 18; TEMP 36.8; O2SAT 93; BMI 18.2
--- NOTE | 2025-07-08 23:49 | CTR_ITS ---
PROCEDURE INFORMATION: Exam: CT Head Without Contrast Exam date and time: 07/09/2025 12:15 AM Age: 85 years old Clinical indication: Other: General weakness TECHNIQUE: Imaging protocol: Computed tomography of the head without contrast. Radiation optimization: All CT scans at this facility use at least one of these dose optimization techniques: automated exposure control; mA and/or kV adjustment per patient size (includes targeted exams where dose is matched to clinical indication); or iterative reconstruction. COMPARISON: CR XR cervical spine 3V* [id number] 12/20/2020 10:39 AM RADIATION DOSE METRICS: Total DLP (mGy-cm): 897.88 FINDINGS: Brain: See Cerebral ventricles finding. Cerebral ventricles: Moderate to severe involutional changes of the ventricles and sulci, can not exclude NPH. Paranasal sinuses: Visualized sinuses are unremarkable. No fluid levels. Mastoid air cells: Visualized mastoid air cells are well aerated. Bones: Unremarkable. No acute fracture. Soft tissues: Unremarkable. CT/CT head wo con* [id number] IMPRESSION: No acute findings. Chronic findings as above.
--- NOTE | 2025-07-08 23:49 | CTR_ITS ---
PROCEDURE INFORMATION: Exam: CT Chest With Contrast; Diagnostic Exam date and time: 07/09/2025 12:19 AM Age: 85 years old Clinical indication: Other: General weakness/weight loss; Prior surgery; Surgery date: 6+ months; Surgery type: Icd. Coronary stents. Gb; General weakness with nausea. Recent thirty pound unintentional weight loss. History of chf and cirrhosis. ; Additional info: Generalized weakness, nausea, vomiting, sig weight loss TECHNIQUE: Imaging protocol: Diagnostic computed tomography of the chest with contrast. Radiation optimization: All CT scans at this facility use at least one of these dose optimization techniques: automated exposure control; mA and/or kV adjustment per patient size (includes targeted exams where dose is matched to clinical indication); or iterative reconstruction. Contrast material: OMNI 350; Contrast volume: 80 ml; Contrast route: INTRAVENOUS (IV); COMPARISON: CT chest wo [facility] [id number] 02/15/2025 3:59 PM RADIATION DOSE METRICS: Total DLP (mGy-cm): 890.28 FINDINGS: Tubes, catheters and devices: Left chest ICD versus pacemaker. Lungs: Unremarkable. No consolidation. No masses. Pleural spaces: Unremarkable. No pneumothorax. No pleural effusion. Heart: Unremarkable. No cardiomegaly. No pericardial effusion. Lymph nodes: Unremarkable. No enlarged lymph nodes. Vasculature: Aortic and coronary atherosclerosis. Right lower lobe pulmonary emboli involving all segmental branches. RV to LV ratio less than 1. Moderate right effusion with associated airspace opacity, likely compressive atelectasis or infarcted tissue related to pulmonary embolism. Bones/joints: Unremarkable. No acute fracture. Soft tissues: Unremarkable. PROCEDURE INFORMATION: Exam: CT Abdomen And Pelvis With Contrast Exam date and time: 07/09/2025 12:19 AM Age: 85 years old Clinical indication: Other: General weakness/weight loss; Prior surgery; Surgery date: 6+ months; Surgery type: Icd. Coronary stents. Gb; General weakness with nausea. Recent thirty pound unintentional weight loss. History of chf and cirrhosis. ; Additional info: Generalized weakness, nausea, vomiting, sig weight loss TECHNIQUE: Imaging protocol: Computed tomography of the abdomen and pelvis with contrast. Radiation optimization: All CT scans at this facility use at least one of these dose optimization techniques: automated exposure control; mA and/or kV adjustment per patient size (includes targeted exams where dose is matched to clinical indication); or iterative reconstruction. Contrast material: OMNI 350; Contrast volume: 80 ml; Contrast route: INTRAVENOUS (IV); COMPARISON: CT abdomen pelvis w con* [id number] 08/23/2022 4:56 PM RADIATION DOSE METRICS: Total DLP (mGy-cm): 890.28 FINDINGS: Liver: Normal. No mass. Gallbladder and biliary ducts: Cholecystectomy clips. Pancreas: Normal. No ductal dilation. Spleen: Normal. No splenomegaly. Adrenal glands: Normal. No mass. Kidneys and ureters: Striated appearance of the bilateral renal cortices, nonspecific, can not exclude pyelonephritis though likely represents previous areas of the infarct. Stomach and bowel: Unremarkable. No obstruction. No mucosal thickening. Appendix: No evidence of appendicitis. Intraperitoneal space: Unremarkable. No free air. No significant fluid collection. Vasculature: Aortic atherosclerosis. Lymph nodes: Unremarkable. No enlarged lymph nodes. Urinary bladder: Unremarkable as visualized. Reproductive: Unremarkable as visualized. Bones/joints: Moderate degenerative changes of the lumbar vertebral bodies. Soft tissues: Unremarkable. CT/CT chest abdpel w/*[id number] IMPRESSION: 1. Right lower lobe pulmonary emboli involving all segmental branches. RV to LV ratio less than 1. 2. Moderate right effusion with associated airspace opacity, likely compressive atelectasis or infarcted tissue related to pulmonary embolism. IMPRESSION: 1. No acute findings. 2. Striated appearance of the bilateral renal cortices, nonspecific, can not exclude pyelonephritis though likely represents previous areas of infarction.
--- NOTE | 2025-07-08 23:51 | ECG_ITS ---
[employer] Test Date: 2025-07-09 Pat Name: Ruslan King Department: Room: Gender: Male Traffic Expert: : 1940 Requested By: Duane Baker Order Number: [id number] Miguel MD: CHERELLE SMITH Measurements Intervals [place] Rate: 59 P: -12 [place]: 166 QRS: 259 QRSD: 189 T: 86 QT: 513 QTc: 512 Interpretive Statements ELECTRONIC ATRIAL PACEMAKER ELECTRONIC VENTRICULAR PACEMAKER ABNORMAL RHYTHM ECG Compared to ECG 04/01/2025 14:48:37 AV dual-paced complex(es) or rhythm no longer present Electronically Signed On 07-09-2025 21:04:41 CDT by CHERELLE SMITH [email or web address]
[2025-07-09] VITALS (15 sets, daily range): BP systolic 90–104; BP diastolic 57–71; PULSE 59–84; RESP 15–30; TEMP 36.3–36.9; O2SAT 91–96; BMI 19.5
[2025-07-09] MEDS: iohexol 350 mg/mL 500 mL Btl (per mL) IV (00:18)
--- NOTE | 2025-07-09 00:18 | W.ED.WEAKNES ---
HPI - Weakness General: Chief complaint: Weakness Stated complaint: weakness Time Seen by Provider: 07/08/25 23:08 History of Present Illness: Patient is an 85-year-old male with a history of heart failure who presented with acute onset dizziness, headache, and near-syncope. According to the patient and his caregiver, he was feeling relatively well during the day but developed symptoms around 9:30 PM tonight. The patient was lying in bed when he complained of a headache. When his caregiver returned with acetaminophen, the patient reported feeling nauseated and attempted to go to the bathroom, requiring assistance. He did not vomit but experienced some spitting. The patient denies current nausea or dizziness while lying down. Of note, the patient has experienced significant weight loss of approximately 24 pounds over the past two months and reports dysphagia, with a swallow test scheduled for next Friday. The patient's ramipril was discontinued yesterday (07/07/2025) due to low blood pressure. Home BP readings have been running around 105/70 but recently dropped to 89/59. The patient denies chest pain, fever, cough, or lower extremity edema. Related Data Home Medications ?Medication ?Instructions ?Recorded ?Confirmed magnesium oxide 400 mg PO DAILY 08/15/20 07/06/25 tamsulosin 0.4 mg capsule 0.8 mg PO QDAY 02/21/25 07/06/25 potassium chloride 10 mEq 10 meq PO BID 03/16/25 07/06/25 capsule,extended release dapagliflozin propanediol 10 mg mg PO 04/21/25 07/06/25 tablet (Farxiga) torsemide 20 mg tablet mg PO QDAY 04/21/25 07/06/25 finasteride 5 mg tablet 5 mg PO QDAY 07/06/25 07/06/25 midodrine 5 mg tablet 5 mg PO TID 07/06/25 07/06/25 ramipril 1.25 mg capsule 1.25 mg PO QDAY 07/06/25 07/06/25 Previous Rx's ?Medication ?Instructions ?Recorded nitroglycerin 0.4 mg sublingual 0.4 mg sublingual Q5M PRN chest 12/11/21 tablet (Nitrostat) pain #50 tabs multivitamin 1 tab PO DAILY #7 tabs 12/29/21 triamcinolone acetonide 0.1 % 1 applic topical BID PRN eczema 08/07/22 topical cream #80 grams Nebulizer machine and supplies #1 ea 10/29/24 aspirin 81 mg tablet,delayed 81 mg PO DAILY #30 tabs 02/18/25 release metoprolol succinate 25 mg 12.5 mg (1/2 x 25 mg) PO DAILY #90 02/28/25 tablet,extended release 24 hr tabs digoxin 125 mcg (0.125 mg) tablet See Rx Instructions .Route 04/07/25 .COMPLEX #90 tabs clopidogrel 75 mg tablet 75 mg PO DAILY #90 tabs 04/15/25 ezetimibe 10 mg-simvastatin 20 mg See Rx Instructions .Route 04/27/25 tablet .COMPLEX #90 tabs azelastine 137 mcg (0.1 %) nasal 1 spray intranasal DAILY #30 mL 05/11/25 spray mirtazapine 15 mg tablet See Rx Instructions .Route 06/14/25 .COMPLEX #90 tabs Allergies Allergy/AdvReac Type Severity Reaction Status Date / Time malignant hyperthermia Allergy Severe Unknown Uncoded 07/06/25 10:47 [facility] PFSH: Medical History 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 follows with hematology. Cardiac resynchronization therapy defibrillator (SHROUD LINE TIER-D) in place History of nonmelanoma skin cancer Malignant hyperthermia susceptibility 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], 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 History of [place] (myocardial infarction) 07/24/1999 in [place], [place] CAD (coronary artery disease) Cardiomyopathy Mitral regurgitation Neuropathy Surgical History H/O radiofrequency ablation (RFA) of nerve of lumbar spine History of laparoscopic cholecystectomy Hx of bilateral cataract extraction History of ankle surgery Left ankle ORIF 1994 ICD (implantable cardioverter-defibrillator) in place I had 3 different surgeries Family History Father , AT AGE 86 Stroke CAD (coronary artery disease) later in life Mother , AT AGE 90 Stroke Son Anesthesia complication Family/Other Anesthesia complication Lung disease Suicide Sister Cancer Grandmother Lung disease Denies family history of Diabetes Clotting disorder Dementia Chronic kidney disease (CKD) Bleeding disorder Hypertension Social History Smoking and tobacco/nicotine status: never used tobacco/nicotine Quit status (tobacco/nicotine): has quit using Former quit date comment: Smoked a pipe for 6 months 1960 Second hand smoke exposure: No Alcohol intake: former Former alcohol use details: scant history of use Substance/Drug Use: never Adopted: No Caregiver/support person: No Lives independently: Yes Household members: spouse Housing: House Marital status: Number of children: 5 service: No Current occupational status: retired Do you think of yourself as: Straight/Heterosexual Current gender identity: Male Physical Exam Const: COMMON NORMALS: alert GENERAL APPEARANCE: cooperative, lethargic (mildly), ill appearing and frail appearing ORIENTATION/CONSCIOUSNESS: Yes oriented to person, Yes oriented to place and Yes lethargic (mildly); not oriented to time HENMT: COMMON NORMALS: normocephalic, atraumatic and Normal external nose present HEAD & SCALP: normocephalic and atraumatic FACE & SINUS: normal facial exam and face symmetric NOSE: Normal external nose present Eye: COMMON NORMALS: Equal, round and reactive pupils present and EOMs intact bilaterally PUPIL: Yes Equal, round and reactive pupils present Neck/C-Spine: GENERAL: Yes trachea midline Chest: CHEST: Yes Symmetrical chest wall rise Resp: COMMON NORMALS: normal respiratory effort, No retractions, No use of accessory muscles and clear to auscultation bilaterally AUSCULTATION: clear to auscultation bilaterally Cardio: COMMON NORMALS: regular rate and regular rhythm RATE: regular rate RHYTHM: regular rhythm GI: COMMON NORMALS: Normal to inspection, nondistended, normoactive bowel sounds present Extremity: COMMON NORMALS: no pedal edema Neuro: SHABNAM COMA SCALE: document GCS findings [place] coma scale eye opening: Spontaneous [place] coma scale verbal response: Orientated [place] coma scale motor response: Obey commands [place] coma scale total score: 15 COMMON NORMALS: no focal motor deficits and no sensory deficits noted SENSORIUM/ORIENTATION: Yes alert, Yes oriented to person, Yes oriented to place, No oriented to time and Yes lethargic (mildly) CRANIAL NERVES: Yes CN normal except as noted COORDINATION/BALANCE: [id number] test normal and [id number] test normal SPEECH: abnormal speech (hoarse voice) SENSORY EXAM: Yes extremities (intact) MOTOR EXAM: Pronator motor function not present COORDINATION: [id number] test normal and [id number] test normal Skin: COMMON NORMALS: no rashes or lesions noted GENERAL SKIN EXAM: no rashes or lesions noted Course Vital Signs: Vital signs: Vital Signs Temperature 98.2 F 07/08/25 23:14 Pulse Rate 61 07/09/25 01:00 Respiratory Rate 30 H 07/09/25 00:35 Blood Pressure 99/62 07/09/25 01:06 Pulse Oximetry 94 07/09/25 01:00 Oxygen Delivery Me thod Room Air 07/08/25 23:14 MDM - Weakness Medical Decision Making 85-year-old male patient with multiple complaints. There is a complaint of generalized weakness, shortness of breath, dysphagia, significant 2-month weight loss. His CBC is normal. Sodium is 129, BUN is 34. CT of the head is negative. CT of the chest shows a right lower lobe pulmonary embolus involving all segmental branches. There is a moderate right effusion and likely compressive atelectasis versus infarcted lung tissue. CT of the abdomen is nonacute. This is a frail 85-year-old man with significant weakness. He has some lethargy. He has pulmonary emboli on the right side with a significant effusion. There is concern that he may have malignancy somewhere given his presenting complaints. His digoxin level is mildly high. His troponin level did not elevate at 2 hours. His lactic acid is mildly elevated at 2.5. He received a 500 mL liter bolus. No more fluid was given as the patient has a history of significant heart failure with an EF of 16% on his last echocardiogram. He will be admitted. Hospitalist has seen the patient. Heparin drip started. Lab Data 07/08/25 00:04 07/08/25 00:04 Radiology Impressions Chest/Abdomen/Pelvis CT 07/08/25 23:49 IMPRESSION: 1. Right lower lobe pulmonary emboli involving all segmental branches. RV to LV ratio less than 1. 2. Moderate right effusion with associated airspace opacity, likely compressive atelectasis or infarcted tissue related to pulmonary embolism. IMPRESSION: 1. No acute findings. 2. Striated appearance of the bilateral renal cortices, nonspecific, can not exclude pyelonephritis though likely represents previous areas of infarction. ADDENDUM: 07/09/25 0101 COMMENT: THIS REPORT CONTAINS FINDINGS THAT MAY BE CRITICAL TO PATIENT CARE. The exam findings were verbally communicated by me to DUANE PRUETT via telephone conference at 12:59 AM CDT on 07/09/2025. The findings were acknowledged and understood. Head CT 07/08/25 23:49 IMPRESSION: No acute findings. Chronic findings as above. Laboratory Results WBC 9.67 10^3/uL (3.29-11.43) 07/08/25 00:04 RBC 4.63 10^6/uL (3.85-5.65) 07/08/25 00:04 Hgb 14.50 g/dL (11.27-16.99) 07/08/25 00:04 Hct 43.0 % (37-53) 07/08/25 00:04 MCV 92.9 fl (82-101) 07/08/25 00:04 MCH 31.3 pg (27-33) 07/08/25 00:04 MCHC 33.7 g/dL (30-55) 07/08/25 00:04 RDW 16.6 % (12.1-15.1) H 07/08/25 00:04 Plt Count 204 10^3/cmm (157-399) 07/08/25 00:04 MPV 11.7 fL (7.4-10.4) H 07/08/25 00:04 Neut % (Auto) 86.1 % 07/08/25 00:04 Lymph % (Auto) 7.0 % 07/08/25 00:04 Crenshaw % (Auto) 5.6 % 07/08/25 00:04 Eos % (Auto) 0.3 % 07/08/25 00:04 Baso % (Auto) 0.3 % 07/08/25 00:04 Neut # (Auto) 8.32 10^3/uL (1.8-7.7) H 07/08/25 00:04 Lymph # (Auto) 0.7 10^3/uL (0.8-4.8) L 07/08/25 00:04 Crenshaw # (Auto) 0.5 10^3/uL (0.2-0.9) 07/08/25 00:04 Eos # (Auto) 0.0 10^3/uL (0.0-0.8) 07/08/25 00:04 Baso # (Auto) 0.0 10^3/uL (0.0-0.1) 07/08/25 00:04 Nucleated RBC % (auto) 0 % 07/08/25 00:04 Nucleated RBCs # 0.0 /100WBC 07/08/25 00:04 PT 14.00 SECONDS (12.1-14.9) 07/08/25 00:04 INR 1.01 (0.8-1.2) 07/08/25 00:04 Specimen Type Arterial 07/08/25 00:49 Sample Site Radial, left 07/08/25 00:49 ABG pH 7.44 (7.35-7.45) 07/08/25 00:49 ABG pCO2 42.7 mmHg (35-45) 07/08/25 00:49 ABG pO2 72.3 mmHg (80.0-100.0) L 07/08/25 00:49 ABG HCO3 29.1 mmol/L (22-26) H 07/08/25 00:49 ABG Base Excess 4.4 mmol/L (-2.0-2.0) H 07/08/25 00:49 Bernardo Test Pos 07/08/25 00:49 Hematocrit 40.7 % (42-52) L 07/08/25 00:49 O2 Delivery Device Room air 07/08/25 00:49 Marketing Services Rep ID [id number] 07/08/25 00:49 Sodium 129 mmol/L (136-145) L 07/08/25 00:04 Potassium 4.4 mmol/L (3.5-5.1) 07/08/25 00:04 Chloride 89 mmol/L (98-107) L 07/08/25 00:04 Carbon Dioxide 25 mmol/L (22-29) 07/08/25 00:04 Anion Gap 19.4 (5-19) H 07/08/25 00:04 BUN 34 mg/dL (8-23) H 07/08/25 00:04 Creatinine 0.8 mg/dL (0.7-1.2) 07/08/25 00:04 GFR Calculation Not Reportable 07/08/25 00:04 Glucose 162 mg/dL (65-115) H 07/08/25 00:04 Calculated Osmolality 279 mOsm/kg (285-295) L 07/08/25 00:04 Lactic Acid 2.5 mmol/L (0.5-2.2) H 07/08/25 00:04 Calcium 8.9 mg/dL (8.5-10.5) 07/08/25 00:04 Phosphorus 3.4 mg/dL (2.5-4.5) 07/08/25 00:04 Magnesium 2.6 mg/dL (1.7-2.3) H 07/08/25 00:04 Total Bilirubin 1.5 mg/dL (0.15-1.2) H 07/08/25 00:04 AST 39 U/L (0-40) 07/08/25 00:04 ALT 35 U/L (0-41) 07/08/25 00:04 Alkaline Phosphatase 139 U/L (40-130) H 07/08/25 00:04 Troponin T Baseline 74 ng/L (0-15) H 07/08/25 00:04 Troponin T 120 Minute 70.47 ng/L (0-15) H 07/09/25 01:44 Delta Troponin T -3.53 ABS# (0-10) L 07/09/25 01:44 C-Reactive Protein 12.1 mg/L (0.0-4.9) H 07/08/25 00:04 NT-Pro-B Natriuret Pep 76475 pg/mL (0-450) H 07/08/25 00:04 Total Protein 6.0 g/dL (6.6-8.7) L 07/08/25 00:04 Albumin 4.0 g/dL (3.5-5.2) 07/08/25 00:04 Globulin 2.0 g/dL (1.3-4.6) 07/08/25 00:04 Digoxin 1.8 ng/mL (0.6-1.2) H 07/09/25 00:04 All radiology interpretation(s) finalized by discharge Discharge Plan Discharge Patient Disposition: Admitted As Inpatient Clinical Impression: Pulmonary embolism, Pleural effusion, Congestive heart failure Condition: Fair Coding Level of Care Code ED Biology Specimen Technician for Milvia Angela
[2025-07-09 00:31] LABS: INR 1.01 (0.8-1.2); Prothrombin Time 14.00 SECONDS (12.1-14.9)
[2025-07-09 00:35] LABS: Hematocrit 43.0 % (37-53); Hemoglobin 14.50 g/dL (11.27-16.99); Mean Corpuscular HGB Conc 33.7 g/dL (30-55); Mean Corpuscular Hemoglobin 31.3 pg (27-33); Mean Corpuscular Volume 92.9 fl (82-101); Nucleated Red Blood Cells % 0 %; Platelet Count 204 10^3/cmm (157-399); Red Blood Count 4.63 10^6/uL (3.85-5.65); White Blood Count 9.67 10^3/uL (3.29-11.43)
[2025-07-09 00:41] LABS: Lactic Sepsis W/Reflex 2.5 mmol/L (0.5-2.2)
[2025-07-09 00:43] LABS: Troponin(5th) Baseline 74 ng/L (0-15)
[2025-07-09 00:52] LABS: Alanine Aminotransferase 35 U/L (0-41); Albumin Level 4.0 g/dL (3.5-5.2); Alkaline Phosphatase 139 U/L (40-130); Anion Gap 19.4 (5-19); Aspartate Amino Transferase 39 U/L (0-40); Blood Urea Nitrogen 34 mg/dL (8-23); Calcium 8.9 mg/dL (8.5-10.5); Carbon Dioxide 25 mmol/L (22-29); Chloride 89 mmol/L (98-107); Creatinine Clr Calc Pharmacy 53.8640; Globulin 2.0 g/dL (1.3-4.6); Glucose 162 mg/dL (65-115); Magnesium 2.6 mg/dL (1.7-2.3); NT Pro B Type Natriuretic Pept 12182 pg/mL (0-450); Osmolality Calculated 279 mOsm/kg (285-295); Potassium 4.4 mmol/L (3.5-5.1); Sodium 129 mmol/L (136-145); Total Protein 6.0 g/dL (6.6-8.7)
[2025-07-09 00:59] LABS: ABG PCO2 42.7 mmHg (35-45); ABG PH Result 7.44 (7.35-7.45); Arterial Blood Gas Hematocrit 40.7 % (42-52); Blood Gas Allen Test Pos; Blood Gas Sample Site Radial, left; Blood Gas Sample Type Arterial; HCO3 ABG 29.1 mmol/L (22-26); PO2 ABG 72.3 mmHg (80.0-100.0)
[2025-07-09 01:22] LABS: Digoxin 1.8 ng/mL (0.6-1.2)
[2025-07-09 02:03] LABS: Reflex Lactate Order REFLEX LACTIC ORDERD
[2025-07-09 02:09] LABS: Troponin 5 2HR 70.47 ng/L (0-15)
[2025-07-09] MEDS: heparin drip 25,000 UNIT/500 ML PREMIX 15 UNIT IV (02:11)
[2025-07-09] MEDS: heparin 5,000 unit/mL INJ 1 mL IVP (02:13)
[2025-07-09 02:17] LABS: Troponin 5 2HR Delta -3.53 ABS# (0-10)
--- NOTE | 2025-07-09 02:49 | USR_ITS ---
PROCEDURE INFORMATION: Exam: US Abdomen, Limited; Right Upper Quadrant Exam date and time: 07/09/2025 7:22 AM Age: 85 years old Clinical indication: Abnormal findings; Abnormal lab test; Other: Elevated total bilirubin and alk phos; Prior surgery; Surgery date: 6+ months; Surgery type: Unsure of dates but patient has had gb removed; Additional info: Elevated total bilirubin and alk phos, look for liver mass TECHNIQUE: Imaging protocol: Real time ultrasound of the abdomen with image documentation. Limited exam focused on the right upper quadrant. Total images: 2 COMPARISON: US abdomen complete* [id number] 08/09/2022 8:32 AM FINDINGS: Pleural spaces: Large right pleural effusion Liver: 12.8 cm Liver length. The liver is normal in echogenicity and configuration. No masses are detected. There is no intrahepatic biliary dilatation. Gallbladder: Prior cholecystectomy noted. Biliary ducts: Common bile duct diameter is 5 mm. Pancreas: The pancreas is partially visualized due to overlying bowel gas. No gross pathology is detected. Right kidney: 7.4 cm length of right kidney. Right kidney with normal parenchymal echogenicity and no hydronephrosis, calculi, solid masses, nor perinephric fluid collection. Aorta: Partially visualized abdominal aorta appears unremarkable. Inferior vena cava: IVC unremarkable. Portal venous: Spectral sonography demonstrates patent portal vein with hepatopedal blood flow. Normal respiratory phasicity on spectral waveform, indicating preserved compliance of the liver. No portal venous abnormality identified. US/US liver [id number] IMPRESSION: The liver is normal in echogenicity and configuration. No masses are detected. There is no intrahepatic biliary dilatation.
--- NOTE | 2025-07-09 03:08 | PM.HP ---
Providers/Chief Complaint Admitting Physician: MANAN LANG DO patient admitted after 12 midnight Primary Care Provider: Chip Jaquez Chief Complaint: weakness, dizziness, dysphagia 20 pound weight los History of Present Illness Ruslan King is a 85 year old male with a medical history significant for longstanding dysphagia since 2021 that is only worsening into the last 2 months where patient right now had not been able to eat because nothing goes down. Patient now is down to drinking 2 ensures per day because that is all he can have down. Patient had never in his life underwent endoscopy reference EGD normal has he ever had colonoscopy in his whole entire life. Patient and they tells me that rather he had been given antidepressants to make sure that that was not what was keeping him from eating. In the last 2 months patient had lost 20 pounds. A recent visit to the primary care doctor showed elevated liver enzymes with a total bilirubin of 2.1 and they were told that they need to have a liver scan done at the end of July. Patient is presenting to the emergency room because he had felt dizzy at home and not feeling well and told the to call an ambulance that he is going to the emergency room. Patient had verbalized to me and also to the ED physician that he is full code. Evaluation in the emergency room showed a right sided PE and right-sided pleural effusion. A chemistry has shown total bili of 1.5 and phosphorus slightly elevated at 139. It was been noted that the patient has very severe systolic dysfunction with an EF of 16% and had had coronary artery disease status post stent placement in February and on Plavix. Patient should not hold Plavix for any reason. Patient chemistry is on the dry side considering patient is on digoxin because of history of heart failure not seeing any diuretics on patient medication list. Patient has normal renal function with a BUN of 35 and a creatinine of 0.8 sodium of 129 will advise against any IV fluid. I have done some consultation on this patient. I was consulted to see the patient for care and evaluation. I have done that in the emergency room room #10. And patient is appropriate to go to medical floor for continued care. I have consulted Dr. Mondragon, the general surgeon for a damon endoscopy. Case discussed with the at the bedside and the patient who wants to be full code and they agreed that would like to have endoscopy EGD and colonoscopy and any then that damon endoscopy covers in the way of evaluation. This patient presentation is worrisome for underlining malignancy that need to be ruled out. If need be the right pleural effusion could be tapped at some point and sent for cytology. I have sent for hepatitis panel I have also ordered liver ultrasound to rule out for any hepatocellular mass or concerns for the liver. Patient is initiated on heparin drip and there should not be any hurry to place patient on oral anticoagulant until workup studies are completed in case patient need to have some form of biopsy during this journey of complete evaluation. When evaluation is completed and no other biopsy then patient can be placed on Eliquis for his PE Review of Systems Narrative: System review upon 10 organ system review were significant for weight loss and BMI of 18.5 significant for protein calorie malnutrition Medications/Allergies Home Medications ?Medication ?Instructions ?Recorded ?Confirmed ?Last Taken ?Type magnesium oxide 400 mg PO DAILY 08/15/20 07/06/25 03/16/25 History nitroglycerin 0.4 mg sublingual 0.4 mg sublingual Q5M PRN chest 12/11/21 07/06/25 12/28/21 05:30 Rx tablet (Nitrostat) pain #50 tabs multivitamin 1 tab PO DAILY #7 tabs 12/29/21 07/06/25 03/16/25 Rx triamcinolone acetonide 0.1 % 1 applic topical BID PRN eczema 08/07/22 07/06/25 11/13/22 Rx topical cream #80 grams Nebulizer machine and supplies #1 ea 10/29/24 07/06/25 Unknown Rx aspirin 81 mg tablet,delayed 81 mg PO DAILY #30 tabs 02/18/25 07/06/25 03/17/25 Rx release tamsulosin 0.4 mg capsule 0.8 mg PO QDAY 02/21/25 07/06/25 03/16/25 History metoprolol succinate 25 mg 12.5 mg (1/2 x 25 mg) PO DAILY #90 02/28/25 07/06/25 03/17/25 Rx tablet,extended release 24 hr tabs potassium chloride 10 mEq 10 meq PO BID 03/16/25 07/06/25 03/16/25 History capsule,extended release digoxin 125 mcg (0.125 mg) tablet See Rx Instructions .Route 04/07/25 07/06/25 Unknown Rx .COMPLEX #90 tabs clopidogrel 75 mg tablet 75 mg PO DAILY #90 tabs 04/15/25 07/06/25 Unknown Rx dapagliflozin propanediol 10 mg mg PO 04/21/25 07/06/25 Unknown History tablet (Farxiga) torsemide 20 mg tablet mg PO QDAY 04/21/25 07/06/25 Unknown History ezetimibe 10 mg-simvastatin 20 mg See Rx Instructions .Route 04/27/25 07/06/25 Unknown Rx tablet .COMPLEX #90 tabs azelastine 137 mcg (0.1 %) nasal 1 spray intranasal DAILY #30 mL 05/11/25 07/06/25 Unknown Rx spray mirtazapine 15 mg tablet See Rx Instructions .Route 06/14/25 07/06/25 Unknown Rx .COMPLEX #90 tabs finasteride 5 mg tablet 5 mg PO QDAY 07/06/25 07/06/25 Unknown History midodrine 5 mg tablet 5 mg PO TID 07/06/25 07/06/25 Unknown History ramipril 1.25 mg capsule 1.25 mg PO QDAY 07/06/25 07/06/25 Unknown History Allergies Allergy/AdvReac Type Severity Reaction Status Date / Time malignant hyperthermia Allergy Severe Unknown Uncoded 07/06/25 10:47 PFSH Acute PFSH: Medical History 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 follows with hematology. 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 History of nonmelanoma skin cancer Malignant hyperthermia susceptibility 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], 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 History of NC (myocardial infarction) 07/24/1999 in [place], [place] CAD (coronary artery disease) Cardiomyopathy Mitral regurgitation Neuropathy Surgical History H/O radiofrequency ablation (RFA) of nerve of lumbar spine History of laparoscopic cholecystectomy Hx of bilateral cataract extraction History of ankle surgery Left ankle ORIF 1994 ICD (implantable cardioverter-defibrillator) in place I had 3 different surgeries Family History Father , AT AGE 86 Stroke CAD (coronary artery disease) later in life Mother , AT AGE 90 Stroke Son Anesthesia complication Family/Other Anesthesia complication Lung disease Suicide Sister Cancer Grandmother Lung disease Denies family history of Diabetes Clotting disorder Dementia Chronic kidney disease (CKD) Bleeding disorder Hypertension Social History Smoking and tobacco/nicotine status: never used tobacco/nicotine Quit status (tobacco/nicotine): has quit using Former quit date comment: Smoked a pipe for 6 months 1960 Second hand smoke exposure: No Alcohol intake: former Former alcohol use details: scant history of use Substance/Drug Use: never Adopted: No Caregiver/support person: No Lives independently: Yes Household members: spouse Housing: House Marital status: Number of children: 5 service: No Current occupational status: retired Do you think of yourself as: Straight/Heterosexual Current gender identity: Male Vitals/I&O/Wt Last Vital Signs Temp 98.2 F 07/08/25 23:14 Pulse 60 07/09/25 02:15 Resp 30 H 07/09/25 00:35 BP 95/71 07/09/25 02:15 Pulse Ox 92 07/09/25 02:15 O2 Del Method Room Air 07/08/25 23:14 Weight last 48 hrs Weight 54.431 kg Physical Exam Narrative: Generally patient is lying down in bed very cachectic and having the do all the talking and data provision for he is not medical situation HEENT normocephalic atraumatic neck neck is supple cardiovascular heart rate is regular lungs are pretty much clear abdomen soft nontender nondistended unremarkable extremities are intact there are no edema has good pulses neurology has no focality patient is not confused pretty much alert awake oriented x 3 but very very emaciated. Data 07/08/25 00:04 07/09/25 03:05 Micro: Microbiology 07/08/25 00:09 Blood Culture - Preliminary Blood SPECIMEN COLLECTED 07/08/25 00:04 Blood Culture - Preliminary Blood SPECIMEN COLLECTED A&P Assessment and plan 1. Pulmonary embolism: 2. Pleural effusion: 3. Congestive heart failure: 4. Difficulty swallowing pills: 5. Elevated bilirubin: 6. Cachexia: 7. Protein calorie malnutrition: 8. Debility: Plan: #1 Acute pulmonary edema with pleural effusion and cannot rule out pneumonia and pulmonary infarct - Admit to general medical floor at this time - Heparin drip initiated for PE - I am initiating antibiotics with ceftriaxone and azithromycin for patchy infiltrates on the right side of the lung - Must continue to treat and optimize #2 Right-sided pulmonary input secondary to PE had been mentioned radiographically and cannot be ruled out at this time - Continue to optimize the treatment of PE with heparin drip at the moment - Hold off in transitioning to any Eliquis because workup is still going on for patient weight loss, abnormal liver function ruling out any underlying malignancy #3 Right sided patchy infiltrates in the lung significant for pneumonia - Antibiotics initiated - Nebulizing treatments on board - Patient with hypoxemia at presentation with pulse ox at 91% on room air #4 Abnormal liver enzymes with elevated bilirubin and alk phos due to mild - Follow-up ordered ultrasound of the liver, the most sensitive to to evaluate for any liver mass, hepatocellular - Follow-up hepatitis panel especially for hep B and hep C #5 Dysphagia - I have consulted Dr. Khan for damon endoscopy on this patient - I have also consulted speech for swallow eval such as modified barium swallow #6 Cachexia with severe protein calorie malnutrition -Nutrition to help with patient eating and eating is handicapped by dysphagia #7 Debility - PT OT #8 GI and DVT prophylaxis in place PDMP PDMP Reviewed: Last Reviewed 07/09/25 06:45 by Manan Lang MD Attestations Medical Necessity Statement*: Patient with multiple acute medical problem requiring evaluation and treatment and will need at least 2 midnights for evaluation and care. Coding Level of Care Code Acute Code for Chg Fwd Diagnoses Pulmonary embolism I26.99 Pleural effusion J90 Congestive heart failure I50.9 Difficulty swallowing pills R13.10 Elevated bilirubin R17 Cachexia R64 Protein calorie malnutrition E46 Debility R53.81 Time Spent (min) 70
[2025-07-09 03:43] LABS: Hepatitis A Antibody IgM Non-Reactive (Nonreactive); Hepatitis B Surface Antigen Non-Reactive (Nonreactive)
[2025-07-09 04:11] LABS: Hepatitis A Antibody IgM Non-Reactive (Nonreactive)
[2025-07-09 04:29] LABS: Lactic Acid level (Lactate) 1.9 mmol/L (0.5-2.2)
[2025-07-09 04:30] LABS: Alanine Aminotransferase 28 U/L (0-41); Albumin Level 3.4 g/dL (3.5-5.2); Alkaline Phosphatase 118 U/L (40-130); Anion Gap 14.3 (5-19); Aspartate Amino Transferase 34 U/L (0-40); Blood Urea Nitrogen 29 mg/dL (8-23); Calcium 8.6 mg/dL (8.5-10.5); Carbon Dioxide 27 mmol/L (22-29); Chloride 91 mmol/L (98-107); Creatinine Clr Calc Pharmacy 56.6879; Globulin 2.2 g/dL (1.3-4.6); Glucose 122 mg/dL (65-115); Osmolality Calculated 273 mOsm/kg (285-295); Potassium 4.3 mmol/L (3.5-5.1); Sodium 128 mmol/L (136-145); Total Protein 5.6 g/dL (6.6-8.7)
--- NOTE | 2025-07-09 06:11 | ECG_ITS ---
[facility] Test Date: 2025-07-09 Pat Name: Ruslan King Department: Room: 279 Gender: Male Price Analyst: : 1940 Requested By: Duane Baker Order Number: [id number] Miguel MD: CHERELLE SMITH Measurements Intervals [place] Rate: 59 P: 200 OR: 169 QRS: -60 QRSD: 213 T: -60 QT: 495 QTc: 494 Interpretive Statements ELECTRONIC ATRIAL PACEMAKER ELECTRONIC VENTRICULAR PACEMAKER MARKED ST DEPRESSION, CONSIDER SUBENDOCARDIAL INJURY [0.2+ mV ST DEPRESSION] ACUTE [place] Compared to ECG 07/09/2025 00:02:09 ST (T wave) deviation now present Electronically Signed On 07-09-2025 21:20:37 CDT by CHERELLE SMITH [email or web address]
[2025-07-09 06:45] LABS: Troponin 5 6HR 72.96 ng/L (0-15)
[2025-07-09 06:48] LABS: Troponin 5 6HR Delta -2.96 ng/L (0-12)
[2025-07-09 08:25] LABS: Glucose Urine UA 3+ (Normal); Nitrate Urine Negative (Negative)
[2025-07-09 08:30] LABS: Add Urine Microscopic? YES
[2025-07-09 08:32] LABS: Specific Gravity, Urine 1.041 (1.005-1.030)
--- NOTE | 2025-07-09 08:54 | PC.OT ---
OT evaluation attempted this AM though patient reports being exhausted after a difficult night trying to sleep and pleasantly declines therapies this AM. Khari Romero, OTR/L
[2025-07-09 09:04] LABS: INR 1.00 (0.8-1.2); Prothrombin Time 13.90 SECONDS (12.1-14.9)
[2025-07-09 09:13] LABS: Partial Thromboplastin Time 75.1 SECONDS (23.9-36.7)
--- NOTE | 2025-07-09 09:55 | PM.CONSULT ---
Providers/Reason For Consult Consulting Physician/Specialty*: General Surgery Reason for Consult*: Dysphagia Attending Physician: Justino Schneider MD Primary Care Provider: Chip Jaquez History of Present Illness History of Present Illness Ruslan King is a 85 year old male With multiple comorbidities who is admitted to the hospital with a right lung PE and right pleural effusion. Incidentally patient has reported that he has dysphagia that has been working as outpatient and significant weight loss. According to the patient he has difficulty swallowing his pills he feels like the swallowing movement at the level of the neck is impaired and he has resorted to change his diet to mostly liquid diet. According to the patient the food does not taste okay anymore and he does not really feel the need or change to eat solid food. Review of Systems General: Reports: 10 or more systems reviewed and unremarkable except in HPI and below Medications/Allergies Home Medications ?Medication ?Instructions ?Recorded ?Confirmed ?Last Taken ?Type magnesium oxide 400 mg PO DAILY 08/15/20 07/06/25 03/16/25 History nitroglycerin 0.4 mg sublingual 0.4 mg sublingual Q5M PRN chest 12/11/21 07/06/25 12/28/21 05:30 Rx tablet (Nitrostat) pain #50 tabs multivitamin 1 tab PO DAILY #7 tabs 12/29/21 07/06/25 03/16/25 Rx triamcinolone acetonide 0.1 % 1 applic topical BID PRN eczema 08/07/22 07/06/25 11/13/22 Rx topical cream #80 grams Nebulizer machine and supplies #1 ea 10/29/24 07/06/25 Unknown Rx aspirin 81 mg tablet,delayed 81 mg PO DAILY #30 tabs 02/18/25 07/06/25 03/17/25 Rx release tamsulosin 0.4 mg capsule 0.8 mg PO QDAY 02/21/25 07/06/25 03/16/25 History potassium chloride 10 mEq 10 meq PO BID 03/16/25 07/06/25 03/16/25 History capsule,extended release clopidogrel 75 mg tablet 75 mg PO DAILY #90 tabs 04/15/25 07/06/25 Unknown Rx dapagliflozin propanediol 10 mg mg PO 04/21/25 07/06/25 Unknown History tablet (Farxiga) torsemide 20 mg tablet mg PO QDAY 04/21/25 07/06/25 Unknown History azelastine 137 mcg (0.1 %) nasal 1 spray intranasal DAILY #30 mL 05/11/25 07/06/25 Unknown Rx spray finasteride 5 mg tablet 5 mg PO QDAY 07/06/25 07/06/25 Unknown History midodrine 5 mg tablet 5 mg PO TID 07/06/25 07/06/25 Unknown History ramipril 1.25 mg capsule 1.25 mg PO QDAY 07/06/25 07/06/25 Unknown History digoxin 125 mcg (0.125 mg) tablet 0.125 mg PO DAILY 07/09/25 07/09/25 Unknown History ezetimibe 10 mg-simvastatin 20 mg 1 tab PO DAILY 07/09/25 07/09/25 Unknown History tablet furosemide 40 mg tablet 40 mg PO DAILY 07/09/25 07/09/25 Unknown History metoprolol succinate 25 mg 12.5 mg PO DAILY 07/09/25 07/09/25 Unknown History tablet,extended release 24 hr mirtazapine 15 mg tablet 15 mg PO DAILY 07/09/25 07/09/25 Unknown History sacubitril 24 mg-valsartan 26 mg 1 tab PO BID 07/09/25 07/09/25 Unknown History tablet (Entresto) Allergies Allergy/AdvReac Type Severity Reaction Status Date / Time malignant hyperthermia Allergy Severe Unknown Uncoded 07/06/25 10:47 Current Medications Generic Name Dose Route Start Last Admin Trade Name Freq PRN Reason Stop Dose Admin Heparin Sodium/Sodium Chloride 25,000 unit in 500 mls @ 0 mls/hr 07/09/25 02:00 07/09/25 09:42 Heparin Drip IV 12.86 unit/kg/hr CONT KALIN 14 mls/hr Protocol Titration Per Protocol Pantoprazole Sodium 40 mg 07/09/25 05:00 07/09/25 04:[address] 40 Mg Tablet PO 40 mg DAILY KALIN Administration PFSH Acute PFSH: Medical History (Updated 07/09/25 @ 10:01 by Gabriel Khan MD) 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 follows with hematology. 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 History of CA (myocardial infarction) 07/24/1999 in [place], [place] CAD (coronary artery disease) Cardiomyopathy Mitral regurgitation Neuropathy Surgical History H/O radiofrequency ablation (RFA) of nerve of lumbar spine History of laparoscopic cholecystectomy Hx of bilateral cataract extraction History of ankle surgery Left ankle ORIF 1994 ICD (implantable cardioverter-defibrillator) in place I had 3 different surgeries Family History Father , AT AGE 86 Stroke CAD (coronary artery disease) later in life Mother , AT AGE 90 Stroke Son Anesthesia complication Family/Other Anesthesia complication Lung disease Suicide Sister Cancer Grandmother Lung disease Denies family history of Diabetes Clotting disorder Dementia Chronic kidney disease (CKD) Bleeding disorder Hypertension Social History Smoking and tobacco/nicotine status: never used tobacco/nicotine Quit status (tobacco/nicotine): has quit using Former quit date comment: Smoked a pipe for 6 months 1960 Second hand smoke exposure: No Alcohol intake: former Former alcohol use details: scant history of use Substance/Drug Use: never Adopted: No Caregiver/support person: No Lives independently: Yes Household members: spouse Housing: House Marital status: Number of children: 5 service: No Current occupational status: retired Do you think of yourself as: Straight/Heterosexual Current gender identity: Male Vitals/I&O/Wt Last Vital Signs Temp 98.0 F 07/09/25 07:25 Pulse 63 07/09/25 07:25 Resp 15 07/09/25 07:25 BP 90/59 07/09/25 07:25 Pulse Ox 94 07/09/25 07:25 O2 Del Method Room Air 07/09/25 07:25 07/08/25 07/09/25 07/09/25 22:59 06:59 14:59 Intake Total 500 / 500 112.75 / 112.75 Balance 500 / 500 112.75 / 112.75 Weight last 48 hrs Weight 121 lb 14.4 oz Weight 129 lb Weight 120 lb Physical Exam Narrative: Physical examination is unremarkable. The abdomen soft nontender nondistended. Neck examination shows no superficial abnormalities. Data 07/08/25 00:04 07/09/25 03:05 Micro: Microbiology 07/08/25 00:09 Blood Culture - Preliminary Blood SPECIMEN COLLECTED 07/08/25 00:04 Blood Culture - Preliminary Blood SPECIMEN COLLECTED A&P Assessment and plan 1. Oropharyngeal dysphagia: 2. Pulmonary embolism: 3. Elevated bilirubin: Plan: This is a 85-year-old male who was admitted to the hospital with a right PE and right pleural effusion. I was consulted for dysphagia. Per my discussion with the patient this appears most likely to be an oropharyngeal dysphagia as the symptoms of the patient are up in the neck and not really in the chest or upper abdomen, additional workup will be needed. He will benefit from getting a modified barium swallow to evaluate the cause of dysphagia. If the modified barium swallow verifies an esophageal pathology then we may need to proceed with endoscopy. I do agree that the patient will benefit from an upper endoscopy at some point but unfortunately at the moment he is not a good candidate for an invasive procedure due to his active pulmonary embolus and large pleural effusion, in addition to that per chart review the patient is on aspirin and Plavix Which will need to be held for us to be able to do any kind of intervention in the upper GI tract, he is also receiving active anticoagulation with heparin. At this point His PE treatment takes precedence over the management of dysphagia, which can be done in an outpatient setting. In addition to that imaging has been reviewed there is no evidence of any suspicious lesions in the esophagus or stomach or GI tract including the colon nothing that would indicate malignancy or a mass that needs immediate evaluation. I would recommend that the patient is on a GI soft diet as tolerated. If we are able to obtain a modified barium swallow in the next 24 to 48 hours I will provide an update as soon as we have the results. Of note, due to the size of the pleural effusion as well as the patient PE he might benefit from pulmonary evaluation I will leave this to consideration for the primary team. PDMP PDMP Reviewed: Not Reviewed Coding Level of Care Code 72858 Diagnoses Oropharyngeal dysphagia R13.12 Pulmonary embolism I26.99 Elevated bilirubin R17
--- NOTE | 2025-07-09 10:01 | PC.PHAR ---
Unknown if pt took his medications yesterday. Verified med list with [facility] and [facility] mail order pharmacy. Last fill dates and day supply added in pharmacy notes.
[2025-07-09] MEDS: cefTRIAXone 1,000 mg SDV 1000 MG IVP (11:51)
[2025-07-09 16:41] LABS: Partial Thromboplastin Time 142.7 SECONDS (23.9-36.7)
[2025-07-09 22:44] LABS: Partial Thromboplastin Time 88.3 SECONDS (23.9-36.7)
[2025-07-10] VITALS (7 sets, daily range): BP systolic 103–109; BP diastolic 51–62; PULSE 58–73; RESP 16–18; TEMP 36.4–36.8; O2SAT 92–95
[2025-07-10] MEDS: heparin drip 25,000 UNIT/500 ML PREMIX 9 UNIT IV (01:46)
[2025-07-10] MEDS: metoprolol succinate ER (24 HR) 25 mg Tablet 12.5 MG PO (04:40)
[2025-07-10] MEDS: DAPAGLIFLOZIN 10 MG TABLET PO (04:40)
[2025-07-10] MEDS: multivitamin therapeutic Tablet 1 TAB PO (04:40)
[2025-07-10 05:08] LABS: Hematocrit 39.3 % (37-53); Hemoglobin 12.70 g/dL (11.27-16.99); Mean Corpuscular HGB Conc 32.3 g/dL (30-55); Mean Corpuscular Hemoglobin 30.9 pg (27-33); Mean Corpuscular Volume 95.6 fl (82-101); Nucleated Red Blood Cells % 0 %; Platelet Count 147 10^3/cmm (157-399); Red Blood Count 4.11 10^6/uL (3.85-5.65); White Blood Count 7.17 10^3/uL (3.29-11.43)
[2025-07-10 05:25] LABS: Partial Thromboplastin Time 53.6 SECONDS (23.9-36.7)
[2025-07-10 05:33] LABS: Magnesium 2.3 mg/dL (1.7-2.3)
[2025-07-10] MEDS: heparin 5,000 unit/mL INJ 1 mL IVP (05:37)
[2025-07-10] MEDS: cefTRIAXone 1,000 mg SDV 1000 MG IVP (08:32)
--- NOTE | 2025-07-10 08:54 | USCV_ITS ---
Ruslan King Age: 85 Gender: M : 1940 Exam Date: 07/10/2025 09:59 Ordering Phys: Justino Schneider MD Technologist: Julius Hdez Exam Location: [facility] [place] Indication: just limited to left atrial enlargement BP: 109 / 56 HR: Rhythm: Other Technical Quality: Adequate MEASUREMENTS (Male / Female) Normal Values 2D ECHO LV Diastolic Diameter PLAX 7.3 cm 4.2 - 5.9 / 3.9 - 5.3 cm IVS Diastolic Thickness 1.0 cm 0.6 - 1.0 / 0.6 - 0.9 cm IVS Systolic Thickness 1.0 cm LVPW Diastolic Thickness 0.7 cm 0.6 - 1.0 / 0.6 - 0.9 cm LVPW Systolic Thickness 0.9 cm LVOT Diameter 2.1 cm LV Ejection Fraction 2D Teich 24.4 % LV Ejection Fraction MOD 4C 24.2 % LV Ejection Fraction MOD 2C 26.8 % LV Ejection Fraction 2C AL 24.9 % LA Diameter 5.4 cm RA Systolic Volume 4C AL 98.7 ml RA Systolic Volume 4C MOD 100.9 ml LA Sys Volume AL 107.6 cm cubed LA Sys Volume Index AL 66.8 cm cubed/m squared Aorta at Sinotubular Diameter 3.0 cm IVC Diameter 1.8 cm M-MODE LA Ao Ratio MM 1.4 AV Cusp Separation MM 2.1 cm FINDINGS Left Ventricle Severely increased left ventricular cavity size. Severely decreased left ventricular systolic function with global hypokinesis, EF 24%. Right Ventricle Normal right ventricular cavity size. Moderately reduced right ventricular systolic function. Right Atrium Left Atrium Severe left atrial enlargement. IA Septum Mitral Valve Aortic Valve Tricuspid Valve Pulmonic Valve Pericardium Aorta IVC CONCLUSIONS 1. Severely increased left ventricular cavity size. Severely decreased left ventricular systolic function with global hypokinesis, EF 24%. 2. Normal right ventricular cavity size. Moderately reduced right ventricular systolic function. 3. Severe left atrial enlargement with a left atrial end- systolic volume index of 65 mL/m squared. Jordan Cisneros MD, FACC (Electronically Signed) Final Date: 10 July 2025 13:54 S
[2025-07-10 12:00] LABS: Partial Thromboplastin Time 62.6 SECONDS (23.9-36.7)
--- NOTE | 2025-07-10 15:06 | PM.PN ---
Subjective Subjective: Patient was seen in the morning, still feels weak and unable to swallow adequately Of note the patient is having dysphagia since 2 to 3 months and is having weight loss secondary to dysphagia which is both liquids and solids and feels like stuck in appearance in his upper chest Vitals/I&O/Wt Last Vital Signs Temp 98.0 F 07/10/25 11:50 Pulse 65 07/10/25 11:50 Resp 16 07/10/25 11:50 BP 104/53 07/10/25 11:50 Pulse Ox 94 07/10/25 11:50 O2 Del Method Room Air 07/10/25 11:50 07/10/25 07/10/25 07/10/25 05:59 14:59 22:59 Intake Total 789.90 / 1438.967 913.833 / 913.833 Balance 789.90 / 1438.967 913.833 / 913.833 Weight last 48 hrs Weight 54.885 kg Weight 55.293 kg Weight 58.513 kg Weight 54.431 kg Physical Exam Narrative: General: Alert and oriented, lying comfortably without any distress, looks malnourished and mild cachectic. HEENT: Normocephalic, atraumatic, grossly unremarkable exam Cardio: normal rate rhythm, normal S1-S2 without any murmurs, rubs, or gallops and JVD normal Respiratory: normal vascular breathing on auscultation without any wheezes, stridor, rhonchi GI: Abdomen soft, nontender, nondistended, normoactive bowel sounds present all 4 quadrants, Neuro: intact cranial nerves motor and sensory and cerebellar/coordination function without any focal neurological deficit Behavior: Appropriate and cooperative Extremities: Adequate palpable pulses, mild trace edema Data 07/10/25 04:59 07/09/25 03:05 Micro: Microbiology 07/08/25 00:09 Blood Culture - Preliminary Blood NEGATIVE TO DATE 07/08/25 00:04 Blood Culture - Preliminary Blood NEGATIVE TO DATE A&P Assessment and plan 1. Oropharyngeal dysphagia: Patient presented with oropharyngeal dysphagia with weakness and tiredness CT scan of the chest abdomen and pelvis was done and did not show any mass however showed pulmonary embolism Started on heparin infusion, in the light of requiring any intervention or procedure as inpatient. Later on can be switched to oral anticoagulants The patient oropharyngeal dysphagia can also be related to his enlarged left atrium since the patient has severe heart failure with reduced ejection fraction of 16% and anatomical enlargement of the left atrium can compress on the esophagus leading to dysphagia which was evident on recent echo limited to evaluate the size of left atrium. Surgery on board for endoscopy, however due to compression and pulmonary embolism, to proceed initially with modified barium swallow as per surgeons recommendation. And if patient is for endoscopy then to consider evaluating for any pulsatile compression from outside of esophagus which could relate to left atrium compression, To discuss with radiology on Friday to review the CAT scan images of CT chest and comment upon esophageal compression by any external anatomical lesion versus enlarged heart/left atrium. 2. Pulmonary embolism: Patient came with dysphagia, suspecting mass by the admitting physician, CT scan of the chest abdomen and pelvis was done and showed pulmonary embolism and right-sided pleural effusion that can also happen with pulmonary embolism. Given the benefit of doubt, to continue azithromycin and ceftriaxone to cover any pneumonia for 3 to 5 days and to discontinue if no evidence of infection. Patient started on heparin infusion as per protocol since patient may require some intervention as inpatient therefore kept on heparin infusion for anticoagulation. Later on to switch to oral anticoagulants based on patient kidney parameters if no intervention or procedure is being done for the patient. 3. Ischemic cardiomyopathy with implantable cardioverter-defibrillator (ICD): Patient has history of heart failure with reduced ejection fraction, Patient home medication reconciled, Continue on aspirin, atorvastatin and clopidogrel Continue digoxin 125 mcg daily Continue on metoprolol 12.5 mg daily Continue on Entresto 24-26 mg twice daily (patient was on ramipril 1.25 mg capsule I have discontinued since the patient is already on Entresto) Lasix 20 mg orally daily Continue on midodrine 5 mg 3 times daily support the blood pressure Patient is also on dapagliflozin 10 mg,, to hold it since the patient blood pressure is a little low Can consider continuation of dapagliflozin if the MAP is above 65 and the blood pressure is stable enough. If the blood pressure is soft or renal parameters are affected, can consider holding metoprolol and Entresto respectively. 4. Elevated bilirubin: That could be related to his heart failure liver ultrasound was unremarkable. Stable bilirubin without any liver enzymes elevation Acute hepatitis workup unremarkable 5. Cachexia: Consult dietitian and to follow the plan 6. Protein calorie malnutrition: As mentioned above 7. Debility: OT PT evaluation Plan: Diet: Mechanical soft diet, n.p.o. after midnight for possible barium swallow tomorrow PDMP PDMP Reviewed: Not Reviewed Attestations Medical Necessity Statement*: Will stay more than 2 midnights for his management of oropharyngeal dysphagia and cachexia Time Spent in Patient Care: 16 - 35 minutes (>than 50% of time spent in counselling and/or direct pt care on unit). Other Attestations: Patient condition has been discussed at length with the patient/family, I have independently reviewed the chart labs imaging/diagnostics/EKG. the goals of care and code status with the patient/family/NOK/legal claims service representative, and documented accordingly. The management has been done according to the current clinical condition with respect to patient goals of care and based on recommendations/guidelines. The patient/family has been informed about the current condition and further plan of care. Agreed with the plan of care and understood without any language barrier. Every effort was made to ensure accuracy of battery container tester. Any obvious errors or omissions should be clarified with the author of the document. Coding Level of Care Code 94053 Diagnoses Oropharyngeal dysphagia R13.12 Pulmonary embolism I26.99 Ischemic cardiomyopathy with implantable cardioverter-defibrillator (ICD) I25.5; Z95.810 Elevated bilirubin R17 Cachexia R64 Protein calorie malnutrition E46 Debility R53.81
[2025-07-10 17:49] LABS: Partial Thromboplastin Time 59.5 SECONDS (23.9-36.7)
[2025-07-11] VITALS (7 sets, daily range): BP systolic 88–107; BP diastolic 47–61; PULSE 58–83; RESP 14–18; TEMP 36.4–36.8; O2SAT 92–98
[2025-07-11 01:11] LABS: Hematocrit 40.0 % (37-53); Hemoglobin 13.30 g/dL (11.27-16.99); Mean Corpuscular HGB Conc 33.3 g/dL (30-55); Mean Corpuscular Hemoglobin 31.6 pg (27-33); Mean Corpuscular Volume 95.0 fl (82-101); Nucleated Red Blood Cells % 0 %; Platelet Count 185 10^3/cmm (157-399); Red Blood Count 4.21 10^6/uL (3.85-5.65); White Blood Count 7.63 10^3/uL (3.29-11.43)
[2025-07-11 01:22] LABS: Partial Thromboplastin Time 51.6 SECONDS (23.9-36.7)
[2025-07-11 01:26] LABS: Alanine Aminotransferase 24 U/L (0-41); Albumin Level 3.2 g/dL (3.5-5.2); Alkaline Phosphatase 92 U/L (40-130); Anion Gap 15.6 (5-19); Aspartate Amino Transferase 28 U/L (0-40); Blood Urea Nitrogen 18 mg/dL (8-23); Calcium 8.2 mg/dL (8.5-10.5); Carbon Dioxide 25 mmol/L (22-29); Chloride 98 mmol/L (98-107); Creatinine Clr Calc Pharmacy 54.3133; Globulin 2.1 g/dL (1.3-4.6); Glucose 75 mg/dL (65-115); Osmolality Calculated 281 mOsm/kg (285-295); Potassium 3.6 mmol/L (3.5-5.1); Sodium 135 mmol/L (136-145); Total Protein 5.3 g/dL (6.6-8.7)
[2025-07-11] MEDS: heparin 5,000 unit/mL INJ 1 mL IVP ×2 (01:45→08:59)
--- NOTE | 2025-07-11 04:51 | PC.NURSE ---
Nurse notified that pt's BP was 89/53 with automatic cuff, aid took manual to confirm and got 88/50. Dr. Salinas notified, no action at this time due to MAP being 62
[2025-07-11] MEDS: multivitamin therapeutic Tablet 1 TAB PO (05:10)
[2025-07-11] MEDS: DAPAGLIFLOZIN 10 MG TABLET PO (05:12)
--- NOTE | 2025-07-11 06:22 | PC.NURSE ---
Due to pt's vitals, called Dr. Salinas about pt medications: digoxin, mary, and metoprolol. After reviewing his case doctor ordered to hold the digoxin and metoprolol, give mray and order digoxin level
[2025-07-11 08:04] LABS: Digoxin 1.0 ng/mL (0.6-1.2)
[2025-07-11] MEDS: cefTRIAXone 1,000 mg SDV 1000 MG IVP (08:15)
[2025-07-11 08:42] LABS: Partial Thromboplastin Time 50.9 SECONDS (23.9-36.7)
--- NOTE | 2025-07-11 09:26 | PC.CHAP ---
Pastoral Care Encounter/Spiritual Assessment Type of Contact [] Declined nuclear control room operator visit [] Patient/Family/Request visit [] Outpatient visit [] Follow-up visit [] Physician referral [] Code/Alert [x] Routine visit [] Staff referral [] Actively dying [] Patient sleeping [] Family support [] [] Out of room [] Palliative care [] [] Receiving care in room [] Pre-surgical visit [] Trauma [] Long length of stay [] ICU visit [] Other: Relational/Emotional Strength [] Patient feels connected with others/family/visitors/staff [] Distress [] Loneliness/isolation [] Abandonment Spirituality of Patient [x] Person of [place] [] Attends [employer]aritan of their [place] [x] Believes in Prayer [] Reads Bible or Quaker materials [] There are Spiritual issues to be addressed Procurement Specialist Interventions [x] Prayer [x] Active listening [] Non-anxious presence [] Spiritual/emotional support [] Crisis/trauma care [] Spiritual counseling [] Bereavement support [] Provided bereavement packet [x] Provided Bible/devotional materials [] Provided toy/stuffed animal, coloring book to patient or family member [] Provided Communion [] Anointing/[place] [] Salvation [x] Completed spiritual assessment [] Other: Impact on Illness or Injury [] Angry [] Fearful [] Anxious [] Often cries [] Exhaustion [] Unable to work [] Unable to attend evangelical [] Unable to walk/stand [] Unable to read [] Unable to drive [] Unable to eat/drink [] Unable to sleep [] Unable to be with family [] Patient intubated [] Other: Summary Time spent with patient 5 min
--- NOTE | 2025-07-11 10:42 | P.PN_ITS ---
Subjective 2 Subjective: No new complaints today. Awaiting modified barium swallow. Medications: Reviewed: Yes Vitals/I&O/Wt Last Vital Signs Temp 97.8 F 07/11/25 11:08 Pulse 64 07/11/25 11:08 Resp 16 07/11/25 11:08 BP 96/58 07/11/25 11:08 Pulse Ox 92 07/11/25 11:08 O2 Del Method Room Air 07/11/25 11:08 07/11/25 07/11/25 07/11/25 06:59 14:59 22:59 Intake Total 77.833 / 1309.833 329.75 / 329.75 77.8 / 407.55 Balance 77.833 / 1309.833 329.75 / 329.75 77.8 / 407.55 Weight last 48 hrs Weight 54.749 kg Weight 54.885 kg Physical Exam 2 Narrative: General: No acute distress, AO x3 HEENT: PERRLA, pupils bilaterally equal and reactive, pallors not present Chest: Normal vesicular breath sounds, no added sounds, equal good air entry bilaterally CVS: S1-S2 regular, no murmurs, no tachycardia, no gallops, no rubs Abdomen: Soft, nontender, no organomegaly, bowel sounds present Neuro: No focal deficits, no facial deformity, AO x3, power 5/5 in all limbs Data 07/11/25 00:48 07/11/25 00:48 A&P Assessment and plan 1. Oropharyngeal dysphagia: Patient presented with oropharyngeal dysphagia with weakness and tiredness CT scan of the chest abdomen and pelvis was done and did not show any mass however showed pulmonary embolism Started on heparin infusion, in the light of requiring any intervention or procedure as inpatient. Later on can be switched to oral anticoagulants The patient oropharyngeal dysphagia can also be related to his enlarged left atrium since the patient has severe heart failure with reduced ejection fraction of 16% and anatomical enlargement of the left atrium can compress on the esophagus leading to dysphagia which was evident on recent echo limited to evaluate the size of left atrium. Surgery on board for endoscopy, however due to compression and pulmonary embolism, to proceed initially with modified barium swallow as per surgeons recommendation. And if patient is for endoscopy then to consider evaluating for any pulsatile compression from outside of esophagus which could relate to left atrium compression, To discuss with radiology on Friday to review the CAT scan images of CT chest and comment upon esophageal compression by any external anatomical lesion versus enlarged heart/left atrium. 2. Pulmonary embolism: Patient came with dysphagia, suspecting mass by the admitting physician, CT scan of the chest abdomen and pelvis was done and showed pulmonary embolism and right-sided pleural effusion that can also happen with pulmonary embolism. Given the benefit of doubt, to continue azithromycin and ceftriaxone to cover any pneumonia for 3 to 5 days and to discontinue if no evidence of infection. Patient started on heparin infusion as per protocol since patient may require some intervention as inpatient therefore kept on heparin infusion for anticoagulation. Later on to switch to oral anticoagulants based on patient kidney parameters if no intervention or procedure is being done for the patient. 3. Ischemic cardiomyopathy with implantable cardioverter-defibrillator (ICD): Patient has history of heart failure with reduced ejection fraction, Patient home medication reconciled, Continue on aspirin, atorvastatin and clopidogrel Continue digoxin 125 mcg daily Continue on metoprolol 12.5 mg daily Continue on Entresto 24-26 mg twice daily (patient was on ramipril 1.25 mg capsule I have discontinued since the patient is already on Entresto) Lasix 20 mg orally daily Continue on midodrine 5 mg 3 times daily support the blood pressure Patient is also on dapagliflozin 10 mg,, to hold it since the patient blood pressure is a little low Can consider continuation of dapagliflozin if the MAP is above 65 and the blood pressure is stable enough. If the blood pressure is soft or renal parameters are affected, can consider holding metoprolol and Entresto respectively. 4. Elevated bilirubin: That could be related to his heart failure liver ultrasound was unremarkable. Stable bilirubin without any liver enzymes elevation Acute hepatitis workup unremarkable 5. Cachexia: Consult dietitian and to follow the plan 6. Protein calorie malnutrition: As mentioned above 7. Debility: OT PT evaluation Plan: Diet: Mechanical soft diet, n.p.o. after midnight for possible barium swallow tomorrow 07/11/2025 Chart reviewed. 85-year-old male with a past medical history of coronary artery disease, known ischemic cardiomyopathy with an ejection fraction of 24%, grade 3 diastolic dysfunction, history of coronary artery disease with history of last stents being placed in February 2025, AICD in place, admitted to the hospital on 07/09/2025 with dysphagia, 20 pound weight loss over the last 2 months, feeling dizzy at home. Evaluation in the ER showed a right sided PE, an area of possible lung infarct versus pneumonia. He has been on a heparin drip for PE. He has been continued on aspirin and Plavix due to his recent stents in February of this year. General surgery was consulted who recommended doing a modified barium swallow to assess for the dysphagia which is due today. There has been concern for potential external esophageal compression related to dilated LA. A swallow study today would be able to establish this further. Will discuss results of CT chest and swallow study with radiology once both tests are available. With regards to PE, continuing heparin drip for now as he may need endoscopic evaluation as the next step. PDMP PDMP Reviewed: Not Reviewed Attestations 2 Medical Necessity Statement*: Pending barium swallow today. Coding Level of Care Code Acute Code for Chg Fwd Diagnoses Oropharyngeal dysphagia R13.12 Pulmonary embolism I26.99 Ischemic cardiomyopathy with implantable cardioverter-defibrillator (ICD) I25.5; Z95.810 Elevated bilirubin R17 Cachexia R64 Protein calorie malnutrition E46 Debility R53.81
--- NOTE | 2025-07-11 14:00 | FL_ITS ---
WS: [id number] Modified barium swallow, 07/11/2025 Clinical Data: Oropharyngeal dysphagia Comparison: None. Fluoroscopy time: 2min [id number] # of spot films: Findings: The patient showed premature oral spillage to the vallecula which cleared with multiple swallows. There was trace penetration with thin liquids but no aspiration. There is minimal pharyngeal residue which also cleared with swallowing. There is posterior indentation on the hypopharynx from osteoarthriti s C3-C5. The barium tablet was propelled normally from the oropharynx through the hypopharynx and the esophagus and finally the stomach. FL/FL barium swallow modifd [id number] Impression: 1. Minimal penetration with liquids but no aspiration. 2. Minimal pharyngeal residue which cleared with multiple swallows. 3. 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
[2025-07-11 15:13] LABS: Partial Thromboplastin Time 59.8 SECONDS (23.9-36.7)
--- NOTE | 2025-07-11 15:37 | PC.SOCIAL ---
IMM updated IMM dated and initialed, Copy given to patient and copy put in chart.
--- NOTE | 2025-07-11 20:31 | PC.NURSE ---
pt stated he is going home tomorrow regardless. stated that they better have a plan to tell me or I am out of here. I am tired of their games
[2025-07-11 21:53] LABS: Partial Thromboplastin Time 60.3 SECONDS (23.9-36.7)
[2025-07-11] MEDS: heparin drip 25,000 UNIT/500 ML PREMIX 12 UNIT IV (23:52)
[2025-07-12] VITALS (7 sets, daily range): BP systolic 94–111; BP diastolic 58–70; PULSE 60–67; RESP 16–20; TEMP 36.4–36.7; O2SAT 94–98
[2025-07-12 03:51] LABS: Partial Thromboplastin Time 83.8 SECONDS (23.9-36.7)
[2025-07-12] MEDS: DAPAGLIFLOZIN 10 MG TABLET PO (05:16)
[2025-07-12] MEDS: metoprolol succinate ER (24 HR) 25 mg Tablet 12.5 MG PO (05:19)
[2025-07-12] MEDS: multivitamin therapeutic Tablet 1 TAB PO (05:20)
[2025-07-12] MEDS: cefTRIAXone 1,000 mg SDV 1000 MG IVP (09:09)
--- NOTE | 2025-07-12 10:16 | PC.NURSE ---
Dr. Buitrago in patients room and verbally ordered the Hep gtt to be stopped. Patient is to be discharged. Also stated not to give Azithromycin.
--- NOTE | 2025-07-12 12:12 | PC.NURSE ---
Discussed discharge with patient and spouse. Discussed changed medications, new medications and continued medications. Discussed follow up appointments as well. Patient and spouse verbalized understanding to all.
--- NOTE | 2025-07-12 15:17 | PM.DCS ---
Discharge Providers Date of Admission: 07/09/25 02:34 Date of Discharge: July 12, 2025 Attending Provider at Admission: Lauar Lang MD Attending Provider at Discharge: Remedios Buitrago MD Primary Care Provider: Chip Jaquez Diagnoses at Discharge Discharge Diagnosis 1. Oropharyngeal dysphagia: 2. Pulmonary embolism: 3. Ischemic cardiomyopathy with implantable cardioverter-defibrillator (ICD): 4. Elevated bilirubin: 5. Cachexia: 6. Protein calorie malnutrition: 7. Debility: Reason for Visit Reason for Visit: weakness, dizziness, dysphagia 20 pound weight los Brief History: 85-year-old male with a past medical history of coronary artery disease, known ischemic cardiomyopathy with an ejection fraction of 24%, grade 3 diastolic dysfunction, history of coronary artery disease with history of last stents being placed in February 2025, AICD in place, admitted to the hospital on 07/09/2025 with dysphagia, 20 pound weight loss over the last 2 months, feeling dizzy at home. Evaluation in the ER showed a right sided PE, an area of possible lung infarct versus pneumonia. He has been on a heparin drip for PE. This was transitioned to Eliquis 10mg bid x 7 days, 5mg BID x 3 months. He has been on aspirin and Plavix due to his recent stents in February of this year. This was changed to Plavix 75mg + eliquis 5 mg BID at discharge. ASA was discontinued. General surgery was consulted for dysphgia who recommended doing a modified barium swallow. Study showed minimal penetration with liquids but no aspiration. Posterior indentation on hypopharynx from c3-c5 osteophytes. Enlarged heart impressed upon the esophagus. Further evaluation will be needed to evaluate for extent of external compression and whether this may be an explanation for dysphagia. At this time he was not considered a good surgical candidate given his active PE and heart failure. Esophageal dysmotility not excluded in the differential. Patient needs outpatient GI evaluation for the same. Referral has been provided at the time of discharge. Physical Exam Narrative: General: No acute distress, AO x3 HEENT: PERRLA, pupils bilaterally equal and reactive, pallors not present Chest: Normal vesicular breath sounds, no added sounds, equal good air entry bilaterally CVS: S1-S2 regular, no murmurs, no tachycardia, no gallops, no rubs Abdomen: Soft, nontender, no organomegaly, bowel sounds present Neuro: No focal deficits, no facial deformity, AO x3, power 5/5 in all limbs Extremities: No edema clubbing or lymphadenopathy Discharge Data Studies Completed and Pending Completed Studies During Hospitalization Category Date Time Status CT chest abdomen pelvis [CT chest abdpel w/*[id number] Cat Scan 07/08/25 23:49 Completed ] Stat CT head wo con* [id number] Stat Cat Scan 07/08/25 23:49 Completed FL barium swallow modifd [id number] Stat Exams 07/11/25 14:00 Completed CV. echo limited [id number] Routine Ultrasound 07/10/25 08:54 Completed US liver [id number] Stat Ultrasound 07/09/25 02:49 Completed Pending at discharge Category Date Time Status Blood Culture Stat Lab 07/08/25 00:09 Results Radiology Impressions Chest/Abdomen/Pelvis CT 07/08/25 23:49 IMPRESSION: 1. Right lower lobe pulmonary emboli involving all segmental branches. RV to LV ratio less than 1. 2. Moderate right effusion with associated airspace opacity, likely compressive atelectasis or infarcted tissue related to pulmonary embolism. IMPRESSION: 1. No acute findings. 2. Striated appearance of the bilateral renal cortices, nonspecific, can not exclude pyelonephritis though likely represents previous areas of infarction. ADDENDUM: 07/09/25 0101 COMMENT: THIS REPORT CONTAINS FINDINGS THAT MAY BE CRITICAL TO PATIENT CARE. The exam findings were verbally communicated by me to LY VALDIVIA via telephone conference at 12:59 AM CDT on 07/09/2025. The findings were acknowledged and understood. Head CT 07/08/25 23:49 IMPRESSION: No acute findings. Chronic findings as above. Liver Ultrasound 07/09/25 02:49 IMPRESSION: The liver is normal in echogenicity and configuration. No masses are detected. There is no intrahepatic biliary dilatation. Modified Barium Swallow 07/11/25 14:00 Impression: 1. Minimal penetration with liquids but no aspiration. 2. Minimal pharyngeal residue which cleared with multiple swallows. 3. 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 Laboratory Results WBC 7.63 10^3/uL (3.29-11.43) 07/11/25 00:48 RBC 4.21 10^6/uL (3.85-5.65) 07/11/25 00:48 Hgb 13.30 g/dL (11.27-16.99) 07/11/25 00:48 Hct 40.0 % (37-53) 07/11/25 00:48 MCV 95.0 fl (82-101) 07/11/25 00:48 MCH 31.6 pg (27-33) 07/11/25 00:48 MCHC 33.3 g/dL (30-55) 07/11/25 00:48 RDW 17.0 % (12.1-15.1) H 07/11/25 00:48 Plt Count 185 10^3/cmm (157-399) 07/11/25 00:48 MPV 11.3 fL (7.4-10.4) H 07/11/25 00:48 Neut % (Auto) 76.5 % 07/11/25 00:48 Lymph % (Auto) 12.2 % 07/11/25 00:48 Ross % (Auto) 9.2 % 07/11/25 00:48 Eos % (Auto) 1.2 % 07/11/25 00:48 Baso % (Auto) 0.5 % 07/11/25 00:48 Neut # (Auto) 5.84 10^3/uL (1.8-7.7) 07/11/25 00:48 Lymph # (Auto) 0.9 10^3/uL (0.8-4.8) 07/11/25 00:48 Ross # (Auto) 0.7 10^3/uL (0.2-0.9) 07/11/25 00:48 Eos # (Auto) 0.1 10^3/uL (0.0-0.8) 07/11/25 00:48 Baso # (Auto) 0.0 10^3/uL (0.0-0.1) 07/11/25 00:48 Nucleated RBC % (auto) 0 % 07/11/25 00:48 Nucleated RBCs # 0.0 /100WBC 07/11/25 00:48 PT 13.90 SECONDS (12.1-14.9) 07/09/25 08:16 INR 1.00 (0.8-1.2) 07/09/25 08:16 APTT 83.8 SECONDS (23.9-36.7) H 07/12/25 03:25 Specimen Type Arterial 07/08/25 00:49 Sample Site Radial, left 07/08/25 00:49 ABG pH 7.44 (7.35-7.45) 07/08/25 00:49 ABG pCO2 42.7 mmHg (35-45) 07/08/25 00:49 ABG pO2 72.3 mmHg (80.0-100.0) L 07/08/25 00:49 ABG HCO3 29.1 mmol/L (22-26) H 07/08/25 00:49 ABG Base Excess 4.4 mmol/L (-2.0-2.0) H 07/08/25 00:49 Bernardo Test Pos 07/08/25 00:49 Hematocrit 40.7 % (42-52) L 07/08/25 00:49 O2 Delivery Device Room air 07/08/25 00:49 Foreign Exchange Trader ID [email or web address] 07/08/25 00:49 Sodium 135 mmol/L (136-145) L 07/11/25 00:48 Potassium 3.6 mmol/L (3.5-5.1) 07/11/25 00:48 Chloride 98 mmol/L (98-107) 07/11/25 00:48 Carbon Dioxide 25 mmol/L (22-29) 07/11/25 00:48 Anion Gap 15.6 (5-19) 07/11/25 00:48 BUN 18 mg/dL (8-23) 07/11/25 00:48 Creatinine 0.8 mg/dL (0.7-1.2) 07/11/25 00:48 GFR Calculation Not Reportable 07/11/25 00:48 Glucose 75 mg/dL (65-115) 07/11/25 00:48 Calculated Osmolality 281 mOsm/kg (285-295) L 07/11/25 00:48 Lactic Acid 2.5 mmol/L (0.5-2.2) H 07/08/25 00:04 Lactic Acid (Sepsis) 1.9 mmol/L (0.5-2.2) 07/09/25 03:05 Calcium 8.2 mg/dL (8.5-10.5) L 07/11/25 00:48 Phosphorus 3.0 mg/dL (2.5-4.5) 07/10/25 04:59 Magnesium 2.3 mg/dL (1.7-2.3) 07/10/25 04:59 Total Bilirubin 1.4 mg/dL (0.15-1.2) H 07/11/25 00:48 AST 28 U/L (0-40) 07/11/25 00:48 ALT 24 U/L (0-41) 07/11/25 00:48 Alkaline Phosphatase 92 U/L (40-130) 07/11/25 00:48 Troponin T Baseline 74 ng/L (0-15) H 07/08/25 00:04 Troponin T 120 Minute 70.47 ng/L (0-15) H 07/09/25 01:44 Delta Troponin T -3.53 ABS# (0-10) L 07/09/25 01:44 Troponin T Hi Sens 6Hr 72.96 ng/L (0-15) H 07/09/25 06:15 Troponin T Hi Sens 6Hr Delta -2.96 ng/L (0-12) L 07/09/25 06:15 C-Reactive Protein 12.1 mg/L (0.0-4.9) H 07/08/25 00:04 NT-Pro-B Natriuret Pep 37812 pg/mL (0-450) H 07/08/25 00:04 Total Protein 5.3 g/dL (6.6-8.7) L 07/11/25 00:48 Albumin 3.2 g/dL (3.5-5.2) L 07/11/25 00:48 Globulin 2.1 g/dL (1.3-4.6) 07/11/25 00:48 Urine Color Yellow (Yellow) 07/09/25 08:15 Urine Appearance Clear (CLEAR) 07/09/25 08:15 Urine pH 6.0 (5-7) 07/09/25 08:15 Ur Specific [place] 1.041 (1.005-1.030) H 07/09/25 08:15 Urine Protein Negative (Negative) 07/09/25 08:15 Urine Glucose (UA) 3+ (Normal) H 07/09/25 08:15 Urine Ketones Negative (Negative) 07/09/25 08:15 Urine Blood Negative (Negative) 07/09/25 08:15 Urine Nitrate Negative (Negative) 07/09/25 08:15 Urine Bilirubin Negative (Negative) 07/09/25 08:15 Urine Urobilinogen 0.2 mg/dL (Negative) 07/09/25 08:15 Ur Leukocyte Esterase Negative (Negative) 07/09/25 08:15 Urine RBC 0-2 /hpf (0-2) 07/09/25 08:15 Urine WBC 0-5 /hpf (0-5) 07/09/25 08:15 Ur Squamous Epith Cells 0-5 /hpf (0-5) 07/09/25 08:15 Amorphous Sediment Not Reportable 07/09/25 08:15 Urine Bacteria None seen /hpf (NONE) 07/09/25 08:15 Hyaline Casts 0.81 /lpf 07/09/25 08:15 Digoxin 1.0 ng/mL (0.6-1.2) 07/11/25 07:35 Hepatitis A IgM Ab Non-reactive (Nonreactive) 07/09/25 00:04 Hepatitis A IgM Ab Non-reactive (Nonreactive) 07/09/25 00:04 Hepatitis A Ab Total Reactive (NON-REACTIVE) A 07/09/25 00:04 Hep Bs Antigen Non-reactive (Nonreactive) 07/09/25 00:04 Hep Bs Antibody < 3.5 (11.5-1000) L 07/09/25 00:04 Hep B Core Total Ab Non-reactive (Nonreactive) 07/09/25 00:04 Hepatitis C Antibody Non-reactive (Nonreactive) 07/09/25 00:04 Vitals Last Vital Signs Temp 97.8 F 07/12/25 11:49 Pulse 67 07/12/25 11:49 Resp 16 07/12/25 11:49 BP 96/58 07/12/25 11:49 Pulse Ox 94 07/12/25 11:49 O2 Del Method Room Air 07/12/25 11:49 Discharge Plan Discharge Patient Disposition: Home Condition: Stable Prescriptions: New acetaminophen 325 mg Tablet 650 mg PO Q6H PRN (Reason: Mild/Mod Pain Or Temp >/= 101) Qty: 30 0RF pantoprazole 40 mg Tablet,Delayed Release (Dr/Ec) 40 mg PO DAILY 30 Days Qty: 30 0RF Eliquis 5 mg tablet 5 mg PO BID 90 Days Qty: 180 0RF Rx Instructions: take 10mg BID for 1 week, then reduce dose to 5mg BID amoxicillin-pot clavulanate 875-125 mg tablet 1 tab PO BID 3 Days Qty: 6 0RF Continued magnesium oxide 400 mg magnesium tablet 400 mg PO DAILY (DME) Nebulizer machine and supplies See Rx Instructions .ROUTE .MEDSUPPLY Qty: 1 11RF Rx Instructions: As directed tamsulosin 0.4 mg capsule 0.8 mg PO QDAY dapagliflozin propanediol [Farxiga] 10 mg tablet 10 mg PO DAILY azelastine 137 mcg (0.1 %) spray,non-aerosol 1 spray intranasal DAILY Qty: 30 3RF Rx Instructions: administer into each nostril midodrine 5 mg tablet 5 mg PO TID finasteride 5 mg tablet 5 mg PO QDAY nitroglycerin [Nitrostat] 0.4 mg tablet, sublingual 0.4 mg sublingual Q5M PRN (Reason: chest pain) Qty: 50 3RF triamcinolone acetonide 0.1 % cream 1 applic topical BID PRN (Reason: eczema) Qty: 80 1RF Rx Instructions: no more than 2 wks/mo clopidogrel 75 mg tablet 75 mg PO DAILY Qty: 90 3RF furosemide 40 mg tablet 40 mg PO DAILY sacubitril-valsartan [Entresto] 24-26 mg tablet 1 tab PO BID digoxin 125 mcg (0.125 mg) tablet 0.125 mg PO DAILY mirtazapine 15 mg tablet 15 mg PO DAILY metoprolol succinate 25 mg tablet extended release 24 hr 12.5 mg PO DAILY ezetimibe-simvastatin 10-20 mg tablet 1 tab PO DAILY multivitamin Tablet 1 tab PO DAILY Qty: 7 0RF potassium chloride 10 mEq capsule, extended release 10 meq PO BID Discontinued torsemide 20 mg tablet 20 mg PO QDAY ramipril 1.25 mg capsule 1.25 mg PO QDAY aspirin 81 mg Tablet,Delayed Release (Dr/Ec) 81 mg PO DAILY Qty: 30 0RF Discharge Order = DC NOW: Discharge Order (Routine); Ordered 07/12/25 Ordered By: Remedios Buitrago Referrals: [facility] [Outside] - 7-10 days Referral Note: dysphagia x 2 months, dilated LA related to known cardiomyopathy, suspected esophageal extrinsic compression from LA based on MBS We have notified your physician's clinic of the need for a follow-up appointment to be scheduled. If you have not heard from them within the next 2 business days, please call them directly. Chip Jaquez NP [Primary Care Provider, [facility]] - 07/20/25 9:20 am [facility] [Other] - 7-10 days Referral Note: dysphagia x 2 months, dilated LA related to known cardiomyopathy, suspected esophageal extrinsic compression from LA based on MBS We have notified your physician's clinic of the need for a follow-up appointment to be scheduled. If you have not heard from them within the next 2 business days, please call them directly. Patient Instructions: Amoxicillin/Clavulanate Potassium (By mouth), Apixaban (By mouth), Pulmonary Embolism (GEN), Dysphagia (GEN), Opioid Safety, Patient Portal & [place] Instructions Discharge Attestations Time Spent in Discharge Care*: greater than 30 min Status at Discharge: Cognitive status at discharge: cognitively intact, Behavioral status at discharge: cooperative, Quality Metrics Clinical Quality Measures [ Venous Thromboembolism { Contraindication to Overlap Therapy: None; Overlap threrpy ordered; VTE Discharge Education: Education about anticoagulant therapy/Care Notes given; Deep Vein Thrombosis/Pulmonary Embolism Present on Admission: Yes;}] Coding Level of Care Code Acute Code for Chg Fwd Diagnoses Oropharyngeal dysphagia R13.12 Pulmonary embolism I26.99 Ischemic cardiomyopathy with implantable cardioverter-defibrillator (ICD) I25.5; Z95.810 Elevated bilirubin R17 Cachexia R64 Protein calorie malnutrition E46 Debility R53.81
== END 2025-07-12 11:15 | disposition home health service (06) | DRG 175 ==
LOC: ER 07-09 03:10 → MEDSURG 07-09 03:16
PROVIDERS: Student in an Organized Health Care Education/Training Program; Admitting Provider Internal Medicine; Emergency Provider Emergency Medicine; PCP Clinical Nurse Specialist Adult Health; Visit Provider Student in an Organized Health Care Education/Training Program
DX: I26.99 Other pulmonary embolism without acute cor pulmonale (principal); E43 Unspecified severe protein-calorie malnutrition; J18.9 Pneumonia, unspecified organism; Z68.1 Body mass index [BMI] 19.9 or less, adult; I50.20 Unspecified systolic (congestive) heart failure; R13.12 Dysphagia, oropharyngeal phase; I25.5 Ischemic cardiomyopathy; R82.2 Biliuria; I25.10 Atherosclerotic heart disease of native coronary artery without angina pectoris; N18.2 Chronic kidney disease, stage 2 (mild); M10.9 Gout, unspecified; E78.5 Hyperlipidemia, unspecified; N40.0 Benign prostatic hyperplasia without lower urinary tract symptoms; M47.812 Spondylosis without myelopathy or radiculopathy, cervical region; M48.062 Spinal stenosis, lumbar region with neurogenic claudication; G62.9 Polyneuropathy, unspecified; I34.0 Nonrheumatic mitral (valve) insufficiency; E83.110 Hereditary hemochromatosis; Z79.02 Long term (current) use of antithrombotics/antiplatelets; Z95.810 Presence of automatic (implantable) cardiac defibrillator; Z95.5 Presence of coronary angioplasty implant and graft; Z87.891 Personal history of nicotine dependence; Z85.828 Personal history of other malignant neoplasm of skin
CPT/HCPCS: 36415; 36600; 70450; 71260; 74177; 74230; 76705; 80053; 80162; 81001; 82728; 82803; 83540; 83605; 83735; 83880; 84100; 84484; 85025; 85610; 85730; 86140; 86705; 86706; 86708; 86709; 86803; 87040; 87340; 92611; 93005; 93308; 94760; 96365; 96366; 96375; 97116; 97161; 97165; 99285; J0456; J0696; J1644; J7040; J7050; J9999

== ENCOUNTER → 2025-07-29 10:47 | Outpatient (BNVA) | payer MEDICARE, OTHER, SELFPAY | PROVIDERS: PCP Clinical Nurse Specialist Adult Health; Visit Provider Nurse Practitioner Family | DX: I50.9 Heart failure, unspecified (principal); I25.10 Atherosclerotic heart disease of native coronary artery without angina pectoris; J90 Pleural effusion, not elsewhere classified; I26.99 Other pulmonary embolism without acute cor pulmonale; I48.91 Unspecified atrial fibrillation; Z79.01 Long term (current) use of anticoagulants; R13.10 Dysphagia, unspecified; R63.0 Anorexia; Z68.1 Body mass index [BMI] 19.9 or less, adult; Z95.810 Presence of automatic (implantable) cardiac defibrillator; Z87.891 Personal history of nicotine dependence; I25.2 Old myocardial infarction; E78.2 Mixed hyperlipidemia; I50.33 Acute on chronic diastolic (congestive) heart failure | CPT/HCPCS: 36415; 80162; 83880; 85025; 99213 ==

== ENCOUNTER → 2025-08-01 10:17 | Outpatient (BNVA) | payer MEDICARE, OTHER, SELFPAY | PROVIDERS: PCP Clinical Nurse Specialist Adult Health; Visit Provider Clinical Nurse Specialist Adult Health | DX: I50.33 Acute on chronic diastolic (congestive) heart failure (principal) | CPT/HCPCS: 80162 ==